=== PATIENT | female | born 1950 | race Caucasian/White ===

== ENCOUNTER 2020-07-18 16:44 | Outpatient (REF) | payer MEDICARE, MEDICAID, SELFPAY | END 2020-07-18 16:45 | disposition home or self-care (01) | LOC: HO.LNP 16:44 | PROVIDERS: Visit Provider Nurse Practitioner Family | DX: Z20.828 Contact with and (suspected) exposure to other viral communicable diseases (principal); R05 Cough | CPT/HCPCS: U0003 ==

== ENCOUNTER 2020-08-29 12:49 | Outpatient (REF) | payer MEDICARE, MEDICAID, SELFPAY ==
--- NOTE | 2020-08-29 12:53 | US_ITS ---
EXAMINATION: US VENOUS ULTRASOUND WITH DOPPLER LOWER EXTREMITY, RIGHT CLINICAL INFORMATION: Right lower extremity pain and swelling. Assess for DVT. COMPARISON: Bilateral leg venous ultrasound, reflux exam 12/07/2017 TECHNIQUE: Ultrasound of the deep veins is performed from the hip to the calf with compression sonography and color and pulse Doppler assessment. Spectral analysis with color-flow imaging is performed. FINDINGS: There is normal venous compression and respiratory variation and augmented flow. The visualized common femoral vein, superficial femoral vein, profunda femoral vein, popliteal vein, and the trifurcation region shows no evidence of deep venous thrombosis. No popliteal fossa cyst. US/US venous duplex LE RT IMPRESSION: No DVT demonstrated in the right lower extremity.
== END 2020-08-29 12:50 | disposition home or self-care (01) ==
LOC: HO.HMGCX 12:49
PROVIDERS: PCP Internal Medicine; Visit Provider Internal Medicine
DX: M79.89 Other specified soft tissue disorders (principal); M79.661 Pain in right lower leg
CPT/HCPCS: 93971

== ENCOUNTER → 2020-11-01 14:01 | Outpatient (BNVA) | payer MEDICARE, MEDICAID, SELFPAY | PROVIDERS: PCP Internal Medicine; Visit Provider Nurse Practitioner | DX: Z13.89 Encounter for screening for other disorder (principal) | CPT/HCPCS: Q3014 ==

== ENCOUNTER → 2021-01-24 13:46 | Outpatient (BNVA) | payer MEDICARE, MEDICAID, SELFPAY | PROVIDERS: PCP Internal Medicine; Visit Provider Nurse Practitioner | DX: K86.89 Other specified diseases of pancreas (principal); N81.6 Rectocele | CPT/HCPCS: Q3014 ==

== ENCOUNTER 2021-03-24 10:18 | Outpatient (REF) | payer MEDICARE, MEDICAID, SELFPAY ==
--- NOTE | ~2021-03-24 | XR_ITS ---
EXAMINATION: KNEE X-RAY CLINICAL INFORMATION: Pain COMPARISON: Previous x-ray December 2016 TECHNIQUE: Standing AP view of both knees and lateral and sunrise view of right knee FINDINGS: Right knee: There is a 3 component knee replacement in satisfactory position. No fracture, dislocation or x-ray evidence of loosening is seen. Soft tissues are unremarkable. There is no joint effusion. Standing AP view of the left knee is unremarkable. XR/XR knee RT 2V IMPRESSION: Satisfactory appearance of right knee replacement.
--- NOTE | ~2021-03-24 | XR_ITS ---
EXAMINATION: KNEE X-RAY CLINICAL INFORMATION: Pain COMPARISON: Previous x-ray December 2016 TECHNIQUE: Standing AP view of both knees and lateral and sunrise view of right knee FINDINGS: Right knee: There is a 3 component knee replacement in satisfactory position. No fracture, dislocation or x-ray evidence of loosening is seen. Soft tissues are unremarkable. There is no joint effusion. Standing AP view of the left knee is unremarkable. XR/XR knee standing BI IMPRESSION: Satisfactory appearance of right knee replacement.
== END 2021-03-24 10:19 | disposition home or self-care (01) ==
LOC: HO.HOSX 10:18
PROVIDERS: Visit Provider Physician Assistant
DX: M25.561 Pain in right knee (principal); Z96.651 Presence of right artificial knee joint
CPT/HCPCS: 73560; 73565; 99212

== ENCOUNTER 2021-03-26 12:30 | Outpatient (REF) | payer MEDICARE, MEDICAID, SELFPAY ==
--- NOTE | ~2021-03-26 | MM_ITS ---
EXAMINATION: MM SCREENING DIGITAL BREAST TOMOSYNTHESIS, BILATERAL CLINICAL INFORMATION: Screening. Asymptomatic. The lifetime risk of breast cancer based on the Tyrer-Cuzick Model is 5%. COMPARISON: Mammography: 04/28/2019, 04/15/2018, 04/13/2017 TECHNIQUE: Digital breast tomosynthesis is performed in both the craniocaudal and mediolateral oblique views along with computer-aided detection (CAD). Synthesized 2D images are generated from the tomosynthesis. FINDINGS: There are scattered areas of fibroglandular density (ACR BI-RADS breast composition Category b). There are no significant masses, abnormal calcifications, or other abnormalities. Parenchymal pattern is similar to prior exams. No significant changes. MM/MM tomosynthesis screening BI IMPRESSION: No mammographic evidence of malignancy. ASSESSMENT: BI-RADS 1: Negative RECOMMENDATION: Routine annual mammography screening. This patient's information was entered into a reminder system with a target due date for their next mammogram.
== END 2021-03-26 12:31 | disposition home or self-care (01) ==
LOC: HO.MAMMO 12:30
PROVIDERS: Visit Provider Internal Medicine
DX: Z12.31 Encounter for screening mammogram for malignant neoplasm of breast (principal)
CPT/HCPCS: 77063; 77067

== ENCOUNTER → 2021-04-28 11:33 | Outpatient (BNVA) | payer MEDICARE, MEDICAID, SELFPAY | PROVIDERS: Referring Provider Internal Medicine; Visit Provider Nurse Practitioner | DX: K59.04 Chronic idiopathic constipation (principal); K21.9 Gastro-esophageal reflux disease without esophagitis; K86.89 Other specified diseases of pancreas; N81.6 Rectocele | CPT/HCPCS: 99212 ==

== ENCOUNTER 2021-08-04 16:51 | Outpatient (REF) | payer MEDICARE, MEDICAID, SELFPAY | END 2021-08-04 16:52 | disposition home or self-care (01) | LOC: HO.LNP 16:51 | PROVIDERS: Visit Provider Physician Assistant Medical | DX: N39.0 Urinary tract infection, site not specified (principal) | CPT/HCPCS: 87086; 87088; 87186 ==

== ENCOUNTER → 2022-01-13 10:50 | Outpatient (BNVA) | payer MEDICARE, MEDICAID, SELFPAY | PROVIDERS: PCP Internal Medicine; Referring Provider Internal Medicine; Visit Provider Nurse Practitioner | DX: K59.04 Chronic idiopathic constipation (principal); R14.0 Abdominal distension (gaseous) | CPT/HCPCS: 99212 ==

== ENCOUNTER 2022-04-15 09:45 | Outpatient (REF) | payer MEDICARE, MEDICAID, SELFPAY ==
--- NOTE | ~2022-04-15 | MM_ITS ---
EXAMINATION: BONE DENSITOMETRY CLINICAL INDICATION: Asymptomatic menopausal state. COMPARISON: Previous BD dated 04/15/2018 and baseline BD dated 10/23/2014. TECHNIQUE: Using a [employer] DXA System (software version: 13.1) manufactured by [employer], dual-energy x-ray absorptiometry was performed of the lumbar spine and left hip. The images are of good technical quality. Summary results are attached. FINDINGS: AP SPINE L1-L4: Current: BMD 1.029 g/cm2, Z-score -0.4, T-score -1.3, osteopenia, 2.1% decrease from previous, 1.6% decrease from baseline (<5% change is not significant). Prior: BMD 1.051 g/cm2. Baseline: BMD 1.046 g/cm2. LEFT FEMUR, NECK: Current: BMD 0.820 g/cm2, Z-score -0.4, T-score -1.6, osteopenia. Prior: BMD 0.912 g/cm2. Baseline: BMD 0.819 g/cm2. LEFT FEMUR, TOTAL: Current: BMD 0.843 g/cm2, Z-score -0.5, T-score -1.3, osteopenia, 3.7% decrease from previous, 3.9% decrease from baseline (<5% change is not significant). Prior: BMD 0.875 g/cm2. Baseline: BMD 0.877 g/cm2. IDENTIFIED RISK FACTORS: Menopause, hysterectomy, bilateral oophorectomy, low calcium intake. HISTORY OF FRACTURE: None listed. MEDICATIONS: Calcium. MM/XR DEXA axial skeleton IMPRESSION: 1. DIAGNOSIS: Osteopenia based on the lowest T-score value of -1.6 in the femoral neck applying World Health Organization criteria. 2. 10-YEAR FRACTURE RISK PREDICTION, FRAX: Major osteoporotic fracture (clinical spine, forearm, hip or shoulder) 9.2%. Hip fracture 1.3%. 3. Treatment Recommendations: NOF guidelines recommend consideration for treatment in postmenopausal women and men age 50 and older presenting with the following: -A hip or vertebral (clinical or morphometric) fracture. -T-score less than or equal to -2.5 at the femoral neck or spine after appropriate evaluation to exclude secondary causes. -Low bone mass at the hip or spine and a 10-year fracture probability by FRAX of greater than or equal to 3% for hip fracture or greater than or equal to 20% for major osteoporotic fracture based on the [place] adapted WHO algorithm. 4. Other Recommendations: All treatment decisions require clinical judgment and consideration of individual patient factors, including patient preferences, comorbidities, previous drug use, risk factors not captured in the FRAX model (e.g. frailty, falls, vitamin D deficiency, increased bone turnover, interval significant decline in bone density) and possible under or overestimation of fracture risk by FRAX. Additional medical evaluation for secondary cause of low bone mineral density may be appropriate. FUTURE SCAN RECOMMENDATION: People with diagnosed cases of osteoporosis or at high risk for fracture should have regular bone mineral density tests. For patients eligible for Medicare, routine testing is allowed once every 2 years. The testing frequency can be increased to one year for patients who have rapidly progressing disease, those who are receiving or discontinuing medical therapy to restore bone mass, or have additional risk factors.
--- NOTE | ~2022-04-15 | MM_ITS ---
EXAMINATION: MM SCREENING DIGITAL BREAST TOMOSYNTHESIS, BILATERAL CLINICAL INFORMATION: Screening. Asymptomatic. History remote surgical excision benign right fibroadenoma, 2008 The lifetime risk of breast cancer based on the Tyrer-Cuzick Model is 5%. COMPARISON: Mammography: 03/26/2021, 04/28/2019, 04/15/2018. TECHNIQUE: Digital breast tomosynthesis is performed in both the craniocaudal and mediolateral oblique views along with computer-aided detection (CAD). Synthesized 2D images are generated from the tomosynthesis. FINDINGS: There are scattered areas of fibroglandular density (ACR BI-RADS breast composition Category b). Parenchymal pattern is similar to prior studies. There is no developing density or interval mass or architectural abnormality. Asymmetry anterior outer right breast is similar to prior exams. There are no abnormal calcifications. The axilla and skin contours are unremarkable. MM/MM tomosynthesis screening BI IMPRESSION: No mammographic evidence of malignancy. ASSESSMENT: BI-RADS 2: Benign RECOMMENDATION: Routine annual mammography screening. This patient's information was entered into a reminder system with a target due date for their next mammogram.
== END 2022-04-15 09:46 | disposition home or self-care (01) ==
LOC: HO.MAMMO 09:45
PROVIDERS: PCP Internal Medicine; Visit Provider Internal Medicine
DX: Z12.31 Encounter for screening mammogram for malignant neoplasm of breast (principal); Z13.820 Encounter for screening for osteoporosis; Z78.0 Asymptomatic menopausal state
CPT/HCPCS: 77063; 77067; 77080

== ENCOUNTER → 2022-05-19 10:29 | Outpatient (BNVA) | payer MEDICARE, MEDICAID, SELFPAY | PROVIDERS: PCP Internal Medicine; Referring Provider Internal Medicine; Visit Provider Nurse Practitioner | DX: K59.04 Chronic idiopathic constipation (principal); K86.89 Other specified diseases of pancreas; K21.9 Gastro-esophageal reflux disease without esophagitis | CPT/HCPCS: 99212 ==

== ENCOUNTER → 2022-09-15 10:19 | Outpatient (BNVA) | payer MEDICARE, MEDICAID, SELFPAY | PROVIDERS: PCP Internal Medicine; Visit Provider Nurse Practitioner | DX: K59.04 Chronic idiopathic constipation (principal); K86.89 Other specified diseases of pancreas; K21.9 Gastro-esophageal reflux disease without esophagitis; N81.6 Rectocele | CPT/HCPCS: 99212 ==

== ENCOUNTER 2022-10-06 14:25 | Outpatient (REF) | payer MEDICARE, MEDICAID, SELFPAY ==
--- NOTE | ~2022-10-06 | XR_ITS ---
EXAMINATION: XR CERVICAL SPINE CLINICAL INFORMATION: Neck pain. COMPARISON: None. TECHNIQUE: 5 views of the cervical spine were obtained. FINDINGS: There is normal cervical lordosis. The vertebral heights, vertebral alignment and disc heights are normal. There is no visible acute fracture, dislocation or subluxation. There is bilateral C3-C4 and C4-C5 mild facet joint hypertrophy. The neural foramina are patent bilaterally on oblique views. The soft tissues are normal. XR/XR cervical spine 4V IMPRESSION: Unremarkable cervical spine exam. Mild facet joint hypertrophy C3-C4 and C4-C5 disc levels.
== END 2022-10-06 14:26 | disposition home or self-care (01) ==
LOC: HO.HMGCX 14:25
PROVIDERS: PCP Internal Medicine; Visit Provider Internal Medicine
DX: M54.2 Cervicalgia (principal)
CPT/HCPCS: 72050

== ENCOUNTER 2022-11-13 10:00 | Outpatient (RCR) | payer MEDICARE, MEDICAID, SELFPAY ==
--- NOTE | 2022-10-29 13:51 | MHC.PT.EP ---
[facility] [place] Office [place] Office [place] Office [address] [phone] F: [phone] F: [phone] F: [phone] F: [phone] Physical Therapy Plan of Care Date of Evaluation: Date of Surgery: Diagnosis: cervicalgia Assessment: Pt is a 72 y/o female referred to PT for eval and treat of cervicalgia resulting in decreased tolerance for lifting objects of weight, turning her head to the L > R, reading, tolerating static postures, reaching into low cupboards, as well as disturbed sleep secondary to decreased cervical ROM and strength, decreased posture and dowager's deformity, sedentary lifestyle, TTP of L accessory tissue, increased L > R cervical accessory tissue tension. Pt is deemed an appropriate candidate to receive skilled PT services to address their physical impairments in order to improve their functional ability. Frequency and Duration: The patient will be seen 2 x/ wk x 4 wks. Short Term Goals: Initiate HEP. Improve baseline pain from 5 to < 3/10. School Occupational Therapist Goals: I with Home Program. symmetrical cervical rotation achieved. NDI improved by at least 9 points in order to demonstrate improved function. Pt will report No longer disturbed of sleep d/t cervical pain. Treatment Plan: Modalities to reduce pain, spasms and effusion. Manual therapy to restore motion and function. Therapeutic exercise to improve strength and flexibility. Neuromuscular re-education for posture and balance. Therapeutic activities to return to functional activities of daily living. Electronically signed by: Jorje Benitez PT. Please sign and return to therapist. Thank you for your referral.
--- NOTE | 2022-11-27 13:44 | MHC.PT.DC ---
[facility] [place] Office [place] Office [place] Office [address]azmine [address] [phone] F: [phone] F: [phone] F: [phone] F: [phone] Physical Therapy Discharge Report Diagnosis: cervicalgia Date of Surgery: Date of Evaluation: 10/29/22 Date of Discharge: 11/27/22 Treatments to Date: 5 Cancellations to Date: No Shows to Date: Discharge Status: Improved Function Independent with HEP Patient Elected to Stop Discharge Summary: Electronically signed by: Jorje Benitez PT. Please sign and return to therapist. Thank you for your referral.
== END 2022-11-27 13:43 | disposition home or self-care (01) ==
LOC: HO.PTCHIC 10:00
PROVIDERS: PCP Internal Medicine; Visit Provider Internal Medicine
DX: M54.2 Cervicalgia (principal)
CPT/HCPCS: 97110; 97140; 97161

== ENCOUNTER 2022-11-23 14:08 | Outpatient (REF) | payer MEDICARE, MEDICAID, SELFPAY ==
--- NOTE | ~2022-11-23 | XR_ITS ---
EXAMINATION: XR CHEST CLINICAL INFORMATION: R05.9 - Cough, unspecified COMPARISON: Chest radiographs 07/10/2015, 06/03/2015 TECHNIQUE: 2 views of the chest were obtained. FINDINGS: There is an irregular nodular density right perihilar region superior to the minor fissure measuring approximately 1.5 cm. Finding is not clearly visualized on lateral view. The remainder of the lungs are clear. There is no effusion. The costophrenic sulci are clear. The heart is normal in size. The hilar and mediastinal contours are unremarkable. There are multilevel degenerative changes thoracic spine. XR/XR chest 2V IMPRESSION: -Irregular nodular density right perihilar region superior to minor fissure measuring approximately 1.[address] chest with contrast for further evaluation. -Lungs otherwise clear. No effusion.
== END 2022-11-23 14:09 | disposition home or self-care (01) ==
LOC: HO.HMGCX 14:08
PROVIDERS: PCP Internal Medicine; Visit Provider Physician Assistant
DX: Z20.822 Contact with and (suspected) exposure to COVID-19 (principal); R05.9 Cough, unspecified
CPT/HCPCS: 0241U; 71046

== ENCOUNTER 2022-11-23 14:45 | Outpatient (REF) | payer MEDICARE, MEDICAID, SELFPAY ==
[2022-11-23 17:21] LABS: Influenza A PCR NEGATIVE (Negative); Influenza B PCR NEGATIVE (Negative); Resp Syncy Virus RNA Qual PCR NEGATIVE (Negative); SARS COV2 PCR INHOUSE NEGATIVE (Negative)
== END 2022-11-23 14:46 | disposition home or self-care (01) ==
LOC: HO.LAB 14:45
PROVIDERS: Visit Provider Physician Assistant
DX: Z13.89 Encounter for screening for other disorder (principal)
CPT/HCPCS: 0241U

== ENCOUNTER 2023-02-01 10:20 | Outpatient (REF) | payer MEDICARE, MEDICAID, SELFPAY ==
--- NOTE | ~2023-02-01 | MR_ITS ---
EXAMINATION: MR BRAIN WITHOUT CONTRAST CLINICAL INFORMATION: Right sided ocular pain. COMPARISON: None available. TECHNIQUE: MRI of the brain was obtained using routine sequences without contrast. FINDINGS: No focal restricted diffusion is demonstrated to suggest acute or subacute cerebral ischemia. No evidence of acute or chronic hemorrhagic products on heme-sensitive imaging. Scattered periventricular and deep white matter T2 FLAIR hyperintensities consistent with mild underlying microangiopathy. Proportional prominence of the ventricles and sulcal spaces without evidence of obstructive hydrocephalus. No abnormal mass effect. No midline shift. Normal appearance of the pituitary gland. The suprasellar cistern remains widely patent. Normal positioning of the cerebellar tonsils. Normal arterial and venous vascular flow voids are present. Normal, homogeneous marrow signal. There is a 1.3 cm ovoid structure without restricted diffusion within the nasopharynx suggestive of a retention cyst of the left-sided fossa of Rosenmuller. Mild mucosal thickening of the paranasal sinuses. Moderate left-sided mastoid effusion. No signal abnormalities within the right-sided mastoid. No demonstrated abnormalities of the orbits on limited evaluation. MR/MR head/brain wo con IMPRESSION: 1. No acute intracranial abnormalities. 2. Mild underlying microangiopathy and generalized cerebral volume loss. 3. Moderate left-sided mastoid effusion. Apparent 1.3 cm retention cyst of the left-sided fossa of Rosenmuller.
== END 2023-02-01 10:21 | disposition home or self-care (01) ==
LOC: HO.MRI 10:20
PROVIDERS: PCP Internal Medicine; Visit Provider Nurse Practitioner Family
DX: H57.11 Ocular pain, right eye (principal)
CPT/HCPCS: 70551

== ENCOUNTER 2023-03-16 10:46 | Outpatient (AMB) | payer MEDICARE, MEDICAID, SELFPAY ==
--- NOTE | 2023-03-16 10:52 | A.OFFVIS_ITS ---
Intake Vital Signs 03/16/23 10:53 Height 5 ft 2 in Weight 199 lb 11.821 oz BMI 36.5 BP 128/87 Blood Pressure Location Lt brachial Position Sitting Pulse 63 Intake Visit Reasons: 6 month f/u Intake Note: Veronica presents in office as a est.patient for a 6 month f/u PT CC: pt reports having no concerns pt denies any other GI Issues Director Of Coding Required: No Accompanied by: Self / Same As Patient Allergies aged foods Allergy (Unknown, Verified 03/16/23 10:55) rash bee pollen [Bee Stings] Allergy (Unknown, Verified 03/16/23 10:55) SWELLING bees Allergy (Unknown, Verified 03/16/23 10:55) anaphylaxis gabapentin [Neurontin] Allergy (Unknown, Verified 03/16/23 10:55) hematurea latex [LATEX] Allergy (Unknown, Verified 03/16/23 10:55) RASH risperidone [From Risperdal] Allergy (Unknown, Verified 03/16/23 10:55) LUMPS ON ABDOMEN- SUPERFICIAL PHLEBITIS, painful lumps of abdomen white composit dental filling Allergy (Unknown, Verified 03/16/23 10:55) hives lactose Adverse Reaction (Mild, Verified 03/16/23 10:55) Unknown tramadol [TRAMADOL] Adverse Reaction (Mild, Verified 03/16/23 10:55) nausea/vomiting divalproex sodium [From Depakote] Adverse Reaction (Unknown, Verified 03/16/23 10:55) LOW DOSE AND SLOW RELEASE CAUSES STELLA Iodinated Contrast Media [IV Dye, Iodine Containing] Adverse Reaction (Unknown, Verified 03/16/23 10:55) DEHYDRATED, TWITCHING niacin [Niacin] Adverse Reaction (Unknown, Verified 03/16/23 10:55) TURNS RED olanzapine [From Zyprexa] Adverse Reaction (Unknown, Verified 03/16/23 10:55) BLOOD IN URINE yeast, dried [yeast] Adverse Reaction (Unknown, Verified 03/16/23 10:55) WHITE COATING ON TONGUE WHITE BREAD Allergy (Mild, Uncoded 03/16/23 10:55) DIFF SWALLOWING wheath Adverse Reaction (Mild, Uncoded 03/16/23 10:55) Unknown HPI 6 month f/u HPI Details Assessment & Plan (1) Chronic idiopathic constipation: ?Code(s): K59.04 - Chronic idiopathic constipation ?Plan: She is doing well with her GI regimen, if she eats grains or dairy she has to take 2 creon and this works well. She continues on the LIzess with good CIC control. She has not had her wisdom teeth removed - her right is impacted in her cheekbone (upper) and this complicates the surgery and possibly could damage the cheekbone - she may need to see a specialist. She needs refills on all. ROV 6 mos. (2) Rectocele: ?Code(s): N81.6 - Rectocele (3) Pancreatic insufficiency: ?Code(s): K86.89 - Other specified diseases of pancreas (4) GERD (gastroesophageal reflux disease): ?Code(s): K21.9 - Gastro-esophageal reflux disease without esophagitis ? ? ? Medications: Refilled linaclotide (Linze ss) 145 mcg? PO DAILY 30 caps 7RF K59.04 - Chronic i diopathic constipa tion ? qcxzgj-fcvspisy-an ylase 24,000-76,00 0 -120,000 unit (C reon) ?? administe r with meals and/o r snacks 1 cap? PO TID 90 c aps 3RF K58.9 - Irritable bowel syndrome wit hout diarrhea, K86 .89 - Other specif ied diseases of pa ncreas ? TODAY'S VISIT She tripped over her shopping cart in November and fell forward and broke her nose and had a hematoma over her right eye that is still painful. She also has neck pain, and just had PT for this. She had her oral surgery and they has to cut through her cheek and she still has some trouble smiling. She is stable on her GI medicine. She continues on her Linzess and her creon with good control of her bowels. ROV 6 mos. COUNT INCLUDES THE [facility] Medical History Acquired hammer toe of left foot Bipolar disorder Bunion of great toe of left foot Cellulitis of toe of right foot Hiatal hernia with GERD Mastoiditis Neck pain on left side Osteopenia of multiple sites Pain around toenail, left foot Retention cyst of nasal sinus Surgical History Fibroadenoma of right breast H/O colonoscopy History of appendectomy History of bladder surgery History of esophagogastroduodenoscopy (EGD) History of knee replacement procedure of right knee History of tonsillectomy History of total abdominal hysterectomy and bilateral salpingo-oophorectomy History of total knee arthroplasty Family History Father Emphysema, unspecified CVD (cardiovascular disease) Mother CVD (cardiovascular disease) Brother Lung cancer Bone cancer Brother Cancer of prostate Daughter No problems noted. Brother No problems noted. Brother No problems noted. Brother No problems noted. Social History Household Members: None Housing: Apartment Alcohol intake: current Alcohol intake frequency: does not drink Patient Tobacco Use Status: Never used Tobacco e-Cigarette/Vaping Use: Never Used service: No Current occupational status: retired Cognitive needs: No Hearing needs: No Vision needs: No Review of Systems Const Denies fatigue, Denies fever(s), Denies night sweats, Denies poor appetite and Denies weight loss ENT Reports Normal hearing present, Denies dysphagia, Denies odynophagia, Denies throat swelling and Denies tongue swelling Card Reports no additional complaints Resp Reports no additional complaints GI Denies abdominal pain, Denies melena, Reports bloating, Denies hematochezia, Reports constipation, Denies GI cramping, Denies dysphagia, Denies excessive flatus, Denies early satiety, Denies heartburn, Denies diarrhea, Denies nausea, Denies odynophagia, Denies vomiting and Denies hematemesis Skin/Breast Denies pruritus, Denies lesions, Denies rash and Denies jaundice Neuro Reports Normal hearing present and Denies Abnormal speech present Endo Denies fatigue Aller/Immun Denies throat swelling and Denies tongue swelling Physical Exam Vital Signs: Last Vital Signs Pulse 63 03/16/23 10:53 BP 128/87 03/16/23 10:53 BMI result Body Mass Index 36.5 Const General: cooperative, no acute distress, well developed and well groomed Nutritional Appearance: well nourished and obese Orientation/consciousness: oriented to person, oriented to place and oriented to time Limitations: No language barrier and ambulation with cane HEENT Head: Yes normocephalic and Yes atraumatic Eyes General: appearance normal, both eyes and all related structures Pupils: Equal, round and reactive pupils present Neck Neck: Yes normal visual inspection and Yes no lymphadenopathy Thyroid: Thyroid normal Resp Effort & Inspection: normal respiratory effort and able to speak in complete sentences Auscultation: clear to auscultation bilaterally Cardio Rate: regular rate Rhythm: regular rhythm Heart sounds: Normal, physiologic split S2 sound present Peripheral pulses: radial pulses present and posterior tibial pulses present GI Inspection: No distended, No Abdominal panniculus present and Yes obesity Palpation (GI): Soft to palpation, nontender, no guarding, not rigid and No hepa tosplenomegaly present Percussion: Yes normal to percussion Auscultation: normal bowel sounds Rectal Exam - Female: deferred Skin General skin exam: no rashes or lesions noted, turgor normal, skin not dry, no jaundice, No spider nevi and no striae Rashes: no rashes Nails: normal Neuro General: oriented to person, oriented to place and oriented to time Cranial nerves: Yes Equal, round and reactive pupils present and Yes Normal hearing present Speech: No Abnormal speech present Extrem General: Yes normal to inspection, No clubbing, No cyanosis and No edema Psych Appearance: grossly normal and well kempt Mental Status: mental status grossly normal Speech and movement: Normal speech and movement present Affect: normal affect Attitude: cooperative Thought process: Normal thought process present and not confabulating Thought content: Normal thought content present Insight: Fair insight present (Psych) Judgement: Fair judgement present (Psych) Assessment & Plan Assessment & Plan (1) Chronic idiopathic constipation: Code(s): K59.04 - Chronic idiopathic constipation Plan: She tripped over her shopping cart in November and fell forward and broke her nose and had a hematoma over her right eye that is still painful. She also has neck pain, and just had PT for this. She had her oral surgery and they has to cut through her cheek and she still has some trouble smiling. She is stable on her GI medicine. She continues on her [employer]ex[employer] Therapeutic[employer] and her creon with good control of her bowels. ROV 6 mos. (2) Pancreatic insufficiency: Code(s): K86.89 - Other specified diseases of pancreas (3) GERD (gastroesophageal reflux disease): Code(s): K21.9 - Gastro-esophageal reflux disease without esophagitis (4) Rectocele: Code(s): N81.6 - Rectocele Medications: Refilled linaclotide (Linzess) 145 mcg PO DAILY 30 caps 7RF K59.04 - Chronic idiopathic constipation [id number]-gmuzghc 24,000-76,000 -120,000 unit (Creon) 1 cap PO TID 90 caps 6RF K58.9 - Irritable bowel syndrome without diarrhea, K86.89 - Other specified diseases of pancreas Coding Level of Care Code Est Pt Level 3 (53722) Diagnoses Chronic idiopathic constipation K59.04 Pancreatic insufficiency K86.89 GERD (gastroesophageal reflux disease) K21.9 Rectocele N81.6
[2023-03-16 10:53] VITALS: BP 128/87; PULSE 63; BMI 36.5
== END 2023-03-16 11:28 | disposition home or self-care (01) ==
PROVIDERS: PCP Internal Medicine; Visit Provider Nurse Practitioner
DX: K59.04 Chronic idiopathic constipation (principal); K86.89 Other specified diseases of pancreas; K21.9 Gastro-esophageal reflux disease without esophagitis; N81.6 Rectocele
CPT/HCPCS: 99213

== ENCOUNTER → 2023-03-16 10:46 | Outpatient (BNVA) | payer MEDICARE, MEDICAID, SELFPAY | PROVIDERS: PCP Internal Medicine; Visit Provider Nurse Practitioner | DX: K59.04 Chronic idiopathic constipation (principal); K86.89 Other specified diseases of pancreas; K21.9 Gastro-esophageal reflux disease without esophagitis; N81.6 Rectocele | CPT/HCPCS: 99212 ==

== ENCOUNTER 2023-04-26 11:45 | Outpatient (REF) | payer MEDICARE, MEDICAID, SELFPAY ==
--- NOTE | ~2023-04-26 | MM_ITS ---
EXAMINATION: MM SCREENING DIGITAL BREAST TOMOSYNTHESIS, BILATERAL CLINICAL INFORMATION: Screening. Asymptomatic. COMPARISON: Mammography: This study is compared with prior exams dating back to 2016. TECHNIQUE: Digital breast tomosynthesis is performed in both the craniocaudal and mediolateral oblique views along with computer-aided detection (CAD). Synthesized 2D images are generated from the tomosynthesis. FINDINGS: There are scattered areas of fibroglandular density (ACR BI-RADS breast composition Category b). There are no significant masses, abnormal calcifications, or other abnormalities. MM/MM tomosynthesis screening BI IMPRESSION: No mammographic evidence of malignancy. ASSESSMENT: BI-RADS BI-RADS 1 - Negative RECOMMENDATION: Routine annual mammography screening. 1 year F/U This examination should not preclude the clinical evaluation of a suspicious palpable abnormality. This patient's information was entered into a reminder system with a target due date for their next mammogram.
== END 2023-04-26 11:46 | disposition home or self-care (01) ==
LOC: HO.MAMMO 11:45
PROVIDERS: PCP Internal Medicine; Visit Provider Internal Medicine
DX: Z12.31 Encounter for screening mammogram for malignant neoplasm of breast (principal)
CPT/HCPCS: 77063; 77067

== ENCOUNTER → 2023-04-26 12:00 | Outpatient (BNV) | payer MEDICARE, MEDICAID, SELFPAY | PROVIDERS: PCP Internal Medicine; Visit Provider Radiology Diagnostic Radiology | DX: Z12.31 Encounter for screening mammogram for malignant neoplasm of breast (principal) | CPT/HCPCS: 77063; 77067 ==

== ENCOUNTER 2023-05-04 10:44 | Outpatient (AMB) | payer MEDICARE, MEDICAID, SELFPAY ==
--- NOTE | 2023-05-04 11:26 | A.OFFVIS_ITS ---
Intake Vital Signs 05/04/23 11:39 Height 5 ft 2 in Weight 204 lb BMI 37.3 BP 110/64 Blood Pressure Location Lt brachial Position Sitting Pulse 62 Pulse Source Pulse Oximeter Pulse Oximetry (%) 98 Oxygen Delivery Method Room Air Intake Visit Reasons: CHRISTIAN [id number] Intake Note: Pt is here today for her SWV Allergies aged foods Allergy (Unknown, Verified 05/04/23 11:56) rash bee pollen [Bee Stings] Allergy (Unknown, Verified 05/04/23 11:56) SWELLING bees Allergy (Unknown, Verified 05/04/23 11:56) anaphylaxis gabapentin [Neurontin] Allergy (Unknown, Verified 05/04/23 11:56) hematurea latex [LATEX] Allergy (Unknown, Verified 05/04/23 11:56) RASH risperidone [From Risperdal] Allergy (Unknown, Verified 05/04/23 11:56) LUMPS ON ABDOMEN- SUPERFICIAL PHLEBITIS, painful lumps of abdomen white composit dental filling Allergy (Unknown, Verified 05/04/23 11:56) hives lactose Adverse Reaction (Mild, Verified 05/04/23 11:56) Unknown tramadol [TRAMADOL] Adverse Reaction (Mild, Verified 05/04/23 11:56) nausea/vomiting divalproex sodium [From Depakote] Adverse Reaction (Unknown, Verified 05/04/23 11:56) LOW DOSE AND SLOW RELEASE CAUSES STELLA Iodinated Contrast Media [IV Dye, Iodine Containing] Adverse Reaction (Unknown, Verified 05/04/23 11:56) DEHYDRATED, TWITCHING niacin [Niacin] Adverse Reaction (Unknown, Verified 05/04/23 11:56) TURNS RED olanzapine [From Zyprexa] Adverse Reaction (Unknown, Verified 05/04/23 11:56) BLOOD IN URINE yeast, dried [yeast] Adverse Reaction (Unknown, Verified 05/04/23 11:56) WHITE COATING ON TONGUE WHITE BREAD Allergy (Mild, Uncoded 05/04/23 11:56) DIFF SWALLOWING wheath Adverse Reaction (Mild, Uncoded 05/04/23 11:56) Unknown Medication List - Last Reconciled 05/04/23 by Belen Simons MD divalproex ER 500 mg PO DAILY 30 days linaclotide (Linzess) 145 mcg PO DAILY btcwri-bcdiyiaz-izgryig 24,000-76,000 -120,000 unit (Creon) 1 cap PO TID HPI SWV G0439 HPI Details SWV ?72 year old lady with osteopenia and multiple sites, history of basal cell cancer in phase, has chronic GERD, and pancreatic insufficiency, has rectocele, with chronic idiopathic constipation and bipolar disorder currently followed by psychiatry, presents for her subsequent? Annual Wellness Visit. She is up-to-date with her screening mammogram done 04/26/2023 with normal findings, no longer gets Pap smears had a hysterectomy in the past. She had a bone density scan done 04/15/2022 which showed osteopenia in lumbar spine, left femoral neck and left femur. She is due for colon cancer screening, Cologuard ordered.? She had a normal fasting lipid panel and fasting glucose done 11/03/2019 . She is up-to-date with her COVID vaccine, recommended to get the booster, up-to-date with yearly flu shots and Tdap, has had her pneumococcal vaccination, reminded to get her Shingrix vaccine. ? Medical / Social History Reviewed? Past Medical History ?Yes . ? [place] of Care / Care Team list updated ?Yes . ? Surgical/Hospitalization History ?Yes . ? Current Medications (including OTC and supplements) ?Yes . ? Family History ?Yes . ? Tobacco Control form ?Yes . ? AUDIT-C (Alcohol use) form ?Yes . ? Illicit drug use in Social History ?Yes . ? Current diagnosis of depression? ?No ? Appropriate PHQ2/PHQ9 completed ?Yes . ? Data entered by ?Business Systems Administrator and reviewed by provider ? Fall Risk ? Fall History? Have you had any falls with injury in the past year? ?No . ? Have you had two or more falls in the past year? ?No . ? Fall Risk Assessment: ?No falls in the past year . ? HRA filled out by the patient, reviewed by Provider and scanned. ? SWV ? Balance? Romberg ?Yes . ? Tandem walk ?unable due to stiff knee status post right TKR . ? Walk and Turn ?Yes . ? Rise from sit to stand ?Yes . ?Vision? Corrective lens ?Yes ? Vision screen ? Up-to-date, goes to [facility], last seen 03/30/2023 ?Hearing? Whisper test ?pass but wears a hearing aid. ?Written Plan?Completed. See Patient Documents.? HPI Comments History of Present Illness Details ? [facility] Medical History (Updated 05/04/23 @ 12:17 by Belen Simons MD) Basal cell carcinoma of face Mastoiditis Retention cyst of nasal sinus Acquired hammer toe of left foot Neck pain on left side Osteopenia of multiple sites Hiatal hernia with GERD Bipolar disorder Bunion of great toe of left foot Pain around toenail, left foot Cellulitis of toe of right foot Surgical History History of total knee arthroplasty History of esophagogastroduodenoscopy (EGD) H/O colonoscopy History of bladder surgery Fibroadenoma of right breast History of knee replacement procedure of right knee History of total abdominal hysterectomy and bilateral salpingo-oophorectomy History of appendectomy History of tonsillectomy Family History Father Emphysema, unspecified CVD (cardiovascular disease) Mother CVD (cardiovascular disease) Brother Lung cancer Bone cancer Brother Cancer of prostate Daughter No problems noted. Brother No problems noted. Brother No problems noted. Brother No problems noted. Social History Household Members: None Housing: Apartment Alcohol intake: current Alcohol intake frequency: does not drink Patient Tobacco Use Status: Never used Tobacco e-Cigarette/Vaping Use: Never Used service: No Current occupational status: retired Cognitive needs: No Hearing needs: No Vision needs: No Questionnaire Medicare Wellness Checkup [age] What gender do you identify with?: female During the past 4 weeks, how much have you been bothered by emotional problems such as feeling anxious, depressed, irritable, sad or downhearted, and blue?: not at all During the past 4 weeks, has your physical & emotional health limited your social activities with family, friends, neighbors, or groups?: not at all During the past 4 weeks, how much bodily pain have you generally had?: very mild pain During the past 4 weeks, was someone available to help you if you needed & wanted help?: no, not at all During the past 4 weeks, what was the hardest physical activity you could do for at least 2 minutes?: moderate Can you get to places out of walking distance without help? (For eg., can you travel alone on buses, taxis or drive your car?): Yes Can you go shopping for groceries or clothes without someone's help?: Yes Can you prepare your own meals?: Yes Can you do your housework without help?: Yes Because of any health problems, do you need the help of another person with your personal care needs such as eating, bathing, dressing or getting around the house?: No Can you handle your own money without help?: Yes During the past 4 weeks, how would you rate your health in general?: very good During the past 4 weeks how have things been going for you?: pretty well Are you having difficulties driving your car?: not applicable, I don't use a car Do you always fasten your seat belt when you are in a car?: yes, usually During past 4 weeks, have you been bothered by the following: never: Sexual problems?, Trouble eating well?, Teeth or denture problems? and Problems using the telephone?, seldom: Falling or dizzy when standing up and sometimes: Tiredness or fatigue? Have you fallen 2 or more times in the past year?: Yes Are you afraid of falling?: Yes Are you a smoker?: no During the past 4 weeks, how many drinks of wine, beer, or other alcoholic beverages did you have?: no alcohol at all Do you exercise for about 20 minutes 3 or more times a week?: yes, some of the time Have you been given information to help with the following?: yes: Hazards in your house that might hurt you? and no: Keeping track of your medications? How often do you have trouble taking medicines the way you have been told to take them?: I always take medicine as prescribed How confident are you that you can control & manage most of your health problems?: very confident What is your race?: White Mini Mental State Exam (MMSE) Orientation What is the (year) (season) (date) (day) (month)?: year (2022), season (summer), date (05/04/23), day (Wednesday) and month (April) Where are we (state) (county) (town or city) (hospital) (floor)?: state ([place]), formerly [facility], [facility] ([place]), town or city ([place]) and hospital/clinic ([facility]) Score Score: 9 Activity of Daily Living Bathing - sponge bath, tub bath or shower: receives no assistance (gets in/out by self, if usual bathing means Dressing - getting clothes from closets & drawers, including inner/outer garments & fasteners.: gets clothes & gets completely dressed without help Toileting - going to the 'toilet room' for urine/bowel elimination & cleaning self/arranging clothes: goes to toilet room, cleans self, arranges clothes without help Transfer: moves in & out of bed and chair without help (may use support object) Continence: has occasional 'accidents' Feeding: feeds self without help Total Score: 0 Information obtained from: patient Using telephone: independent Traveling: needs assistance Shopping: independent Preparing meals: independent Housework: independent Taking medicine: independent Managing money: independent PHQ-9 Over the last 2 weeks, how often have you been bothered by any of the following problems? 1. Little interest or pleasure in doing things: not at all 2. Feeling down, depressed, or hopeless: not at all 3. Trouble falling or staying asleep, or sleeping too much: more than half the days 4. Feeling tired or having little energy: more than half the days 5. Poor appetite or overeating: not at all 6. Feeling bad about yourself - or that you are a failure or have let yourself or your family down: not at all 7. Trouble concentrating on things, such as reading the newspaper or watching television: not at all 8. Moving or speaking so slowly that other people could have noticed. Or the opposite - being so fidgety or restless that you have been moving around a lot more than usual: not at all 9. Thoughts that you would be better off or of hurting yourself in some way: not at all Total score: 4 Depression Screening Interpretation: Positive (goes to [facility], [place] is the med prescriber) Depression Screening Follow-up: Existing condition and In treatment 95175 - PHQ-9 Billing: Yes Source: Developed by Drs. Kevin Villarreal, Mery Barnett, Sheng Kulkarni and colleagues, with an educational altagracia from [employer]. Physical Exam Vital Signs: Last Vital Signs Pulse 62 05/04/23 11:39 BP 110/64 05/04/23 11:39 Pulse Ox 98 05/04/23 11:39 Oxygen Delivery Method Room Air 05/04/23 11:39 BMI result Body Mass Index 37.3 Assessment & Plan Assessment & Plan (1) Encounter for subsequent annual wellness visit (AWV) in Medicare patient: Code(s): Z00.00 - Encounter for general adult medical examination without abnormal findings Plan: Medical wellness checklist reviewed, discussed with patient and updated. Reminded to get her COVID booster and shingles vaccine as well as yearly flu shot. Cologuard test ordered today for colon cancer screening (2) Basal cell carcinoma of face: Comment: Has appointment with [facility], Code(s): C44.310 - Basal cell carcinoma of skin of unspecified parts of face (3) Osteopenia of multiple sites: Code(s): M85.89 - Other specified disorders of bone density and structure, multiple sites Plan: Up-to-date with her bone density scan, encouraged to do regular exercise, stay active, take ozch-elk-ynaicna vitamin-D 3 supplements 2000 units daily and take adequate calcium from dietary sources (4) GERD (gastroesophageal reflux disease): Code(s): K21.9 - Gastro-esophageal reflux disease without esophagitis Plan: Avoidance of food triggers (5) Bipolar disorder: Code(s): F31.9 - Bipolar disorder, unspecified Plan: Followed by psychiatry (6) Pancreatic insufficiency: Code(s): K86.89 - Other specified diseases of pancreas Plan: Currently on Creon (7) Chronic idiopathic constipation: Code(s): K59.04 - Chronic idiopathic constipation Plan: Currently on Linzess (8) Advanced directives, counseling/discussion: Code(s): Z71.89 - Other specified counseling Plan: Initiated the conversation about Advanced Directives. Advanced Directives help patients prepare for current and future decisions about their medical treatment and place of care. Discussed with patient that it is a process where a patients current condition and prognosis are reviewed, their wishes for information regarding their illness are elicited, and likely medical dilemmas are presented and options discussed. Healthcare proxy form completed today. The form can be amended as needed, reviewed yearly and make changes as needed Orders: Referrals Cologuard Test Z12.11 - Encounter for screening for malignant neoplasm of colon, Z12.12 - Encounter for screening for malignant neoplasm of rectum Quality Reporting (2019) Depression/Bipolar (159/160/161/177) PHQ-9: Total score: 4 Coding Level of Care Code Medicare Subsequent (G0439) Diagnoses Encounter for subsequent annual wellness visit (AWV) in Medicare patient Z00.00 Basal cell carcinoma of face C44.310 Osteopenia of multiple sites M85.89 GERD (gastroesophageal reflux disease) K21.9 Bipolar disorder F31.9 Pancreatic insufficiency K86.89 Chronic idiopathic constipation K59.04 Advanced directives, counseling/discussion Z71.89 CPT Codes Advance Care Planning - Advance Care Planning discussion: On file, no changes ([id number]) Advance Care Planning - Time spent: 1-15 minutes, on File ([id number]) Advance Care Planning Advance Care Planning discussion: On file, no changes Date of discussion: 05/04/23 Who was present: Patient Forms completed: Health Care Proxy Time spent: 1-15 minutes, on File Actual minutes spent: 15
[2023-05-04 11:39] VITALS: BP 110/64; PULSE 62; O2SAT 98; BMI 37.3
== END 2023-05-04 14:35 | disposition home or self-care (01) ==
PROVIDERS: PCP Internal Medicine; Visit Provider Internal Medicine
DX: Z00.00 Encounter for general adult medical examination without abnormal findings (principal); K21.9 Gastro-esophageal reflux disease without esophagitis; F31.9 Bipolar disorder, unspecified; C44.310 Basal cell carcinoma of skin of unspecified parts of face; M85.89 Other specified disorders of bone density and structure, multiple sites; K86.89 Other specified diseases of pancreas; K59.04 Chronic idiopathic constipation; Z71.89 Other specified counseling
CPT/HCPCS: 1123F; G0439

== ENCOUNTER 2023-07-14 12:10 | Outpatient (AMB) | payer MEDICARE, MEDICAID, SELFPAY ==
[2023-07-14 13:24] VITALS: BP 112/66; PULSE 65; TEMP 36.6; O2SAT 97; BMI 37.7
--- NOTE | 2023-07-14 13:24 | AM.OFFWIN_ITS ---
Intake Vital Signs 07/14/23 13:24 Height 5 ft 2 in Weight 206 lb BMI 37.7 BP 112/66 Blood Pressure Location Lt brachial Position Sitting Pulse 65 Pulse Source Pulse Oximeter Temp 97.8 F Temp Source Temporal Artery Scan Pulse Oximetry (%) 97 Oxygen Delivery Method Room Air Intake Visit Reasons: EP, Right lower leg redness, itchiness Intake Note: pt is here for c/o right lower leg redness with itchiness Patient Tobacco Use Status: Never used Tobacco Allergies aged foods Allergy (Unknown, Verified 07/14/23 13:55) rash bee pollen [Bee Stings] Allergy (Unknown, Verified 07/14/23 13:55) SWELLING bees Allergy (Unknown, Verified 07/14/23 13:55) anaphylaxis gabapentin [Neurontin] Allergy (Unknown, Verified 07/14/23 13:55) hematurea latex [LATEX] Allergy (Unknown, Verified 07/14/23 13:55) RASH risperidone [From Risperdal] Allergy (Unknown, Verified 07/14/23 13:55) LUMPS ON ABDOMEN- SUPERFICIAL PHLEBITIS, painful lumps of abdomen white composit dental filling Allergy (Unknown, Verified 07/14/23 13:55) hives lactose Adverse Reaction (Mild, Verified 07/14/23 13:55) Unknown tramadol [TRAMADOL] Adverse Reaction (Mild, Verified 07/14/23 13:55) nausea/vomiting divalproex sodium [From Depakote] Adverse Reaction (Unknown, Verified 07/14/23 13:55) LOW DOSE AND SLOW RELEASE CAUSES STELLA Iodinated Contrast Media [IV Dye, Iodine Containing] Adverse Reaction (Unknown, Verified 07/14/23 13:55) DEHYDRATED, TWITCHING niacin [Niacin] Adverse Reaction (Unknown, Verified 07/14/23 13:55) TURNS RED olanzapine [From Zyprexa] Adverse Reaction (Unknown, Verified 07/14/23 13:55) BLOOD IN URINE yeast, dried [yeast] Adverse Reaction (Unknown, Verified 07/14/23 13:55) WHITE COATING ON TONGUE WHITE BREAD Allergy (Mild, Uncoded 07/14/23 13:55) DIFF SWALLOWING wheath Adverse Reaction (Mild, Uncoded 07/14/23 13:55) Unknown Medication List - Last Reconciled 07/14/23 by Jared Betancur MD divalproex ER 500 mg PO DAILY 30 days linaclotide (Linzess) 145 mcg PO DAILY uhkubk-naiynsdf-deswydf 24,000-76,000 -120,000 unit (Creon) 1 cap PO TID Do you need a note to return to daycare/school/sports/work: Yes HPI EP, Right lower leg redness, itchiness HPI Details 73-year-old female presents to the [facility] for a sick visit. Patient is complaining of redness in the lower part of her right leg. Since her right knee replacement she does get these symptoms off in. There is discomfort around the redness and swelling at times. Has been using a cane to ambulate in the past few days. ON LICENSE OF [facility] Medical History (Updated 05/04/23 @ 12:17 by Belen Simons MD) Basal cell carcinoma of face Mastoiditis Retention cyst of nasal sinus Acquired hammer toe of left foot Neck pain on left side Osteopenia of multiple sites Hiatal hernia with GERD Bipolar disorder Bunion of great toe of left foot Pain around toenail, left foot Cellulitis of toe of right foot Surgical History History of total knee arthroplasty History of esophagogastroduodenoscopy (EGD) H/O colonoscopy History of bladder surgery Fibroadenoma of right breast History of knee replacement procedure of right knee History of total abdominal hysterectomy and bilateral salpingo-oophorectomy History of appendectomy History of tonsillectomy Family History Father Emphysema, unspecified CVD (cardiovascular disease) Mother CVD (cardiovascular disease) Brother Lung cancer Bone cancer Brother Cancer of prostate Daughter No problems noted. Brother No problems noted. Brother No problems noted. Brother No problems noted. Social History Household Members: None Housing: Apartment Alcohol intake: current Alcohol intake frequency: does not drink Patient Tobacco Use Status: Never used Tobacco e-Cigarette/Vaping Use: Never Used service: No Current occupational status: retired Cognitive needs: No Hearing needs: No Vision needs: No Physical Exam Vital Signs: Last Vital Signs Temp 97.8 F 07/14/23 13:24 Pulse 65 07/14/23 13:24 BP 112/66 07/14/23 13:24 Pulse Ox 97 07/14/23 13:24 Oxygen Delivery Method Room Air 07/14/23 13:24 BMI result Body Mass Index 37.7 Skin Other: Right leg: Erythema over the manriquez with 1+ edema. Tender to touch. Assessment & Plan Assessment & Plan (1) Cellulitis of right leg: Code(s): L03.115 - Cellulitis of right lower limb Plan: Bactrim for 7 days. Keep the leg elevated. If symptoms do not get better to follow-up here. Coding Level of Care Code Est Pt Level 3 (32305) Diagnoses Cellulitis of right leg L03.115
== END 2023-07-14 14:56 | disposition home or self-care (01) ==
PROVIDERS: PCP Internal Medicine; Visit Provider Internal Medicine
DX: L03.115 Cellulitis of right lower limb (principal)
CPT/HCPCS: 99213

== ENCOUNTER 2023-09-16 11:16 | Outpatient (AMB) | payer MEDICARE, MEDICAID, SELFPAY ==
--- NOTE | 2023-09-16 11:19 | MHC.OFFVIS ---
Intake Vital Signs 09/16/23 11:21 Height 5 ft 2 in Weight 202 lb 13.204 oz BMI 37.1 BP 163/84 H Blood Pressure Location Lt radial Position Sitting Pulse 70 Intake Visit Reasons: 6 mnth follow up Intake Note: Veronica presents in 6 month follow up of constipation. CC: Per patient the Linzess stopped working around August after taking Bactrim for cellulitis on her leg. 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 She also had actinic keratosis removed from her face. She also c/o left sided abdominal pain. She reports the pain sometimes moves around her lower abdomen and right side. Centrifugal Separator Required: No Accompanied by: Self / Same As Patient Allergies aged foods Allergy (Unknown, Verified 09/16/23 11:38) rash bee pollen [Bee Stings] Allergy (Unknown, Verified 09/16/23 11:38) SWELLING bees Allergy (Unknown, Verified 09/16/23 11:38) anaphylaxis gabapentin [Neurontin] Allergy (Unknown, Verified 09/16/23 11:38) hematurea latex [LATEX] Allergy (Unknown, Verified 09/16/23 11:38) RASH risperidone [From Risperdal] Allergy (Unknown, Verified 09/16/23 11:38) LUMPS ON ABDOMEN- SUPERFICIAL PHLEBITIS, painful lumps of abdomen white composit dental filling Allergy (Unknown, Verified 09/16/23 11:38) hives lactose Adverse Reaction (Mild, Verified 09/16/23 11:38) Unknown tramadol [TRAMADOL] Adverse Reaction (Mild, Verified 09/16/23 11:38) nausea/vomiting divalproex sodium [From Depakote] Adverse Reaction (Unknown, Verified 09/16/23 11:38) LOW DOSE AND SLOW RELEASE CAUSES STELLA Iodinated Contrast Media [IV Dye, Iodine Containing] Adverse Reaction (Unknown, Verified 09/16/23 11:38) DEHYDRATED, TWITCHING niacin [Niacin] Adverse Reaction (Unknown, Verified 09/16/23 11:38) TURNS RED olanzapine [From Zyprexa] Adverse Reaction (Unknown, Verified 09/16/23 11:38) BLOOD IN URINE yeast, dried [yeast] Adverse Reaction (Unknown, Verified 09/16/23 11:38) WHITE COATING ON TONGUE WHITE BREAD Allergy (Mild, Uncoded 07/14/23 13:55) DIFF SWALLOWING wheath Adverse Reaction (Mild, Uncoded 07/14/23 13:55) Unknown HPI 6 mnth follow up HPI Details Assessment & Plan (1) Chronic idiopathic constipation: Code(s): K59.04 - Chronic idiopathic constipation Plan: She tripped over her shopping cart in November and fell forward and broke her nose and had a hematoma over her right eye that is still painful. She also has neck pain, and just had PT for this. She had her oral surgery and they has to cut through her cheek and she still has some trouble smiling. She is stable on her GI medicine. She continues on her Linzess and her creon with good control of her bowels. ROV 6 mos. (2) Pancreatic insufficiency: Code(s): K86.89 - Other specified diseases of pancreas (3) GERD (gastroesophageal reflux disease): Code(s): K21.9 - Gastro-esophageal reflux disease without esophagitis (4) Rectocele: Code(s): N81.6 - Rectocele Medications: Refilled linaclotide (Linze ss) 145 mcg PO DAILY 3 0 caps 7RF K59.04 - Chronic i diopathic constipa tion fhaxhu-awwyngwc-wx ylase 24,000-76,00 0 -120,000 unit (C reon) 1 cap PO TID 90 ca ps 6RF K58.9 - Irritable bowel syndrome wit hout diarrhea, K86 .89 - Other specif ied diseases of pa ncreas CORRESPONDENCE On 08/25/23 @ 16:43 Melia Lam Wrote To Ngoc Ibrahim Patient notified and she verbalized understanding. Patient states that she believes she has a yeast infection all over her body because she can tell when she has it. Patient also states my butt smells like cheddar cheese . I told her that I will let Ngoc Ibrahim know but she might one to reach out to her PCP as she will be out until 09/07. Patient states oh it's ok I just wanted to give her a heads up, I'll see her on the . On 08/25/23 @ 16:17 PatriceNgoc Wrote To Melia Lam PatriceNgoc removed from item. On 08/25/23 @ 16:16 Ngoc Ibrahim Wrote To PatriceNgoc (2) I will send an increased dose of 290 micro g Medication Orders linaclotide 290 mcg PO QAM 30 caps 3RF 30 days New On 08/25/23 @ 15:54 Melia Lam Wrote To PatriceNgoc Please see message below and advise. On 08/25/23 @ 15:46 Ivelisse Gama Wrote To PatriceNgoc (2) Patient LVM and states that Linzess if no longer working for her. TODAY'S VISIT She is still struggling at the LInzess 290mcg dose. She will take it at 8am and not move her bowels until 1:30am. She also has been having a dull pain in left upper quadrant that sometimes moves around the abdomen. She also tells me that in the past she was told that she has a large ?balloon? at the end of her colon which sounds to me like a rectocele or noni rectum that might be interfering with the stool as she has had trouble using enemas at times (the liquid will not stay in) because of fecal impaction in the rectal vault. We did discuss that surgery is the usual long-term cure for this but she is also noticed that things tend to move better when her stools are more liquid. If they are all solid it tends to coalesce in this area and cause her trouble. In the past she is used pgnl-lqx-cwwjuhg laxatives but they would work at 1st and then stopped working. They also seem to make her legs swell worse. At this point I think we will keep her on the 290 dose as I think her bowels are still under activated. We are going to try adding 1-2 bisacodyl tablets at bedtime and will see how she does with this. If it causes her any distress or leg swelling then will have to consider a different course. She also has been tracking everything she eats, drinks, and her bowel movements quite well. She is found that since her mouth is constantly moist from 1 of her medications she sometimes forgets to drink and has not been in taking enough water. She also does not eat much fiber because she likes meats and proteins. She also uses a PA protein supplement. She has found that fat balms with coconut oil help her move her bowels, which is to be expected as coconut oil is a known mild laxative. This is obviously a fine approach to continue. She feels that the creon is helpful as she may have an element of gas trapping. Her insurance says that he needs a PA. ROV 3 weeks. FOR[facility]LY [facility], [facility] Medical History Basal cell carcinoma of face Mastoiditis Retention cyst of nasal sinus Acquired hammer toe of left foot Neck pain on left side Osteopenia of multiple sites Hiatal hernia with GERD Bipolar disorder Bunion of great toe of left foot Pain around toenail, left foot Cellulitis of toe of right foot Surgical History History of total knee arthroplasty History of esophagogastroduodenoscopy (EGD) H/O colonoscopy History of bladder surgery Fibroadenoma of right breast History of knee replacement procedure of right knee History of total abdominal hysterectomy and bilateral salpingo-oophorectomy History of appendectomy History of tonsillectomy Family History Father Emphysema, unspecified CVD (cardiovascular disease) Mother CVD (cardiovascular disease) Brother Lung cancer Bone cancer Brother Cancer of prostate Daughter No problems noted. Brother No problems noted. Brother No problems noted. Brother No problems noted. Social History Household Members: None Housing: Apartment Alcohol intake: current Alcohol intake frequency: does not drink Patient Tobacco Use Status: Never used Tobacco e-Cigarette/Vaping Use: Never Used service: No Current occupational status: retired Cognitive needs: No Hearing needs: No Vision needs: No Review of Systems Const Denies fatigue, Denies fever(s), Denies night sweats, Denies poor appetite and Denies weight loss ENT Reports Normal hearing present, Denies dental pain, Denies dysphagia, Denies hearing loss, Denies mouth pain, Denies odynophagia, Denies throat swelling, Denies tongue swelling and Reports other (Dentition adequate) Card Reports no additional complaints Resp Reports no additional complaints GI Reports abdominal pain (Dull left upper quadrant), Denies melena, Reports bloating, Denies hematochezia, Reports constipation, Denies GI cramping, Denies dysphagia, Denies excessive flatus, Denies early satiety, Reports heartburn, Denies diarrhea, Denies nausea, Denies odynophagia, Denies vomiting and Denies hematemesis Skin/Breast Denies pruritus, Denies lesions, Denies rash and Denies jaundice Neuro Reports Normal hearing present and Denies Abnormal speech present Endo Denies fatigue Aller/Immun Denies throat swelling and Denies tongue swelling Physical Exam Vital Signs: Last Vital Signs Pulse 70 09/16/23 11:21 BP 163/84 H 09/16/23 11:21 BMI result Body Mass Index 37.1 Const General: cooperative, no acute distress, well developed and well groomed Nutritional Appearance: well nourished and obese morbidly obese Orientation/consciousness: oriented to person, oriented to place and oriented to time Limitations: No language barrier HEENT Head: Yes normocephalic and Yes atraumatic Eyes General: appearance normal, both eyes and all related structures Pupils: Equal, round and reactive pupils present Neck Neck: Yes normal visual inspection and Yes no lymphadenopathy Thyroid: Thyroid normal Resp Effort & Inspection: normal respiratory effort and able to speak in complete sentences Auscultation: clear to auscultation bilaterally Cardio Rate: regular rate Rhythm: regular rhythm Heart sounds: Normal, physiologic split S2 sound present Peripheral pulses: radial pulses present and posterior tibial pulses present GI Inspection: No distended, Yes Abdominal panniculus present and Yes obesity Palpation (GI): Soft to palpation, nontender, no guarding, not rigid and No hepatosplenomegaly present Percussion: Yes normal to percussion Auscultation: normal bowel sounds Rectal Exam - Female: deferred Skin General skin exam: no rashes or lesions noted, turgor normal, skin not dry, no jaundice, No spider nevi and no striae Rashes: no rashes Nails: normal Neuro General: oriented to person, oriented to place and oriented to time Cranial nerves: Yes Equal, round and reactive pupils present and Yes Normal hearing present Speech: No Abnormal speech present Extrem General: Yes normal to inspection, No clubbing, No cyanosis and No edema Psych Appearance: grossly normal and well kempt Mental Status: mental status grossly normal Speech and movement: Normal speech and movement present Affect: normal affect Attitude: cooperative Thought process: Normal thought process present and not confabulating Thought content: Normal thought content present Insight: Fair insight present (Psych) Judgement: Fair judgement present (Psych) Assessment & Plan Assessment & Plan (1) GERD (gastroesophageal reflux disease): Code(s): K21.9 - Gastro-esophageal reflux disease without esophagitis (2) Chronic idiopathic constipation: Code(s): K59.04 - Chronic idiopathic constipation (3) Pancreatic insufficiency: Code(s): K86.89 - Other specified diseases of pancreas Plan She is still struggling at the LInzess 290mcg dose. She will take it at 8am and not move her bowels until 1:30am. She also has been having a dull pain in left upper quadrant that sometimes moves around the abdomen. She also tells me that in the past she was told that she has a large ?balloon? at the end of her colon which sounds to me like a rectocele or noni rectum that might be interfering with the stool as she has had trouble using enemas at times (the liquid will not stay in) because of fecal impaction in the rectal vault. We did discuss that surgery is the usual long-term cure for this but she is also noticed that things tend to move better when her stools are more liquid. If they are all solid it tends to coalesce in this area and cause her trouble. In the past she is used xzqs-lsc-kpkalcr laxatives but they would work at 1st and then stopped working. They also seem to make her legs swell worse. At this point I think we will keep her on the 290 dose as I think her bowels are still under activated. We are going to try adding 1-2 bisacodyl tablets at bedtime and will see how she does with this. If it causes her any distress or leg swelling then will have to consider a different course. She also has been tracking everything she eats, drinks, and her bowel movements quite well. She is found that since her mouth is constantly moist from 1 of her medications she sometimes forgets to drink and has not been in taking enough water. She also does not eat much fiber because she likes meats and proteins. She also uses a PA protein supplement. She has found that fat balms with coconut oil help her move her bowels, which is to be expected as coconut oil is a known mild laxative. This is obviously a fine approach to continue. Despite the fact that we have not had full resolution she thanks me for what I have done to help her since she has had improvement over the days when she says she is to strain and strain and sit for many hours on the toilet. She feels that the creon is helpful as she may have an element of gas trapping. Her insurance says that he needs a PA. ROV 3 weeks. Medications: New bisacodyl (Dulcolax (bisacodyl)) 1-2 tablets at bedtime orally bedtime; 30 days 60 tabs 6RF K59.04 - Chronic idiopathic constipation Refilled linaclotide (Linzess) 290 mcg PO QAM 30 days 30 caps 6RF Discontinued linaclotide (Linzess) Discontinued Reason: Doctor's Order 145 mcg PO DAILY 30 caps 7RF K59.04 - Chronic idiopathic constipation Coding Level of Care Code Est Pt Level 3 (96164) Diagnoses GERD (gastroesophageal reflux disease) K21.9 Chronic idiopathic constipation K59.04 Pancreatic insufficiency K86.89
[2023-09-16 11:21] VITALS: BP 163/84; PULSE 70; BMI 37.1
== END 2023-09-16 12:43 | disposition home or self-care (01) ==
PROVIDERS: PCP Internal Medicine; Visit Provider Nurse Practitioner
DX: K21.9 Gastro-esophageal reflux disease without esophagitis (principal); K59.04 Chronic idiopathic constipation; K86.89 Other specified diseases of pancreas
CPT/HCPCS: 99213

== ENCOUNTER → 2023-09-16 11:16 | Outpatient (BNVA) | payer MEDICARE, MEDICAID, SELFPAY | PROVIDERS: PCP Internal Medicine; Visit Provider Nurse Practitioner | DX: K21.9 Gastro-esophageal reflux disease without esophagitis (principal); K59.04 Chronic idiopathic constipation; K86.89 Other specified diseases of pancreas | CPT/HCPCS: 99212 ==

== ENCOUNTER 2023-10-11 08:51 | Outpatient (AMB) | payer MEDICARE, MEDICAID, SELFPAY ==
--- NOTE | 2023-10-11 09:41 | MHC.OFFWIV ---
Intake Vital Signs 10/11/23 09:42 Height 5 ft 2 in BP 140/82 H Blood Pressure Location Lt brachial Position Sitting Pulse 82 Pulse Source Pulse Oximeter Temp 98.0 F Temp Source Oral Pulse Oximetry (%) 96 Intake Visit Reasons: EP Lft leg pain Intake Note: pt is here for co left leg pain, denies fall, states she stepped up on the bus step 2 weeks ago ang shes been having pain raditate aroudn her knee Patient Tobacco Use Status: Never used Tobacco Allergies aged foods Allergy (Unknown, Verified 10/11/23 10:02) rash bee pollen [Bee Stings] Allergy (Unknown, Verified 10/11/23 10:02) SWELLING bees Allergy (Unknown, Verified 10/11/23 10:02) anaphylaxis gabapentin [Neurontin] Allergy (Unknown, Verified 10/11/23 10:02) hematurea latex [LATEX] Allergy (Unknown, Verified 10/11/23 10:02) RASH risperidone [From Risperdal] Allergy (Unknown, Verified 10/11/23 10:02) LUMPS ON ABDOMEN- SUPERFICIAL PHLEBITIS, painful lumps of abdomen white composit dental filling Allergy (Unknown, Verified 10/11/23 10:02) hives lactose Adverse Reaction (Mild, Verified 10/11/23 10:02) Unknown tramadol [TRAMADOL] Adverse Reaction (Mild, Verified 10/11/23 10:02) nausea/vomiting divalproex sodium [From Depakote] Adverse Reaction (Unknown, Verified 10/11/23 10:02) LOW DOSE AND SLOW RELEASE CAUSES STELLA Iodinated Contrast Media [IV Dye, Iodine Containing] Adverse Reaction (Unknown, Verified 10/11/23 10:02) DEHYDRATED, TWITCHING niacin [Niacin] Adverse Reaction (Unknown, Verified 10/11/23 10:02) TURNS RED olanzapine [From Zyprexa] Adverse Reaction (Unknown, Verified 10/11/23 10:02) BLOOD IN URINE yeast, dried [yeast] Adverse Reaction (Unknown, Verified 10/11/23 10:02) WHITE COATING ON TONGUE WHITE BREAD Allergy (Mild, Uncoded 07/14/23 13:55) DIFF SWALLOWING wheath Adverse Reaction (Mild, Uncoded 07/14/23 13:55) Unknown Do you need a note to return to daycare/school/sports/work: Yes HPI HPI Comments History of Present Illness Details 1223 73 yo f Presents w/ LLE pain x few days worsening. She thinks it may have started after trying to step on the bus a few days ago since then has been having pain, swelling particularly below L knee and wrapping behind. Denies blunt trauma to area. Not on thinners. Denies chest pain, shortness of breath, numbness, tingling, discoloration, inability to feel temperature. Physical exam significant for + 1+ non pitting edema to LLE no edema to RLE edema from knee down to foot. 2+ DP,AT,PT, popliteal pulses equal and b/l. + TTP to inferior aspect of L knee. 5/5 strength to bilateral upper and lower extremities positive Homans on the left. Concerns for possible inflammatory arthritis of left knee versus osteoarthritis versus DVT. Unlikely arterial occlusion, acute threat to Flores, neurovascular compromise. Plan DVT steady. Patient requesting PT will speak to patient's primary care provider's medical educator to see if this can be set up. Educated patient on diagnosis and treatment plan, answered all question, patient verbalizes understanding. At this time patient will be discharged home, advised to return with new or worsening symptoms. Educated on worrisome signs and symptoms and when to return. At this time I feel comfortable discharge home. FORMERLY [facility] Medical History Basal cell carcinoma of face Mastoiditis Retention cyst of nasal sinus Acquired hammer toe of left foot Neck pain on left side Osteopenia of multiple sites Hiatal hernia with GERD Bipolar disorder Bunion of great toe of left foot Pain around toenail, left foot Cellulitis of toe of right foot Surgical History History of total knee arthroplasty History of esophagogastroduodenoscopy (EGD) H/O colonoscopy History of bladder surgery Fibroadenoma of right breast History of knee replacement procedure of right knee History of total abdominal hysterectomy and bilateral salpingo-oophorectomy History of appendectomy History of tonsillectomy Family History Father Emphysema, unspecified CVD (cardiovascular disease) Mother CVD (cardiovascular disease) Brother Lung cancer Bone cancer Brother Cancer of prostate Daughter No problems noted. Brother No problems noted. Brother No problems noted. Brother No problems noted. Social History Household Members: None Housing: Apartment Alcohol intake: current Alcohol intake frequency: does not drink Patient Tobacco Use Status: Never used Tobacco e-Cigarette/Vaping Use: Never Used service: No Current occupational status: retired Cognitive needs: No Hearing needs: No Vision needs: No Physical Exam Vital Signs: Last Vital Signs Temp 98.0 F 10/11/23 09:42 Pulse 82 10/11/23 09:42 BP 140/82 H 10/11/23 09:42 Pulse Ox 96 10/11/23 09:42 vss Appearance: Alert.? Oriented X3.? No acute distress.? Head: Normocephalic, atraumatic, no step-offs or deformities Eyes: Pupils equal, round and reactive to light.? ENT: Pharynx normal.? Neck: Normal inspection.? Neck supple.? CVS: Normal heart rate and rhythm.? Pulses normal.? Respiratory: No respiratory distress.? Breath sounds normal.? Abdomen: Soft and nontender.? Skin: Skin warm and dry.? Normal skin color.? Normal skin turgor.? Extremities: + 1+ non pitting edema to LLE no edema to RLE edema from knee down to foot. 2+ DP,AT,PT, popliteal pulses equal and b/l. + TTP to inferior aspect of L knee. 5/5 strength to bilateral upper and lower extremities. Positive Homans sign on the left lower extremity. Negative on the right. Neuro: Oriented X 3.? No motor deficit.? No sensory deficit. CN 2-12 intact Assessment & Plan Assessment & Plan (1) Left leg swelling: Code(s): M79.89 - Other specified soft tissue disorders Plan Take your medications as prescribed. If you were prescribed antibiotics today, it is important that you take your medication to their entirety, do not skip any doses, do not finish them early. Follow-up with your primary care provider this week. Return to the emergency department with new or worsening symptoms. Such as fevers, chills, chest pain, shortness of breath, nausea, vomiting, dizziness, headache, vision changes, lethargy In case of emergency call 911 Orders: Orders US venous duplex LE LT Today M79.89 - Other specified soft tissue disorders Coding Level of Care Code Est Pt Level 3 (02077) Diagnoses Left leg swelling M79.89
[2023-10-11 09:42] VITALS: BP 140/82; PULSE 82; TEMP 36.7; O2SAT 96
== END 2023-10-11 10:41 | disposition home or self-care (01) ==
PROVIDERS: PCP Internal Medicine; Visit Provider Physician Assistant
DX: M79.89 Other specified soft tissue disorders (principal)
CPT/HCPCS: 99213

== ENCOUNTER 2023-10-11 10:33 | Outpatient (REF) | payer MEDICARE, MEDICAID, SELFPAY ==
--- NOTE | ~2023-10-11 | US_ITS ---
EXAMINATION: US VENOUS ULTRASOUND WITH DOPPLER LOWER EXTREMITY, LEFT CLINICAL INFORMATION: Other specified soft tissue disorders Left leg pain and swelling COMPARISON: Venous ultrasound right lower extremity 08/29/2020 TECHNIQUE: Ultrasound of the deep veins is performed from the hip to the calf with compression sonography and color and pulse Doppler assessment. Spectral analysis with color-flow imaging is performed. FINDINGS: There is normal venous compression and respiratory variation. The visualized common femoral vein, superficial femoral vein, profunda femoral vein, popliteal vein, and the posterior tibial and peroneal veins show no evidence of deep venous thrombosis. The contralateral common femoral vein demonstrates normal respiratory variation. US/US venous duplex LE LT IMPRESSION: No DVT demonstrated in the left lower extremity.
== END 2023-10-11 10:34 | disposition home or self-care (01) ==
LOC: HO.HMGCX 10:33
PROVIDERS: PCP Internal Medicine; Visit Provider Physician Assistant
DX: M79.605 Pain in left leg (principal); R60.0 Localized edema
CPT/HCPCS: 93971

== ENCOUNTER 2023-10-13 08:00 | Emergency (ER) | payer MEDICARE, MEDICAID, SELFPAY ==
--- NOTE | ~2023-10-13 | CT_ITS ---
EXAMINATION: CT KNEE WITHOUT CONTRAST, LEFT CLINICAL INFORMATION: Left knee pain and swelling. COMPARISON: Left knee radiographs dated 03/24/2021. TECHNIQUE: Contiguous axial CT images of the left knee were obtained without contrast. Sagittal and coronal reformats were provided and reviewed. This CT examination was performed using dose optimization techniques as appropriate, variously including the following: *Automated exposure control *Adjustment of mA and/or kV according to patient size (this includes techniques or standardized protocols for targeted exams where dose is matched to indication/reason for exam; i.e. extremities or head) *Use of iterative reconstruction technique DLP: 199 mGy-cm FINDINGS: No acute fracture or dislocation. Normal patellofemoral alignment. No significant joint space narrowing or marginal osteophytes. Patellar median ridge and lateral patellar facet subchondral cystic change and surface irregularity, consistent with focal arthrosis. This measures up to 1.4 x 1.0 cm (ML by CC). No displaced or unstable osteochondral fragment. Owrvd-rt-kzpgojhw joint effusion. No soft tissue mass or organized fluid collection. Mild anterior and lateral subcutaneous edema. The visualized muscles and tendons are intact; however, evaluation is limited on CT examination. CT/CT knee LT wo IV con IMPRESSION: 1. No acute fracture or dislocation. 2. Yhkyq-je-azaryfsy joint effusion. Mild anterior and lateral subcutaneous edema. 3. Patellar median ridge and lateral patellar facet focal arthrosis measuring up to 1.4 cm. No displaced or unstable osteochondral fragment.
[2023-10-13 08:14] VITALS: BP 143/63; PULSE 65; RESP 14; TEMP 36.6; O2SAT 100
[2023-10-13 08:19] VITALS: BP 142/90; BP 143/63; PULSE 65; PULSE 93; RESP 14; TEMP 36.6; O2SAT 100; O2SAT 95; BMI 37.5
--- NOTE | 2023-10-13 08:38 | ED_ITS ---
HPI - Extremity Injury (Lower) General Chief Complaint: Extremity Injury, Lower Stated Complaint: LLE PAIN X2 WEEKS,FELT IT TORE,NO FALL PER EMS Time Seen by Provider: 10/13/23 08:06 Source: patient Mode of arrival: EMS Limitations: no limitations History of Present Illness HPI Narrative: 73 yo female with PMH of IBS, GERD, bipolar, not on thinners injured L knee getting onto bus where she felt it flexed and twisted she notes it has been painful and swollen under the knee. No prior injury to the knee. She did see her PCP negative DVT study. She notes she is barely getting around at this time point even with home walker and its been 2 weeks complaint: knee injury Onset (ago): week(s) (2) Injury: Left: knee Type of Injury: hyperflexion and other (twist) Place: other (bus) Severity: moderate Relieving factors: rest Exacerbating factors: weight bearing, movement and palpation Context: other (twist) Associated symptoms: snap/pop sensation and swelling Other symptoms: none Treatments prior to arrival: cold therapy, bandage and splint Related Data Home Medications Medication Instructions Recorded Confirmed niacinamide 250 250 mg PO DAILY 09/16/23 zinc copper PO DAILY 09/16/23 Previous Rx's Medication Instructions Recorded divalproex 500 mg tablet,extended 500 mg PO DAILY 30 days #30 tabs 05/27/22 release 24 hr bisacodyl 5 mg tablet,delayed See Rx Instructions PO BEDTIME 30 09/16/23 release (Dulcolax (bisacodyl)) days #60 tabs linaclotide 290 mcg capsule 290 mcg PO QAM 30 days #30 caps 09/16/23 (Linzess) [id number]-[id number] 2 cap PO BID #120 caps 09/22/23 25,000-79,000-105,000 unit capsule,delayed rel (Zenpep) Allergies Allergy/AdvReac Type Severity Reaction Status Date / Time aged foods Allergy Unknown rash Verified 10/11/23 10:02 bee pollen [Bee Stings] Allergy Unknown SWELLING Verified 10/11/23 10:02 bees Allergy Unknown anaphylaxis Verified 10/11/23 10:02 gabapentin [Neurontin] Allergy Unknown hematurea Verified 10/11/23 10:02 latex [LATEX] Allergy Unknown RASH Verified 10/11/23 10:02 risperidone [From Risperdal] Allergy Unknown LUMPS ON Verified 10/11/23 10:02 ABDOMEN- SUPERFICIAL PHLEBITIS, painful lumps of abdomen white composit dental filling Allergy Unknown hives Verified 10/11/23 10:02 lactose AdvReac Mild Unknown Verified 10/11/23 10:02 tramadol [TRAMADOL] AdvReac Mild nausea/vomi Verified 10/11/23 10:02 ting divalproex sodium AdvReac Unknown LOW DOSE Verified 10/11/23 10:02 [From Depakote] AND SLOW RELEASE CAUSES STELLA Iodinated Contrast Media AdvReac Unknown DEHYDRATED, Verified 10/11/23 10:02 [IV Dye, Iodine Containing] TWITCHING niacin [Niacin] AdvReac Unknown TURNS RED Verified 10/11/23 10:02 olanzapine [From Zyprexa] AdvReac Unknown BLOOD IN Verified 10/11/23 10:02 URINE yeast, dried [yeast] AdvReac Unknown WHITE Verified 10/11/23 10:02 COATING ON TONGUE WHITE BREAD Allergy Mild DIFF Uncoded 07/14/23 13:55 SWALLOWING wheath AdvReac Mild Unknown Uncoded 07/14/23 13:55 Review of Systems Review of Systems: Constitutional : No Fever, No Chills ENT/Mouth : No Ear Pain, No Hoarseness, No sore throat Eyes: No Eye Pain, No Swelling, No Redness, No Foreign Body Cardiovascular : No Chest Pain, No SOB Respiratory : No Cough, No Dyspnea Gastrointestinal : No Nausea, No Vomiting, No Diarrhea, No abdominal Pain Genitourinary : No Dysuria, No Hematuria Musculoskeletal : positive joint pain, No Myalgias, pos Joint Swelling Skin : No Skin lacerations, No rash Neuro : No Weakness, No Numbness, No Loss of Consciousness, No Dizziness, No Headache Psych : No Anxiety/Panic, No Depression All other systems reviewed and are negative PMFSH Past Medical History Attestation statement: The following information was validated with the patient. Source: old records reviewed Medical History Basal cell carcinoma of face Mastoiditis Retention cyst of nasal sinus Acquired hammer toe of left foot Neck pain on left side Osteopenia of multiple sites Hiatal hernia with GERD Bipolar disorder Bunion of great toe of left foot Pain around toenail, left foot Cellulitis of toe of right foot Surgical History History of total knee arthroplasty History of esophagogastroduodenoscopy (EGD) H/O colonoscopy History of bladder surgery Fibroadenoma of right breast History of knee replacement procedure of right knee History of total abdominal hysterectomy and bilateral salpingo-oophorectomy History of appendectomy History of tonsillectomy Family History Family History Father Emphysema, unspecified CVD (cardiovascular disease) Mother CVD (cardiovascular disease) Brother Lung cancer Bone cancer Brother Cancer of prostate Daughter No problems noted. Brother No problems noted. Brother No problems noted. Brother No problems noted. Social History Social History Household Members: None Housing: Apartment Alcohol intake: current Alcohol intake frequency: does not drink Patient Tobacco Use Status: Never used Tobacco e-Cigarette/Vaping Use: Never Used Advance Directives Date on File: 11/14/22 service: No Current occupational status: retired Cognitive needs: No Hearing needs: No Vision needs: No Physical Exam Vital Signs: Vital Signs: Last Vital Signs Temp 97.8 F 10/13/23 08:19 Pulse 65 10/13/23 08:19 Resp 14 10/13/23 08:19 BP 143/63 H 10/13/23 08:19 Pulse Ox 100 10/13/23 08:19 O2 Del Method Room Air 10/13/23 08:19 BMI result Body Mass Index 37.5 Appearance: Alert. Oriented X3. No acute distress. Eyes: Pupils equal, round and reactive to light. ENT: Pharynx normal. Neck: Normal inspection. Neck supple. CVS: Normal heart rate and rhythm. Pulses normal. Respiratory: No respiratory distress. Breath sounds normal. Abdomen: Soft and nontender. Skin: Skin warm and dry. Normal skin color. Normal skin turgor. Extremities: No lower extremity edema. L knee swelling in infrapatellar area with small joint effusion distal NV intact, pain to palpation no erythema or warmth Neuro: Oriented X 3. No motor deficit. No sensory deficit. Medical Decision Making Medical Decision Making MDM Narrative: 73 yo female with PMH of IBS, GERD, bipolar, not on thinners injured L knee here with traumatic L knee pain - distal NV intact already had DVT study at this time will obtain CT scan could be occult tib plat fracture vs patella injury she will need MRI likely with PCP - she is denying need for pain medications. Immobilizer and ambulation test vs rehab Differential Diagnosis Differential Diagnoses: The differential diagnosis associated with the presentation includes fracture, internal derangment, tendon injury Admission/Observation Consideration of admission/observation: Escalation of care including admission/observation considered does not want rehab wants to go home to her cat Independent Interpretation I performed an independent interpretation of an: CT Scan (no fracture) Radiology Impression Discussion of test interpretation with radiology: I have reviewed the radiologist's reading. External Record Review External record reviewed: Inpatient record Prescription Management I considered prescription management with: Pain Medication Procedures Orthopedic Splinting/Casting Injury #1: Side: left Lower Extremity Injury Location: knee Lower Extremity Immobilizer: knee immobilizer Discharge Plan Discharge Clinical Impression: Effusion of left knee Injury of knee, left Qualifiers: Encounter type: initial encounter Qualified Code(s): S89.92XA - Unspecified injury of left lower leg, initial encounter Patient Disposition: Home, Self-Care Instructions: Swollen Knee Joint (ED) Additional Instructions: you need to get an outpatient MRI and also follow up with orthopedics. suspect internal injury to cartilage or ligament. currently no fracture seen on CT scan 1. No acute fracture or dislocation. 2. Fgabj-vj-sdroczxt joint effusion. Mild anterior and lateral subcutaneous edema. 3. Patellar median ridge and lateral patellar facet focal arthrosis measuring up to 1.4 cm. No displaced or unstable osteochondral fragment. Prescriptions: No Action divalproex 500 mg tablet extended release 24 hr 500 mg PO DAILY 30 Days Qty: 30 0RF Zenpep 25,000-79,000- 105,000 unit capsule,delayed release(DR/EC) 2 cap PO BID Qty: 120 6RF Rx Instructions: administer with meals and/or snacks niacinamide 250 250 mg PO DAILY zinc copper PO DAILY bisacodyl [Dulcolax (bisacodyl)] 5 mg tablet,delayed release (DR/EC) See Rx Instructions PO BEDTIME 30 Days Qty: 60 6RF Rx Instructions: 1-2 tablets at bedtime orally bedtime; Linzess 290 mcg capsule 290 mcg PO QAM 30 Days Qty: 30 6RF Referrals: Comfort Joshi PA-C [Physician Retail Sales Consultant] - (call to schedule appointment can see any provider in the group) Interventions: ED Discharge Assessment Last Done: 10/13/23 10:45 Discharge Date/Time: 10/13/23 11:06
--- NOTE | 2023-10-13 10:42 | PC.NURSE ---
KNEE IMMOBILIZER APPLIED TO L KNEE/LEG BY DARRIAN (PCT). PT GUERA WELL.
== END 2023-10-13 11:06 | disposition home or self-care (01) ==
PROVIDERS: Emergency Provider Emergency Medicine; PCP Internal Medicine
DX: S89.92XA Unspecified injury of left lower leg, initial encounter (principal); X50.1XXA Overexertion from prolonged static or awkward postures, initial encounter; M25.462 Effusion, left knee; Y93.89 Activity, other specified; Y92.811 Bus as the place of occurrence of the external cause; Y99.9 Unspecified external cause status
CPT/HCPCS: 73700; 99284

== ENCOUNTER 2023-10-26 09:13 | Outpatient (REF) | payer MEDICARE, MEDICAID, SELFPAY ==
--- NOTE | ~2023-10-26 | XR_ITS ---
EXAMINATION: XR AP STANDING KNEE, BILATERAL XR KNEE, LEFT CLINICAL INFORMATION: Pain in unspecified knee. COMPARISON: CT left knee 10/13/2023, radiographs bilateral knees 03/24/2021. TECHNIQUE: AP standing view of bilateral knees. [place] and lateral views of the left knee. FINDINGS: RIGHT KNEE: Redemonstration of right total knee prosthesis. LEFT KNEE: Moderate left joint effusion. Mild lateral joint space narrowing with tiny lateral marginal and posterior patellar osteophytes in the left knee. XR/XR knee LT 2V IMPRESSION: Moderate left joint effusion. Mild degenerative changes left knee.
--- NOTE | ~2023-10-26 | XR_ITS ---
EXAMINATION: XR AP STANDING KNEE, BILATERAL XR KNEE, LEFT CLINICAL INFORMATION: Pain in unspecified knee. COMPARISON: CT left knee 10/13/2023, radiographs bilateral knees 03/24/2021. TECHNIQUE: AP standing view of bilateral knees. [place] and lateral views of the left knee. FINDINGS: RIGHT KNEE: Redemonstration of right total knee prosthesis. LEFT KNEE: Moderate left joint effusion. Mild lateral joint space narrowing with tiny lateral marginal and posterior patellar osteophytes in the left knee. XR/XR knee standing BI IMPRESSION: Moderate left joint effusion. Mild degenerative changes left knee.
== END 2023-10-26 09:14 | disposition home or self-care (01) ==
LOC: HO.HOSX 09:13
PROVIDERS: Visit Provider Physician Assistant
DX: M25.562 Pain in left knee (principal); Z96.651 Presence of right artificial knee joint
CPT/HCPCS: 73560; 73565; 99212

== ENCOUNTER 2023-10-26 09:56 | Outpatient (AMB) | payer MEDICARE, MEDICAID, SELFPAY ==
--- NOTE | 2023-10-26 10:10 | MHC.OFFVIS ---
Intake Vital Signs 10/26/23 10:15 Height 5 ft 2 in Weight 205 lb BMI 37.5 Intake Visit Reasons: New Pt - Left Knee Injury Intake Note: Veronica is a 73 year old female who presents today as a new patient for a evaluation of her left knee pain. Patient states that she was getting onto the bus where she felt a flexed and twisting sensation in her left knee. Pain is near the manriquez area and she feels like it is getting a bit better, how ever her pain is worse at night. Allergies aged foods Allergy (Unknown, Verified 10/26/23 10:14) rash bee pollen [Bee Stings] Allergy (Unknown, Verified 10/26/23 10:14) SWELLING bees Allergy (Unknown, Verified 10/26/23 10:14) anaphylaxis gabapentin [Neurontin] Allergy (Unknown, Verified 10/26/23 10:14) hematurea latex [LATEX] Allergy (Unknown, Verified 10/26/23 10:14) RASH risperidone [From Risperdal] Allergy (Unknown, Verified 10/26/23 10:14) LUMPS ON ABDOMEN- SUPERFICIAL PHLEBITIS, painful lumps of abdomen white composit dental filling Allergy (Unknown, Verified 10/26/23 10:14) hives lactose Adverse Reaction (Mild, Verified 10/26/23 10:14) Unknown tramadol [TRAMADOL] Adverse Reaction (Mild, Verified 10/26/23 10:14) nausea/vomiting divalproex sodium [From Depakote] Adverse Reaction (Unknown, Verified 10/26/23 10:14) LOW DOSE AND SLOW RELEASE CAUSES STELLA Iodinated Contrast Media [IV Dye, Iodine Containing] Adverse Reaction (Unknown, Verified 10/26/23 10:14) DEHYDRATED, TWITCHING niacin [Niacin] Adverse Reaction (Unknown, Verified 10/26/23 10:14) TURNS RED olanzapine [From Zyprexa] Adverse Reaction (Unknown, Verified 10/26/23 10:14) BLOOD IN URINE yeast, dried [yeast] Adverse Reaction (Unknown, Verified 10/26/23 10:14) WHITE COATING ON TONGUE WHITE BREAD Allergy (Mild, Uncoded 07/14/23 13:55) DIFF SWALLOWING wheath Adverse Reaction (Mild, Uncoded 07/14/23 13:55) Unknown HPI New Pt - Left Knee Injury HPI Details 73-year-old female who presents in the office today, as a new patient, for an evaluation of left knee pain. The [facility]23 status post stepping up on 2 bus steps 2 weeks prior, in 09/2023, which caused pain to radiate around her left knee. She was evaluated for DVTs, which was negative. The patient presented the ED on 10/13/2023 with a complaint of left knee pain after she felt is flex and twist when getting on the bus. She states she was having issues getting around with her home walker. CT of the left knee was obtained. She was placed in a knee immobilizer and referred to orthopedics. While in the office today the patient reports she was going to get on the bus when she felt her knee flex and twist. She reports her pain is near her manriquez, but feels it has slightly improved. She does states she has an increase in pain at night. [facility] Medical History (Updated 10/26/23 @ 12:03 by Doris Escobar) Basal cell carcinoma of face Mastoiditis Retention cyst of nasal sinus Acquired hammer toe of left foot Neck pain on left side Osteopenia of multiple sites Hiatal hernia with GERD Bipolar disorder Bunion of great toe of left foot Pain around toenail, left foot Cellulitis of toe of right foot Surgical History (Updated 10/26/23 @ 10:17 by Carmen Colbert) History of total knee arthroplasty History of esophagogastroduodenoscopy (EGD) H/O colonoscopy History of bladder surgery Fibroadenoma of right breast History of knee replacement procedure of right knee History of total abdominal hysterectomy and bilateral salpingo-oophorectomy History of appendectomy History of tonsillectomy Family History Father Emphysema, unspecified CVD (cardiovascular disease) Mother CVD (cardiovascular disease) Brother Lung cancer Bone cancer Brother Cancer of prostate Daughter No problems noted. Brother No problems noted. Brother No problems noted. Brother No problems noted. Social History Household Members: None Housing: Apartment Alcohol intake: current Alcohol intake frequency: does not drink Patient Tobacco Use Status: Never used Tobacco e-Cigarette/Vaping Use: Never Used Advance Directives Date on File: 11/14/22 service: No Current occupational status: retired Cognitive needs: No Hearing needs: No Vision needs: No Review of Systems Const All systems reviewed & are unremarkable except as noted in HPI and below Physical Exam Vital Signs: BMI result Body Mass Index 37.5 Const General: cooperative and no acute distress Orientation/consciousness: patient oriented x3 Resp Effort & Inspection: normal respiratory effort and able to speak in complete sentences Cardio Peripheral pulses: Peripheral pulses 2+ throughout Skin General skin exam: no rashes or lesions noted Neuro General: patient oriented x3 Extrem Other: Left knee: Normal to inspection. No ecchymosis, erythema, or joint effusion. No tenderness to palpation to the medial or lateral joint lines. Full knee extension and flexion. Negative Dariela's. Negative anterior drawer. Reports numbness and tingling along the lateral aspect of the proximal lower extremity that goes from the knee to about a quarter of the way down, but does not extend to the toes. Assessment & Plan Assessment & Plan (1) Osteoarthritis of left knee: Code(s): M17.12 - Unilateral primary osteoarthritis, left knee Plan Ms. Hebert is a 73-year-old female who presents in the office today, as a new patient, for an evaluation of left knee pain. The patient [facility]2023 status post stepping up on 2 bus steps 2 weeks prior, in 09/2023, which caused pain to radiate around her left knee. She was evaluated for DVTs, which was negative. The patient presented the ED on 10/13/2023 with a complaint of left knee pain after she felt is flex and twist when getting on the bus. She states she was having issues getting around with her home walker. CT of the left knee was obtained. She was placed in a knee immobilizer and referred to orthopedics. While in the office today the patient reports she was going to get on the bus when she felt her knee flex and twist. She reports her pain is near her manriquez, but feels it has slightly improved. She does states she has an increase in pain at night. A referral has been placed for the patient to be further evaluated by Physiatry for left lower extremity pain. Follow up will be PRN, or sooner if needed. X-rays of the left knee which were obtained while in the office today and were reviewed by me, Comfort Joshi PA-C, revealed osteoarthritis. CT of the left knee, obtained on 10/13/2023, revealed: No acute fracture or dislocation. Normal patellofemoral alignment. No significant joint space narrowing or marginal osteophytes. Patellar median ridge and lateral patellar facet subchondral cystic change and surface irregularity, consistent with focal arthrosis. This measures up to 1.4 x 1.0 cm (ML by CC). No displaced or unstable osteochondral fragment. Rlugg-hd-dntgrbhb joint effusion. No soft tissue mass or organized fluid collection. Mild anterior and lateral subcutaneous edema. The visualized muscles and tendons are intact; however, evaluation is limited on CT examination. Orders: Orders XR knee LT 2V Today M25.569 - Pain in unspecified knee XR knee standing BI Today M25.569 - Pain in unspecified knee Patient Instructions: Scribed by Doris Escobar biomedical engineering supervisor, for Comfort Joshi PA-C on 10/26/2023 at 11:15 am, EST. Coding Level of Care Code Est Pt Level 4 (62416) Diagnoses Osteoarthritis of left knee M17.12
[2023-10-26 10:15] VITALS: BMI 37.5
== END 2023-10-26 10:42 | disposition home or self-care (01) ==
PROVIDERS: PCP Internal Medicine; Visit Provider Physician Assistant
DX: M17.12 Unilateral primary osteoarthritis, left knee (principal)
CPT/HCPCS: 99213

== ENCOUNTER 2023-11-24 12:12 | Outpatient (AMB) | payer MEDICARE, MEDICAID, SELFPAY ==
[2023-11-24 12:15] VITALS: BP 149/70; PULSE 69; BMI 38.1
--- NOTE | 2023-11-24 12:15 | MHC.OFFVIS ---
Intake Vital Signs 11/24/23 12:15 Height 5 ft 2 in Weight 208 lb 8.917 oz BMI 38.1 BP 149/70 H Blood Pressure Location Lt brachial Position Sitting Pulse 69 Intake Visit Reasons: follow up Gerd Intake Note: Patient presents to in office visit today in follow up of abdominal pain. CC: She states that the Linzess 290 mcg was too strong. She went back to the Linzess 145 mcg and it has being helping her have BMs.. She reports that she found out what things she needs to avoid in order to avoid constipation. General Assistant Required: No Accompanied by: Self / Same As Patient Allergies aged foods Allergy (Unknown, Verified 10/26/23 10:14) rash bee pollen [Bee Stings] Allergy (Unknown, Verified 10/26/23 10:14) SWELLING bees Allergy (Unknown, Verified 10/26/23 10:14) anaphylaxis gabapentin [Neurontin] Allergy (Unknown, Verified 10/26/23 10:14) hematurea latex [LATEX] Allergy (Unknown, Verified 10/26/23 10:14) RASH risperidone [From Risperdal] Allergy (Unknown, Verified 10/26/23 10:14) LUMPS ON ABDOMEN- SUPERFICIAL PHLEBITIS, painful lumps of abdomen white composit dental filling Allergy (Unknown, Verified 10/26/23 10:14) hives lactose Adverse Reaction (Mild, Verified 10/26/23 10:14) Unknown tramadol [TRAMADOL] Adverse Reaction (Mild, Verified 10/26/23 10:14) nausea/vomiting divalproex sodium [From Depakote] Adverse Reaction (Unknown, Verified 10/26/23 10:14) LOW DOSE AND SLOW RELEASE CAUSES STELLA Iodinated Contrast Media [IV Dye, Iodine Containing] Adverse Reaction (Unknown, Verified 10/26/23 10:14) DEHYDRATED, TWITCHING niacin [Niacin] Adverse Reaction (Unknown, Verified 10/26/23 10:14) TURNS RED olanzapine [From Zyprexa] Adverse Reaction (Unknown, Verified 10/26/23 10:14) BLOOD IN URINE yeast, dried [yeast] Adverse Reaction (Unknown, Verified 10/26/23 10:14) WHITE COATING ON TONGUE WHITE BREAD Allergy (Mild, Uncoded 07/14/23 13:55) DIFF SWALLOWING wheath Adverse Reaction (Mild, Uncoded 07/14/23 13:55) Unknown HPI follow up Gerd HPI Details Assessment & Plan (1) GERD (gastroesophageal reflux disease): Code(s): K21.9 - Gastro-esophageal reflux disease without esophagitis (2) Chronic idiopathic constipation: Code(s): K59.04 - Chronic idiopathic constipation (3) Pancreatic insufficiency: Code(s): K86.89 - Other specified diseases of pancreas Plan She is still struggling at the LInzess 290mcg dose. She will take it at 8am and not move her bowels until 1:30am. She also has been having a dull pain in left upper quadrant that sometimes moves around the abdomen. She also tells me that in the past she was told that she has a large ?balloon? at the end of her colon which sounds to me like a rectocele or noni rectum that might be interfering with the stool as she has had trouble using enemas at times (the liquid will not stay in) because of fecal impaction in the rectal vault. We did discuss that surgery is the usual long-term cure for this but she is also noticed that things tend to move better when her stools are more liquid. If they are all solid it tends to coalesce in this area and cause her trouble. In the past she is used [id number] laxatives but they would work at 1st and then stopped working. They also seem to make her legs swell worse. At this point I think we will keep her on the 290 dose as I think her bowels are still under activated. We are going to try adding 1-2 bisacodyl tablets at bedtime and will see how she does with this. If it causes her any distress or leg swelling then will have to consider a different course. She also has been tracking everything she eats, drinks, and her bowel movements quite well. She is found that since her mouth is constantly moist from 1 of her medications she sometimes forgets to drink and has not been in taking enough water. She also does not eat much fiber because she likes meats and proteins. She also uses a PA protein supplement. She has found that fat balms with coconut oil help her move her bowels, which is to be expected as coconut oil is a known mild laxative. This is obviously a fine approach to continue. Despite the fact that we have not had full resolution she thanks me for what I have done to help her since she has had improvement over the days when she says she is to strain and strain and sit for many hours on the toilet. She feels that the creon is helpful as she may have an element of gas trapping. Her insurance says that he needs a PA. ROV 3 weeks. Medications: New bisacodyl (Dulcola x (bisacodyl)) 1-2 tablets at be dtime orally bedti me; 30 days 60 ta bs 6RF K59.04 - Chronic i diopathic constipa tion Refilled linaclotide (Linze ss) 290 mcg PO QAM 30 days 30 caps 6RF Discontinued linaclotide (Linze ss) Discontinue d Reason: Doctor' s Order 145 mcg PO DAILY 30 caps 7RF K59.04 - Chronic i diopathic constipa tion TODAY'S VISIT She says she found that the Linzess at 290mcg was too strong, she is back to the 145mcg dose and she is using the bisacodyl when the LInzess 145mcg is not working well. She also is avoiding pbutter and almond butter and succatash as these constipate her. This will also happen with almond flour and her face gets puffy when she drinks almond milk. She also says 'I've got to lose weight, apparently she got on a bus and she tore muscles in her legs. She also felt more hungry with the stronger dose Linzess and full stomach emptying. She continues on the zenpep now as her insurance does not cover creon now. Return office visit in 6 months REPLACED BY [facility] Medical History (Updated 10/26/23 @ 12:03 by Doris Escobar) Basal cell carcinoma of face Mastoiditis Retention cyst of nasal sinus Acquired hammer toe of left foot Neck pain on left side Osteopenia of multiple sites Hiatal hernia with GERD Bipolar disorder Bunion of great toe of left foot Pain around toenail, left foot Cellulitis of toe of right foot Surgical History (Updated 10/26/23 @ 10:17 by aCrmen Colbert) History of total knee arthroplasty History of esophagogastroduodenoscopy (EGD) H/O colonoscopy History of bladder surgery Fibroadenoma of right breast History of knee replacement procedure of right knee History of total abdominal hysterectomy and bilateral salpingo-oophorectomy History of appendectomy History of tonsillectomy Family History Father Emphysema, unspecified CVD (cardiovascular disease) Mother CVD (cardiovascular disease) Brother Lung cancer Bone cancer Brother Cancer of prostate Daughter No problems noted. Brother No problems noted. Brother No problems noted. Brother No problems noted. Social History Household Members: None Housing: Apartment Alcohol intake: current Alcohol intake frequency: does not drink Patient Tobacco Use Status: Never used Tobacco e-Cigarette/Vaping Use: Never Used Advance Directives Date on File: 11/14/22 service: No Current occupational status: retired Cognitive needs: No Hearing needs: No Vision needs: No Review of Systems Const Denies fatigue, Denies fever(s), Denies night sweats, Denies poor appetite and Denies weight loss ENT Reports Normal hearing present, Denies dental pain, Denies dysphagia, Denies hearing loss, Denies mouth pain, Denies odynophagia, Denies throat swelling, Denies tongue swelling and Reports other (Dentition adequate) Card Reports no additional complaints Resp Reports no additional complaints GI Details: Denies abdominal pain, Denies melena, Reports bloating, Denies hematochezia, Reports constipation, Denies GI cramping, Denies dysphagia, Denies excessive flatus, Denies early satiety, Denies heartburn, Denies diarrhea, Denies nausea, Denies odynophagia, Denies vomiting and Denies hematemesis Musc Reports back pain, Reports arthralgias and Reports muscle weakness Skin/Breast Denies pruritus, Denies lesions, Denies rash and Denies jaundice Neuro Reports Normal hearing present and Denies Abnormal speech present Endo Denies fatigue Aller/Immun Denies throat swelling and Denies tongue swelling Physical Exam Vital Signs: Last Vital Signs Pulse 69 11/24/23 12:15 BP 149/70 H 11/24/23 12:15 BMI result Body Mass Index 38.1 Const General: cooperative, no acute distress, well developed and well groomed Nutritional Appearance: well nourished and obese morbidly obese Orientation/consciousness: oriented to person, oriented to place and oriented to time Limitations: No language barrier and ambulation with cane HEENT Head: Yes normocephalic and Yes atraumatic Eyes General: appearance normal, both eyes and all related structures Pupils: Equal, round and reactive pupils present Neck Neck: Yes normal visual inspection and Yes no lymphadenopathy Thyroid: Thyroid normal Resp Effort & Inspection: normal respiratory effort and able to speak in complete sentences Auscultation: clear to auscultation bilaterally Cardio Rate: regular rate Rhythm: regular rhythm Heart sounds: Normal, physiologic split S2 sound present Peripheral pulses: radial pulses present and posterior tibial pulses present GI Inspection: No distended, Yes Abdominal panniculus present and Yes obesity Palpation (GI): Soft to palpation, nontender, no guarding, not rigid and No hepatosplenomegaly present Percussion: Yes normal to percussion Auscultation: normal bowel sounds Rectal Exam - Female: deferred Skin General skin exam: no rashes or lesions noted, turgor normal, skin not dry, no jaundice, No spider nevi and no striae Rashes: no rashes Nails: normal Neuro General: oriented to person, oriented to place and oriented to time Cranial nerves: Yes Equal, round and reactive pupils present and Yes Normal hearing present Speech: No Abnormal speech present Extrem General: Yes normal to inspection, No clubbing, No cyanosis and No edema Psych Appearance: grossly normal and well kempt Mental Status: mental status grossly normal Speech and movement: Normal speech and movement present Affect: normal affect Attitude: cooperative Thought process: Normal thought process present and not confabulating Thought content: Normal thought content present Insight: Fair insight present (Psych) Judgement: Fair judgement present (Psych) Assessment & Plan Assessment & Plan (1) GERD (gastroesophageal reflux disease): Code(s): K21.9 - Gastro-esophageal reflux disease without esophagitis (2) Chronic idiopathic constipation: Code(s): K59.04 - Chronic idiopathic constipation (3) Pancreatic insufficiency: Code(s): K86.89 - Other specified diseases of pancreas Plan She says she found that the Linzess at 290mcg was too strong, she is back to the 145mcg dose and she is using the bisacodyl when the LInzess 145mcg is not working well. She also is avoiding pbutter and almond butter and succatash as these constipate her. This will also happen with almond flour and her face gets puffy when she drinks almond milk. She also says 'I've got to lose weight, apparently she got on a bus and she tore muscles in her legs. She also felt more hungry with the stronger dose Linzess and full stomach emptying. She continues on the zenpep now as her insurance does not cover creon now. Return office visit in 6 months Medications: New linaclotide (Linzess) 145 mcg PO DAILY 30 caps 6RF K59.04 - Chronic idiopathic constipation Refilled bisacodyl (Dulcolax (bisacodyl)) 1-2 tablets at bedtime orally bedtime; 30 days 60 tabs 6RF K59.04 - Chronic idiopathic constipation mvoihu-[id number]-dgawkyy 25,000-79,000- 105,000 unit (Zenpep) administer with meals and/or snacks 2 caps PO BID 120 caps 6RF K86.89 - Other specified diseases of pancreas Discontinued linaclotide (Linzess) Discontinued Reason: Doctor's Order 290 mcg PO QAM 30 days 30 caps 6RF Coding Level of Care Code Est Pt Level 3 (17289) Diagnoses GERD (gastroesophageal reflux disease) K21.9 Chronic idiopathic constipation K59.04 Pancreatic insufficiency K86.89
== END 2023-11-24 13:04 | disposition home or self-care (01) ==
PROVIDERS: PCP Internal Medicine; Visit Provider Nurse Practitioner
DX: K21.9 Gastro-esophageal reflux disease without esophagitis (principal); K59.04 Chronic idiopathic constipation; K86.89 Other specified diseases of pancreas
CPT/HCPCS: 99213

== ENCOUNTER → 2023-11-24 12:12 | Outpatient (BNVA) | payer MEDICARE, MEDICAID, SELFPAY | PROVIDERS: PCP Internal Medicine; Visit Provider Nurse Practitioner | DX: K21.9 Gastro-esophageal reflux disease without esophagitis (principal); K59.04 Chronic idiopathic constipation; K86.89 Other specified diseases of pancreas | CPT/HCPCS: 99212 ==

== ENCOUNTER 2023-12-01 10:32 | Outpatient (AMB) | payer MEDICARE, MEDICAID, SELFPAY ==
--- NOTE | 2023-12-01 10:44 | A.OFFVIS_ITS ---
Intake Intake Visit Reasons: LLE N+T Pain Intake Note: Veronica is a 73 year old female who presents today for a follow up of her left leg pain, she was last seen with Comfort who referred patient for further evaluation with Navigation Officer. Patient states that she was getting onto the bus where she felt a flexed and twisting sensation in her left knee. Pain is felt at the top of the knee now rather than the manriquez. She also complains of getting a leg on multiple occasions. Allergies aged foods Allergy (Unknown, Verified 10/26/23 10:14) rash bee pollen [Bee Stings] Allergy (Unknown, Verified 10/26/23 10:14) SWELLING bees Allergy (Unknown, Verified 10/26/23 10:14) anaphylaxis gabapentin [Neurontin] Allergy (Unknown, Verified 10/26/23 10:14) hematurea latex [LATEX] Allergy (Unknown, Verified 10/26/23 10:14) RASH risperidone [From Risperdal] Allergy (Unknown, Verified 10/26/23 10:14) LUMPS ON ABDOMEN- SUPERFICIAL PHLEBITIS, painful lumps of abdomen white composit dental filling Allergy (Unknown, Verified 10/26/23 10:14) hives lactose Adverse Reaction (Mild, Verified 10/26/23 10:14) Unknown tramadol [TRAMADOL] Adverse Reaction (Mild, Verified 10/26/23 10:14) nausea/vomiting divalproex sodium [From Depakote] Adverse Reaction (Unknown, Verified 10/26/23 10:14) LOW DOSE AND SLOW RELEASE CAUSES STELLA Iodinated Contrast Media [IV Dye, Iodine Containing] Adverse Reaction (Unknown, Verified 10/26/23 10:14) DEHYDRATED, TWITCHING niacin [Niacin] Adverse Reaction (Unknown, Verified 10/26/23 10:14) TURNS RED olanzapine [From Zyprexa] Adverse Reaction (Unknown, Verified 10/26/23 10:14) BLOOD IN URINE yeast, dried [yeast] Adverse Reaction (Unknown, Verified 10/26/23 10:14) WHITE COATING ON TONGUE WHITE BREAD Allergy (Mild, Uncoded 07/14/23 13:55) DIFF SWALLOWING wheath Adverse Reaction (Mild, Uncoded 07/14/23 13:55) Unknown HPI HPI Comments History of Present Illness Details Saw ortho for left knee pain which is nearly gone now, occurs only when trying to lift up leg onto a step. For years, been having issues of legs being completely , left leg would swing over left leg over to right . Comes and goes. Last episode few months ago, felt like left leg wasn't even there but she says no when I ask about numbness. She describes it as no sensation of touching the ground . Uses a cane. Rides [employer] van. Lives alone, independent per patient. [facility] Medical History (Updated 12/01/23 @ 11:06 by Trinh Kirk MD) Basal cell carcinoma of face Mastoiditis Retention cyst of nasal sinus Acquired hammer toe of left foot Neck pain on left side Osteopenia of multiple sites Hiatal hernia with GERD Bipolar disorder Bunion of great toe of left foot Pain around toenail, left foot Cellulitis of toe of right foot Surgical History (Updated 10/26/23 @ 10:17 by Carmen Colbert) History of total knee arthroplasty History of esophagogastroduodenoscopy (EGD) H/O colonoscopy History of bladder surgery Fibroadenoma of right breast History of knee replacement procedure of right knee History of total abdominal hysterectomy and bilateral salpingo-oophorectomy History of appendectomy History of tonsillectomy Family History Father Emphysema, unspecified CVD (cardiovascular disease) Mother CVD (cardiovascular disease) Brother Lung cancer Bone cancer Brother Cancer of prostate Daughter No problems noted. Brother No problems noted. Brother No problems noted. Brother No problems noted. Social History Household Members: None Housing: Apartment Alcohol intake: current Alcohol intake frequency: does not drink Patient Tobacco Use Status: Never used Tobacco e-Cigarette/Vaping Use: Never Used Advance Directives Date on File: 11/14/22 service: No Current occupational status: retired Cognitive needs: No Hearing needs: No Vision needs: No Review of Systems Const All systems reviewed & are unremarkable except as noted in HPI and below Physical Exam Constitutional: Patient appears to be in no acute distress, well nourished and well developed. MSK: No specific abnormalities found on inspection of the spine and all extremities. Bilateral hip weakness noted, 4/5, difficulty getting up from seated position. No ligamentous laxity or crepitant. Positive left knee increased effusion. Positive left knee medial joint line tenderness. No tenderness over patella. Patellar grind test is negative. Anterior drawer test is negative. Colby test is negative. Posterior drawer test is negative. Valgus and varus stress tests are negative. Neurological: Simms?s negative bilaterally. Babinski was down going bilaterally. Clonus was negative. Results Reviewed Results Reviewed: Ordering Physician: Gisell Griffin DO Date of Service: 10/13/23 Procedure(s): CT knee LT wo IV con Accession Number(s): [id number] cc: Gisell Griffin DO; Belen Simons MD~ EXAMINATION: CT KNEE WITHOUT CONTRAST, LEFT CLINICAL INFORMATION: Left knee pain and swelling. COMPARISON: Left knee radiographs dated 03/24/2021. TECHNIQUE: Contiguous axial CT images of the left knee were obtained without contrast. Sagittal and coronal reformats were provided and reviewed. This CT examination was performed using dose optimization techniques as appropriate, variously including the following: *Automated exposure control *Adjustment of mA and/or kV according to patient size (this includes techniques or standardized protocols for targeted exams where dose is matched to indication/reason for exam; i.e. extremities or head) *Use of iterative reconstruction technique DLP: 199 mGy-cm FINDINGS: No acute fracture or dislocation. Normal patellofemoral alignment. No significant joint space narrowing or marginal osteophytes. Patellar median ridge and lateral patellar facet subchondral cystic change and surface irregularity, consistent with focal arthrosis. This measures up to 1.4 x 1.0 cm (ML by CC). No displaced or unstable osteochondral fragment. Zadvm-ug-juitoopy joint effusion. No soft tissue mass or organized fluid collection. Mild anterior and lateral subcutaneous edema. The visualized muscles and tendons are intact; however, evaluation is limited on CT examination. CT/CT knee LT wo IV con IMPRESSION: 1. No acute fracture or dislocation. 2. Acrbp-vw-kwxinkmk joint effusion. Mild anterior and lateral subcutaneous edema. 3. Patellar median ridge and lateral patellar facet focal arthrosis measuring up to 1.4 cm. No displaced or unstable osteochondral fragment. Ordering Physician: Comfort Joshi PA-C Date of Service: 10/26/23 Procedure(s): XR knee standing BI Accession Number(s): [id number] cc: Comfort Joshi PA-C~ EXAMINATION: XR AP STANDING KNEE, BILATERAL XR KNEE, LEFT CLINICAL INFORMATION: Pain in unspecified knee. COMPARISON: CT left knee 10/13/2023, radiographs bilateral knees 03/24/2021. TECHNIQUE: AP standing view of bilateral knees. [place] and lateral views of the left knee. FINDINGS: RIGHT KNEE: Redemonstration of right total knee prosthesis. LEFT KNEE: Moderate left joint effusion. Mild lateral joint space narrowing with tiny lateral marginal and posterior patellar osteophytes in the left knee. XR/XR knee standing BI IMPRESSION: Moderate left joint effusion. Mild degenerative changes left knee. US no DVT LLE I reviewed records from the following: Ortho Walk-in clinic ER Assessment & Plan Assessment & Plan (1) Effusion of left knee: Code(s): M25.462 - Effusion, left knee (2) Gait disorder: Code(s): R26.9 - Unspecified abnormalities of gait and mobility Plan Continues to have left knee effusion, possibly from osteoarthritis, which is contributing to poor gait mechanics. Offered to do knee aspiration today, removing the fluid may relieve her pain and improve gait. She defers because she does not like injections or needles. Not sure etiology of leg that she is describing. Do not see signs of peroneal neuropathy or footdrop. We agreed on trying physical therapy for the following: to work on gait and hip flexion weakness; left knee effusion, DJD Assessment and plan discussed with patient, and patient was agreeable. All questions were answered thoroughly. Follow-up in 3 months. Trinh Kirk MD, MARGIE Board Certified, [place] [employer] and Rehabilitation (ABPMR) Board Certified, [place] [employer] Electro[employer] (ABEM) Orders: Orders PT Evaluation and Treatment Today M25.462 - Effusion, left knee, R26.9 - Unspecified abnormalities of gait and mobility Coding Level of Care Code New Pt Level 4 (29304) Diagnoses Effusion of left knee M25.462 Gait disorder R26.9
== END 2023-12-01 11:50 | disposition home or self-care (01) ==
PROVIDERS: PCP Internal Medicine; Visit Provider Physical Medicine & Rehabilitation
DX: M25.462 Effusion, left knee (principal); R26.9 Unspecified abnormalities of gait and mobility
CPT/HCPCS: 99204

== ENCOUNTER → 2023-12-01 10:32 | Outpatient (BNVA) | payer MEDICARE, MEDICAID, SELFPAY | PROVIDERS: PCP Internal Medicine; Visit Provider Physical Medicine & Rehabilitation | DX: M25.562 Pain in left knee (principal); M25.462 Effusion, left knee; R26.9 Unspecified abnormalities of gait and mobility | CPT/HCPCS: 99202 ==

== ENCOUNTER 2023-12-07 08:51 | Outpatient (AMB) | payer MEDICARE, MEDICAID, SELFPAY ==
[2023-12-07 09:25] VITALS: BP 122/76; PULSE 76; O2SAT 98; BMI 38.0
--- NOTE | 2023-12-07 09:25 | MHC.OFFWIV ---
Intake Vital Signs 12/07/23 09:25 Height 5 ft 2 in Weight 208 lb BMI 38.0 BP 122/76 Blood Pressure Location Lt brachial Position Sitting Pulse 76 Pulse Source Pulse Oximeter Pulse Oximetry (%) 98 Oxygen Delivery Method Room Air Intake Visit Reasons: EP ?Hemorrhoid infection Intake Note: pt is here for hemorroid concerns Patient Tobacco Use Status: Never used Tobacco Allergies aged foods Allergy (Unknown, Verified 12/07/23:) rash bee pollen [Bee Stings] Allergy (Unknown, Verified 12/07/23) SWELLING bees Allergy (Unknown, Verified 12/07/23) anaphylaxis gabapentin [Neurontin] Allergy (Unknown, Verified 12/07/23) hematurea latex [LATEX] Allergy (Unknown, Verified 12/07/23) RASH risperidone [From Risperdal] Allergy (Unknown, Verified 12/07/23) LUMPS ON ABDOMEN- SUPERFICIAL PHLEBITIS, painful lumps of abdomen white composit dental filling Allergy (Unknown, Verified 12/07/23) hives lactose Adverse Reaction (Mild, Verified 12/07/23) Unknown tramadol [TRAMADOL] Adverse Reaction (Mild, Verified 12/07/23:) nausea/vomiting divalproex sodium [From Depakote] Adverse Reaction (Unknown, Verified 12/07/23) LOW DOSE AND SLOW RELEASE CAUSES STELLA Iodinated Contrast Media [IV Dye, Iodine Containing] Adverse Reaction (Unknown, Verified 12/07/23:) DEHYDRATED, TWITCHING niacin [Niacin] Adverse Reaction (Unknown, Verified 12/07/23:) TURNS RED olanzapine [From Zyprexa] Adverse Reaction (Unknown, Verified 12/07/23:) BLOOD IN URINE yeast, dried [yeast] Adverse Reaction (Unknown, Verified 12/07/23:) WHITE COATING ON TONGUE WHITE BREAD Allergy (Mild, Uncoded 07/14/23 13:55) DIFF SWALLOWING wheath Adverse Reaction (Mild, Uncoded 07/14/23 13:55) Unknown Do you need a note to return to daycare/school/sports/work: No HPI HPI Comments History of Present Illness Details 73-year-old female presents today in acute distress over an external hemorrhoid. She states she has tried stool softeners topical hydrocortisone and is in distress over the amount of pain in the last couple of days [facility] Medical History (Updated 12/07/23 @ 10:14 by DESMOND Jeong) Basal cell carcinoma of face Mastoiditis Retention cyst of nasal sinus Acquired hammer toe of left foot Neck pain on left side Osteopenia of multiple sites Hiatal hernia with GERD Bipolar disorder Bunion of great toe of left foot Pain around toenail, left foot Cellulitis of toe of right foot Surgical History (Updated 10/26/23 @ 10:17 by Carmen Colbert) History of total knee arthroplasty History of esophagogastroduodenoscopy (EGD) H/O colonoscopy History of bladder surgery Fibroadenoma of right breast History of knee replacement procedure of right knee History of total abdominal hysterectomy and bilateral salpingo-oophorectomy History of appendectomy History of tonsillectomy Family History Father Emphysema, unspecified CVD (cardiovascular disease) Mother CVD (cardiovascular disease) Brother Lung cancer Bone cancer Brother Cancer of prostate Daughter No problems noted. Brother No problems noted. Brother No problems noted. Brother No problems noted. Social History Household Members: None Housing: Apartment Alcohol intake: current Alcohol intake frequency: does not drink Patient Tobacco Use Status: Never used Tobacco e-Cigarette/Vaping Use: Never Used Advance Directives Date on File: 11/14/22 service: No Current occupational status: retired Cognitive needs: No Hearing needs: No Vision needs: No Review of Systems Const All systems reviewed & are unremarkable except as noted in HPI and below Eyes Reports no additional complaints ENT Reports no additional complaints Card Reports no additional complaints Resp Reports no additional complaints GI Reports change in bowel habits (Some constipation) Physical Exam Vital Signs: Last Vital Signs Pulse 76 12/07/23 09:25 BP 122/76 12/07/23 09:25 Pulse Ox 98 12/07/23 09:25 Oxygen Delivery Method Room Air 12/07/23 09:25 BMI result Body Mass Index 38.0 GI Rectal Exam - Female: External hemorrhoid(s) present (Painful to palpation) Assessment & Plan Assessment & Plan (1) Thrombosed hemorrhoids: Code(s): K64.5 - Perianal venous thrombosis Plan: The department of surgery was contacted and will see the patient today. The patient understands and will go over to the general surgery office. Plan See plan Coding Level of Care Code Est Pt Level 3 (62242) Diagnoses Thrombosed hemorrhoids K64.5
== END 2023-12-07 10:54 | disposition home or self-care (01) ==
PROVIDERS: PCP Internal Medicine; Visit Provider Physician Assistant Medical
DX: K64.5 Perianal venous thrombosis (principal)
CPT/HCPCS: 99213

== ENCOUNTER 2023-12-07 14:17 | Outpatient (REF) | payer MEDICARE, MEDICAID, SELFPAY | END 2023-12-07 14:18 | disposition home or self-care (01) | LOC: HO.LNP 14:17 | PROVIDERS: PCP Internal Medicine; Visit Provider Surgery | DX: K64.5 Perianal venous thrombosis (principal) | CPT/HCPCS: 46320; 88304; 99202 ==

== ENCOUNTER 2023-12-07 14:17 | Outpatient (AMB) | payer MEDICARE, MEDICAID, SELFPAY ==
--- NOTE | 2023-12-07 14:24 | A.OFFVIS_ITS ---
Intake Vital Signs 12/07/23 14:30 Height 5 ft 2 in Weight 207 lb BMI 37.9 BP 149/67 H Blood Pressure Location Lt brachial Position Standing Pulse 70 Intake Visit Reasons: thrombosed hemorrhoid Intake Note: Patient referred by walk in clinic for thrombosed hemorrhoid. Patient c/o bleeding.Reports tried sitz baths, hemorrhoid cr, but no relief. Roll Panner Required: No Accompanied by: Self / Same As Patient Allergies aged foods Allergy (Unknown, Verified 12/07/23 14:25) rash bee pollen [Bee Stings] Allergy (Unknown, Verified 12/07/23 14:25) SWELLING bees Allergy (Unknown, Verified 12/07/23 14:25) anaphylaxis gabapentin [Neurontin] Allergy (Unknown, Verified 12/07/23 14:25) hematurea latex [LATEX] Allergy (Unknown, Verified 12/07/23 14:25) RASH risperidone [From Risperdal] Allergy (Unknown, Verified 12/07/23 14:) LUMPS ON ABDOMEN- SUPERFICIAL PHLEBITIS, painful lumps of abdomen white composit dental filling Allergy (Unknown, Verified 12/07/23 14:25) hives lactose Adverse Reaction (Mild, Verified 12/07/23 14:25) Unknown tramadol [TRAMADOL] Adverse Reaction (Mild, Verified 12/07/23 14:25) nausea/vomiting divalproex sodium [From Depakote] Adverse Reaction (Unknown, Verified 12/07/23 14:25) LOW DOSE AND SLOW RELEASE CAUSES STELLA Iodinated Contrast Media [IV Dye, Iodine Containing] Adverse Reaction (Unknown, Verified 12/07/23 14:25) DEHYDRATED, TWITCHING niacin [Niacin] Adverse Reaction (Unknown, Verified 12/07/23 14:25) TURNS RED olanzapine [From Zyprexa] Adverse Reaction (Unknown, Verified 12/07/23 14:25) BLOOD IN URINE yeast, dried [yeast] Adverse Reaction (Unknown, Verified 12/07/23 14:25) WHITE COATING ON TONGUE WHITE BREAD Allergy (Mild, Uncoded 12/07/23 14:25) DIFF SWALLOWING wheath Adverse Reaction (Mild, Uncoded 12/07/23 14:25) Unknown Medication List - Last Reconciled 12/07/23 by Erlin Deshpande MD bisacodyl (Dulcolax (bisacodyl)) 1-2 tablets at bedtime orally bedtime; 30 days divalproex ER 500 mg PO DAILY 30 days linaclotide (Linzess) 145 mcg PO DAILY [id number] 25,000-79,000- 105,000 unit (Zenpep) 2 caps PO BID [niacinamide 250 250 mg PO DAILY] [zinc copper PO DAILY] HPI HPI Comments History of Present Illness Details Patient presents with a thrombosed external hemorrhoid. She has had these in the past. They spontaneously drained. This 1 is increasing in size and become more painful and patient presents here for further intervention. Patient has not had a colonoscopy for many years time. She has done Cologuard the in the recent past which was within normal limits. She does mentioned that her stool caliber has somewhat narrowed. This will be addressed after the hemorrhoid issue but she will strongly encouraged to get a colonoscopy. Chart was reviewed and patient evaluated [facility]PLACED BY [facility] Medical History Basal cell carcinoma of face Mastoiditis Retention cyst of nasal sinus Acquired hammer toe of left foot Neck pain on left side Osteopenia of multiple sites Hiatal hernia with GERD Bipolar disorder Bunion of great toe of left foot Pain around toenail, left foot Cellulitis of toe of right foot Surgical History History of total knee arthroplasty History of esophagogastroduodenoscopy (EGD) H/O colonoscopy History of bladder surgery Fibroadenoma of right breast History of knee replacement procedure of right knee History of total abdominal hysterectomy and bilateral salpingo-oophorectomy History of appendectomy History of tonsillectomy Family History Father Emphysema, unspecified CVD (cardiovascular disease) Mother CVD (cardiovascular disease) Brother Lung cancer Bone cancer Brother Cancer of prostate Daughter No problems noted. Brother No problems noted. Brother No problems noted. Brother No problems noted. Social History Household Members: None Housing: Apartment Alcohol intake: current Alcohol intake frequency: does not drink Patient Tobacco Use Status: Never used Tobacco e-Cigarette/Vaping Use: Never Used Advance Directives Date on File: 11/14/22 service: No Current occupational status: retired Cognitive needs: No Hearing needs: No Vision needs: No Physical Exam Vital Signs: Last Vital Signs Pulse 70 12/07/23 14:30 BP 149/67 H 12/07/23 14:30 BMI result Body Mass Index 37.9 GI Other: Patient has a large left lateral prone position thrombosed external hemorrhoid. Office Procedures Excision Details: Risks, benefits, alternatives of excision of thrombosed external hemorrhoid reviewed the patient included but not limited to bleeding, infection, recurrence, numbness, pain, scarring the patient was to proceed. All questions answered. After appropriate positioning, patient underwent 1% lidocaine Betadine prep uneventful excision of thrombosed external hemorrhoid of left lateral position. Specimen sent to pathology. Wound base cauterized with silver nitrate followed by dressing. Well tolerated. [id number] face/ear/eyelid/nose/lip/mucous membrane 1.1cm-2cm Procedure code (CPT) selection complete Office Meds lidocaine 1 %-epinephrine 1:100,000 injection solution Performing Provider: Erlin Deshpande MD Performing Location: [facility] [place] [facility] Surgeons Administered by: Erlin Deshpande MD on 12/07/23 14:49 Dose Route Admin Location Dispensed Lot Number Expiration Date [facility] Manager Clinical Informatics 10 mL Infiltration 10 mL Assessment & Plan Assessment & Plan (1) Thrombosed hemorrhoids: Code(s): K64.5 - Perianal venous thrombosis Plan Patient has been given local instructions including Sitz baths, analgesics, stool softeners, and will see me as directed or p.r.n.. All questions answered. Orders: Orders AMB Excision Today K64.5 - Perianal venous thrombosis Coding Level of Care Code New Pt Level 5 (21553) Diagnoses Thrombosed hemorrhoids K64.5 CPT Codes Face/Ear/Eyelid/Nose/Lip/Mucous Membrane - CPT: 21528-[id number] face/ear/eyelid/nose/lip/mucous membrane 1.1cm-2cm ([id number])
--- NOTE | 2023-12-07 14:24 | A.OFFVIS_ITS ---
Intake Vital Signs 12/07/23 14:30 Height 5 ft 2 in Weight 93.894 kg BMI 37.9 BP 149/67 H Blood Pressure Location Lt brachial Position Standing Pulse 70 Intake Visit Reasons: thrombosed hemorrhoid Allergies aged foods Allergy (Unknown, Verified 12/07/23 14:25) rash bee pollen [Bee Stings] Allergy (Unknown, Verified 12/07/23 14:25) SWELLING bees Allergy (Unknown, Verified 12/07/23 14:25) anaphylaxis gabapentin [Neurontin] Allergy (Unknown, Verified 12/07/23 14:25) hematurea latex [LATEX] Allergy (Unknown, Verified 12/07/23 14:25) RASH risperidone [From Risperdal] Allergy (Unknown, Verified 12/07/23 14:25) LUMPS ON ABDOMEN- SUPERFICIAL PHLEBITIS, painful lumps of abdomen white composit dental filling Allergy (Unknown, Verified 12/07/23 14:25) hives lactose Adverse Reaction (Mild, Verified 12/07/23 14:25) Unknown tramadol [TRAMADOL] Adverse Reaction (Mild, Verified 12/07/23 14:25) nausea/vomiting divalproex sodium [From Depakote] Adverse Reaction (Unknown, Verified 12/07/23 14:25) LOW DOSE AND SLOW RELEASE CAUSES STELLA Iodinated Contrast Media [IV Dye, Iodine Containing] Adverse Reaction (Unknown, Verified 12/07/23 14:25) DEHYDRATED, TWITCHING niacin [Niacin] Adverse Reaction (Unknown, Verified 12/07/23 14:25) TURNS RED olanzapine [From Zyprexa] Adverse Reaction (Unknown, Verified 12/07/23 14:25) BLOOD IN URINE yeast, dried [yeast] Adverse Reaction (Unknown, Verified 12/07/23 14:25) WHITE COATING ON TONGUE WHITE BREAD Allergy (Mild, Uncoded 12/07/23 14:25) DIFF SWALLOWING wheath Adverse Reaction (Mild, Uncoded 12/07/23 14:25) Unknown Medication List - Last Reconciled 12/07/23 by Erlin Deshpande MD bisacodyl (Dulcolax (bisacodyl)) 1-2 tablets at bedtime orally bedtime; 30 days divalproex ER 500 mg PO DAILY 30 days linaclotide (Linzess) 145 mcg PO DAILY [id number]-plondyek-wrbyhzr 25,000-79,000- 105,000 unit (Zenpep) 2 caps PO BID [niacinamide 250 250 mg PO DAILY] [zinc copper PO DAILY] [facility] Medical History Basal cell carcinoma of face Mastoiditis Retention cyst of nasal sinus Acquired hammer toe of left foot Neck pain on left side Osteopenia of multiple sites Hiatal hernia with GERD Bipolar disorder Bunion of great toe of left foot Pain around toenail, left foot Cellulitis of toe of right foot Surgical History History of total knee arthroplasty History of esophagogastroduodenoscopy (EGD) H/O colonoscopy History of bladder surgery Fibroadenoma of right breast History of knee replacement procedure of right knee History of total abdominal hysterectomy and bilateral salpingo-oophorectomy History of appendectomy History of tonsillectomy Family History Father Emphysema, unspecified CVD (cardiovascular disease) Mother CVD (cardiovascular disease) Brother Lung cancer Bone cancer Brother Cancer of prostate Daughter No problems noted. Brother No problems noted. Brother No problems noted. Brother No problems noted. Social History Household Members: None Housing: Apartment Alcohol intake: current Alcohol intake frequency: does not drink Patient Tobacco Use Status: Never used Tobacco e-Cigarette/Vaping Use: Never Used Advance Directives Date on File: 11/14/22 service: No Current occupational status: retired Cognitive needs: No Hearing needs: No Vision needs: No Physical Exam Vital Signs: Last Vital Signs Pulse 70 12/07/23 14:30 BP 149/67 H 12/07/23 14:30 BMI result Body Mass Index 37.9 Office Procedures Excision Details: Risks, benefits, alternatives of excision of thrombosed external hemorrhoid reviewed the patient included but not limited to bleeding, infection, re currence, numbness, pain, scarring the patient was to proceed. All questions answered. After appropriate positioning, patient underwent 1% lidocaine Betadine prep uneventful excision of thrombosed external hemorrhoid of left lateral position. Specimen sent to pathology. Wound base cauterized with silver nitrate followed by dressing. Well tolerated. [id number] face/ear/eyelid/nose/lip/mucous membrane 1.1cm-2cm Procedure code (CPT) selection complete Office Meds lidocaine 1 %-epinephrine 1:100,000 injection solution Performing Provider: Erlin Deshpande MD Performing Location: [facility] [place] General Surgeons Administered by: Erlin Deshpande MD on 12/07/23 14:49 Dose Route Admin Location Dispensed Lot Number Expiration Date [facility] Ear Nose Throat Surgeon 10 mL Infiltration 10 mL Assessment & Plan Assessment & Plan (1) Thrombosed hemorrhoids: Code(s): K64.5 - Perianal venous thrombosis Orders: Orders AMB Excision Today K64.5 - Perianal venous thrombosis Surgical Today K64.5 - Perianal venous thrombosis Medications: New hydrocodone-acetaminophen 5-325 mg Partial Fill upon patient request. 1 tab PO Q4-6H PRN 30 tabs 0RF pain Coding Diagnoses Thrombosed hemorrhoids K64.5 CPT Codes Face/Ear/Eyelid/Nose/Lip/Mucous Membrane - CPT: 39441-[id number] face/ear/eyelid/nose/lip/mucous membrane 1.1cm-2cm ([id number])
[2023-12-07 14:30] VITALS: BP 149/67; PULSE 70; BMI 37.9
== END 2023-12-07 15:32 | disposition home or self-care (01) ==
PROVIDERS: PCP Internal Medicine; Visit Provider Surgery
DX: K64.5 Perianal venous thrombosis (principal)
CPT/HCPCS: 46320; 99204

== ENCOUNTER 2023-12-15 13:36 | Outpatient (AMB) | payer MEDICARE, MEDICAID, SELFPAY ==
--- NOTE | 2023-12-15 14:00 | A.OFFVIS_ITS ---
Intake Intake Visit Reasons: s/p excision of thrombosed external hemorrhoid Intake Note: Patient here s/p exc of external thrombosed hemorrhoid. Reports slow healing. Patient c/o: pain with BM. worried about sepsis. EXC: 12-07-23. Health Information Clerk Required: No Accompanied by: Self / Same As Patient Allergies aged foods Allergy (Unknown, Verified 12/15/23 14:04) rash bee pollen [Bee Stings] Allergy (Unknown, Verified 12/15/23 14:04) SWELLING bees Allergy (Unknown, Verified 12/15/23 14:04) anaphylaxis gabapentin [Neurontin] Allergy (Unknown, Verified 12/15/23 14:04) hematurea latex [LATEX] Allergy (Unknown, Verified 12/15/23 14:04) RASH risperidone [From Risperdal] Allergy (Unknown, Verified 12/15/23 14:04) LUMPS ON ABDOMEN- SUPERFICIAL PHLEBITIS, painful lumps of abdomen white composit dental filling Allergy (Unknown, Verified 12/15/23 14:04) hives lactose Adverse Reaction (Mild, Verified 12/15/23 14:04) Unknown tramadol [TRAMADOL] Adverse Reaction (Mild, Verified 12/15/23 14:04) nausea/vomiting divalproex sodium [From Depakote] Adverse Reaction (Unknown, Verified 12/15/23 14:04) LOW DOSE AND SLOW RELEASE CAUSES STELLA Iodinated Contrast Media [IV Dye, Iodine Containing] Adverse Reaction (Unknown, Verified 12/15/23 14:04) DEHYDRATED, TWITCHING niacin [Niacin] Adverse Reaction (Unknown, Verified 12/15/23 14:04) TURNS RED olanzapine [From Zyprexa] Adverse Reaction (Unknown, Verified 12/15/23 14:04) BLOOD IN URINE yeast, dried [yeast] Adverse Reaction (Unknown, Verified 12/15/23 14:04) WHITE COATING ON TONGUE WHITE BREAD Allergy (Mild, Uncoded 12/15/23 14:04) DIFF SWALLOWING wheath Adverse Reaction (Mild, Uncoded 12/15/23 14:04) Unknown HPI HPI Comments History of Present Illness Details Patient presents status post hemorrhoidectomy. Aside from incisional discomfort which is improving she is doing well. Starting a diet. Having regular bowel habits. She is undergoing dressing changes with minimal discharge/drainage. [facility] Medical History Basal cell carcinoma of face Mastoiditis Retention cyst of nasal sinus Acquired hammer toe of left foot Neck pain on left side Osteopenia of multiple sites Hiatal hernia with GERD Bipolar disorder Bunion of great toe of left foot Pain around toenail, left foot Cellulitis of toe of right foot Surgical History History of total knee arthroplasty History of esophagogastroduodenoscopy (EGD) H/O colonoscopy History of bladder surgery Fibroadenoma of right breast History of knee replacement procedure of right knee History of total abdominal hysterectomy and bilateral salpingo-oophorectomy History of appendectomy History of tonsillectomy Family History Father Emphysema, unspecified CVD (cardiovascular disease) Mother CVD (cardiovascular disease) Brother Lung cancer Bone cancer Brother Cancer of prostate Daughter No problems noted. Brother No problems noted. Brother No problems noted. Brother No problems noted. Social History Household Members: None Housing: Apartment Alcohol intake: current Alcohol intake frequency: does not drink Patient Tobacco Use Status: Never used Tobacco e-Cigarette/Vaping Use: Never Used Advance Directives Date on File: 11/14/22 service: No Current occupational status: retired Cognitive needs: No Hearing needs: No Vision needs: No Physical Exam GI Other: Hemorrhoidectomy wound site clean dry and intact granulating well healing uneventfully. Assessment & Plan Assessment & Plan (1) Status post hemorrhoidectomy: Code(s): Z98.890 - Other specified postprocedural states; Z87.19 - Personal history of other diseases of the digestive system Plan Patient is continue local care and has been given local instructions, and otherwise follow-up p.r.n.. Which she was told that it will be another 2-3 weeks before the hemorrhoidal basis completely healed. All questions answered. Coding Level of Care Code Global (39435) Diagnoses Status post hemorrhoidectomy Z98.890; Z87.19
== END 2023-12-15 14:17 | disposition home or self-care (01) ==
PROVIDERS: PCP Internal Medicine; Visit Provider Surgery
DX: Z98.890 Other specified postprocedural states (principal); Z87.19 Personal history of other diseases of the digestive system
CPT/HCPCS: 99024

== ENCOUNTER → 2023-12-15 13:36 | Outpatient (BNVA) | payer MEDICARE, MEDICAID, SELFPAY | PROVIDERS: PCP Internal Medicine; Visit Provider Surgery | DX: K64.5 Perianal venous thrombosis (principal); Z98.890 Other specified postprocedural states | CPT/HCPCS: 99212 ==

== ENCOUNTER 2024-01-13 10:00 | Outpatient (RCR) | payer MEDICARE, MEDICAID, SELFPAY ==
--- NOTE | 2023-12-21 10:48 | MHC.PT.EP ---
[facility] [place] Office [place] Office [place] Office [address] Jazmine Drummond [address] [phone] F: [phone] F: [phone] F: [phone] F: [phone] Physical Therapy Plan of Care Date of Evaluation: 12/21/23 Date of Surgery: Diagnosis: gait instability Assessment: Patient is a 73 year old R handed female who presents with s/s consistent with gait instability. She does not work and is fairly sedentary but wants to be able to be more active. Patient past medical history includes bipolar disorder, R TKA, cellulitis, and multiple location pain. Current impairments include pain, balance, ROM, strength, activity tolerance and functional mobility. Functional limitations include decreased ability to transfer, stand, walk, negotiate stairs and perform standing activities. Patient is motivated with good rehab potential. Skilled PT will address impairments and functional limitations in order to achieve goals. Frequency and Duration: The patient will be seen 2x/week for 5 weeks Short Term Goals: I with HEP -2 weeks Stepper 8 mins without rest - 3 weeks Able to walk 20 minutes without increased pain or rest - 3 weeks Correction Goals: Able to walk 30 minutes without increased pain or rest - 5 weeks LEFS 48/80 - 5 weeks LE strength 4/5 grossly except abd 4-/5 - 5 weeks SLB > 5 seconds b/l - 5 weeks Treatment Plan: Modalities to reduce pain, spasms and effusion. Manual therapy to restore motion and function. Therapeutic exercise to improve strength and flexibility. Neuromuscular re-education for posture and balance. Therapeutic activities to return to functional activities of daily living. Electronically signed by: Maximilian Arias, PT Please sign and return to therapist. Thank you for your referral.
--- NOTE | 2024-10-04 10:22 | MHC.PT.DC ---
[facility] [place] [facility] [place] [facility] [place] [facility] [address] Jazmine Drummond [address] [phone] F: [phone] F: [phone] F: [phone] F: [phone] Physical Therapy Discharge Report Diagnosis: gait instability Date of Surgery: Date of Evaluation: 12/21/23 Date of Discharge: 02/17/24 Treatments to Date: 7 Cancellations to Date: No Shows to Date: Discharge Status: Improved Function Independent with HEP Discharge Summary: 01/13/24: pt experienced modest progress over the course of PT but does seem to have fewer episodes of instability in gait pattern. she will continue with HEP And be d/c from PT at this time. 01/10/24: we were able to resume activity level today without adverse reactions. continue to progress as tolerated. 01/07/24: pt with increased soreness since last visit. we did discuss possible causes including recent med changes. required encouraged for some exercises and we held progression today. 01/04; Discussed imporatance of performing exs at home. Pt c/o L HS soreness with knee flexion from aaaaaan injury in Oct. Pt fatigued after exs and stepper. 12/30/23: pt progressing well with skilled PT. no adverse reactions. continue to progress balance and strength as tolerated. 12/27/23: pt progressing well so far. limited by fatigue and hip pain at times. we will progress as tolerated. Patient is a 73 year old R handed female who presents with s/s consistent with gait instability. She does not work and is fairly sedentary but wants to be able to be more active. Patient past medical history includes bipolar disorder, R TKA, cellulitis, and multiple location pain. Current impairments include pain, balance, ROM, strength, activity tolerance and functional mobility. Functional limitations include decreased ability to transfer, stand, walk, negotiate stairs and perform standing activities. Patient is motivated with good rehab potential. Skilled PT will address impairments and functional limitations in order to achieve goals. Electronically signed by: Maximilian Arias, PT Please sign and return to therapist. Thank you for your referral.
== END 2024-10-04 10:22 | disposition home or self-care (01) ==
LOC: HO.PTCHIC 10:00
PROVIDERS: PCP Internal Medicine; Visit Provider Physical Medicine & Rehabilitation
DX: M25.462 Effusion, left knee (principal); R26.9 Unspecified abnormalities of gait and mobility
CPT/HCPCS: 97110; 97112; 97163

== ENCOUNTER 2024-05-01 11:19 | Outpatient (REF) | payer MEDICARE, MEDICAID, SELFPAY ==
--- NOTE | ~2024-05-01 | MM_ITS ---
EXAMINATION: MM SCREENING DIGITAL BREAST TOMOSYNTHESIS, BILATERAL CLINICAL INFORMATION: Screening. Asymptomatic. COMPARISON: Mammography: This study is compared with prior exams dating back to 2019. TECHNIQUE: Digital breast tomosynthesis is performed in both the craniocaudal and mediolateral oblique views along with computer-aided detection (CAD). Synthesized 2D images are generated from the tomosynthesis. FINDINGS: There are scattered areas of fibroglandular density (ACR BI-RADS breast composition Category b). There are no significant masses, abnormal calcifications, or other abnormalities. There are post surgical changes in the right breast from prior, remote excision for benign disease. MM/MM tomosynthesis screening BI IMPRESSION: No mammographic evidence of malignancy. ASSESSMENT: BI-RADS BI-RADS 2 - Benign Findings RECOMMENDATION: Routine annual mammography screening. 1 year F/U This examination should not preclude the clinical evaluation of a suspicious palpable abnormality. This patient's information was entered into a reminder system with a target due date for their next mammogram. Electronically signed by: Clara Jacobson MD 05/23/2024 12:53 PM EDT
== END 2024-05-01 11:20 | disposition home or self-care (01) ==
LOC: HO.MAMMO 11:19
PROVIDERS: PCP Internal Medicine; Visit Provider Internal Medicine
DX: Z12.31 Encounter for screening mammogram for malignant neoplasm of breast (principal)
CPT/HCPCS: 77063; 77067

== ENCOUNTER → 2024-05-01 12:00 | Outpatient (BNV) | payer MEDICARE, MEDICAID, SELFPAY | PROVIDERS: PCP Internal Medicine; Visit Provider Radiology Diagnostic Radiology | DX: Z12.31 Encounter for screening mammogram for malignant neoplasm of breast (principal) | CPT/HCPCS: 77063; 77067 ==

== ENCOUNTER 2024-05-25 12:52 | Outpatient (AMB) | payer MEDICARE, MEDICAID, SELFPAY ==
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
[2024-05-25 13:05] VITALS: BP 111/98; PULSE 60; BMI 37.7
== END 2024-05-25 13:39 | disposition home or self-care (01) ==
LOC: HO.HGI 12:52
PROVIDERS: PCP Internal Medicine; Visit Provider Nurse Practitioner
DX: K21.9 Gastro-esophageal reflux disease without esophagitis (principal); K59.04 Chronic idiopathic constipation
CPT/HCPCS: 99213

== ENCOUNTER → 2024-05-25 12:52 | Outpatient (BNVA) | payer MEDICARE, MEDICAID, SELFPAY | PROVIDERS: PCP Internal Medicine; Visit Provider Nurse Practitioner | DX: K59.04 Chronic idiopathic constipation (principal); K21.9 Gastro-esophageal reflux disease without esophagitis; K86.89 Other specified diseases of pancreas; K64.9 Unspecified hemorrhoids | CPT/HCPCS: 99212 ==

== ENCOUNTER 2024-07-13 03:09 | Emergency (ER) | payer MEDICARE, MEDICAID, SELFPAY ==
--- NOTE | ~2024-07-13 | CT_ITS ---
EXAMINATION: CT HEAD WITHOUT CONTRAST CLINICAL INFORMATION: acute headache COMPARISON: None available. Correlated to MRI dated February 01, 2023 TECHNIQUE: Contiguous axial imaging was performed from the skull base to vertex without intravenous administration of contrast. This CT examination was performed using dose optimization techniques as appropriate, variously including the following: *Automated exposure control *Adjustment of mA and/or kV according to patient size (this includes techniques or standardized protocols for targeted exams where dose is matched to indication/reason for exam; i.e. extremities or head) *Use of iterative reconstruction technique DLP: 658 mGy-cm FINDINGS: No acute intracranial hemorrhage, mass effect, midline shift, hydrocephalus or herniation. Mera-white matter differentiation is normal. Bilateral multifocal patchy deep periventricular white matter hypodensities, supratentorial. Posterior cranial fossa contents demonstrated no acute intracranial hemorrhage or mass effect. Calcified plaques in the cavernous supraclinoid segments both ICAs. Prominence of the extra-axial CSF spaces, cerebral sulci and ventricles. Bony calvarium is intact. Skull base is intact. Tympanic cavities and right mastoid air cells are aerated. Air-fluid levels in the left mastoid air cell tip. No air-fluid levels in the included paranasal sinuses. Poor pneumatization right frontal sinus. CT/CT head/brain wo IV con IMPRESSION: No acute intracranial hemorrhage. Consider small vessel occlusive disease in the correct clinical settings. Effusion, left mastoid tip. Electronically signed by: Eleno Zuñiga MD 07/13/2024 09:55 AM [facility]
--- NOTE | ~2024-07-13 | US_ITS ---
EXAMINATION: US TRIPLEX LOWER EXTREMITY, BILATERAL CLINICAL INFORMATION: Lower extremity pain and swelling. COMPARISON: 10/11/2023. 08/29/2020. TECHNIQUE: Color-flow triplex imaging with spectral analysis and compression Doppler were performed on the bilateral lower extremities. FINDINGS: Respiratory variation, normal compression and augmented flow are noted throughout the bilateral lower extremities. The visualized common femoral vein, superficial femoral vein, profunda femoral vein, popliteal vein and midcalf peroneal and posterior tibial venous segments show no evidence of deep venous thrombosis bilaterally. There is no Josue's cyst. US/US venous duplex LE BI IMPRESSION: No evidence of deep venous thrombosis involving the bilateral lower extremities. Electronically signed by: Joseph Parish MD 07/13/2024 10:43 AM [facility]
[2024-07-13 03:11] VITALS: BP 180/100; PULSE 77; O2SAT 99
[2024-07-13 03:16] VITALS: BP 169/89; PULSE 72; RESP 16; TEMP 36.6; O2SAT 100; BMI 36.9
[2024-07-13 03:57] LABS: Basophils Absolute Auto 0.1 X10*3/uL (0.0-0.2); Basophils Percent Auto 0.8 % (0-2); Eosinophils Absolute Auto 0.1 X10*3/uL (0.0-0.4); Eosinophils Percent Auto 0.8 % (0-4); Hematocrit 42.1 % (37.0-47.0); Hemoglobin 14.7 g/dl (12.0-16.0); Imm Gran Abs Auto 0.04 X10*3/uL (0.00-0.03); Imm Gran Pct Auto 0.5 % (0.0-0.4); Lymphocytes Absolute Auto 2.4 X10*3/uL (1.2-4.9); Lymphocytes Percent Auto 30.3 % (20-40); MANUAL DIFF FLAG NO; Mean Corpuscular HGB Conc 34.9 g/dl (31.0-35.0); Mean Corpuscular Hemoglobin 28.5 pg (27.0-33.0); Mean Corpuscular Volume 81.6 fL (80.0-98.0); Mean Platelet Volume 9.5 fL (9.4-12.3); Monocytes Absolute Auto 0.6 X10*3/uL (0.1-1.2); Monocytes Percent Auto 7.7 % (2-11); Neutrophils Absolute Auto 4.7 x10*3/uL (2.0-8.3); Neutrophils Percent Auto 59.9 % (45-73); Platelet Count 196 X10*3/uL (160-400); Red Blood Count 5.16 X10*6/uL (4.20-5.50); Red Cell Distribution Width 13.2 % (11.0-16.0); White Blood Count 7.8 X10*3/uL (4.8-10.8)
[2024-07-13 04:11] LABS: Anion Gap 18 (12-20); Blood Urea Nitrogen 16 mg/dL (9-16); Carbon Dioxide 20 mmol/L (22-29); Chloride 106 mmol/L (96-108); Creatinine Clr Calc Pharmacy 93.9; Estimated Glomerular Filt Rate > 60; Glucose Random 99 mg/dL (60-115); Potassium 3.8 mmol/L (3.3-5.1); Sodium 140 mmol/L (135-145)
[2024-07-13 08:21] VITALS: BP 143/66; PULSE 68; RESP 14; O2SAT 94
[2024-07-13 08:29] LABS: Appearance Urine Clear; Color Urine Yellow; Glucose Urine UA Negative (Negative); Leukocyte Esterase Urine Trace (Negative); Nitrite Urine Negative (Negative); Specific Gravity - Urine <= 1.005 (1.005-1.025); UMIC TRIGGER UACC YES; Urine Blood Trace (Negative); Urine Ketones Negative (Negative); Urine Protein Negative (Neg-Trace)
[2024-07-13 08:40] LABS: Bacteria Urine None Seen (None Seen); Hyaline Casts Urine 0-2 /LPF (0-2); RBC Urine 0-2 /HPF (0-2); Squamous Epithelial Cell Urine 0-2 /HPF (0-2); WBC Urine 0-5 /HPF (0-5)
--- NOTE | 2024-07-13 09:06 | ED_ITS ---
HPI - General Adult General Chief complaint: General Medical Stated complaint: CANELA x9hrs,high anxiety, due bilat back pain [id number] Time Seen by Provider: 07/13/24 08:42 Source: patient and old records reviewed Mode of arrival: ambulatory Limitations: no limitations History of Present Illness ED Provider: BONNIE HPI narrative: 74 yo female with PMH of GERD, gait disorder, bipolar disorder, pancreatic insufficiency here with c/o HTN at home for 2 weeks on and off with headache and ringing in the ear - BP will be 180s/100s. No hx of HTN or OTC medications. She also notes 2 weeks of leg swelling but takes no diuretic no CP/SOB and can lay flat. She denies hx of this in past - no recent travel. She reports living on the 5th floor and a basement book sewer line has been an issue from what she reports. She notes her symptoms are always at night when she is shut into her apartment. She also has had some loose stools but no n/v fevers and no recent abx use. MD complaint: headaches, leg swelling Onset (ago): week(s) (2) Location: head, left, right and lower extremity Radiation: non-radiation Severity: moderate Quality: aching Pain Consistency: constant Relieving factors: none Exacerbating factors: movement and other (laying down at night) Associated symptoms: headaches Treatments prior to arrival: none Related Data Home Medications ?Medication ?Instructions ?Recorded ?Confirmed niacinamide 250 250 mg PO DAILY 09/16/23 zinc copper PO DAILY 09/16/23 Previous Rx's ?Medication ?Instructions ?Recorded divalproex 500 mg tablet,extended 500 mg PO DAILY 30 days #30 tabs 05/27/22 release 24 hr bisacodyl 5 mg tablet,delayed See Rx Instructions PO BEDTIME 30 05/25/24 release (Dulcolax (bisacodyl)) days #60 tabs hydrocortisone 2.5 % topical cream 1 appl DC BID hemorrhoids #30 grams 05/25/24 with perineal applicator (Proctosol HC) linaclotide 145 mcg capsule 145 mcg PO DAILY #30 caps 05/25/24 (Linzess) sycmvo-cdltyycm-bzhuzog 2 cap PO BID #120 caps 05/25/24 25,000-79,000-105,000 unit capsule,delayed rel (Zenpep) cefuroxime axetil 500 mg tablet 500 mg PO BID 7 days #14 tabs 07/13/24 Allergies Allergy/AdvReac Type Severity Reaction Status Date / Time aged foods Allergy Unknown rash Verified 07/13/24 03:24 bee pollen [Bee Stings] Allergy Unknown SWELLING Verified 07/13/24 03:24 bees Allergy Unknown anaphylaxis Verified 07/13/24 03:24 gabapentin [Neurontin] Allergy Unknown hematurea Verified 07/13/24 03:24 latex [LATEX] Allergy Unknown RASH Verified 07/13/24 03:24 risperidone [From Risperdal] Allergy Unknown LUMPS ON Verified 07/13/24 03:24 ABDOMEN- SUPERFICIAL PHLEBITIS, painful lumps of abdomen white composit dental filling Allergy Unknown hives Verified 07/13/24 03:24 lactose AdvReac Mild Unknown Verified 07/13/24 03:24 tramadol [TRAMADOL] AdvReac Mild nausea/vomi Verified 07/13/24 03:24 ting divalproex sodium AdvReac Unknown LOW DOSE Verified 07/13/24 03:24 [From Depakote] AND SLOW RELEASE CAUSES STELLA Iodinated Contrast Media AdvReac Unknown DEHYDRATED, Verified 05/25/24 13:15 [IV Dye, Iodine Containing] TWITCHING niacin [Niacin] AdvReac Unknown TURNS RED Verified 05/25/24 13:15 olanzapine [From Zyprexa] AdvReac Unknown BLOOD IN Verified 05/25/24 13:15 URINE yeast, dried [yeast] AdvReac Unknown WHITE Verified 05/25/24 13:15 COATING ON TONGUE WHITE BREAD Allergy Mild DIFF Uncoded 12/15/23 14:04 SWALLOWING wheath AdvReac Mild Unknown Uncoded 12/15/23 14:04 Review of Systems 2 Review of Systems: Constitutional : No Fever, No Chills, No Fatigue ENT/Mouth : No sore throat, No Rhinorrhea Eyes: No Eye Pain, No Swelling, No Redness Cardiovascular : No Chest Pain, No SOB, No Dyspnea on Exertion, pos leg swelling Respiratory : No Cough, No Sputum Gastrointestinal : No Nausea, No Vomiting, pos Diarrhea, No abdominal Pain Genitourinary : No Dysuria, No Urinary Frequency, No Hematuria, Musculoskeletal : No joint pain, No Myalgias, No Joint Swelling Skin : No Skin Lesions, No rash Neuro : No Weakness, No Numbness, No Dizziness, positive Headache Psych : No Anxiety/Panic, No Depression All other systems reviewed and are negative [facility] Past Medical History Attestation statement: The following information was validated with the patient. Source: old records reviewed Medical History Hearing impairment Basal cell carcinoma of face Mastoiditis Retention cyst of nasal sinus Acquired hammer toe of left foot Neck pain on left side Osteopenia of multiple sites Hiatal hernia with GERD Bipolar disorder Bunion of great toe of left foot Pain around toenail, left foot Cellulitis of toe of right foot Surgical History History of total knee arthroplasty History of esophagogastroduodenoscopy (EGD) H/O colonoscopy History of bladder surgery Fibroadenoma of right breast History of knee replacement procedure of right knee History of total abdominal hysterectomy and bilateral salpingo-oophorectomy History of appendectomy History of tonsillectomy Family History Family History (Reviewed 05/25/24 @ 13:20 by Melia Chavez [facility]) Father Emphysema, unspecified CVD (cardiovascular disease) Mother CVD (cardiovascular disease) Brother Lung cancer Bone cancer Brother Cancer of prostate Daughter No problems noted. Brother No problems noted. Brother No problems noted. Brother No problems noted. Social History Social History Household Members: None Housing: Apartment Alcohol intake: current Alcohol intake frequency: does not drink Patient Tobacco Use Status: Never used Tobacco Smoked in Last 30 Days: No e-Cigarette/Vaping Use: Never Used Use of substances other than those prescribed or required for medical reasons: No Advance Directives: Yes Advance Directives on File: Yes Advance Directives Date on File: 11/14/22 Do you have a plan to hurt others: No Plan service: No Current occupational status: retired Cognitive needs: No Hearing needs: No Vision needs: No Physical Exam ED Vital Signs: Vital Signs - 24 hr 07/13/24 03:16 07/13/24 08:21 07/13/24 11:28 Temperature 97.8 F Pulse Rate 72 68 64 Respiratory Rate 16 14 19 Blood Pressure 169/89 H 143/66 H 147/77 H Pulse Oximetry 100 94 99 Oxygen Delivery Method Room Air Room Air Room Air BMI result Body Mass Index 36.9 Appearance: Alert. Oriented X3. No acute distress. Eyes: Pupils equal, round and reactive to light. ENT: Pharynx normal. Normal TMs bilaterally Neck: Normal inspection. Neck supple. CVS: Normal heart rate and rhythm. Pulses normal. Respiratory: No respiratory distress. Breath sounds normal. Abdomen: Soft and nontender. Skin: Skin warm and dry. Normal skin color. Normal skin turgor. Extremities: Non pitting bilateral lower extremity edema. No calf ttp Neuro: Oriented X 3. No motor deficit. No sensory deficit. Medical Decision Making Medical Decision Making [facility] Narrative: 74 yo female with PMH of GERD, gait disorder, bipolar disorder, pancreatic insufficiency here with c/o headaches in setting of elevated BP though today improved in ED and symptoms gone. She has no neuro symptoms on exam. She also c/o leg swelling but denies risk factors for VTE - DVT study ordered, EKG, BNP, LFTs, TSH. She has no active signs of infection and notes all of her symptoms x 2 weeks. If negative work up in the ED will refer to PCP for follow up HTN Differential Diagnosis Differential Diagnoses: The differential diagnosis associated with the presentation includes HTN, lyte abnormality, DVT headache anxiety Admission/Observation Consideration of admission/observation: Escalation of care including admission/observation considered BP stable here no symptoms up and walking can be DC home outpatient MRI and carotid studies start on oral abx given her mastoid effusion Lab Data [facility] Lab Attestation statement: I reviewed the patient's lab results. 07/13/24 03:53 07/13/24 03:53 Labs: Lab Results 07/13/24 07/13/24 07/13/24 Range/Units 03:53 08:17 11:38 WBC 7.8 (4.8-10.8) X10*3/uL RBC 5.16 (4.20-5.50) X10*6/uL Hgb 14.7 (12.0-16.0) g/dl Hct 42.1 (37.0-47.0) % MCV 81.6 (80.0-98.0) fL MCH 28.5 (27.0-33.0) pg MCHC 34.9 (31.0-35.0) g/dl RDW 13.2 (11.0-16.0) % Plt Count 196 (160-400) X10*3/uL MPV 9.5 (9.4-12.3) fL Immature Gran % (Auto) 0.5 H (0.0-0.4) % Neut % (Auto) 59.9 (45-73) % Lymph % (Auto) 30.3 (20-40) % Patrick % (Auto) 7.7 (2-11) % Eos % (Auto) 0.8 (0-4) % Baso % (Auto) 0.8 (0-2) % Lymph # (Auto) 2.4 (1.2-4.9) X10*3/uL Patrick # (Auto) 0.6 (0.1-1.2) X10*3/uL Eos # (Auto) 0.1 (0.0-0.4) X10*3/uL Baso # (Auto) 0.1 (0.0-0.2) X10*3/uL Abs Immat Gran (auto) 0.04 H (0.00-0.03) X10*3/uL Absolute Neuts (auto) 4.7 (2.0-8.3) x10*3/uL Absolute Nucleated RBC 0.000 (0.0-0.012) X10*3/uL Nucleated RBC % (auto) 0.0 (0.0-0.2) /100WBC Sodium 140 (135-145) mmol/L Potassium 3.8 (3.3-5.1) mmol/L Chloride 106 (96-108) mmol/L Carbon Dioxide 20 L (22-29) mmol/L Anion Gap 18 (12-20) BUN 16 (9-16) mg/dL Creatinine 0.57 (0.5-1.4) mg/dL Estim Creat Clear Calc 93.9 Estimated GFR > 60 Random Glucose 99 (60-115) mg/dL Calcium 10.0 (8.4-10.2) mg/dL Total Bilirubin 0.7 (0.0-1.0) mg/dL Direct Bilirubin 0.2 (0.0-0.5) mg/dL AST 22 (5-31) U/L ALT 14 (0-31) U/L Alkaline Phosphatase 55 (39-117) U/L B-Natriuretic Peptide 59 (<100) pg/mL Total Protein 7.0 (6.5-8.0) g/dL Albumin 4.3 (3.5-5.0) g/dL TSH 1.70 (0.32-4.0) uIU/mL Urine Color Yellow Urine Appearance Clear Urine pH 7.0 (5.0-9.0) Ur Specific [place] <= 1.005 (1.005-1.025) Urine Protein Negative (Neg-Trace) mg/dL Urine Glucose (UA) Negative (Negative) mg/dL Urine Ketones Negative (Negative) mg/dL Urine Blood Trace H (Negative) Urine Nitrite Negative (Negative) Ur Leukocyte Esterase Trace H (Negative) Urine RBC 0-2 (0-2) /HPF Urine WBC 0-5 (0-5) /HPF Ur Squamous Epith Cells 0-2 (0-2) /HPF Urine Bacteria None Seen (None Seen) Hyaline Casts 0-2 (0-2) /LPF Independent Interpretation I performed an independent interpretation of an: EKG, Ultrasound and CT Scan Interpretation: Rate: 61 Rhythm: NSR Hagaman: normal Normal P waves. Normal JYOTSNA. Normal QRS complex. ST T wave : inverted t waves III, v1, no MANUEL qTC: 442 prior studies: no sig change from 2018 The study has been interpreted contemporaneously by me. . Radiology Impression Discussion of test interpretation with radiology: I have reviewed the radiologist's reading. External Record Review External record reviewed: Office record Discharge Plan Discharge Clinical Impression: HTN (hypertension), Sinusitis Patient Disposition: Home, Self-Care Instructions: Sinusitis (ED), DASH Eating Plan (ED), Hypertension (ED) Additional Instructions: no blood clot in legs basic labs normal, thyroid normal, EKG reassuring continue to monitor and follow up with your doctor given the 2 weeks of symptoms at this time I would recommend MRI of brain as outpatient, carotid studies please talk to your doctor about this consider baby aspirin 81mg until you see your doctor CHF test in blood normal there is some sinus disease and fluid in R mastoid cells - would do short course of oral antibiotics as this could be sinusitis related return for any worsening symptoms or concerns. On a cephalosporin?antibiotic, softer bowel movements are to be expected. Call your provider if you move your bowels more than 4 times a day, your bowel movements are almost all liquid, or you get a rash.?? Prescriptions: New cefuroxime axetil 500 mg tablet 500 mg PO BID 7 Days Qty: 14 0RF No Action divalproex 500 mg tablet extended release 24 hr 500 mg PO DAILY 30 Days Qty: 30 0RF niacinamide 250 250 mg PO DAILY zinc copper PO DAILY Linzess 145 mcg capsule 145 mcg PO DAILY Qty: 30 6RF Zenpep 25,000-79,000- 105,000 unit capsule,delayed release(DR/EC) 2 cap PO BID Qty: 120 6RF Rx Instructions: administer with meals and/or snacks bisacodyl [Dulcolax (bisacodyl)] 5 mg tablet,delayed release (DR/EC) See Rx Instructions PO BEDTIME 30 Days Qty: 60 6RF Rx Instructions: 1-2 tablets at bedtime orally bedtime; hydrocortisone [Proctosol HC] 2.5 % cream with perineal applicator 1 appl DC BID Qty: 30 6RF Rx Instructions: BE SURE TO INCLUDE RECTAL APPICATOR!! Print Language: Russian
--- NOTE | 2024-07-13 09:29 | ECG_ITS ---
Test Reason : htn Blood Pressure : / mmHG Vent. Rate : 061 BPM Atrial Rate : 061 BPM P-R Int : 152 ms QRS Dur : 084 ms QT Int : 440 ms P-R-T Axes : 035 007 021 degrees QTc Int : 442 ms Poor data quality, interpretation may be adversely affected Normal sinus rhythm Normal ECG When compared with ECG of 12-NOV-2017 13:43, Vent. rate has decreased BY 31 BPM Criteria for Inferior infarct are no longer Present T wave inversion less evident in Inferior leads Referred By: Gisell Griffin Electronically Signed By:HERLINDA TURNER MD
[2024-07-13 10:05] LABS: Alanine Aminotransferase 14 U/L (0-31); Albumin Level 4.3 g/dL (3.5-5.0); Alkaline Phosphatase 55 U/L (39-117); Aspartate Amino Transferase 22 U/L (5-31); Bilirubin Direct 0.2 mg/dL (0.0-0.5); Bilirubin Total 0.7 mg/dL (0.0-1.0)
[2024-07-13 11:28] VITALS: BP 147/77; PULSE 64; RESP 19; O2SAT 99
--- NOTE | 2024-07-13 11:45 | PC.NURSE ---
Assumed care of this patient att 1100, patient's BNP to be drawn, difficult stick. Lab obtained by this RN. Patient walking independently to BR w/ cane, denies pain, denies SOB.
--- NOTE | 2024-07-13 12:43 | PC.NURSE ---
Patient's lab has not resulted for >1 hr., spoke to Kiley at the lab, should be resulted in 20 minutes.
[2024-07-13 13:10] LABS: B Type Natriuretic Peptide 59 pg/mL (<100)
[2024-07-13 13:31] VITALS: BP 167/95; PULSE 69; RESP 19; TEMP 36.7; O2SAT 100
== END 2024-07-13 13:32 | disposition home or self-care (01) ==
PROVIDERS: Emergency Provider Emergency Medicine; PCP Internal Medicine
DX: J32.9 Chronic sinusitis, unspecified (principal); R51.9 Headache, unspecified; F41.9 Anxiety disorder, unspecified; R60.0 Localized edema; R06.02 Shortness of breath; R94.31 Abnormal electrocardiogram [ECG] [EKG]; M54.50 Low back pain, unspecified; I10 Essential (primary) hypertension; Z79.899 Other long term (current) drug therapy
CPT/HCPCS: 36415; 70450; 80048; 80076; 81001; 83880; 84443; 85025; 93005; 93970; 99284

== ENCOUNTER → 2024-07-13 09:26 | Outpatient (BNV) | payer MEDICARE, MEDICAID, SELFPAY | PROVIDERS: Emergency Provider Emergency Medicine; PCP Internal Medicine; Visit Provider Radiology Diagnostic Radiology | DX: R51.9 Headache, unspecified (principal); M79.604 Pain in right leg; M79.605 Pain in left leg | CPT/HCPCS: 70450; 93970 ==

== ENCOUNTER → 2024-07-13 09:29 | Outpatient (BNV) | payer MEDICARE, MEDICAID, SELFPAY | PROVIDERS: Emergency Provider Emergency Medicine; PCP Internal Medicine; Visit Provider Internal Medicine Cardiovascular Disease | DX: I10 Essential (primary) hypertension (principal) | CPT/HCPCS: 93010 ==

== ENCOUNTER 2024-12-29 11:39 | Outpatient (AMB) | payer MEDICARE, MEDICAID, SELFPAY ==
--- NOTE | 2024-12-29 12:03 | A.OFFVIS_ITS ---
Vital Signs 12/29/24 12:07 Height 5 ft 2 in Weight 203 lb 4.259 oz BMI 37.2 BP 141/70 H Blood Pressure Location Rt radial Position Sitting Pulse 71 Intake Visit Reasons: 7 months follow up Intake Note: Veronica returns to in office follow up CIC. CC: Patient reports doing well and denies having any new GI concerns today. 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 Accompanied by: Self / Same As Patient Allergies aged foods Allergy (Unknown, Verified 12/29/24 12:12) rash bee pollen [Bee Stings] Allergy (Unknown, Verified 12/29/24 12:12) SWELLING bees Allergy (Unknown, Verified 12/29/24 12:12) anaphylaxis gabapentin [Neurontin] Allergy (Unknown, Verified 12/29/24 12:12) hematurea latex [LATEX] Allergy (Unknown, Verified 12/29/24 12:12) RASH risperidone [From Risperdal] Allergy (Unknown, Verified 12/29/24 12:12) LUMPS ON ABDOMEN- SUPERFICIAL PHLEBITIS, painful lumps of abdomen white composit dental filling Allergy (Unknown, Verified 12/29/24 12:12) hives lactose Adverse Reaction (Mild, Verified 12/29/24 12:12) Unknown tramadol [TRAMADOL] Adverse Reaction (Mild, Verified 12/29/24 12:12) nausea/vomiting divalproex sodium [From Depakote] Adverse Reaction (Unknown, Verified 12/29/24 12:12) LOW DOSE AND SLOW RELEASE CAUSES STELLA Iodinated Contrast Media [IV Dye, Iodine Containing] Adverse Reaction (Unknown, Verified 12/29/24 12:12) DEHYDRATED, TWITCHING niacin [Niacin] Adverse Reaction (Unknown, Verified 12/29/24 12:12) TURNS RED olanzapine [From Zyprexa] Adverse Reaction (Unknown, Verified 12/29/24 12:12) BLOOD IN URINE yeast, dried [yeast] Adverse Reaction (Unknown, Verified 12/29/24 12:12) WHITE COATING ON TONGUE WHITE BREAD Allergy (Mild, Uncoded 12/15/23 14:04) DIFF SWALLOWING wheath Adverse Reaction (Mild, Uncoded 12/15/23 14:04) Unknown HPI HPI 7 months follow up: Details: Assessment & Plan (1) GERD (gastroesophageal reflux disease): Code(s): K21.9 - Gastro-esophageal reflux disease without esophagitis Category: Medical (2) Chronic idiopathic constipation: Code(s): K59.04 - Chronic idiopathic constipation Category: Medical Plan She has been sol getting ready for winter. She is doing well with her current GI regimen. She continues on her Linzess, bisacodyl, and Creon. Medication she has not needed anything for GERD or heartburn. The only problem is with rectal pain and she says I have a hemorrhoid. I will send proctosol for this. ROV 6 mos. Medications: New hydrocortisone 2.5% (Proctosol HC) BE SURE TO INCLUDE RECTAL APPICATOR!! 1 appl NM BID 30 grams 6RF hemorrhoids K64.9 - Unspecified hemorrhoids Changed From bisacodyl 1-2 tablets at bedtime orally bedtime; 30 days 60 tabs 6RF K59.04 - Chronic idiopathic constipation To bisacodyl (Dulcolax (bisacodyl)) 1-2 tablets at bedtime orally bedtime; 60 tabs 6RF 30 days K59.04 - Chronic idiopathic constipation From sjfkhc-ljwjdgvw-iqolixd 25,000-79,000- 105,000 unit administer with meals and/or snacks 2 caps PO BID 120 caps 6RF K86.89 - Other specified diseases of pancreas To egifck-fqcvyies-itjkayw 25,000-79,000- 105,000 unit (Zenpep) administer with meals and/or snacks 2 caps PO BID 120 caps 6RF K86.89 - Other specified diseases of pancreas Refilled linaclotide (Linzess) 145 mcg PO DAILY 30 caps 6RF K59.04 - Chronic idiopathic constipation TODAYS VISIT She stopped the Juan pep and her drops of rectal blood stopped. However, she has to stick to a carnivore diet or she will have severe CIC - esteban peanut butter, veggies, or breads. She will have cramping. But she is acceptable to this. She continues on her LInzess and bisacodyl. ROV 6 mos. [facility] Medical History Hearing impairment Basal cell carcinoma of face Mastoiditis Retention cyst of nasal sinus Acquired hammer toe of left foot Neck pain on left side Osteopenia of multiple sites Hiatal hernia with GERD Bipolar disorder Bunion of great toe of left foot Pain around toenail, left foot Cellulitis of toe of right foot Surgical History History of total knee arthroplasty History of esophagogastroduodenoscopy (EGD) H/O colonoscopy History of bladder surgery Fibroadenoma of right breast History of knee replacement procedure of right knee History of total abdominal hysterectomy and bilateral salpingo-oophorectomy History of appendectomy History of tonsillectomy Family History Father Emphysema, unspecified CVD (cardiovascular disease) Mother CVD (cardiovascular disease) Brother Lung cancer Bone cancer Brother Cancer of prostate Daughter No problems noted. Brother No problems noted. Brother No problems noted. Brother No problems noted. Social History Household Members: None Housing: Apartment Alcohol intake: current Alcohol intake frequency: does not drink Patient Tobacco Use Status: Never used Tobacco e-Cigarette/Vaping Use: Never Used Advance Directives Date on File: 11/14/22 service: No Current occupational status: retired Cognitive needs: No Hearing needs: No Vision needs: No Review of Systems Const Denies fatigue, Denies fever(s), Denies night sweats, Denies poor appetite and Denies weight loss ENT Reports Normal hearing present, Denies dental pain, Denies dysphagia, Denies hearing loss, Denies mouth pain, Denies odynophagia, Denies throat swelling, Denies tongue swelling and Reports other (Dentition adequate) Card Reports no additional complaints Resp Reports no additional complaints GI Details: Denies abdominal pain, Denies melena, Reports bloating, Denies hematochezia, Reports constipation, Denies GI cramping, Denies dysphagia, Denies excessive flatus, Denies early satiety, Denies heartburn, Denies diarrhea, Denies nausea, Denies odynophagia, Denies vomiting and Denies hematemesis Skin/Breast Denies pruritus, Denies lesions, Denies rash and Denies jaundice Neuro Reports Normal hearing present and Denies Abnormal speech present Endo Denies fatigue Aller/Immun Denies throat swelling and Denies tongue swelling Physical Exam Vital Signs: Last Vital Signs Pulse 71 12/29/24 12:07 BP 141/70 H 12/29/24 12:07 BMI result Body Mass Index 37.2 Const General: cooperative, no acute distress, well developed and well groomed Nutritional Appearance: well nourished and obese Orientation/consciousness: oriented to person, oriented to place and oriented to time Limitations: No language barrier and ambulation with walker HEENT Head: Yes normocephalic and Yes atraumatic Eyes General: appearance normal, both eyes and all related structures Pupils: Equal, round and reactive pupils present Neck Neck: Yes normal visual inspection and Yes no lymphadenopathy Thyroid: Thyroid normal Resp Effort & Inspection: normal respiratory effort and able to speak in complete sentences Auscultation: clear to auscultation bilaterally Cardio Rate: regular rate Rhythm: regular rhythm Heart sounds: Normal, physiologic split S2 sound present Peripheral pulses: radial pulses present and posterior tibial pulses present GI Inspection: No distended, Yes Abdominal panniculus present and Yes obesity Palpation (GI): Soft to palpation, nontender, no guarding, not rigid and No hepatosplenomegaly present Percussion: Yes normal to percussion Auscultation: normal bowel sounds Rectal Exam - Female: deferred Skin General skin exam: no rashes or lesions noted, turgor normal, skin not dry, no jaundice, No spider nevi and no striae Rashes: no rashes Nails: normal Neuro General: oriented to person, oriented to place and oriented to time Cranial nerves: Yes Equal, round and reactive pupils present and Yes Normal hearing present Speech: No Abnormal speech present Extrem General: Yes normal to inspection, No clubbing, No cyanosis and No edema Psych Appearance: grossly normal and well kempt Mental Status: mental status grossly normal Speech and movement: Normal speech and movement present Affect: normal affect Attitude: cooperative Thought process: Normal thought process present and not confabulating Thought content: Normal thought content present Insight: Good insight present (Psych) Judgement: Good judgement present (Psych) Assessment & Plan Assessment & Plan (1) GERD (gastroesophageal reflux disease): Code(s): K21.9 - Gastro-esophageal reflux disease without esophagitis Category: Medical (2) Chronic idiopathic constipation: Code(s): K59.04 - Chronic idiopathic constipation Category: Medical (3) Pancreatic insufficiency: Code(s): K86.89 - Other specified diseases of pancreas Category: Medical Plan She stopped the Juan pep and her drops of rectal blood stopped. However, she has to stick to a carnivore diet or she will have severe CIC - esteban peanut butter, veggies, or breads. She will have cramping. But she is acceptable to this. She continues on her LInzess and bisacodyl. ROV 6 mos. Medications: Refilled linaclotide (Linzess) 145 mcg PO DAILY 30 caps 6RF K59.04 - Chronic idiopathic constipation bisacodyl (Dulcolax (bisacodyl)) 1-2 tablets at bedtime orally bedtime; 60 tabs 6RF 30 days K59.04 - Chronic idiopathic constipation Discontinued uheyev-edrrptqd-osqrqqa 25,000-79,000- 105,000 unit (Zenpep) administer with meals and/or snacks Discontinued Reason: Doctor's Order 2 caps PO BID 120 caps 6RF K86.89 - Other specified diseases of pancreas Coding Level of Care Code Est Pt Level 3 (32776) Diagnoses GERD (gastroesophageal reflux disease) K21.9 Chronic idiopathic constipation K59.04 Pancreatic insufficiency K86.89
[2024-12-29 12:07] VITALS: BP 141/70; PULSE 71; BMI 37.2
== END 2024-12-29 12:56 | disposition home or self-care (01) ==
LOC: HO.HGI 11:39
PROVIDERS: PCP Internal Medicine; Visit Provider Nurse Practitioner
DX: K21.9 Gastro-esophageal reflux disease without esophagitis (principal); K59.04 Chronic idiopathic constipation; K86.89 Other specified diseases of pancreas
CPT/HCPCS: 99213

== ENCOUNTER → 2024-12-29 11:39 | Outpatient (BNVA) | payer MEDICARE, MEDICAID, SELFPAY | PROVIDERS: PCP Internal Medicine; Visit Provider Nurse Practitioner | DX: K21.9 Gastro-esophageal reflux disease without esophagitis (principal); K59.04 Chronic idiopathic constipation; K86.89 Other specified diseases of pancreas | CPT/HCPCS: 99212 ==

== ENCOUNTER 2025-01-23 10:45 | Outpatient (REF) | payer MEDICARE, MEDICAID, SELFPAY ==
--- NOTE | 2025-01-24 13:53 | MHC.AU.HA1 ---
Hearing Aid Evaluation Date of Visit: 01/23/25 Historical Information: Description of Hearing: Borderline normal sloping to moderate sensorineural hearing loss bilateral. Current personal amplification information, if applicable: Has a pair of Rhonda 2 pro RITES she got at [address] [place] [address] [employer]. Summary: Reports dissatisfaction with hearing aids that she got several years ago at [facility]. Reports constantly wearing large sunglasses due to sun sensitivity and the hearing aids never fitting well with the sunglasses, wires uncomfortable, batteries troublesome. Reports she wore them for a couple months before giving up entirely. Amplification is recommended due to degree of hearing loss. Discussed benefits and limitations, style options. Veronica is willing to try again and is interested in rechargeable ITEs. Impressions taken without incidence Au. Hearing Aid Prescription: Based on the individual?s shared listening needs, communication environments, dexterity, desire for connectivity, and personal preferences, the following prescription for amplification has been made: Right ear: Make, Model, Color: INFIMET AI 1600 ITC R Battery Size: Rechargeable Left ear: Make, Model, Color: INFIMET AI 1600 ITC R Battery Size: Rechargeable Plan of Care: Patient wishes to purchase hearing aids as prescribed Action Taken/Action Needed: [place] Impressions Taken Medical Clearance to be requested from PCP/ENT Hearing Instrument Fitting to be scheduled when materials arrive Comments: Impressions stored in hold drawer, waiting on signed medical clearance form. Primary Diagnosis: H90.3 Bilateral Sensorineural Hearing Loss Signature: Provider: Audi Galicia, CCC-A
== END 2025-01-23 10:46 | disposition home or self-care (01) ==
LOC: HO.SH 10:45
PROVIDERS: Visit Provider Internal Medicine
DX: Z01.118 Encounter for examination of ears and hearing with other abnormal findings (principal); Z46.1 Encounter for fitting and adjustment of hearing aid; H90.3 Sensorineural hearing loss, bilateral
CPT/HCPCS: 92557; 92567; 92591; V5275

== ENCOUNTER 2025-02-14 08:45 | Outpatient (AMB) | payer MEDICARE, MEDICAID, SELFPAY ==
--- NOTE | 2025-02-14 08:49 | AM.OFFWIN_ITS ---
Intake Vital Signs 02/14/25 08:50 Height 5 ft 2 in Weight 195 lb BMI 35.7 BP 132/74 Blood Pressure Location Rt brachial Position Sitting Pulse 78 Pulse Source Pulse Oximeter Temp 97.9 F Temp Source Oral Pulse Oximetry (%) 99 Oxygen Delivery Method Room Air Intake Visit Reasons: EP ? tick bite in December ? symptoms Intake Note: Pt presents to the office today for c/o a possible tick bite in december. Pt states she has many different symptoms. Patient Tobacco Use Status: Never used Tobacco Allergies aged foods Allergy (Unknown, Verified 02/14/25 08:50) rash bee pollen [Bee Stings] Allergy (Unknown, Verified 02/14/25 08:50) SWELLING bees Allergy (Unknown, Verified 02/14/25 08:50) anaphylaxis gabapentin [Neurontin] Allergy (Unknown, Verified 02/14/25 08:50) hematurea latex [LATEX] Allergy (Unknown, Verified 02/14/25 08:50) RASH risperidone [From Risperdal] Allergy (Unknown, Verified 02/14/25 08:50) LUMPS ON ABDOMEN- SUPERFICIAL PHLEBITIS, painful lumps of abdomen white composit dental filling Allergy (Unknown, Verified 02/14/25 08:50) hives lactose Adverse Reaction (Mild, Verified 02/14/25 08:50) Unknown tramadol [TRAMADOL] Adverse Reaction (Mild, Verified 02/14/25 08:50) nausea/vomiting divalproex sodium [From Depakote] Adverse Reaction (Unknown, Verified 02/14/25 08:50) LOW DOSE AND SLOW RELEASE CAUSES STELLA Iodinated Contrast Media [IV Dye, Iodine Containing] Adverse Reaction (Unknown, Verified 02/14/25 08:50) DEHYDRATED, TWITCHING niacin [Niacin] Adverse Reaction (Unknown, Verified 02/14/25 08:50) TURNS RED olanzapine [From Zyprexa] Adverse Reaction (Unknown, Verified 02/14/25 08:50) BLOOD IN URINE yeast, dried [yeast] Adverse Reaction (Unknown, Verified 02/14/25 08:50) WHITE COATING ON TONGUE WHITE BREAD Allergy (Mild, Uncoded 02/14/25 08:50) DIFF SWALLOWING wheath Adverse Reaction (Mild, Uncoded 02/14/25 08:50) Unknown HPI HPI Comments History of Present Illness Details march 07 1pm History of Present Illness- - The patient is a 74-year-old female wi th a past med hx of bipolar, IBS with constipation, gait disorder, osteoarthritis of left knee, GERD, osteopenia, pancreatic insufficiency, thrombosed hemmhoroids and a rectocele presenting with a sensation of burning and rawness under the skin thoughout her body . - Reports exposure to ticks in December wit hout confirmed bites or engorgement, and no bullseye rash observed. She says they crawled on her while she was on a bus. - Also complaining of chronic swelling a nd erythema in both legs since December, with peeling skin on the right leg. Has never had an echo or similar leg swelling. Denies shortness of breath. - Also complaining of IBS, managed with Linzess, affected by other medications such as Benadryl. Is upset because it seems to be taking longer to work when she takes Benadryl or any other antihistamine. - Reports a history of pancreatic insuff iciency, previously managed with enzymes, discontinued due to rectal bleeding. States her GI doctor knows this and is fine with it. - Also complaining of unexplained weight loss of six pounds over the past 3 days, despite normal eating and drinking habits. - Describes a sensation of burning and rawness under the skin states it is like sandpaper , with no visible rash or fever or joint pain. - History of transient neurological symp toms, including difficulty with speech and limb weakness, following an inconclusive EKG at the [facility] which she was very upset about. - States she can no longer say the word cheeseburger , however she can say cheese and burger . - Is visibly upset and becoming more ups et throughout the HPI, she is asking for blood work to figure out why she feels like sandpaper is under her skin, and why she has head burning , leg swelling and weight loss. Physical Exam General: became more uncooperative during exam, healthy appearing, comfortable, in mild acute distress and well developed Orientation: Patient oriented x3 Limitations: uses a walker Head: Normal to inspection Ears: Hearing grossly normal bilaterally Nose: Normal External nose present Face and sinus: Normal facial exam Eyes: Appearance normal, both eyes and all related structures Neck: Normal visual inspection and Yes full ROM Respiratory: Normal respiratory effort and able to speak in complete sentences. Skin: slight erythema with dry skin on RLE Neuro: Patient oriented x3 Extremities: trace bilateral LE edema psych: labile affect, flight of ideas, not good insight [facility] Medical History Hearing impairment Basal cell carcinoma of face Mastoiditis Retention cyst of nasal sinus Acquired hammer toe of left foot Neck pain on left side Osteopenia of multiple sites Hiatal hernia with GERD Bipolar disorder Bunion of great toe of left foot Pain around toenail, left foot Cellulitis of toe of right foot Surgical History History of total knee arthroplasty History of esophagogastroduodenoscopy (EGD) H/O colonoscopy History of bladder surgery Fibroadenoma of right breast History of knee replacement procedure of right knee History of total abdominal hysterectomy and bilateral salpingo-oophorectomy History of appendectomy History of tonsillectomy Family History Father Emphysema, unspecified CVD (cardiovascular disease) Mother CVD (cardiovascular disease) Brother Lung cancer Bone cancer Brother Cancer of prostate Daughter No problems noted. Brother No problems noted. Brother No problems noted. Brother No problems noted. Social History Household Members: None Housing: Apartment Alcohol intake: current Alcohol intake frequency: does not drink Patient Tobacco Use Status: Never used Tobacco e-Cigarette/Vaping Use: Never Used Advance Directives Date on File: 11/14/22 service: No Current occupational status: retired Cognitive needs: No Hearing needs: No Vision needs: No Review of Systems Const All systems reviewed & are unremarkable except as noted in HPI and below Physical Exam Vital Signs: Last Vital Signs Temp 97.9 F 02/14/25 08:50 Pulse 78 02/14/25 08:50 BP 132/74 02/14/25 08:50 Pulse Ox 99 02/14/25 08:50 Oxygen Delivery Method Room Air 02/14/25 08:50 BMI result Body Mass Index 35.7 Assessment & Plan Assessment & Plan (1) Itching: Code(s): L29.9 - Pruritus, unspecified Plan: Plan - Consider stronger antihistamines for the sensation of burning and rawness in the skin and body but patient does not want to take. - Explained we cannot do blood cultures at the Walk In and based on her multiple complaints some of which are difficult to interpret, it is difficult to narrow down what her acute issue is today. Her VSS, she is well appearing and able to yell, speak, and walk with her walker. A&O x3. Recommended if she has any acute issues, she go to the ED. - Made a follow-up with Dr. Simons when she returns from vacation on 03/07 1pm for further evaluation and management of symptoms. Patient was informed and verbally consented to the use of an ambient scribe for clinic note documentation during this visit. Coding Level of Care Code Est Pt Level 4 (26723) Diagnoses Itching L29.9
[2025-02-14 08:50] VITALS: BP 132/74; PULSE 78; TEMP 36.6; O2SAT 99; BMI 35.7
--- OUTSIDE RECORDS SUMMARY | 2025-02-14 09:03 | XMS_ITS | Patient Health Record ---
Author Organization [facility] Address [address] [address] Care Team Providers Care [employer] Insurance Appraiser Name Role Phone Gladys RAMIREZ, Kassandra Primary Care Provider Spenecr Dodson Unavailable [phone] Allergies Allergen (clinical drug ingredient) Drug/Non Drug Allergy documented on EMR Reaction Allergy Type Onset Date Status Sudafed racing heart Drug Allergy Acti ve olanzapine Zyprexa racing heart Drug Allergy Act johnny injectable steriods cant breath Drug Allergy Active Latex anaphylaxis Drug Allergy Activ e Reason For Referral No Information Medications Medication SIG (Take, Route, Frequency, Duration) Notes Start Date End Date Status Extra-Depth Diabetic Shoes with 3 Pair Custom heat-molded multi-density innersoles . for 1 year . Dx:arthritis and functional limb length discrepancy with need for custom orthoses to control pronation and LLD adjustment for . 07/05/2014 Active Depakote Active Ativan Active Problems Problem Type SNOMED Code ICD Code Onset Dates Problem Status W/U Status Risk Notes Problem Onychomycosis (804726573) Onychomycosis (110.1) Active confirmed Problem Disorder of joint of ankle and/or foot (582255614) Arthritis - Degenerative (719.97) Active confirmed Problem Hallux valgus (619402679) Hallux Valgus (735.0) Active confirmed Problem Hammer toe (087305915) Hammer toe (735.4) Active confirmed Problem Congenital pes planus (23701472) Flat Foot, Congenital (754.61) Active confirmed Problem Pain in limb (94837872) Pain in Limb (729.5) Active confirmed Plan Of Treatment No Information Insurance Providers Payer Name Payer Address Payer Phone Subscriber Number Group Number Insured Name Patient Relationship to Insured Coverage Start Date Coverage End Date [employer] [address] [place] [address] [id number] Veronica Hebert Self - patient is the insured Medical (General) History Medical History History ICD Code Anxiety Arthritis Broken bones Psychiatric disorder Measles Joint implants/screws Surgical History Surgery Date(Month/Year) knee surgery
== END 2025-02-14 09:35 | disposition home or self-care (01) ==
PROVIDERS: PCP Internal Medicine; Visit Provider Physician Assistant
DX: L29.9 Pruritus, unspecified (principal)

== ENCOUNTER → 2025-02-14 08:45 | Outpatient (BNVA) | payer MEDICARE, MEDICAID, SELFPAY | PROVIDERS: PCP Internal Medicine; Visit Provider Physician Assistant | DX: L29.9 Pruritus, unspecified (principal) | CPT/HCPCS: 99212 ==

== ENCOUNTER 2025-04-13 10:20 | Outpatient (AMB) | payer MEDICARE, MEDICAID, SELFPAY ==
--- OUTSIDE RECORDS SUMMARY | 2025-04-13 10:24 | XMS_ITS | Clinical Summary ---
Author Organization [facility] Address [address] [place] [address] Phone Care Team Providers Care [employer]ke [employer]airer Name Role Phone Belne Simons MD Primary Care Provider [phone] Allergies Active Allergy Reactions Criticality Noted Date Comments Cephalexin Hives 03/29/2025 Medications acetaminophen (TYLENOL) 500 mg tablet Take 1 tablet (500 mg total) by mouth every 6 (six) hours if needed for mild pain for up to 12 doses. 12 tablet 5 Active Additional Information Patient not taking.Reported on 04/11/2025 naproxen (NAPROSYN) 500 mg tablet Take 1 tablet (500 mg total) by mouth 2 (two) times a day if needed for mild pain for up to 12 doses. 12 tablet 5 Active Additional Information Patient not taking.Reported on 04/11/2025 phenazopyridine (PYRIDIUM) 200 mg tablet Take 1 tablet (200 mg total) by mouth 3 (three) times a day if needed for bladder spasms for up to 24 doses. 24 tablet 5 Active Additional Information Patient not taking.Reported on 04/11/2025 linaCLOtide (Linzess) 145 mcg capsule Take 1 capsule (145 mcg total) by mouth 1 (one) time each day before breakfast. Active divalproex (DEPAKOTE ER) 500 mg 24 hr tablet Take 1 tablet (500 mg total) by mouth 1 (one) time each day. Do not crush, chew, or split. Active ciprofloxacin (CIPRO) 500 mg tablet Take 1 tablet (500 mg total) by mouth 2 (two) times a day for 5 days. 10 each 04/03/20 25 Encounters Date Type Department Care Team Description 04/11/2025 10:15 AM EDT Consult General Surgery - [facility] [address] [place] [address] Dru Childress DO Left lower quadrant abdominal pain (Primary Dx) 03/29/2025 11:31 AM EDT - 03/29/2025 6:[address] [facility] [address] [place] [address] Romeo Kline MD Acute abdominal pain (Primary Dx); Urinary tract infection in female Discharge Disposition: Home or Self Care from Last 3 Months Surgical History Surgery Date Site/Laterality Comments BREAST LUMPECTOMY PROCEDURE: HISTORICAL BREAST LUMPECTOMY; COMMENT: benign OTHER SURGICAL HISTORY 06/13 PROCEDURE: MAMMOGRAM TONSILLECTOMY PROCEDURE: HISTORICAL TONSILLECTOMY APPENDECTOMY PROCEDURE: CO APPENDECTOMY HYSTERECTOMY PROCEDURE: HISTORICAL HYSTERECTOMY; COMMENT: fibroids COLONOSCOPY 08/20/2008 PROCEDURE: CO COLONOSCOPY FLX DX W/COLLJ SPEC WHEN PFRMD; COMMENT: Normal Medical History Medical History Date Comments Insomnia, unspecified 05/05/2006 DX:Insomni a, unspecified Migraine without aura, witho ut mention of intractable migraine without mention of status migrainosus 05/05/2006 DX:Migraine with out aura, without mention of intractable migraine without mention of status migrainosus Lumbosacral spondylosis with out myelopathy 05/05/2006 DX:Lumbosacral spondylosis w ithout myelopathy Cervical spondylosis without myelopathy 05/05/2006 DX:Cervical spondylosis with out myelopathy Derangement of lateral menis cus, unspecified 06/20/2007 DX:Derangement of lateral me niscus, unspecified; COMMENT: right Morbid obesity (CMS/HCC V24, CMS/HCC V28) 06/20/2007 DX:Morbid obesity (HCC) Anxiety state, unspecified 05/05/2006 DX:An xiety state, unspecified Special screening for malign ant neoplasms, colon 08/20/2008 DX:Special screening for mal ignant neoplasms, colon; COMMENT: Negative colonoscopy 08/20/2008, no colon cancer screening needed for 10 years. Family History Medical History Relation Name Comments Coronary artery disease Brother Heart failure Father 76 Heart failure Mother 84, strok e, gangrene, CAD Relation Name Status Comments Brother Father Mother Social History Tobacco Use Types Packs/Day Years Used Date Smoking Tobacco: Never Alcohol Use Standard Drinks/Week Comments No 0 (1 standard drink = 0.6 oz pur e alcohol) Comments Unknown Sex and Gender Information Value Date Recorded Sex Assigned at Not on file Legal Sex Female 9:50 AM EST Gender Identity Not on file Sexual Orientation Not on file Obstetrics History Last Filed Vital Signs Vital Sign Reading Time Taken Comments Blood Pressure 130/85 04/11/2025 10:09 AM EDT Pulse 71 04/11/2025 10:09 AM EDT Temperature 36.5 C (97.7 F) 04/11/2025 10:09 AM EDT Respiratory Rate 18 03/29/2025 5:53 PM EDT Oxygen Saturation 100% 03/29/2025 5:53 PM EDT Inhaled Oxygen Concentration - - Weight 87.1 kg (192 lb) 04/11/2025 10:09 AM EDT Height - - Body Mass Index - - Plan of Treatment Health Maintenance Due Date Last Done Comments Breast Cancer Screening 1950 Zoster Vaccines (1 of 2) 2002 Depression Screening 09/06/2024 COVID-19 Vaccine ( season) 2024 06/03/2024, 06/08/2023, 07/01/2022, Additional history exists Cholesterol Screening (Lipid Panel) 03/30/2025 Colorectal Cancer Screening: Colonoscopy 03/30/2025 Falls Risk Assessment 03/30/2025 Hepatitis C Screening 03/30/2025 Medicare Annual Wellness Visit 03/30/2025 Osteoporosis Screening (Bone Density Screening) 03/30/2025 Social Influencers of Health Screening 03/30/2025 Influenza Vaccine (#1) 2025 , 06/08/2023, 06/17/2022, Additional history exists Hypertension/CHF/CAD Annual BMP Blood Test 03/29/2026 03/29/2025 RSV Immunization Adult Patients (1 - 1-dose 75+ series) 2027 DTaP,Tdap,and Td Vaccines (4 - Td or Tdap) 04/25/2030 04/25/2020, 04/25/2020, 06/20/2008 Pneumococcal Vaccine: 50+ Years Completed 10/25/2018, 10/27/2017, 09/15/2012 HIB Vaccines Aged Out No longer eligi ble based on patient's age to complete this topic HPV Vaccines Aged Out No longer eligi ble based on patient's age to complete this topic Hepatitis A Vaccines Aged Out No long er eligible based on patient's age to complete this topic Hepatitis B Vaccines Aged Out No long er eligible based on patient's age to complete this topic IPV Vaccines Aged Out No longer eligi ble based on patient's age to complete this topic MMR Vaccines Aged Out No longer eligi ble based on patient's age to complete this topic Meningococcal ACWY Vaccine Aged Out N o longer eligible based on patient's age to complete this topic Meningococcal B Vaccine Aged Out No l onger eligible based on patient's age to complete this topic RSV Immunization Patients Under 20 months Aged Out No longer eligible based on patient's age to complete this topic Varicella Vaccines Aged Out No longer eligible based on patient's age to complete this topic Procedures Procedure Name Priority Date/Time Associated Diagnosis Comments ECG ANNOTATED 04/02/2025 CT ABDOMEN PELVIS W CONTRAST STAT 03/29/2025 4:44 PM EDT XR CHEST 1 VIEW STAT 03/29/2025 1:36 PM EDT ECG 12-LEAD STAT 03/29/2025 1:34 PM EDT MERA URINE CULTURE TUBE STAT 03/29/20 1:25 PM EDT URINALYSIS WITH REFLEX MICROSCOPIC AND CULTURE STAT 03/29/2025 1:25 PM EDT URINALYSIS WITH REFLEX MICROSCOPIC AND CULTURE STAT 03/29/2025 1:25 PM EDT CULTURE URINE STAT 03/29/2025 1:25 PM EDT CBC WITH AUTO DIFFERENTIAL STAT 03/29/2025 1:24 PM EDT ACTIVATED PARTIAL THROMBOPLASTIN TIME STAT 03/29/2025 1:24 PM EDT PROTHROMBIN TIME WITH INR STAT 03/29/2025 1:24 PM EDT TYPE AND SCREEN STAT 03/29/2025 1:24 PM EDT TROPONIN I HIGH SENSITIVITY STAT 03/29/2025 1:24 PM EDT MAGNESIUM STAT 03/29/2025 1:24 PM EDT LIPASE STAT 03/29/2025 1:24 PM EDT LACTATE STAT 03/29/2025 1:24 PM EDT COMPREHENSIVE METABOLIC PANEL STAT 03/29/2025 1:24 PM EDT CBC AND DIFFERENTIAL STAT 03/29/2025 1:24 PM EDT from Last 3 Months Results * ECG-Annotated (04/02/2025) us Provider Onbase MD ECG ORDERABLES Final Result * CT Abdomen Pelvis w Contrast (03/29/2025 4:44 PM EDT) Anatomical Region Laterality Modality Body Computed Tomogra phy 03/29/2025 4:55 PM EDT Impressions 03/29/2025 4:58 PM EDT Fluid throughout the colon, correlate with direct illness. Otherwise, no acute infectious or inflammatory process in the abdomen or pelvis. Tiny hypodensities in the spleen are nonspecific. Cholelithiasis without CT evidence for acute cholecystitis. -------- FINAL REPORT -------- Dictated By: Juvencio Frey Dictated Date: 03/29/2025 16:55 ET Assigned Physician: Juvencio Frey Reviewed and Electronically Signed By: Juvencio Frey Signed Date: 03/29/2025 16:58 ET Workstation ID: [id number] Transcribed By: Self Edit Transcribed Date: 03/29/2025 16:55 ET Narrative 03/29/2025 4:58 PM EDT PROCEDURE: CT ABDOMEN/PELVIS WITH CONTRAST INDICATION: Abdominal pain, acute, nonlocalized TECHNIQUE: CT of the abdomen and pelvis following the intravenous administration of 90cc Isovue 370. Multiplanar reformats. The examination was performed utilizing dose reduction techniques. Total DLP 1627 COMPARISON: No priors available. FINDINGS: LOWER THORAX: Lung bases are clear. HEPATOBILIARY: No focal liver lesions. Cholelithiasis. SPLEEN: Few tiny hypodense lesion within spleen are nonspecific. These could be infectious or inflammatory. PANCREAS: No focal mass or ductal dilatation. ADRENALS: No nodules. KIDNEYS/URETERS: Few tiny hypodensities in both kidneys are too small to characterize there is also a prominent right renal cyst. There is no nephroureteral calculus evident. No hydronephrosis. PELVIC ORGANS/BLADDER: Status post hysterectomy. No suspicious pelvic mass. PERITONEUM / RETROPERITONEUM: No ascites or free air. No retroperitoneal lymphadenopathy. VESSELS: Scattered atherosclerotic calcifications throughout the aorta and its major branches. No aneurysm. GI TRACT: Thickening of the stomach presumably related to underdistention. There is fluid throughout the colon, correlate with diarrhea illness. BONES AND SOFT TISSUES: Scattered degenerative changes seen throughout the bones. Small fat-containing umbilical hernia. Procedure Note Juvencio Frey MD - 03/29/2025 PROCEDURE: CT ABDOMEN/PELVIS WITH CONTRAST INDICATION: Abdominal pain, acute, nonlocalized TECHNIQUE: CT of the abdomen and pelvis following the intravenousadministration of 90cc Isovue 370. Multiplanar reformats. The examinationwas performed utilizing dose reduction techniques. Total DLP 1627 COMPARISON: No priors available. FINDINGS: LOWER THORAX: Lung bases are clear. HEPATOBILIARY: No focal liver lesions. Cholelithiasis. SPLEEN: Few tiny hypodense lesion within spleen are nonspecific. Thesecould be infectious or inflammatory. PANCREAS: No focal mass or ductal dilatation. ADRENALS: No nodules. KIDNEYS/URETERS: Few tiny hypodensities in both kidneys are too small tocharacterize there is also a prominent right renal cyst. There is nonephroureteral calculus evident. No hydronephrosis. PELVIC ORGANS/BLADDER: Status post hysterectomy. No suspicious pelvicmass. PERITONEUM / RETROPERITONEUM: No ascites or free air. No retroperitoneallymphadenopathy. VESSELS: Scattered atherosclerotic calcifications throughout the aorta andits major branches. No aneurysm. GI TRACT: Thickening of the stomach presumably related to underdistention.There is fluid throughout the colon, correlate with diarrhea illness. BONES AND SOFT TISSUES: Scattered degenerative changes seen throughout thebones. Small fat-containing umbilical hernia. IMPRESSION: Fluid throughout the colon, correlate with direct illness. Otherwise, noacute infectious or inflammatory process in the abdomen or pelvis. Tiny hypodensities in the spleen are nonspecific. Cholelithiasis without CT evidence for acute cholecystitis. -------- FINAL REPORT -------- Dictated By: Juvencio Frey Dictated Date: 03/29/2025 16:55 ET Assigned Physician: Juvencio Frey Reviewed and Electronically Signed By: Juvencio Frey Signed Date: 03/29/2025 16:58 ET Workstation ID: [id number] Transcribed By: Self Edit Transcribed Date: 03/29/2025 16:55 ET Romeo Kline MD IMG CT PROCEDURES Final Res ult * XR Chest 1 View (03/29/2025 1:36 PM EDT) Anatomical Region Laterality Modality Body Radiographic Noemy ging 03/29/2025 2:07 PM EDT Impressions 03/29/2025 2:07 PM EDT FINDINGS/IMPRESSION: No consolidation or effusion. Tortuous aorta. No congestive heart failure. No displaced fractures visible. -------- FINAL REPORT -------- Dictated By: Juvencio Frey Dictated Date: 03/29/2025 14:07 ET Assigned Physician: Juvencio Frey Reviewed and Electronically Signed By: Juvencio Frey Signed Date: 03/29/2025 14:07 ET Workstation ID: [id number] Transcribed By: Self Edit Transcribed Date: 03/29/2025 14:07 ET Narrative 03/29/2025 2:07 PM EDT XR CHEST 1 VIEW INDICATION: ok TECHNIQUE: XR CHEST 1 VIEW COMPARISON: No priors available. Procedure Note Juvencio Frey MD - 03/29/2025 XR CHEST 1 VIEW INDICATION: ok TECHNIQUE: XR CHEST 1 VIEW COMPARISON: No priors available. IMPRESSION: FINDINGS/IMPRESSION: No consolidation or effusion. Tortuous aorta. Nocongestive heart failure. No displaced fractures visible. -------- FINAL REPORT -------- Dictated By: Juvencio Frey Dictated Date: 03/29/2025 14:07 ET Assigned Physician: Juvencio Frey Reviewed and Electronically Signed By: Juvencio Frey Signed Date: 03/29/2025 14:07 ET Workstation ID: [id number] Transcribed By: Self Edit Transcribed Date: 03/29/2025 14:07 ET Romeo Kline MD IMG XR PROCEDURES Final Res ult * 12-Lead ECG (03/29/2025 1:34 PM EDT) [facility] Ventricular Rate ECG 63 BPM GEMUSE Atrial Rate 63 BPM GEMUSE P-R Interval 150 ms GEMUSE QRS Duration 84 ms GEMUSE Q-T Interval 430 ms GEMUSE QTc 440 ms GEMUSE P Wave [place] 51 degrees GEMUSE R [place] 15 degrees GEMUSE T [place] 25 degrees GEMUSE ECG Interpretation Normal sinus rhythm with sinus arrhythmia No previous ECGs available Confirmed by MELISSA VALDERRAMA ([id number]) on 03/30/2025 7:23:11 AM GEMUSE 03/29/2025 1:34 PM EDT 03/30/2025 7:23 AM EDT Romeo Kline MD ECG ORDERABLES Final Resul t GEMUSE * (ABNORMAL) Urinalysis with reflex microscopic and culture (03/29/2025 1:25 PM EDT) [facility] Specific [place] Urine 1.006 1.003 - 1.030 LAB URINALYSIS - AUTOMATED METHOD 03/29/2025 1:58 PM EDT [facility] pH, Urine 6.5 5.0 - 8.0 pH LAB URINALYSIS - AUTOMATED METHOD 03/29/2025 1:58 PM EDT [facility] Leukocytes, Urine Large(A) Negative LAB URINALYSIS - AUTOMATED METHOD 03/29/2025 1:58 PM [facility] Nitrite, Urine Negative Negative LAB URINALYSIS - AUTOMATED METHOD 03/29/2025 1:58 PM [facility] Protein, Urine Negative <=Trace mg/dL LAB URINALYSIS - AUTOMATED METHOD 03/29/2025 1:58 PM [facility] Glucose, Urine Negative Negative mg/dL LAB URINALYSIS - AUTOMATED METHOD 03/29/2025 1:58 PM [facility] Ketones, Urine Negative Negative mg/dL LAB URINALYSIS - AUTOMATED METHOD 03/29/2025 1:58 PM [facility] Urobilinogen, Urine 0.2 0.2 - 1.0 mg/dL LAB URINALYSIS - AUTOMATED METHOD 03/29/2025 1:58 PM [facility] Bilirubin, Urine Negative Negative LAB URINALYSIS - AUTOMATED METHOD 03/29/2025 1:58 PM [facility] Blood, Urine Trace(A) Negative LAB URINALYSIS - AUTOMATED METHOD 03/29/2025 1:58 PM [facility] RBC, Urine 3.6 0 - 4 /HPF LAB URINALYSIS - AUTOMATED METHOD 03/29/2025 1:58 PM [facility] WBC, Urine 23.1(H) 0 - 4 /HPF LAB URINALYSIS - AUTOMATED METHOD 03/29/2025 1:58 PM [facility] Squamous Epithelial, Urine 61(H) 0 - 60 /LPF LAB URINALYSIS - AUTOMATED METHOD 03/29/2025 1:58 PM [facility] Bacteria, Urine Negative Negative /HPF LAB URINALYSIS - AUTOMATED METHOD 03/29/2025 1:58 PM [facility] Hyaline Casts, Urine 0.8 0 - 3 /LPF LAB URINALYSIS - AUTOMATED METHOD 03/29/2025 1:58 PM EDT [facility] Urine Urine specimen obtained by clean catch procedure / Unknown Non-blood Collection / Unknown 03/29/2025 1:25 PM EDT 03/29/2025 1:50 PM EDT us Romeo Kline MD LAB URINE ORDERABLES Final Result Performing Organization Address [facility]/ZIP Co de Phone Number [facility] [address] [place] [address], [place] [phone] * Mera urine culture tube (03/29/2025 1:25 PM EDT) Extra Tube Hold for add-ons. 03/29/2025 3:02 PM EDT [facility] Comment:Auto resulted. Urine Urine specimen obtained by clean catch procedure / Unknown Non-blood Collection / Unknown 03/29/2025 1:25 PM EDT 03/29/2025 1:51 PM EDT us Romeo Kline MD LAB URINE ORDERABLES Final Result Performing Organization Address [facility] de Phone Number [facility] [address] [place] [address], [place] [phone] * Culture urine (03/29/2025 1:25 PM EDT) Culture, Urine No growth 03/30/2025 7:35 AM EDT [facility] Urine Urine specimen obtained by clean catch procedure / Unknown Non-blood Collection / Unknown 03/29/2025 1:25 PM EDT 03/29/2025 1:58 PM EDT us Romeo Kline MD LAB MICROBIOLOGY - GENERAL ORDERABLES Final Result Performing Organization Address [facility]/ZIP Co de Phone Number [facility] [address] [place] [address], [place] [phone] * Troponin I High Sensitivity (03/29/2025 1:24 PM EDT) [facility] High Sensitivity Troponin I 4 <=54 ng/L LAB CHEMISTRY METHOD 03/29/2025 2:11 PM EDT [facility] Blood Venous blood specimen / Unknown Venipuncture / Unknown 03/29/2025 1:24 PM EDT 03/29/2025 1:33 PM EDT Narrative [facility] - 03/29/2025 2:11 PM EDT High levels of biotin in samples may falsely decrease hsTroponin values. Use caution when interpreting hsTroponin results in patients taking biotin who exhibit renal impairment (eGFR <60) or in patients taking more than 20 mg/day of biotin. Romeo Kline MD LAB BLOOD ORDERABLES Final Result [facility] [address] [place] [address], * (ABNORMAL) CBC auto differential (03/29/2025 1:24 PM EDT) [facility] WBC 6.4 4.8 - 10.8 K/mcL LAB HEMETOLOGY METHOD 03/29/2025 1:45 PM EDT [facility] RBC 5.10(H) 3.80 - 4.80 M/mcL LAB HEMETOLOGY METHOD 03/29/2025 1:45 PM EDT [facility] Hemoglobin 14.0 11.5 - 16.0 g/dL LAB HEMETOLOGY METHOD 03/29/2025 1:45 PM EDT [facility] Hematocrit 42.5 35.0 - 47.0 % LAB HEMETOLOGY METHOD 03/29/2025 1:45 PM EDT [facility] MCV 82.7 79.0 - 98.0 FL LAB HEMETOLOGY METHOD 03/29/2025 1:45 PM EDT [facility] MCH 27.2 27.0 - 32.0 pcg LAB HEMETOLOGY METHOD 03/29/2025 1:45 PM EDT [facility] MCHC 32.9 32.0 - 37.0 g/dL LAB HEMETOLOGY METHOD 03/29/2025 1:45 PM [facility] RDW 13.7 11.0 - 15.0 % LAB HEMETOLOGY METHOD 03/29/2025 1:45 PM EDT [facility] Platelets 196 130 - 400 K/mcL LAB HEMETOLOGY METHOD 03/29/2025 1:45 PM [facility] MPV 10.2 7.0 - 11.0 FL LAB HEMETOLOGY METHOD 03/29/2025 1:45 PM [facility] NRBC 0.0 <1.0 % LAB HEMETOLOGY METHOD 03/29/2025 1:45 PM [facility] NRBC Absolute 0.00 <0.10 K/mcL LAB HEMETOLOGY METHOD 03/29/2025 1:45 PM [facility] Neutrophils Relative 62.4 % LAB HEMETOLOGY METHOD 03/29/2025 1:45 PM [facility] Lymphocytes Relative 26.6 % LAB HEMETOLOGY METHOD 03/29/2025 1:45 PM [facility] Monocytes Relative 7.9 % LAB HEMETOLOGY METHOD 03/29/2025 1:45 PM [facility] Eosinophils Relative 1.7 % LAB [facility]EMETOLOGY [facility]25 [facility] Basophils Relative 0.9 % LAB HEMETOLOGY METHOD 03/29/2025 1:45 PM [facility] Immature Granulocytes Relative 0.5 % LAB HEMETOLOGY METHOD 03/29/2025 1:45 PM EDT [facility] Neutrophils Absolute 4.02 1.50 - 7.00 K/mcL LAB HEMETOLOGY METHOD 03/29/2025 1:45 PM EDT [facility] Lymphocytes Absolute 1.71 1.00 - 5.00 K/mcL LAB HEMETOLOGY METHOD 03/29/2025 1:45 PM EDT [facility] Monocytes Absolute 0.51 0.20 - 1.00 K/mcL LAB HEMETOLOGY METHOD 03/29/2025 1:45 PM EDT [facility] Eosinophils Absolute 0.11 0.00 - 0.50 K/mcL LAB HEMETOLOGY METHOD 03/29/2025 1:45 PM EDT [facility] Basophils Absolute 0.06 0.00 - 0.20 K/mcL LAB HEMETOLOGY METHOD 03/29/2025 1:45 PM EDT [facility] Immature Granulocytes Absolute 0.03 0.00 - 0.03 K/mcL LAB HEMETOLOGY METHOD 03/29/2025 1:45 PM EDT [facility] Blood Venous blood specimen / Unknown Venipuncture / Unknown 03/29/2025 1:24 PM EDT 03/29/2025 1:33 PM EDT Romeo Kline MD LAB BLOOD ORDERABLES Final Result [facility] [address] [place] [address], * APTT (03/29/2025 1:24 PM EDT) aPTT 29.7 24.1 - 39.3 sec LAB COAGULATION METHOD 03/29/2025 1:47 PM EDT [facility] Blood Venous blood specimen / Unknown Venipuncture / Unknown 03/29/2025 1:24 PM EDT 03/29/2025 1:33 PM EDT us Romeo Kline MD LAB BLOOD ORDERABLES Final Result Performing Organization Address [facility]/ZIP Co de Phone Number [facility] [address] [place] [address], [place] [phone] * Protime-INR (03/29/2025 1:24 PM EDT) Pathologist [facility] [place] Protime 11.5 10.6 - 13.9 sec LAB COAGULATION METHOD 03/29/2025 1:47 PM EDT [facility] INR 0.9 LAB COAGULATION METHOD 03/29/2025 1:47 PM EDT [facility] Blood Venous blood specimen / Unknown Venipuncture / Unknown 03/29/2025 1:24 PM EDT 03/29/2025 1:33 PM EDT us Romeo Kline MD LAB BLOOD ORDERABLES Final Result Performing Organization Address [facility] Co de Phone Number [facility] [address] [place] [address], [place] [phone] * Type and Screen (03/29/2025 1:24 PM EDT) Pathologist [facility] [place] ABO Group A 03/29/2025 4:11 PM EDT [facility] Rh Type Positive 03/29/2025 4:11 PM EDT [facility] Antibody Screen Negative 03/29/2025 4:11 PM EDT [facility] Blood Venous blood specimen / Unknown Venipuncture / Unknown 03/29/2025 1:24 PM EDT 03/29/2025 1:33 PM EDT us Romeo Kline MD LAB BLOOD BANK TEST ORDERAB LES Final Result Performing Organization Address City/[facility]/ZIP Co de Phone Number [facility] [address] [place] [address], * Magnesium (03/29/2025 1:24 PM EDT) Magnesium 2.0 1.9 - 2.6 mg/dL LAB CHEMISTRY METHOD 03/29/2025 2:06 PM EDT [facility] Blood Venous blood specimen / Unknown Venipuncture / Unknown 03/29/2025 1:24 PM EDT 03/29/2025 1:33 PM EDT us Romeo Kline MD LAB BLOOD ORDERABLES Final Result [facility] [address] [place] [address], * Lipase (03/29/2025 1:24 PM EDT) Pathologist [facility] [place] Lipase 20 13 - 75 unit/L LAB CHEMISTRY METHOD 03/29/2025 2:06 PM EDT [facility] Blood Venous blood specimen / Unknown Venipuncture / Unknown 03/29/2025 1:24 PM EDT 03/29/2025 1:33 PM EDT us Romeo Kline MD LAB BLOOD ORDERABLES Final Result [facility] [address] [place] [address], [place] [phone] * Lactate (03/29/2025 1:24 PM EDT) Lactate 0.9 0.4 - 2.0 mmol/L LAB CHEMISTRY METHOD 03/29/2025 2:03 PM EDT [facility] Blood Venous blood specimen / Unknown Venipuncture / Unknown 03/29/2025 1:24 PM EDT 03/29/2025 1:33 PM EDT Romeo Kline MD LAB BLOOD ORDERABLES Final Result [facility] [address] [place] [address], * (ABNORMAL) Comprehensive Metabolic Panel (CMP) (03/29/2025 1:24 PM EDT) Sodium 138 133 - 145 mmol/L LAB CHEMISTRY METHOD 03/29/2025 2:06 PM [facility] Potassium 3.7 3.5 - 5.5 mmol/L LAB CHEMISTRY METHOD 03/29/2025 2:06 PM [facility] Chloride 108 96 - 110 mmol/L LAB CHEMISTRY METHOD 03/29/2025 2:06 PM [facility] CO2 23 21 - 32 mmol/L LAB CHEMISTRY METHOD 03/29/2025 2:06 PM [facility] Anion Gap 7 3 - 11 LAB CHEMISTRY METHOD 03/29/2025 2:06 PM [facility] Glucose 85 70 - 100 mg/dL LAB CHEMISTRY METHOD 03/29/2025 2:06 PM [facility] BUN 10 5 - 25 mg/dL LAB CHEMISTRY METHOD 03/29/2025 2:06 PM [facility] Creatinine 0.47(L) 0.50 - 1.10 mg/dL LAB CHEMISTRY METHOD 03/29/2025 2:06 PM [facility] eGFR 101 >=60 mL/min/1. 73m2 LAB CHEMISTRY METHOD 03/29/2025 2:06 PM [facility] Comment:Calculation based on the Chronic Kidney Disease Epidemiology Collaboration (CKD-EPI) equation refit without adjustment for race. BUN/Creatinine Ratio 21.3 LAB CHEMISTRY METHOD 03/29/2025 2:06 PM [facility] Calcium 8.9 8.5 - 10.5 mg/dL LAB CHEMISTRY METHOD 03/29/2025 2:06 PM EDT [facility] AST (SGOT) 21 10 - 42 unit/L LAB CHEMISTRY METHOD 03/29/2025 2:06 PM EDT [facility] ALT (SGPT) 24 10 - 60 unit/L LAB CHEMISTRY METHOD 03/29/2025 2:06 PM EDT [facility] Alkaline Phosphatase 65 42 - 121 unit/L LAB CHEMISTRY METHOD 03/29/2025 2:06 PM EDT [facility] Total Protein 6.3 6.0 - 8.0 g/dL LAB CHEMISTRY METHOD 03/29/2025 2:06 PM EDT [facility] Albumin 3.7 3.2 - 5.0 g/dL LAB CHEMISTRY METHOD 03/29/2025 2:06 PM EDT [facility] Total Bilirubin 0.7 0.0 - 1.4 mg/dL LAB CHEMISTRY METHOD 03/29/2025 2:06 PM EDT [facility] Blood Venous blood specimen / Unknown Venipuncture / Unknown 03/29/2025 1:24 PM EDT 03/29/2025 1:33 PM EDT Romeo Kline MD LAB BLOOD ORDERABLES Final Result [facility] [address] [place] [address], from Last 3 Months Insurance MEDICAID - [place] MEDICARE 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
--- OUTSIDE RECORDS SUMMARY | 2025-04-13 10:24 | XMS_ITS | Patient Health Record ---
Author Organization [facility] Address [address] [place] [address] Care Team Providers Care Well Drill Operator Cable Tool Name Role Phone Gladys RAMIREZ, Kassandra Primary Care Provider Spencer Dodson Unavailable [phone] Allergies Allergen (clinical drug ingredient) Drug/Non Drug [...] custom orthoses to control pronation and LLD adjustment; Duration: . 07/05/2014 Active Depakote Active Ativan Active Problems Problem Type SNOMED Code ICD Code Onset Dates Problem Status W/U Status Risk Notes Problem Onychomycosis (062406599) Onychomycosis (110.1) Active confirmed Problem Disorder of joint of ankle and/or foot (914390941) Arthritis - Degenerative (719.97) Active confirmed Problem Hallux valgus (988686127) Hallux Valgus (735.0) Active confirmed Problem Hammer toe (199012136) Hammer toe (735.4) Active confirmed Problem Congenital pes planus (11290329) Flat Foot, Congenital (754.61) Active confirmed Problem Pain in limb (95138787) Pain in Limb (729.5) Active confirmed Plan Of Treatment No Information Insurance Providers Payer Name Payer Address Payer Phone Subscriber Number Group Number Insured Name Patient Relationship to Insured Coverage Start Date Coverage End Date Medicare National [employer] [address] [place] [address] [id number] Veronica Hebert Self - patient is the insured Medical (General) History Medical History History ICD Code Anxiety Arthritis Broken bones Psychiatric disorder Measles Joint implants/screws Surgical History Surgery Date(Month/Year) knee surgery
--- NOTE | 2025-04-13 10:29 | A.OFFVIS_ITS ---
Vital Signs 04/13/25 10:55 Height 5 ft 2 in Weight 191 lb BMI 34.9 BP 160/91 H Blood Pressure Location Lt femoral Position Sitting Pulse 62 Intake Visit Reasons: Hospital follow up ([facility]) Intake Note: Lynne presents in hospital follow up ([facility]). CC: Patient states that the Linzess is not working, c/o left sided abdominal cramps and having a lump from her left lower abdomen. She states that she has been doing sterilized water enemas and black stool comes out at the beginning and kendrick stool at the end. Per patient this relieves her abd pain. In February she went to [facility] and was tested for Lyme disease and placed on abx. PT had an allergic reaction to the abx. She went to the urgent care and was given more abx for UTI. She also went to [facility] ER and was referred to a surgeon for LLQ lump. The surgeon advised her that it was not hernia and advised her to have a colonoscopy. Per patient the surgeon told her that her abdominal wall is to thin and something is pressuring it from inside. Nursing Home Administrator Required: Yes Accompanied by: Self / Same As Patient Allergies aged foods Allergy (Unknown, Verified 04/13/25 11:08) rash bee pollen (Bee Stings) Allergy (Unknown, Verified 04/13/25 11:08) SWELLING bees Allergy (Unknown, Verified 04/13/25 11:08) anaphylaxis cephalexin Allergy (Unknown, Verified 04/13/25 11:08) Hives gabapentin (Neurontin) Allergy (Unknown, Verified 04/13/25 11:08) hematurea latex (LATEX) Allergy (Unknown, Verified 04/13/25 11:08) RASH risperidone (From Risperdal) Allergy (Unknown, Verified 04/13/25 11:08) LUMPS ON ABDOMEN- SUPERFICIAL PHLEBITIS, painful lumps of abdomen white composit dental filling Allergy (Unknown, Verified 04/13/25 11:08) hives lactose Adverse Reaction (Mild, Verified 04/13/25 11:08) Unknown tramadol (TRAMADOL) Adverse Reaction (Mild, Verified 04/13/25 11:08) nausea/vomiting divalproex sodium (From Depakote) Adverse Reaction (Unknown, Verified 04/13/25 11:08) LOW DOSE AND SLOW RELEASE CAUSES STELLA Iodinated Contrast Media (IV Dye, Iodine Containing) Adverse Reaction (Unknown, Verified 04/13/25 11:08) DEHYDRATED, TWITCHING niacin (Niacin) Adverse Reaction (Unknown, Verified 04/13/25 11:08) TURNS RED olanzapine (From Zyprexa) Adverse Reaction (Unknown, Verified 04/13/25 11:08) BLOOD IN URINE yeast, dried (yeast) Adverse Reaction (Unknown, Verified 04/13/25 11:08) WHITE COATING ON TONGUE WHITE BREAD Allergy (Mild, Uncoded 02/14/25 08:50) DIFF SWALLOWING wheath Adverse Reaction (Mild, Uncoded 02/14/25 08:50) Unknown HPI HPI Hospital follow up ([facility]): Details: Assessment & Plan (1) GERD (gastroesophageal reflux disease): Code(s): K21.9 - Gastro-esophageal reflux disease without esophagitis Category: Medical (2) Chronic idiopathic constipation: Code(s): K59.04 - Chronic idiopathic constipation Category: Medical (3) Pancreatic insufficiency: Code(s): K86.89 - Other specified diseases of pancreas Category: Medical Plan She stopped the Juan pep and her drops of rectal blood stopped. However, she has to stick to a carnivore diet or she will have severe CIC - esteban peanut butter, veggies, or breads. She will have cramping. But she is acceptable to this. She continues on her LInzess and bisacodyl. ROV 6 mos. Medications: Refilled linaclotide (Linzess) 145 mcg PO DAILY 30 caps 6RF K59.04 - Chronic idiopathic constipation bisacodyl (Dulcolax (bisacodyl)) 1-2 tablets at bedtime orally bedtime; 60 tabs 6RF 30 days K59.04 - Chronic idiopathic constipation Discontinued bheeie-njxsosht-miuqpaj 25,000-79,000- 105,000 unit (Zenpep) administer with meals and/or snacks Discontinued Reason: Doctor's Order 2 caps PO BID 120 caps 6RF K86.89 - Other specified diseases of pancreas Review of notes from [facility] ER visit 03/29/2025 CT ABDOMEN AND PELVIS IMPRESSION Fluid throughout the colon, correlate with direct illness. Otherwise no acute or infectious inflammatory process in the abdomen or pelvis Tiny hypodensities in the spleen are nonspecific Cholelithiasis without CT evidence for acute cholecystitis. CORRESPONDENCE On 04/11/25 @ 14:36 Melia Lam Wrote To Patrice Patient added this Friday 04/13, she stated that she will confirm with her senior materials engineering technician if she has a ride and call back. On 04/11/25 @ 14:04 PatriceNgoc Wrote To Vivian Colbert (2) V please bring her into the office to see me. There is a lot going on here. There is nothing in the notes that seem to indicate that her rectum is swollen shut. This also nothing to indicate an aberrant pass of the colon on imaging. It is possible that she has something called a rectocele but I would have to explain this better in-person. This is something that has to be diagnose by an OBGYN not by a general surgeon if this is part of the problem. On 04/11/25 @ 12:36 Vivian Colbert Wrote To PatriceDecember (2) Juan has scanned notes in for your review On 04/11/25 @ 11:31 Vivian Colbert Wrote To PatriceDecember (2) patient called. patient recently seen at [facility]. patient has multiple complaints. however, for starters patient states she went to a General Surgeon and they informed her that her issue is not a hernia. patient reports that she was informed by Gen Surg that part of her intestine is dropping down into the open area where her uterus used to be. patient also states recent imaging shows that her colon is not emptying correctly and is full of liquid - patient states that her suggestion possibly may be decreasing the dose of the Linzess as her current one may be too high and she is experiencing frequent diarrhea causing it to irritate the area. patient also reports that she was informed by a provider than her rectum is swollen shut and she has to often strain or use enemas to get anything out of her. patient is scheduled for f/u in June but I think it would be best for her to come into the office sooner if able to discuss all these concerns with you. Juan is going to obtain the ED visit notes, labs and imaging for me when he returns from lunch. TODAY'S VISIT She noticed a lump that felt like it was filled with fluid in the LLQ. She pushed it back up and shortly after this she passed a very large rock like stool that caused a lot of rectal bleeding. She has pain if she goes over a bump, and she hears a fluid like sound in the area. She presented to the [facility] ER. She is also struggling with UTI's that they can't seem to clear up. She did a home enema and black foul smelling stuff that looks like grit came out of me. She has extensive cramping as well. Even with the Linzess which she says turns the stool into liquid, she has to strain to pass any stool. - using enemas as above. She now is open to having a colonoscopy to further explore this. I think that an US in the standing position to elicit possible hernia would be beneficial. She has been dealing with a LOT - had ticks and had Lyme testing that was negative. She is very emptional about her health in general - is seeing a counselor and has 'crisis #'s in my wallet. She denies any cardiac or respiratory problems. There are no prior problems with anesthesia or sedation NO ID problems NO known FHX crc or polyps. I will see her again after the ultrasound [facility] Medical History (Updated 04/13/25 @ 11:33 by ADINA Mendoza) Candidiasis of mouth and esophagus Hearing impairment Basal cell carcinoma of face Mastoiditis Retention cyst of nasal sinus Acquired hammer toe of left foot Neck pain on left side Osteopenia of multiple sites Hiatal hernia with GERD Bipolar disorder Bunion of great toe of left foot Pain around toenail, left foot Cellulitis of toe of right foot Surgical History History of total knee arthroplasty History of esophagogastroduodenoscopy (EGD) H/O colonoscopy History of bladder surgery Fibroadenoma of right breast History of knee replacement procedure of right knee History of total abdominal hysterectomy and bilateral salpingo-oophorectomy History of appendectomy History of tonsillectomy Family History Father Emphysema, unspecified CVD (cardiovascular disease) Mother CVD (cardiovascular disease) Brother Lung cancer Bone cancer Brother Cancer of prostate Daughter No problems noted. Brother No problems noted. Brother No problems noted. Brother No problems noted. Social History Household Members: None Housing: Apartment Alcohol intake: current Alcohol intake frequency: does not drink Patient Tobacco Use Status: Never used Tobacco e-Cigarette/Vaping Use: Never Used Advance Directives Date on File: 11/14/22 service: No Current occupational status: retired Cognitive needs: No Hearing needs: No Vision needs: No Review of Systems Const Denies fatigue, Denies fever(s), Denies night sweats, Denies poor appetite and Denies weight loss ENT Reports Normal hearing present, Denies dental pain, Denies dysphagia, Denies hearing loss, Denies mouth pain, Denies odynophagia, Denies throat swelling, Denies tongue swelling and Reports other (Dentition adequate) Card Reports no additional complaints Resp Reports no additional complaints GI Details: Reports abdominal pain, Reports melena, Denies bloating, Denies hematochezia, Reports change in stool character, Reports constipation, Reports GI cramping, Denies dysphagia, Denies excessive flatus, Denies early satiety, Denies heartburn, Denies diarrhea, Denies nausea, Denies odynophagia, Denies vomiting and Denies hematemesis Skin/Breast Denies pruritus, Denies lesions, Denies rash and Denies jaundice Neuro Reports Normal hearing present and Denies Abnormal speech present Endo Denies fatigue Aller/Immun Denies throat swelling and Denies tongue swelling Physical Exam Vital Signs: Last Vital Signs Pulse 62 04/13/25 10:55 BP 160/91 H 04/13/25 10:55 BMI result Body Mass Index 34.9 Const General: cooperative, no acute distress, well developed and well groomed Nutritional Appearance: well nourished and obese Orientation/consciousness: oriented to person, oriented to place and oriented to time Limitations: No language barrier and ambulation with walker HEENT Head: Yes normocephalic and Yes atraumatic Eyes General: appearance normal, both eyes and all related structures Pupils: Equal, round and reactive pupils present Neck Neck: Yes normal visual inspection and Yes no lymphadenopathy Thyroid: Thyroid normal Resp Effort & Inspection: normal respiratory effort and able to speak in complete sentences Auscultation: clear to auscultation bilaterally Cardio Rate: regular rate Rhythm: regular rhythm Heart sounds: Normal, physiologic split S2 sound present Peripheral pulses: radial pulses present and posterior tibial pulses present GI Other: Asymmetric lump around the left inguinal area Inspection: No distended and No Abdominal panniculus present Palpation (GI): Soft to palpation, nontender, no guarding, not rigid and No hepatosplenomegaly present Percussion: Yes normal to percussion Auscultation: normal bowel sounds Rectal Exam - Female: deferred Skin General skin exam: no rashes or lesions noted, turgor normal, skin not dry, no jaundice, No spider nevi and no striae Rashes: no rashes Nails: normal Neuro General: oriented to person, oriented to place and oriented to time Cranial nerves: Yes Equal, round and reactive pupils present and Yes Normal hearing present Speech: No Abnormal speech present Extrem General: Yes normal to inspection, No clubbing, No cyanosis and No edema Psych Appearance: grossly normal and well kempt Mental Status: mental status grossly normal Speech and movement: Pressured speech present Affect: Anxious affect present Attitude: cooperative Thought process: not confabulating and Perseverating thought process present Thought content: Normal thought content present Insight: Limited insight present (Psych) Judgement: Limited judgement present (Psych) Results Reviewed Results Reviewed: Review of notes from [facility] ER visit 03/29/2025 CT ABDOMEN AND PELVIS IMPRESSION Fluid throughout the colon, correlate with direct illness. Otherwise no acute or infectious inflammatory process in the abdomen or pelvis Tiny hypodensities in the spleen are nonspecific Cholelithiasis without CT evidence for acute cholecystitis. Assessment & Plan Assessment & Plan (1) Chronic idiopathic constipation: Code(s): K59.04 - Chronic idiopathic constipation Category: Medical (2) Pancreatic insufficiency: Code(s): K86.89 - Other specified diseases of pancreas Category: Medical (3) GERD (gastroesophageal reflux disease): Code(s): K21.9 - Gastro-esophageal reflux disease without esophagitis Category: Medical (4) Left lower quadrant abdominal swelling, mass and lump: Code(s): R19.04 - Left lower quadrant abdominal swelling, mass and lump Category: Medical (5) Pre-op examination: Code(s): Z01.818 - Encounter for other preprocedural examination Category: Medical (6) Rectocele: Comment: pt states this was discovererd at [facility] Code(s): N81.6 - Rectocele Category: Medical Plan She noticed a lump that felt like it was filled with fluid in the LLQ. She pushed it back up and shortly after this she passed a very large rock like stool that caused a lot of rectal bleeding. She has pain if she goes over a bump, and she hears a fluid like sound in the area. She presented to the [facility] ER. She is also struggling with UTI's that they can't seem to clear up. She did a home enema and black foul smelling stuff that looks like grit came out of me. She has extensive cramping as well. Even with the Linzess which she says turns the stool into liquid, she has to strain to pass any stool. - using enemas as above. She now is open to having a colonoscopy to further explore this. I think that an US in the standing position to elicit possible hernia would be beneficial. She has been dealing with a LOT - had ticks and had Lyme testing that was negative. She is very emptional about her health in general - is seeing a counselor and has 'crisis #'s in my wallet. She denies any cardiac or respiratory problems. There are no prior problems with anesthesia or sedation NO ID problems NO known FHX crc or polyps. I will see her again after the ultrasound Orders: Orders Colonoscopy - GI Use Only Today Z01.818 - Encounter for other preprocedural examination US abdomen limited Today R19.04 - Left lower quadrant abdominal swelling, mass and lump Medications: New sodium,potassium,mag sulfates 17.5-3.13-1.6 gram (Suprep Bowel Prep Kit) 480 mL orally; FOR COLONOSCOPY PREP 354 mL 0RF Coding Level of Care Code Est Pt Level 4 (69274) Diagnoses Chronic idiopathic constipation K59.04 Pancreatic insufficiency K86.89 GERD (gastroesophageal reflux disease) K21.9 Left lower quadrant abdominal swelling, mass and lump R19.04 Pre-op examination Z01.818 Rectocele N81.6 Time Spent (min) 36
[2025-04-13 10:55] VITALS: BP 160/91; PULSE 62; BMI 34.9
== END 2025-04-13 12:07 | disposition home or self-care (01) ==
PROVIDERS: PCP Internal Medicine; Visit Provider Nurse Practitioner
DX: K59.04 Chronic idiopathic constipation (principal); K86.89 Other specified diseases of pancreas; K21.9 Gastro-esophageal reflux disease without esophagitis; R19.04 Left lower quadrant abdominal swelling, mass and lump; N81.6 Rectocele
CPT/HCPCS: 99214

== ENCOUNTER → 2025-04-13 10:20 | Outpatient (BNVA) | payer MEDICARE, MEDICAID, SELFPAY | PROVIDERS: Visit Provider Nurse Practitioner | DX: Z01.818 Encounter for other preprocedural examination (principal); K59.04 Chronic idiopathic constipation; K86.89 Other specified diseases of pancreas; K21.9 Gastro-esophageal reflux disease without esophagitis; N81.6 Rectocele; R19.04 Left lower quadrant abdominal swelling, mass and lump | CPT/HCPCS: 99212 ==

== ENCOUNTER 2025-04-18 08:47 | Outpatient (REF) | payer MEDICARE, MEDICAID, SELFPAY ==
--- NOTE | ~2025-04-18 | US_ITS ---
CLINICAL HISTORY: R19.04 - Left lower quadrant abdominal swelling, mass and lump --- Additional Notes or Special Instructions: Please evaluate while standing to elicit possible hernia that Soft tissue ultrasound of the left lower quadrant abdominal wall Comparison: None FINDINGS: Images were obtained in the area of clinical concern. In this region, the soft tissue shows a hernia with the neck measuring 1.6 cm. No bowel loop is seen in the hernia. IMPRESSION: A ventral hernia is noted in the region of interest. This document has been electronically signed by: Marsha Sanchez MD on 04/18/2025 15:10:30
--- OUTSIDE RECORDS SUMMARY | 2025-04-18 09:03 | XMS_ITS | Clinical Summary ---
Author Organization [facility] Address [address] [place] [address] Phone Care Team Providers Care Ferryboat Operator Name Role Phone Belen Simons MD Primary Care Provider [phone] Allergies Active Allergy Reactions Criticality Noted Date [...] 10:15 AM EDT Consult General Surgery - [place] [address] [facility] [address] [place] [address] Dru Childress DO Left lower quadrant abdominal pain (Primary Dx) 03/29/2025 11:31 AM EDT - 03/29/2025 6:10 PM EDT Emergency [facility] Emergency [address] [place] [address] Romeo Kline MD Acute abdominal pain (Primary Dx); Urinary tract infection in female Discharge Disposition: Home or Self Care from Last 3 Months Surgical History Surgery Date Site/Laterality Comments BREAST LUMPECTOMY PROCEDURE: HISTORICAL BREAST LUMPECTOMY; COMMENT: benign OTHER SURGICAL HISTORY 06/13 PROCEDURE: MAMMOGRAM TONSILLECTOMY PROCEDURE: HISTORICAL TONSILLECTOMY APPENDECTOMY PROCEDURE: WI APPENDECTOMY HYSTERECTOMY PROCEDURE: HISTORICAL HYSTERECTOMY; COMMENT: fibroids COLONOSCOPY 08/20/2008 PROCEDURE: WI COLONOSCOPY FLX DX W/COLLJ SPEC WHEN PFRMD; [...] Signed Date: 03/29/2025 16:58 ET Workstation ID: [id number] Transcribed By: Self Edit Transcribed Date: 03/29/2025 [...] Signed Date: 03/29/2025 16:58 ET Workstation ID: [id number] Transcribed By: Self Edit Transcribed Date: 03/29/2025 [...] visible. -------- FINAL REPORT -------- Dictated By: Jvuencio Frey Dictated Date: 03/29/2025 14:07 ET Assigned Physician: Juvencio Frey Reviewed and Electronically Signed By: Juvencio Frey Signed Date: 03/29/2025 14:07 ET Workstation ID: [id number] Transcribed By: Self Edit Transcribed Date: 03/29/2025 [...] Signed Date: 03/29/2025 14:07 ET Workstation ID: [id number] Transcribed By: Self Edit Transcribed Date: 03/29/2025 14:07 ET Romeo Kline MD IMG XR PROCEDURES Final Res ult * 12-Lead ECG (03/29/2025 1:34 PM EDT) [facility] Ventricular Rate ECG 63 BPM GEMUSE Atrial Rate 63 BPM GEMUSE P-R Interval 150 ms GEMUSE QRS Duration 84 ms GEMUSE Q-T Interval 430 ms GEMUSE QTc 440 ms GEMUSE P Wave [place] 51 degrees GEMUSE R [place] 15 degrees GEMUSE T [place] 25 degrees GEMUSE ECG Interpretation Normal sinus rhythm with sinus arrhythmia No previous ECGs available Confirmed by MELISSA VALDERRAMA ([id number]) on 03/30/2025 7:23:11 AM GEMUSE 03/29/2025 1:34 PM EDT 03/30/2025 7:23 AM EDT Romeo Kline MD ECG ORDERABLES Final Resul t GEMUSE * (ABNORMAL) Urinalysis with reflex microscopic and culture (03/29/2025 1:25 PM EDT) [facility] Specific [place] Urine 1.006 1.003 - 1.030 LAB URINALYSIS - AUTOMATED METHOD 03/29/2025 1:58 PM EDT [facility] pH, Urine 6.5 5.0 - 8.0 pH LAB URINALYSIS - AUTOMATED METHOD 03/29/2025 1:58 PM EDT [facility] Leukocytes, Urine Large(A) Negative LAB URINALYSIS - AUTOMATED METHOD 03/29/2025 1:58 PM [facility] Nitrite, Urine Negative Negative LAB URINALYSIS - AUTOMATED METHOD 03/29/2025 1:58 PM [facility] Protein, Urine Negative <=Trace mg/dL LAB URINALYSIS - AUTOMATED METHOD 03/29/2025 1:58 PM [facility] Glucose, Urine Negative Negative mg/dL LAB URINALYSIS - AUTOMATED METHOD 03/29/2025 1:58 PM [facility] Ketones, Urine Negative Negative mg/dL LAB URINALYSIS - AUTOMATED METHOD 03/29/2025 1:58 PM [facility] Urobilinogen, Urine 0.2 0.2 - 1.0 mg/dL LAB URINALYSIS - AUTOMATED METHOD 03/29/2025 1:58 PM [facility] Bilirubin, Urine Negative Negative LAB URINALYSIS - AUTOMATED METHOD 03/29/2025 1:58 PM [facility] Blood, Urine Trace(A) Negative LAB URINALYSIS - AUTOMATED METHOD 03/29/2025 1:58 PM [facility] RBC, Urine 3.6 0 - 4 /HPF LAB URINALYSIS - AUTOMATED METHOD 03/29/2025 1:58 PM [facility] WBC, Urine 23.1(H) 0 - 4 /HPF LAB URINALYSIS - AUTOMATED METHOD 03/29/2025 1:58 PM [facility] Squamous Epithelial, Urine 61(H) 0 - 60 /LPF LAB URINALYSIS - AUTOMATED METHOD 03/29/2025 1:58 PM [facility] Bacteria, Urine Negative Negative /HPF LAB URINALYSIS - AUTOMATED METHOD 03/29/2025 1:58 PM [facility] Hyaline Casts, Urine 0.8 0 - 3 /LPF LAB URINALYSIS - AUTOMATED METHOD 03/29/2025 1:58 PM EDT [facility] Urine Urine specimen obtained by clean catch procedure / Unknown Non-blood Collection / Unknown 03/29/2025 1:25 PM EDT 03/29/2025 1:50 PM EDT us Romeo Kline MD LAB URINE ORDERABLES Final Result Performing Organization Address [facility]/ZIP Co de Phone Number [facility] [address] [place] [address], [place] [phone] * Mera urine culture tube (03/29/2025 1:25 PM EDT) Extra Tube Hold for add-ons. 03/29/2025 3:02 PM EDT [facility] Comment:Auto resulted. Urine Urine specimen obtained by clean catch procedure / Unknown Non-blood Collection / Unknown 03/29/2025 1:25 PM EDT 03/29/2025 1:51 PM EDT us Romeo Kline MD LAB URINE ORDERABLES Final Result Performing Organization Address [facility] de Phone Number [facility] [address] [place] [address], [place] [phone] * Culture urine (03/29/2025 1:25 PM EDT) Culture, Urine No growth 03/30/2025 7:35 AM EDT [facility] Urine Urine specimen obtained by clean catch procedure / Unknown Non-blood Collection / Unknown 03/29/2025 1:25 PM EDT 03/29/2025 1:58 PM EDT us Romeo Kline MD LAB MICROBIOLOGY - GENERAL ORDERABLES Final Result Performing Organization Address [facility]/ZIP Co de Phone Number [facility] [address] [place] [address], [place] [phone] * Troponin I High Sensitivity (03/29/2025 1:24 PM EDT) [facility] High Sensitivity Troponin I 4 <=54 ng/L LAB CHEMISTRY METHOD 03/29/2025 2:11 PM EDT [facility] Blood Venous blood specimen / Unknown Venipuncture / Unknown 03/29/2025 1:24 PM EDT 03/29/2025 1:33 PM EDT Narrative [facility] - 03/29/2025 2:11 PM EDT High levels of biotin in samples may falsely decrease hsTroponin values. Use caution when interpreting hsTroponin results in patients taking biotin who exhibit renal impairment (eGFR <60) or in patients taking more than 20 mg/day of biotin. Romeo Kline MD LAB BLOOD ORDERABLES Final Result [facility] [address] [place] [address], * (ABNORMAL) CBC auto differential (03/29/2025 1:24 PM EDT) [facility] WBC 6.4 4.8 - 10.8 K/mcL LAB HEMETOLOGY METHOD 03/29/2025 1:45 PM EDT [facility] RBC 5.10(H) 3.80 - 4.80 M/mcL LAB HEMETOLOGY METHOD 03/29/2025 1:45 PM EDT [facility] Hemoglobin 14.0 11.5 - 16.0 g/dL LAB HEMETOLOGY METHOD 03/29/2025 1:45 PM EDT [facility] Hematocrit 42.5 35.0 - 47.0 % LAB HEMETOLOGY METHOD 03/29/2025 1:45 PM EDT [facility] MCV 82.7 79.0 - 98.0 FL LAB HEMETOLOGY METHOD 03/29/2025 1:45 PM EDT [facility] MCH 27.2 27.0 - 32.0 pcg LAB HEMETOLOGY METHOD 03/29/2025 1:45 PM EDT [facility] MCHC 32.9 32.0 - 37.0 g/dL LAB HEMETOLOGY METHOD 03/29/2025 1:45 PM [facility] RDW 13.7 11.0 - 15.0 % LAB HEMETOLOGY METHOD 03/29/2025 1:45 PM EDT [facility] Platelets 196 130 - 400 K/mcL LAB HEMETOLOGY METHOD 03/29/2025 1:45 PM [facility] MPV 10.2 7.0 - 11.0 FL LAB HEMETOLOGY METHOD 03/29/2025 1:45 PM [facility] NRBC 0.0 <1.0 % LAB HEMETOLOGY METHOD 03/29/2025 1:45 PM [facility] NRBC Absolute 0.00 <0.10 K/mcL LAB HEMETOLOGY METHOD 03/29/2025 1:45 PM [facility] Neutrophils Relative 62.4 % LAB HEMETOLOGY METHOD 03/29/2025 1:45 PM [facility] Lymphocytes Relative 26.6 % LAB HEMETOLOGY METHOD 03/29/2025 1:45 PM [facility] Monocytes Relative 7.9 % LAB HEMETOLOGY METHOD 03/29/2025 1:45 PM [facility] Eosinophils Relative 1.7 % LAB HEMETOLOGY METHOD 03/29[facility]25 [facility] Basophils Relative 0.9 % LAB HEMETOLOGY METHOD 03/29/2025 1:45 PM [facility] Immature Granulocytes Relative 0.5 % LAB HEMETOLOGY METHOD 03/29/2025 1:45 PM EDT [facility] Neutrophils Absolute 4.02 1.50 - 7.00 K/mcL LAB HEMETOLOGY METHOD 03/29/2025 1:45 PM EDT [facility] Lymphocytes Absolute 1.71 1.00 - 5.00 K/mcL LAB HEMETOLOGY METHOD 03/29/2025 1:45 PM EDT [facility] Monocytes Absolute 0.51 0.20 - 1.00 K/mcL LAB HEMETOLOGY METHOD 03/29/2025 1:45 PM EDT [facility] Eosinophils Absolute 0.11 0.00 - 0.50 K/mcL LAB HEMETOLOGY METHOD 03/29/2025 1:45 PM EDT [facility] Basophils Absolute 0.06 0.00 - 0.20 K/mcL LAB HEMETOLOGY METHOD 03/29/2025 1:45 PM EDT [facility] Immature Granulocytes Absolute 0.03 0.00 - 0.03 K/mcL LAB HEMETOLOGY METHOD 03/29/2025 1:45 PM EDT [facility] Blood Venous blood specimen / Unknown Venipuncture / Unknown 03/29/2025 1:24 PM EDT 03/29/2025 1:33 PM EDT Romeo Kline MD LAB BLOOD ORDERABLES Final Result [facility] [address] [place] [address], * APTT (03/29/2025 1:24 PM EDT) aPTT 29.7 24.1 - 39.3 sec LAB COAGULATION METHOD 03/29/2025 1:47 PM EDT [facility] Blood Venous blood specimen / Unknown Venipuncture / Unknown 03/29/2025 1:24 PM EDT 03/29/2025 1:33 PM EDT us Romeo Kline MD LAB BLOOD ORDERABLES Final Result Performing Organization Address [facility]/ZIP Co de Phone Number [facility] [address] [place] [address], [place] [phone] * Protime-INR (03/29/2025 1:24 PM EDT) Pathologist [facility] Protime 11.5 10.6 - 13.9 sec LAB COAGULATION METHOD 03/29/2025 1:47 PM EDT [facility] INR 0.9 LAB COAGULATION METHOD 03/29/2025 1:47 PM EDT [facility] Blood Venous blood specimen / Unknown Venipuncture / Unknown 03/29/2025 1:24 PM EDT 03/29/2025 1:33 PM EDT us Romeo Kline MD LAB BLOOD ORDERABLES Final Result Performing Organization Address [facility] Co de Phone Number [facility] [address] [place] [address], [place] [phone] * Type and Screen (03/29/2025 1:24 PM EDT) Pathologist [facility] ABO Group A 03/29/2025 4:11 PM EDT [facility] Rh Type Positive 03/29/2025 4:11 PM EDT [facility] Antibody Screen Negative 03/29/2025 4:11 PM EDT [facility] Blood Venous blood specimen / Unknown Venipuncture / Unknown 03/29/2025 1:24 PM EDT 03/29/2025 1:33 PM EDT us Romeo Kline MD LAB BLOOD BANK TEST ORDERAB LES Final Result Performing Organization Address City/[facility]/ZIP Co de Phone Number [facility] [address] [place] [address], * Magnesium (03/29/2025 1:24 PM EDT) Magnesium 2.0 1.9 - 2.6 mg/dL LAB CHEMISTRY METHOD 03/29/2025 2:06 PM EDT [facility] Blood Venous blood specimen / Unknown Venipuncture / Unknown 03/29/2025 1:24 PM EDT 03/29/2025 1:33 PM EDT us Romeo Kline MD LAB BLOOD ORDERABLES Final Result [facility] [address] [place] [address], * Lipase (03/29/2025 1:24 PM EDT) Pathologist [facility] Lipase 20 13 - 75 unit/L LAB CHEMISTRY METHOD 03/29/2025 2:06 PM EDT [facility] Blood Venous blood specimen / Unknown Venipuncture / Unknown 03/29/2025 1:24 PM EDT 03/29/2025 1:33 PM EDT us Romeo Kline MD LAB BLOOD ORDERABLES Final Result [facility] [address] [place] [address], [place] [phone] * Lactate (03/29/2025 1:24 PM EDT) Lactate 0.9 0.4 - 2.0 mmol/L LAB CHEMISTRY METHOD 03/29/2025 2:03 PM EDT [facility] Blood Venous blood specimen / Unknown Venipuncture / Unknown 03/29/2025 1:24 PM EDT 03/29/2025 1:33 PM EDT Romeo Kline MD LAB BLOOD ORDERABLES Final Result [facility] [address] [place] [address], * (ABNORMAL) Comprehensive Metabolic Panel (CMP) (03/29/2025 1:24 PM EDT) Sodium 138 133 - 145 mmol/L LAB CHEMISTRY METHOD 03/29/2025 2:06 PM [facility] Potassium 3.7 3.5 - 5.5 mmol/L LAB CHEMISTRY METHOD 03/29/2025 2:06 PM [facility] Chloride 108 96 - 110 mmol/L LAB CHEMISTRY METHOD 03/29/2025 2:06 PM [facility] CO2 23 21 - 32 mmol/L LAB CHEMISTRY METHOD 03/29/2025 2:06 PM [facility] Anion Gap 7 3 - 11 LAB CHEMISTRY METHOD 03/29/2025 2:06 PM [facility] Glucose 85 70 - 100 mg/dL LAB CHEMISTRY METHOD 03/29/2025 2:06 PM [facility] BUN 10 5 - 25 mg/dL LAB CHEMISTRY METHOD 03/29/2025 2:06 PM [facility] Creatinine 0.47(L) 0.50 - 1.10 mg/dL LAB CHEMISTRY METHOD 03/29/2025 2:06 PM [facility] eGFR 101 >=60 mL/min/1. 73m2 LAB CHEMISTRY METHOD 03/29/2025 2:06 PM [facility] Comment:Calculation based on the Chronic Kidney Disease Epidemiology Collaboration (CKD-EPI) equation refit without adjustment for race. BUN/Creatinine Ratio 21.3 LAB CHEMISTRY METHOD 03/29/2025 2:06 PM [facility] Calcium 8.9 8.5 - 10.5 mg/dL LAB CHEMISTRY METHOD 03/29/2025 2:06 PM EDT [facility] AST (SGOT) 21 10 - 42 unit/L LAB CHEMISTRY METHOD 03/29/2025 2:06 PM EDT [facility] ALT (SGPT) 24 10 - 60 unit/L LAB CHEMISTRY METHOD 03/29/2025 2:06 PM EDT [facility] Alkaline Phosphatase 65 42 - 121 unit/L LAB CHEMISTRY METHOD 03/29/2025 2:06 PM EDT [facility] Total Protein 6.3 6.0 - 8.0 g/dL LAB CHEMISTRY METHOD 03/29/2025 2:06 PM EDT [facility] Albumin 3.7 3.2 - 5.0 g/dL LAB CHEMISTRY METHOD 03/29/2025 2:06 PM EDT [facility] Total Bilirubin 0.7 0.0 - 1.4 mg/dL LAB CHEMISTRY METHOD 03/29/2025 2:06 PM EDT [facility] Blood Venous blood specimen / Unknown Venipuncture / Unknown 03/29/2025 1:24 PM EDT 03/29/2025 1:33 PM EDT Romeo Kline MD LAB BLOOD ORDERABLES Final Result [facility] [address] [place] [address], from Last 3 Months Insurance MEDICAID - [place] MEDICARE Care Teams Ferryboat Operator Relationship Specialty Start Date End Date Belen Simons MD [address] [place] [address] PCP - General 10/31/09
--- OUTSIDE RECORDS SUMMARY | 2025-04-18 09:03 | XMS_ITS | Patient Health Record ---
Author Organization [facility] Address [address] [place] [address] Care Team Providers Care V Belt Builder Name Role Phone Gladys RAMIREZ, Kassandra Primary Care Provider Spencer Dodson Unavailable [phone] Allergies Allergen (clinical drug ingredient) Drug/Non Drug [...] Status W/U Status Risk Notes Problem Onychomycosis (600168674) Onychomycosis (110.1) Active confirmed Problem Disorder of joint of ankle and/or foot (661407534) Arthritis - Degenerative (719.97) Active confirmed Problem Hallux valgus (058883310) Hallux Valgus (735.0) Active confirmed Problem Hammer toe (708095698) Hammer toe (735.4) Active confirmed Problem Congenital pes planus (17349911) Flat Foot, Congenital (754.61) Active confirmed Problem Pain in limb (59424818) Pain in Limb (729.5) Active confirmed Plan Of Treatment No Information Insurance Providers Payer Name Payer Address Payer Phone Subscriber Number Group Number Insured Name Patient Relationship to Insured Coverage Start Date Coverage End Date Medicare National [employer]t [employer] [address] [place] [address] [id number] Veronica Hebert Self - patient is the insured Medical (General) History Medical History History ICD Code Anxiety Arthritis Broken bones Psychiatric disorder Measles Joint implants/screws Surgical History Surgery Date(Month/Year) knee surgery
--- OUTSIDE RECORDS SUMMARY | 2025-04-18 09:03 | XMS_ITS | Clinical Summary ---
Author Organization [facility] Address [address] [place] [address] Phone Care Team Providers Care Cleaner Carpet And Upholstery Name Role Phone Belen Simons MD Primary Care Provider Allergies Active Allergy Reactions Criticality Noted Date Comments Hymenoptera Allergenic Extract 04/15 Gadolinium-Containing Contrast Media 04/15/2023 Medications nystatin (NYSTOP) powder APPLY DIRECTED EVERY DAY Active divalproex (DEPAKOTE ER) 500 MG ER 24 hr tablet Take 1 tablet by mouth daily. 6 Active NYSTATIN TOP 1 application to affected area Externally as needed Active NYSTATIN ORAL 1 tab(s) p.o. TWO CAPSULES THREE TIMES A DAY Active LINZESS 145 mcg Cap 3 Active CREON 24,000-76,000 -120,000 unit CpDR 3 Active Active Problems Problem Noted Date Diagnosed Date Basal cell carcinoma (BCC) of left cheek Family History Medical History Relation Comments CV disease Father 2 CV disease Mother 2 Stroke Mother 2 Relation Status Comments Father 1 Father 2 Mother 1 Mother 2 Social History Tobacco Use Types Packs/Day Years Used Date Smoking Tobacco: Never Assessed Tobacco Cessation:Counseling Given: Not Answered Education Answer Date Recorded Are you interested in more education? Not on clementine e 04/06/2023 Are you concerned about learning? Not on file 04/06/2023 No 04/06/2023 No 04/06/2023 Digital Access Answer Date Recorded No 04/06/2023 No 04/06/2023 Reliable internet access at home? Not on file 04/06/2023 Device with a working camera? Not on file Comments Unknown Sex and Gender Information Value Date Recorded Sex Assigned at Not on file Legal Sex Female 9:59 PM EDT Gender Identity Not on file Sexual Orientation Not on file Last Filed Vital Signs Vital Sign Reading Time Taken Comments Blood Pressure 145/73 05/07/2023 10:41 AM EDT Pulse 55 05/07/2023 10:41 AM EDT Temperature 36.7 C (98 F) 10/22/2016 9:46 AM EST Respiratory Rate 18 05/07/2023 10:41 AM EDT Oxygen Saturation 98% 05/07/2023 10:41 AM EDT Inhaled Oxygen Concentration - - Weight 91.3 kg (201 lb 3.2 oz) 04/15/2023 3:09 P M EDT Height 154.9 cm (5' 1 ) 04/15/2023 3:09 PM EDT Body Mass Index 38.02 04/15/2023 3:09 PM EDT Plan of Treatment Health Maintenance Due Date Last Done Comments LIPID PANEL 1952 VALPROIC ACID (DEPAKENE) LEVEL 1952 DEPRESSION SCREENING 1964 SMOKING Hx and SMOKELESS TOBACCO SCREENING 1965 HEPATITIS C SCREENING 1970 MAMMOGRAM 1992 COLOGUARD 1997 COLONOSCOPY 1997 COLORECTAL CANCER SCREENING 1997 FIT TEST 1997 FOBT 1997 SIGMOIDOSCOPY 1997 VIRTUAL COLONOSCOPY 1997 ZOSTER VACCINES (1 of 2) 2002 OSTEOPOROSIS SCREENING INITIAL (ONE-TIME) 2017 COVID-19 VACCINE ( season) 2024 07/01/2022, 02/21/2022, 06/24/2021, Additional history exists RSV VACCINE (1 - 1-dose 75+ series) 2027 Adult Td,Tdap Booster 04/25/2030 04/25/2020 , 04/25/2020, 06/20/2008 PNEUMOCOCCAL VACCINES (50+ years) Completed 10/25/2018, 10/27/2017, 09/15/2012 HEPATITIS A VACCINES Aged Out No long er eligible based on patient's age to complete this topic HIB VACCINES Aged Out No longer eligi ble based on patient's age to complete this topic MENINGOCOCCAL VACCINES (ACWY) Aged Out No longer eligible based on patient's age to complete this topic MENINGOCOCCAL VACCINES (B) Aged Out N o longer eligible based on patient's age to complete this topic Medical Devices Not on file Insurance MEDICARE PART A & B MEDICARE PART A & B [facility] MEDICARE PART A & B MEDICARE PART A & B MEDICARE PART A & B MEDICARE PART A & B MEDICARE PART A & B [place] [facility] PART [place] & B [facility] MEDICARE PART A & B [facility] Care Teams Cleaner Carpet And Upholstery Relationship Specialty Start Date End Date Belen Simons MD [address] [place] [address] PCP - General Internal Medicine 04/06/23 Additional Source Comments The information contained in this document represents components of the legal health record. It is not the complete legal health record.[facility]
== END 2025-04-18 08:48 | disposition home or self-care (01) ==
LOC: HO.US 08:47
PROVIDERS: PCP Internal Medicine; Visit Provider Nurse Practitioner
DX: R19.04 Left lower quadrant abdominal swelling, mass and lump (principal)
CPT/HCPCS: 76857

== ENCOUNTER → 2025-04-18 08:48 | Outpatient (BNV) | payer MEDICARE, MEDICAID, SELFPAY | PROVIDERS: PCP Internal Medicine; Visit Provider Nuclear Medicine | DX: K43.9 Ventral hernia without obstruction or gangrene (principal) | CPT/HCPCS: 76857 ==

== ENCOUNTER 2025-04-26 09:47 | Outpatient (REF) | payer MEDICARE, MEDICAID, SELFPAY ==
--- OUTSIDE RECORDS SUMMARY | 2025-04-26 11:06 | XMS_ITS | Patient Health Record ---
Author Organization [facility] Address [address] [facility] [place] [address] Care Team Providers Care Senior Software Architect Name Role Phone Gladys RAMIREZ, Kassandra Primary Care Provider Spencer Dodson Unavailable [phone] Allergies Allergen (clinical drug ingredient) Drug/Non Drug [...] Status W/U Status Risk Notes Problem Onychomycosis (734044782) Onychomycosis (110.1) Active confirmed Problem Disorder of joint of ankle and/or foot (444222641) Arthritis - Degenerative (719.97) Active confirmed Problem Hallux valgus (256156638) Hallux Valgus (735.0) Active confirmed Problem Hammer toe (982290640) Hammer toe (735.4) Active confirmed Problem Congenital pes planus (63780129) Flat Foot, Congenital (754.61) Active confirmed Problem Pain in limb (97078218) Pain in Limb (729.5) Active confirmed Plan Of Treatment No Information Insurance Providers Payer Name Payer Address Payer Phone Subscriber Number Group Number Insured Name Patient Relationship to Insured Coverage Start Date Coverage End Date Medicare National Govt Sv[employer] [address] [place] [address] [id number] Veronica Hebert Self - patient is the insured Medical (General) History Medical History History ICD Code Anxiety Arthritis Broken bones Psychiatric disorder Measles Joint implants/screws Surgical History Surgery Date(Month/Year) knee surgery
--- OUTSIDE RECORDS SUMMARY | 2025-04-26 11:06 | XMS_ITS | Clinical Summary ---
Author Organization [facility] Address [address] [place] [address] Phone Care Team Providers Care Solution Design And Analysis Manager Name Role Phone Belen Simons MD Primary [...] & B MEDICARE PART A & [facility] MEDICARE PART A & B MEDICARE PART A & B MEDICARE PART A & B MEDICARE PART A & B [place] & [facility] & B [facility] Care Teams Solution Design And Analysis Manager Relationship Specialty Start Date End Date Belen Simons MD [address] [address] PCP - General Internal Medicine 04/06/23 Additional Source Comments The information contained in this document represents components of the legal health record. It is not the complete legal health record.[facility]
--- NOTE | 2025-04-26 15:15 | MHC.AU.HA2 ---
Hearing Instrument Fitting- Adult- Binaural Date of Visit: 04/26/25 Hearing Instruments Dispensed: Right Ear: Make, Model, Color, Serial Number: Pankaj ZIMMERMAN 1600 ITC R S#[id number] Associate Professor Of Biology Repair Warranty: 04/19/2028 Associate Professor Of Biology Loss and Damage Warranty: 04/19/2028 [facility] Service Plan: 04/26/2026 Battery Size: Rechargeable Type of Wax Guard: hear clear Left Ear: Make, Model, Color, Serial Number: Pankaj ZIMMERMAN 1600 ITC R S#[id number] Associate Professor Of Biology Repair Warranty: 04/19/2028 Associate Professor Of Biology Loss and Damage Warranty: 04/23/2028 [facility] Service Plan: 04/26/2026 Battery Size: Rechargeable Type of Wax Guard: hear clear Accessories/Assistive Technology: Pankaj Custom Pipe Blanks Cut Off Saw Operator S#[id number] Warranty 04/19/2028 Summary of Fitting: Fit with and oriented to binaural Pankaj ZIMMERMAN 1600 ITC R HAs. Aids appear to fit well and securely in ears. Programmed to DSL 5 adult targets. Could not complete real ear measures due to technical difficulty. Ran feedback manager speech. Veronica initially bothered by sound of her own voice. Counseled on adjustment to amplification. Demonstrated charging. Practiced insertion and removal. Reviewed maintenance and precautions. Recommendations: Recommendations: Hearing instrument care and maintenance were discussed and practiced. A hearing instrument follow-up was scheduled. Diagnosis Code(s): Primary Diagnosis: H90.3 Bilateral Sensorineural Hearing Loss Signature: Provider: Audi [place], [facility]
== END 2025-04-26 09:48 | disposition home or self-care (01) ==
LOC: HO.HAP 09:47
PROVIDERS: Visit Provider Internal Medicine
DX: Z46.1 Encounter for fitting and adjustment of hearing aid (principal); H90.3 Sensorineural hearing loss, bilateral
CPT/HCPCS: V5011; V5160; V5259

== ENCOUNTER → 2025-05-04 08:27 | Outpatient (AMB) | payer MEDICARE, MEDICAID, SELFPAY ==
--- OUTSIDE RECORDS SUMMARY | 2025-05-04 09:14 | XMS_ITS | Clinical Summary ---
Author Organization [facility] Address [address] [place] [address] Phone Care Team Providers Care Shake Maker Name Role Phone Belen Simons MD Primary [...] & B MEDICARE PART A & [facility] & B MEDICARE PART A & B MEDICARE PART A & B MEDICARE PART A & B MEDICARE PART A & B [place] [facility]ARE PART A & [facility] & B [facility] Care Teams Shake Maker Relationship Specialty Start Date End Date Belen Simons MD [address] [place] [address] PCP - General Internal Medicine 04/06/23 Additional Source Comments The information contained in this document represents components of the legal health record. It is not the complete legal health record.[facility]
--- OUTSIDE RECORDS SUMMARY | 2025-05-04 09:14 | XMS_ITS | Patient Health Record ---
Author Organization [facility] Address [address] [place] [address] Care Team Providers Care Cosmetology Educator Name Role Phone Gladys RAMIREZ, Kassandra Primary Care Provider Spencer Dodson Unavailable [phone] Allergies Allergen (clinical drug ingredient) Drug/Non Drug [...] Status W/U Status Risk Notes Problem Onychomycosis (630643325) Onychomycosis (110.1) Active confirmed Problem Disorder of joint of ankle and/or foot (995435706) Arthritis - Degenerative (719.97) Active confirmed Problem Hallux valgus (042714156) Hallux Valgus (735.0) Active confirmed Problem Hammer toe (674116229) Hammer toe (735.4) Active confirmed Problem Congenital pes planus (39092804) Flat Foot, Congenital (754.61) Active confirmed Problem Pain in limb (43248903) Pain in Limb (729.5) Active confirmed Plan Of Treatment No Information Insurance Providers Payer Name Payer Address Payer Phone Subscriber Number Group Number Insured Name Patient Relationship to Insured Coverage Start Date Coverage End Date Medicare National [employer]t [employer] [address] [place] [address] [id number] Veronica Hebert Self - patient is the insured Medical (General) History Medical History History ICD Code Anxiety Arthritis Broken bones Psychiatric disorder Measles Joint implants/screws Surgical History Surgery Date(Month/Year) knee surgery
--- OUTSIDE RECORDS SUMMARY | 2025-05-04 09:15 | XMS_ITS | Encounter Summary ---
Author Organization [facility] Address [address] [place] [address] Phone Care Team Providers Care Archivist Name Role Phone Belen Simons MD Primary Care Provider Encounter Details Date Type Department Care Team (Late st Contact Info) Description 05/07/2023 Procedure Pass OR Admitting Dept - Virtual Department [address] [place] [address] Social History Tobacco Use Types Packs/Day Years Used Date Smoking Tobacco: Never Assessed Education Answer Date Recorded Are you interested [...] on file Sexual Orientation Not on file documented as of this encounter Plan of Treatment Not on file documented as of this encounter Visit Diagnoses Not on filedocumented in this encounter Care Teams Archivist Relationship Specialty Start Date End Date Belen Simons MD [facility] [place] [address] PCP - General Internal Medicine 04/06/23 documented as of this encounter Additional Source Comments The information contained in this document represents components of the legal health record. It is not the complete legal health record.[facility]
--- OUTSIDE RECORDS SUMMARY | 2025-05-04 09:15 | XMS_ITS | Clinical Summary ---
Author Organization [facility] Address [address] [place] [address] Phone Care Team Providers Care County Surveyor Name Role Phone Belen Simons MD Primary Care Provider [phone] Allergies Active Allergy Reactions Criticality Noted Date [...] Do not crush, chew, or split. Active Encounters Date Type Department Care Team Description 05/03/2025 Telephone General Surgery [facility] [address] [place] [address] Dru Childress DO 04/11/2025 10:15 AM EDT Consult General Surgery - [place] [address] [place] [address] Dru Childress, Left lower quadrant abdominal pain (Primary Dx) 03/29/2025 11:31 AM EDT - 03/29/2025 6:10 PM EDT Emergency [facility] Emergency [address] [place] [address] Romeo Kline MD Acute abdominal pain (Primary Dx); Urinary tract infection in female Discharge Disposition: Home or Self Care from Last 3 Months Surgical History Surgery Date Site/Laterality Comments BREAST LUMPECTOMY PROCEDURE: HISTORICAL BREAST LUMPECTOMY; COMMENT: benign OTHER SURGICAL HISTORY 06/13 PROCEDURE: MAMMOGRAM TONSILLECTOMY PROCEDURE: HISTORICAL TONSILLECTOMY APPENDECTOMY PROCEDURE: CT APPENDECTOMY HYSTERECTOMY PROCEDURE: HISTORICAL HYSTERECTOMY; COMMENT: fibroids COLONOSCOPY 08/20/2008 PROCEDURE: CT COLONOSCOPY FLX DX W/COLLJ SPEC WHEN PFRMD; [...] Signed Date: 03/29/2025 16:58 ET Workstation ID: [id number] Transcribed By: Self Edit Transcribed Date: 03/29/2025 [...] Signed Date: 03/29/2025 16:58 ET Workstation ID: [id number] Transcribed By: Self Edit Transcribed Date: 03/29/2025 [...] Signed Date: 03/29/2025 14:07 ET Workstation ID: [id number] Transcribed By: Self Edit Transcribed Date: 03/29/2025 [...] Signed Date: 03/29/2025 14:07 ET Workstation ID: [id number] Transcribed By: Self Edit Transcribed Date: 03/29/2025 14:07 ET Romeo Kline MD IMG XR PROCEDURES Final Res ult * 12-Lead ECG (03/29/2025 1:34 PM EDT) Pathologist [facility] Ventricular Rate ECG 63 BPM GEMUSE Atrial Rate 63 BPM GEMUSE P-R Interval 150 ms GEMUSE QRS Duration 84 ms GEMUSE Q-T Interval 430 ms GEMUSE QTc 440 ms GEMUSE P Wave [place] 51 degrees GEMUSE R [place] 15 degrees GEMUSE T [place] 25 degrees GEMUSE ECG Interpretation Normal sinus rhythm with sinus arrhythmia No previous ECGs available Confirmed by MELISSA VALDERRAMA ([id number]) on 03/30/2025 7:23:11 AM GEMUSE 03/29/2025 1:34 PM EDT 03/30/2025 7:23 AM EDT Romeo Kline MD ECG ORDERABLES Final Resul t GEMUSE * (ABNORMAL) Urinalysis with reflex microscopic and culture (03/29/2025 1:25 PM EDT) Pathologist [facility] Specific [place] Urine 1.006 1.003 - 1.030 LAB URINALYSIS - AUTOMATED METHOD 03/29/2025 1:58 PM EDT [facility] pH, Urine 6.5 5.0 - 8.0 pH LAB URINALYSIS - AUTOMATED METHOD 03/29/2025 1:58 PM EDT [facility] Leukocytes, Urine Large(A) Negative LAB URINALYSIS - AUTOMATED METHOD 03/29/2025 1:58 PM [facility] Nitrite, Urine Negative Negative LAB URINALYSIS - AUTOMATED METHOD 03/29/2025 1:58 PM [facility] Protein, Urine Negative <=Trace mg/dL LAB URINALYSIS - AUTOMATED METHOD 03/29/2025 1:58 PM [facility] Glucose, Urine Negative Negative mg/dL LAB URINALYSIS - AUTOMATED METHOD 03/29/2025 1:58 PM [facility] Ketones, Urine Negative Negative mg/dL LAB URINALYSIS - AUTOMATED METHOD 03/29/2025 1:58 PM [facility] Urobilinogen, Urine 0.2 0.2 - 1.0 mg/dL LAB URINALYSIS - AUTOMATED METHOD 03/29/2025 1:58 PM [facility] Bilirubin, Urine Negative Negative LAB URINALYSIS - AUTOMATED METHOD 03/29/2025 1:58 PM [facility] Blood, Urine Trace(A) Negative LAB URINALYSIS - AUTOMATED METHOD 03/29/2025 1:58 PM [facility] RBC, Urine 3.6 0 - 4 /HPF LAB URINALYSIS - AUTOMATED METHOD 03/29/2025 1:58 PM [facility] WBC, Urine 23.1(H) 0 - 4 /HPF LAB URINALYSIS - AUTOMATED METHOD 03/29/2025 1:58 PM [facility] Squamous Epithelial, Urine 61(H) 0 - 60 /LPF LAB URINALYSIS - AUTOMATED METHOD 03/29/2025 1:58 PM [facility] Bacteria, Urine Negative Negative /HPF LAB URINALYSIS - AUTOMATED METHOD 03/29/2025 1:58 PM [facility] Hyaline Casts, Urine 0.8 0 - 3 /LPF LAB URINALYSIS - AUTOMATED METHOD 03/29/2025 1:58 PM EDT [facility] Urine Urine specimen obtained by clean catch procedure / Unknown Non-blood Collection / Unknown 03/29/2025 1:25 PM EDT 03/29/2025 1:50 PM EDT us Romeo Kline MD LAB URINE ORDERABLES Final Result Performing Organization Address [facility]/ZIP Co de Phone Number [facility] [address] [place] [address], [place] [phone] * Mera urine culture tube (03/29/2025 1:25 PM EDT) Extra Tube Hold for add-ons. 03/29/2025 3:02 PM EDT [facility] Comment:Auto resulted. Urine Urine specimen obtained by clean catch procedure / Unknown Non-blood Collection / Unknown 03/29/2025 1:25 PM EDT 03/29/2025 1:51 PM EDT us Romeo Kline MD LAB URINE ORDERABLES Final Result Performing Organization Address [facility] de Phone Number [facility] [address] [place] [address], [place] [phone] * Culture urine (03/29/2025 1:25 PM EDT) Culture, Urine No growth 03/30/2025 7:35 AM EDT [facility] Urine Urine specimen obtained by clean catch procedure / Unknown Non-blood Collection / Unknown 03/29/2025 1:25 PM EDT 03/29/2025 1:58 PM EDT us Romeo Kline MD LAB MICROBIOLOGY - GENERAL ORDERABLES Final Result Performing Organization Address [facility]/ZIP Co de Phone Number [facility] [address] [place] [address], [place] [phone] * Troponin I High Sensitivity (03/29/2025 1:24 PM EDT) [facility] High Sensitivity Troponin I 4 <=54 ng/L LAB CHEMISTRY METHOD 03/29/2025 2:11 PM EDT [facility] Blood Venous blood specimen / Unknown Venipuncture / Unknown 03/29/2025 1:24 PM EDT 03/29/2025 1:33 PM EDT Narrative [facility] - 03/29/2025 2:11 PM EDT High levels of biotin in samples may falsely decrease hsTroponin values. Use caution when interpreting hsTroponin results in patients taking biotin who exhibit renal impairment (eGFR <60) or in patients taking more than 20 mg/day of biotin. Romeo Kline MD LAB BLOOD ORDERABLES Final Result [facility] [address] [place] [address], * (ABNORMAL) CBC auto differential (03/29/2025 1:24 PM EDT) [facility] WBC 6.4 4.8 - 10.8 K/mcL LAB HEMETOLOGY METHOD 03/29/2025 1:45 PM EDT [facility] RBC 5.10(H) 3.80 - 4.80 M/mcL LAB HEMETOLOGY METHOD 03/29/2025 1:45 PM EDT [facility] Hemoglobin 14.0 11.5 - 16.0 g/dL LAB HEMETOLOGY METHOD 03/29/2025 1:45 PM EDT [facility] Hematocrit 42.5 35.0 - 47.0 % LAB HEMETOLOGY METHOD 03/29/2025 1:45 PM EDT [facility] MCV 82.7 79.0 - 98.0 FL LAB HEMETOLOGY METHOD 03/29/2025 1:45 PM EDT [facility] MCH 27.2 27.0 - 32.0 pcg LAB HEMETOLOGY METHOD 03/29/2025 1:45 PM EDT [facility] MCHC 32.9 32.0 - 37.0 g/dL LAB HEMETOLOGY METHOD 03/29/2025 1:45 PM EDT [facility] RDW 13.7 11.0 - 15.0 % LAB HEMETOLOGY METHOD 03/29/2025 1:45 PM EDT [facility] Platelets 196 130 - 400 K/mcL LAB HEMETOLOGY METHOD 03/29[facility]2025 1:[facility] MPV 10.2 7.0 - 11.0 FL LAB HEMETOLOGY METHOD 03/29/2025 1:45 [facility] NRBC 0.0 <1.0 % LAB HEMETOLOGY METHOD 03/29/2025 1:45 PM EDT [facility] NRBC Absolute 0.00 <0.10 K/mcL LAB HEMETOLOGY METHOD 03/29/2025 1:45 [facility] Neutrophils Relative 62.4 % LAB HEMETOLOGY METHOD 03/29/2025 1:45 PM [facility] Lymphocytes Relative 26.6 % LAB HEMETOLOGY METHOD 03/29/2025 1:45 [facility] Monocytes Relative 7.9 % LAB HEMETOLOGY METHOD 03/29/2025 1:45 PM [facility] Eosinophils Relative 1.7 % LAB HEMETOLOGY METHOD 03/29/2025 1:45 PM EDT [facility] Basophils Relative 0.9 % LAB HEMETOLOGY METHOD 03/29/2025 1:45 PM [facility] Immature Granulocytes Relative 0.5 % LAB HEMETOLOGY METHOD 03/29/2025 1:45 PM [facility] Neutrophils Absolute 4.02 1.50 - 7.00 K/mcL LAB HEMETOLOGY METHOD 03/29/2025 1:45 PM EDT [facility] Lymphocytes Absolute 1.71 1.00 - 5.00 K/mcL LAB HEMETOLOGY METHOD 03/29/2025 1:45 PM EDT [facility] Monocytes Absolute 0.51 0.20 - 1.00 K/[facility] LAB HEMETOLOGY METHOD 03/29/2025 1:45 PM EDT [facility] Eosinophils Absolute 0.11 0.00 - 0.50 K/[facility] LAB HEMETOLOGY METHOD 03/29/2025 1:45 PM EDT [facility] Basophils Absolute 0.06 0.00 - 0.20 K/mcL LAB HEMETOLOGY METHOD 03/29/2025 1:45 PM EDT [facility] Immature Granulocytes Absolute 0.03 0.00 - 0.03 K/[facility] LAB HEMETOLOGY METHOD 03/29/2025 1:45 PM EDT [facility] Blood Venous blood specimen / Unknown Venipuncture / Unknown 03/29/2025 1:24 PM EDT 03/29/2025 1:33 PM EDT Romeo Kline MD LAB BLOOD ORDERABLES Final Result [facility] [address] [place] [address], * APTT (03/29/2025 1:24 PM EDT) aPTT 29.7 24.1 - 39.3 sec LAB COAGULATION METHOD 03/29/2025 1:47 PM EDT [facility] Blood Venous blood specimen / Unknown Venipuncture / Unknown 03/29/2025 1:24 PM EDT 03/29/2025 1:33 PM EDT us Romeo Kline MD LAB BLOOD ORDERABLES Final Result [facility] [address] [place] [address], [place] [phone] * Protime-INR (03/29/2025 1:24 PM EDT) Pathologist [facility] Protime 11.5 10.6 - 13.9 sec LAB COAGULATION METHOD 03/29/2025 1:47 PM EDT [facility] INR 0.9 LAB COAGULATION METHOD 03/29/2025 1:47 PM EDT [facility] Blood Venous blood specimen / Unknown Venipuncture / Unknown 03/29/2025 1:24 PM EDT 03/29/2025 1:33 PM EDT us Romeo Kline MD LAB BLOOD ORDERABLES Final Result Performing Organization Address [facility]/ZIP Co de Phone Number [facility] [address] [place] [address], [place] [phone] * Type and Screen (03/29/2025 1:24 PM EDT) [facility] ABO Group A 03/29/2025 4:11 PM EDT [facility] Rh Type Positive 03/29/2025 4:11 PM EDT [facility] Antibody Screen Negative 03/29/2025 4:11 PM EDT [facility] Blood Venous blood specimen / Unknown Venipuncture / Unknown 03/29/2025 1:24 PM EDT 03/29/2025 1:33 PM EDT us Romeo Kline MD LAB BLOOD BANK TEST ORDERAB LES Final Result Performing Organization Address City/[facility]/ZIP Co de Phone Number [facility] [address] [place] [address], [place] [phone] * Magnesium (03/29/2025 1:24 PM EDT) Magnesium 2.0 1.9 - 2.6 mg/dL LAB CHEMISTRY METHOD 03/29/2025 2:06 PM EDT [facility] Blood Venous blood specimen / Unknown Venipuncture / Unknown 03/29/2025 1:24 PM EDT 03/29/2025 1:33 PM EDT us Romeo Kline MD LAB BLOOD ORDERABLES Final Result [facility] [address] [place] [address], [place] [phone] * Lipase (03/29/2025 1:24 PM EDT) Pathologist [facility] Lipase 20 13 - 75 unit/L LAB CHEMISTRY METHOD 03/29/2025 2:06 PM EDT [facility] Blood Venous blood specimen / Unknown Venipuncture / Unknown 03/29/2025 1:24 PM EDT 03/29/2025 1:33 PM EDT us Romeo Kline MD LAB BLOOD ORDERABLES Final Result [facility] [address] [place] [address], [place] [phone] * Lactate (03/29/2025 1:24 PM EDT) Lactate 0.9 0.4 - 2.0 mmol/L LAB CHEMISTRY METHOD 03/29/2025 2:03 PM EDT [facility] Blood Venous blood specimen / Unknown Venipuncture / Unknown 03/29/2025 1:24 PM EDT 03/29/2025 1:33 PM EDT us Romeo Kline MD LAB BLOOD ORDERABLES Final Result [facility] [address] [place] [address], * (ABNORMAL) Comprehensive Metabolic Panel (CMP) (03/29/2025 1:24 PM EDT) Sodium 138 133 - 145 mmol/L LAB CHEMISTRY METHOD 03/29/2025 2:06 PM [facility] Potassium 3.7 3.5 - 5.5 mmol/L LAB CHEMISTRY METHOD 03/29/2025 2:06 PM [facility] Chloride 108 96 - 110 mmol/L LAB CHEMISTRY METHOD 03/29/2025 2:06 PM [facility] CO2 23 21 - 32 mmol/L LAB CHEMISTRY METHOD 03/29/2025 2:06 PM [facility] Anion Gap 7 3 - 11 LAB CHEMISTRY METHOD 03/29/2025 2:06 PM [facility] Glucose 85 70 - 100 mg/dL LAB CHEMISTRY METHOD 03/29/2025 2:06 PM [facility] BUN 10 5 - 25 mg/dL LAB CHEMISTRY METHOD 03/29/2025 2:06 PM [facility] Creatinine 0.47(L) 0.50 - 1.10 mg/dL LAB CHEMISTRY METHOD 03/29/2025 2:06 PM [facility] eGFR 101 >=60 mL/min/1. 73m2 LAB CHEMISTRY METHOD 03/29/2025 2:06 PM [facility] Comment:Calculation based on the Chronic Kidney Disease Epidemiology Collaboration (CKD-EPI) equation refit without adjustment for race. BUN/Creatinine Ratio 21.3 LAB CHEMISTRY METHOD 03/29/2025 2:06 PM [facility] Calcium 8.9 8.5 - 10.5 mg/dL LAB CHEMISTRY METHOD 03/29/2025 2:06 PM EDT [facility] AST (SGOT) 21 10 - 42 unit/L LAB CHEMISTRY METHOD 03/29/2025 2:06 PM EDT [facility] ALT (SGPT) 24 10 - 60 unit/L LAB CHEMISTRY METHOD 03/29/2025 2:06 PM EDT [facility] Alkaline Phosphatase 65 42 - 121 unit/L LAB CHEMISTRY METHOD 03/29/2025 2:06 PM EDT [facility] Total Protein 6.3 6.0 - 8.0 g/dL LAB CHEMISTRY METHOD 03/29/2025 2:06 PM EDT [facility] Albumin 3.7 3.2 - 5.0 g/dL LAB CHEMISTRY METHOD 03/29/2025 2:06 PM EDT [facility] Total Bilirubin 0.7 0.0 - 1.4 mg/dL LAB CHEMISTRY METHOD 03/29/2025 2:06 PM EDT [facility] Blood Venous blood specimen / Unknown Venipuncture / Unknown 03/29/2025 1:24 PM EDT 03/29/2025 1:33 PM EDT Romeo Kline MD LAB BLOOD ORDERABLES Final Result [facility] [address] [place] [address], from Last 3 Months Insurance MEDICAID - [place] MEDICARE Care Teams County Surveyor Relationship Specialty Start Date End Date Belen Simons MD [address] [place] [address] PCP - General 10/31/09
--- OUTSIDE RECORDS SUMMARY | 2025-05-04 09:15 | XMS_ITS | Encounter Summary ---
Author Organization [facility] Address [address] [place] [address] Care Team Providers Care Process Chemist Name Role Phone Belen Simons MD Primary Care Provider [phone] Reason for Visit * Reason Onset Date Comments Forms/questionnaires 05/03/2025 Encounter Details Date Type Department Care Team ([facility] st Contact Info) Description 05/03/2025 Telephone General Surgery - [address] [place] [address] Dru Childress, DO [address] [place] [address] Social History Tobacco Use Types Packs/Day Years [...] on file documented as of this encounter Progress Notes * Jackelyn Escalante - 05/03/2025 9:37 AM EDT Patient called and said that she doesn't want to get another CT done because every time she lays down they don't find the hernia so she wants to know what else she can do because she says she can feel the hernia and wants to get surgery on it. documented in this encounter Plan of Treatment Not on file documented as of this encounter Visit Diagnoses Not on filedocumented in this encounter Care Teams Process Chemist Relationship Specialty Start Date End Date Belen Simons MD [address] [place] [address] PCP - General 10/31/09 documented as of this encounter
--- NOTE | 2025-05-04 09:24 | MHC.PC.OV ---
Intake Visit Reasons: re: referral surgeon hernia Andriod [phone] Allergies aged foods Allergy (Unknown, Verified 05/04/25 10:02) rash bee pollen (Bee Stings) Allergy (Unknown, Verified 05/04/25 10:02) SWELLING bees Allergy (Unknown, Verified 05/04/25 10:02) anaphylaxis cephalexin Allergy (Unknown, Verified 05/04/25 10:02) Hives gabapentin (Neurontin) Allergy (Unknown, Verified 05/04/25 10:02) hematurea latex (LATEX) Allergy (Unknown, Verified 05/04/25 10:02) RASH risperidone (From Risperdal) Allergy (Unknown, Verified 05/04/25 10:02) LUMPS ON ABDOMEN- SUPERFICIAL PHLEBITIS, painful lumps of abdomen white composit dental filling Allergy (Unknown, Verified 05/04/25 10:02) hives lactose Adverse Reaction (Mild, Verified 05/04/25 10:02) Unknown tramadol (TRAMADOL) Adverse Reaction (Mild, Verified 05/04/25 10:02) nausea/vomiting divalproex sodium (From Depakote) Adverse Reaction (Unknown, Verified 05/04/25 10:02) LOW DOSE AND SLOW RELEASE CAUSES STELLA Iodinated Contrast Media (IV Dye, Iodine Containing) Adverse Reaction (Unknown, Verified 05/04/25 10:02) DEHYDRATED, TWITCHING niacin (Niacin) Adverse Reaction (Unknown, Verified 05/04/25 10:02) TURNS RED olanzapine (From Zyprexa) Adverse Reaction (Unknown, Verified 05/04/25 10:02) BLOOD IN URINE yeast, dried (yeast) Adverse Reaction (Unknown, Verified 05/04/25 10:02) WHITE COATING ON TONGUE WHITE BREAD Allergy (Mild, Uncoded 05/04/25 10:02) DIFF SWALLOWING wheath Adverse Reaction (Mild, Uncoded 05/04/25 10:02) Unknown Medication List - Last Reconciled 05/04/25 by Belen Simons MD divalproex ER 500 mg PO DAILY 30 days linaclotide (Linzess) 145 mcg PO DAILY Tobacco use date assessed: 05/04/25 Fall risk assessment: No Falls in past year Last assessed Fall Risk: 05/04/25 Dental Screening Dental Screen Date: 05/04/25 Did you have a dental visit in the last 12 months?: Yes Did you have a dental problem in the last 6 months where you did not have access to dental care?: No Was dental information given to patient?: Patient has dentist HPI re: referral surgeon kya Burger [phone] HPI Details - The patient is a 74-year-old female here today via telehealth complaining of left lower abdominal pain, accompanied by nausea after eating, unable to tolerate eating solid foods, has been eating soup for the last several days. She was seen at [facility] and had a CT scan of the abdomen and pelvis , which showed presence of cholelithiasis without cholecystitis, and no hernia identified, fluid-filled colon noted. She was then seen recently at [facility] still complaining of same symptoms, but progressively getting worse. Pelvic ultrasound was done which showed a hernia with the neck measuring 1.6 cm. No bowel loop is seen in the hernia. She is also being seen at GI clinic treated for chronic idiopathic constipation with Linzess. [facility] Medical History (Updated 05/04/25 @ 10:21 by Belen Simons MD) Cholelithiasis Ventral hernia Candidiasis of mouth and esophagus Hearing impairment Basal cell carcinoma of face Mastoiditis Retention cyst of nasal sinus Acquired hammer toe of left foot Neck pain on left side Osteopenia of multiple sites Hiatal hernia with GERD Bipolar disorder Bunion of great toe of left foot Pain around toenail, left foot Cellulitis of toe of right foot Surgical History History of total knee arthroplasty History of esophagogastroduodenoscopy (EGD) H/O colonoscopy History of bladder surgery Fibroadenoma of right breast History of knee replacement procedure of right knee History of total abdominal hysterectomy and bilateral salpingo-oophorectomy History of appendectomy History of tonsillectomy Family History Father Emphysema, unspecified CVD (cardiovascular disease) Mother CVD (cardiovascular disease) Brother Lung cancer Bone cancer Brother Cancer of prostate Daughter No problems noted. Brother No problems noted. Brother No problems noted. Brother No problems noted. Social History Household Members: None Housing: Apartment Alcohol intake: current Alcohol intake frequency: does not drink Patient Tobacco Use Status: Never used Tobacco e-Cigarette/Vaping Use: Never Used Advance Directives Date on File: 11/14/22 service: No Current occupational status: retired Cognitive needs: No Hearing needs: No Vision needs: No Questionnaire PHQ-9 Over the last 2 weeks, how often have you been bothered by any of the following problems? 1. Little interest or pleasure in doing things: not at all 2. Feeling down, depressed, or hopeless: not at all 3. Trouble falling or staying asleep, or sleeping too much: not at all 4. Feeling tired or having little energy: not at all 5. Poor appetite or overeating: not at all 6. Feeling bad about yourself - or that you are a failure or have let yourself or your family down: not at all 7. Trouble concentrating on things, such as reading the newspaper or watching television: not at all 8. Moving or speaking so slowly that other people could have noticed. Or the opposite - being so fidgety or restless that you have been moving around a lot more than usual: not at all 9. Thoughts that you would be better off or of hurting yourself in some way: not at all Total score: 0 Depression Screening Interpretation: Negative Depression Screening Done: Yes 42025 - PHQ-9 Billing: Yes Source: Developed by Drs. Kevin Villarreal, Mery Barnett, Sheng Kulkarni and colleagues, with an educational altagracia from [employer]. Thrive Questionnaire Date Thrive assessed: 05/04/25 I am a: Patient What is your living situation today?: I have a steady place to live Within the past 12 months, did the food you bought not last and you didn't have the money to get more?: Never true Within the past 12 months, did you worry whether your food would run out before you got money to buy more?: Never true Do you have trouble paying for medicines?: No Do you have trouble getting transportation to medical appointments?: No Do you have trouble paying your heating and electricity bill?: No Do you have trouble taking care of your child, family member or friend?: No Do you have trouble with day-to-day activities such as bathing, preparing meals, shopping, managing finances, etc.?: No Are you currently unemployed and looking for a job?: No Are you interested in more education?: No Please select the resources that you would like help with: None Currently or been in a relationship where the following occur: No concerns reported THRIVE Score: 0 AUDIT C Alcohol Use Questionnaire (AUDIT-C) 1. How often do you have a drink containing alcohol?: Never 3. How often do you have six or more drinks on one occasion?: Never Total Score: 0 Score Reviewed/Action Taken: Yes QUIANA-7 AMB Questionnaire QUIANA-7 Date QUIANA - 7 assessed: 05/04/25 Feeling nervous, anxious, or on edge: 0 = Not at all Not being able to stop or control worryin = Not at all Worrying too much about different things: 0 = Not at all Trouble relaxin = Not at all Being so restless that it is hard to sit still: 0 = Not at all Becoming easily annoyed or irritable: 0 = Not at all Feeling afraid as if something awful might happen: 0 = Not at all Total QUIANA-7 score (0-4 normal; 5-9 mild; 10-14 moderate; 15-21 severe): 0 Source: Developed by Drs. Kevin Villarreal, Mery Barnett, Sheng Kulkarni and colleagues, with an educational altagracia from [employer]. QUIANA-7 Assessment Billing QUIANA-7 Assessment Tool: QUIANA-7 Assessment 34775 Review of Systems Const Reports body aches, Denies chills, Denies fever(s), Reports lethargy and Reports poor appetite ENT Reports no additional complaints Card Denies chest pain, Denies irregular heart rhythm, Denies lightheadedness, Denies radiating jaw, neck or arm pain and Denies dyspnea Resp Denies cough and Denies dyspnea GI Reports as per HPI Reports no additional complaints Neuro Reports no additional complaints and Reports as per HPI Charles/Lymph Reports no additional complaints Physical exam (Primary Care) Tobacco/Smoking Status: Tobacco use Status Tobacco use date assessed 05/04/25 05/04/25 09:27 Patient Tobacco Use Status Never used Tobacco 05/04/25 09:27 e-Cigarette/Vaping Use Never Used 05/04/25 09:27 PHQ-9: PHQ-9 Score PHQ-9: Total score 0 05/04/25 10:17 Depression Screening Interpretation: Negative Thrive Assessment: Date of Thrive Assessment Date Thrive assessed 05/04/25 05/04/25 09:27 Currently or been in a relationship where the following occur: No concerns reported Telehealth Telehealth Telehealth Platform: [email or web address] Location of provider rendering services: practice address Location of patient: address on file Patient Identification confirmed using: Name, : Yes Telehealth method: video Patient verbally consented to treatment: Yes Patient verbally consented to billing insurance company: Yes Patient informed of any privacy concerns related to visit: Yes Minutes spent on Phone/Video with Pt.: 20 Coding Level of Care Code Tele Est Pt Level 4 (87607) Diagnoses Ventral hernia without obstruction or gangrene K43.9 Obstruction and gangrene presence: without obstruction or gangrene Calculus of gallbladder without cholecystitis without obstruction K80.20 Biliary obstruction: without biliary obstruction Cholecystitis presence: without cholecystitis Cholelithiasis location: gallbladder Left lower quadrant abdominal pain R10.32 Additional Codes QUIANA-7 Assessment Billing - QUIANA-7 Assessment Tool: QUIANA-7 Assessment 08717 ([id number]) PHQ-9 - 98721 - PHQ-9 Billing: Yes ([id number]) Assessment & Plan Assessment & Plan (1) Ventral hernia: Code(s): K43.9 - Ventral hernia without obstruction or gangrene Category: Medical Qualifiers: Obstruction and gangrene presence: without obstruction or gangrene Qualified Code(s): K43.9 - Ventral hernia without obstruction or gangrene (2) Cholelithiasis: Code(s): K80.20 - Calculus of gallbladder without cholecystitis without obstruction Category: Medical Qualifiers: Biliary obstruction: without biliary obstruction Cholecystitis presence: without cholecystitis Cholelithiasis location: gallbladder Qualified Code(s): K80.20 - Calculus of gallbladder without cholecystitis without obstruction Plan: Noted on CT of abdomen and pelvis done at [place] earlier this month (3) Left lower quadrant abdominal pain: Code(s): R10.32 - Left lower quadrant pain Plan Patient was informed and verbally consented to the use of an ambient scribe for clinic note documentation during this visit. 1. Ventral hernia without obstruction or gangrene K43.9 Ordered general surgery consult for further evaluation and management . patient advised to avoid lifting and straining to prevent exacerbation of the hernia. 2. Nausea R11.0 The patient is advised to continue consuming broth and avoid solid foods that exacerbate nausea. 3. Cholelithiasis noted on recent CT abdomen and pelvis done at [place] earlier this month Orders: Referrals General Surgery Referral K43.9 - Ventral hernia without obstruction or gangrene
== END ==
LOC: HO.HMCC 08:27
PROVIDERS: PCP Internal Medicine; Visit Provider Internal Medicine
DX: K43.9 Ventral hernia without obstruction or gangrene (principal); K80.20 Calculus of gallbladder without cholecystitis without obstruction; R10.32 Left lower quadrant pain

== ENCOUNTER → 2025-05-04 08:27 | Outpatient (BNVA) | payer MEDICARE, MEDICAID, SELFPAY | PROVIDERS: PCP Internal Medicine; Visit Provider Internal Medicine | DX: K43.9 Ventral hernia without obstruction or gangrene (principal); K80.20 Calculus of gallbladder without cholecystitis without obstruction; R10.32 Left lower quadrant pain | CPT/HCPCS: 96127 ==

== ENCOUNTER 2025-05-10 08:55 | Outpatient (AMB) | payer MEDICARE, MEDICAID, SELFPAY ==
--- NOTE | 2025-05-10 09:02 | A.OFFVIS_ITS ---
Vital Signs 05/10/25 09:10 Height 5 ft 2 in Weight 195 lb BMI 35.7 BP 134/67 Blood Pressure Location Rt radial Position Sitting Pulse 62 Intake Visit Reasons: ventral hernia Intake Note: Patient referred by pcp Dr. Simons for assessment of ventral hernia. Patient c/o: painful, lump on abdomen, sitting for long periods of time is very painful. Has had four UTI's since January. Lower legs get swollen. Imaging: pelvis US ~04-18-2025 Lead Infrastructure Architect Required: No Accompanied by: Self / Same As Patient Allergies aged foods Allergy (Unknown, Verified 05/10/25 09:08) rash bee pollen (Bee Stings) Allergy (Unknown, Verified 05/10/25 09:08) SWELLING bees Allergy (Unknown, Verified 05/10/25 09:08) anaphylaxis cephalexin Allergy (Unknown, Verified 05/10/25 09:08) Hives gabapentin (Neurontin) Allergy (Unknown, Verified 05/10/25 09:08) hematurea latex (LATEX) Allergy (Unknown, Verified 05/10/25 09:08) RASH risperidone (From Risperdal) Allergy (Unknown, Verified 05/10/25 09:08) LUMPS ON ABDOMEN- SUPERFICIAL PHLEBITIS, painful lumps of abdomen white composit dental filling Allergy (Unknown, Verified 05/10/25 09:08) hives lactose Adverse Reaction (Mild, Verified 05/10/25 09:08) Unknown tramadol (TRAMADOL) Adverse Reaction (Mild, Verified 05/10/25 09:08) nausea/vomiting divalproex sodium (From Depakote) Adverse Reaction (Unknown, Verified 05/10/25 09:08) LOW DOSE AND SLOW RELEASE CAUSES STELLA Iodinated Contrast Media (IV Dye, Iodine Containing) Adverse Reaction (Unknown, Verified 05/10/25 09:08) DEHYDRATED, TWITCHING niacin (Niacin) Adverse Reaction (Unknown, Verified 05/10/25 09:08) TURNS RED olanzapine (From Zyprexa) Adverse Reaction (Unknown, Verified 05/10/25 09:08) BLOOD IN URINE yeast, dried (yeast) Adverse Reaction (Unknown, Verified 05/10/25 09:08) WHITE COATING ON TONGUE WHITE BREAD Allergy (Mild, Uncoded 05/10/25 09:08) DIFF SWALLOWING wheath Adverse Reaction (Mild, Uncoded 09/04/25 09:08) Unknown Medication List - Last Reconciled 05/10/25 by Lucio Montgomery MD divalproex ER 500 mg PO DAILY 30 days linaclotide (Linzess) 145 mcg PO DAILY HPI HPI ventral hernia: Details: [age] year old female referred for a ventral hernia. She says she went to [facility] a month ago because of pain on the left side of the abdomen. She says she felt a lump on the area. She says that she had been worked up in the ER and no hernia was found. She says she was told she had a UTI at that time. However, she says she is certain that she has a hernia. She says she feels the ?lump? she thinks that the hernia was not caught because she was laying down in CAT scan She did have an ultrasound that suggested that she does have a hernia. She says that in view of her pain from the hernia, she is concerned that her severe anxiety is exacerbated. She says that she has multiple psych issues and that she gets easily upset. She says she sees a counselor for this. She says that she has a history of chronic constipation and is being seen by the tobacco packer. She denies any nausea or vomiting. She is actually tolerating her diet well. [facility] Medical History Cholelithiasis Ventral hernia Candidiasis of mouth and esophagus Hearing impairment Basal cell carcinoma of face Mastoiditis Retention cyst of nasal sinus Acquired hammer toe of left foot Neck pain on left side Osteopenia of multiple sites Hiatal hernia with GERD Bipolar disorder Bunion of great toe of left foot Pain around toenail, left foot Cellulitis of toe of right foot Surgical History History of total knee arthroplasty History of esophagogastroduodenoscopy (EGD) H/O colonoscopy History of bladder surgery Fibroadenoma of right breast History of knee replacement procedure of right knee History of total abdominal hysterectomy and bilateral salpingo-oophorectomy History of appendectomy History of tonsillectomy Family History Father Emphysema, unspecified CVD (cardiovascular disease) Mother CVD (cardiovascular disease) Brother Lung cancer Bone cancer Brother Cancer of prostate Daughter No problems noted. Brother No problems noted. Brother No problems noted. Brother No problems noted. Social History Household Members: None Housing: Apartment Alcohol intake: current Alcohol intake frequency: does not drink Patient Tobacco Use Status: Never used Tobacco e-Cigarette/Vaping Use: Never Used Advance Directives Date on File: 11/14/22 service: No Current occupational status: retired Cognitive needs: No Hearing needs: No Vision needs: No Review of Systems Const Denies chills and Denies fever(s) Card Denies chest pain Resp Denies cough GI Reports abdominal pain, Denies diarrhea and Denies vomiting Details: Recurrent UTI Physical Exam Vital Signs: Last Vital Signs Pulse 62 05/10/25 09:10 BP 134/67 05/10/25 09:10 BMI result Body Mass Index 35.7 Const Other: Using a walker, obese General: comfortable and no acute distress Orientation/consciousness: patient oriented x3 Neck Neck: Yes no lymphadenopathy Resp Auscultation: clear to auscultation bilaterally Cardio Rhythm: regular rhythm GI Other: Has a large pannus, I am unable to palpate a hernia on the area that she points to on the left side even with Valsalva; there were no masses Palpation (GI): Soft to palpation, nontender and no guarding Neuro General: patient oriented x3 Assessment & Plan Assessment & Plan (1) Left lower quadrant abdominal swelling, mass and lump: Code(s): R19.04 - Left lower quadrant abdominal swelling, mass and lump Category: Medical Plan: I explained to her that I do not feel any obvious hernia currently. I told her that I am going to reorder another CAT scan to rule out a hernia and I am going to see her in the office to review the findings She was unhappy with the discussion above and insists that she knows that she definitely has a hernia. I will review her CAT scan and discuss the next plan of care with her. Orders: Orders CT abdomen pelvis wo IV con 05/11/25 R19.04 - Left lower quadrant abdominal swelling, mass and lump Coding Level of Care Code New Pt Level 3 (26081) Diagnoses Left lower quadrant abdominal swelling, mass and lump R19.04
[2025-05-10 09:10] VITALS: BP 134/67; PULSE 62; BMI 35.7
--- OUTSIDE RECORDS SUMMARY | 2025-05-10 09:25 | XMS_ITS | Patient Health Record ---
Author Organization [facility] Address [address] [place] [address] Care Team Providers Care Log Data Technician Name Role Phone Gladys RAMIREZ, Kassandra Primary Care Provider Spencer Dodson Unavailable [phone] Allergies Allergen (clinical drug ingredient) Drug/Non Drug [...] Status W/U Status Risk Notes Problem Onychomycosis (120657320) Onychomycosis (110.1) Active confirmed Problem Disorder of joint of ankle and/or foot (675568040) Arthritis - Degenerative (719.97) Active confirmed Problem Hallux valgus (136755393) Hallux Valgus (735.0) Active confirmed Problem Hammer toe (051189195) Hammer toe (735.4) Active confirmed Problem Congenital pes planus (34514044) Flat Foot, Congenital (754.61) Active confirmed Problem Pain in limb (78472043) Pain in Limb (729.5) Active confirmed Plan Of Treatment No Information Insurance Providers Payer Name Payer Address Payer Phone Subscriber Number Group Number Insured Name Patient Relationship to Insured Coverage Start Date Coverage End Date Medicare [employer] [address] [place] [address] [id number] Veronica Hebert Self - patient is the insured Medical (General) History Medical History History ICD Code Anxiety Arthritis Broken bones Psychiatric disorder Measles Joint implants/screws Surgical History Surgery Date(Month/Year) knee surgery
--- OUTSIDE RECORDS SUMMARY | 2025-05-10 09:26 | XMS_ITS | Clinical Summary ---
Author Organization [facility] Address [address] [place] [address] Phone Care Team Providers Care Crimper Assembler Name Role Phone Belen Simons MD Primary Care Provider [phone] Allergies Active Allergy Reactions Criticality Noted Date [...] Care Team Description 05/03/2025 Telephone General Surgery [facility] [address] [place] [address] Dru Childress DO 04/11/2025 10:15 AM EDT Consult General Surgery - [place] [address] [place] [address] Dru Childress, Left lower quadrant abdominal pain (Primary Dx) 03/29/2025 11:31 AM EDT - 03/29/2025 6:10 PM EDT Emergency [facility] Emergency [address] [place] [address] Romeo Kline MD Acute abdominal pain (Primary Dx); Urinary tract infection in female Discharge Disposition: Home or Self Care from Last 3 Months Surgical History Surgery Date Site/Laterality Comments BREAST LUMPECTOMY PROCEDURE: HISTORICAL BREAST LUMPECTOMY; COMMENT: benign OTHER SURGICAL HISTORY 06/13 PROCEDURE: MAMMOGRAM TONSILLECTOMY PROCEDURE: HISTORICAL TONSILLECTOMY APPENDECTOMY PROCEDURE: KS APPENDECTOMY HYSTERECTOMY PROCEDURE: HISTORICAL HYSTERECTOMY; COMMENT: fibroids COLONOSCOPY 08/20/2008 PROCEDURE: KS COLONOSCOPY FLX DX W/COLLJ SPEC WHEN PFRMD; [...] (1 of 2) 2002 Depression Screening 09/06/2024 Cholesterol Screening (Lipid Panel) 03/30/2025 Colorectal Cancer Screening: Colonoscopy 03/30/2025 Falls Risk Assessment 03/30/2025 Hepatitis C Screening 03/30/2025 Medicare Annual Wellness Visit 03/30/2025 Osteoporosis Screening (Bone Density Screening) 03/30/2025 Social Influencers of Health Screening 03/30/2025 COVID-19 Vaccine ( season) 2025 06/03/2024, 06/08/2023, 07/01/2022, Additional history exists Influenza Vaccine (#1) 2025 , 06/08/2023, 06/17/2022, [...] Signed Date: 03/29/2025 16:58 ET Workstation ID: [id number] Transcribed By: Self Edit Transcribed Date: 03/29/2025 [...] Signed Date: 03/29/2025 16:58 ET Workstation ID: [id number] Transcribed By: Self Edit Transcribed Date: 03/29/2025 [...] Signed Date: 03/29/2025 14:07 ET Workstation ID: [id number] Transcribed By: Self Edit Transcribed Date: 03/29/2025 [...] Signed Date: 03/29/2025 14:07 ET Workstation ID: [id number] Transcribed By: Self Edit Transcribed Date: 03/29/2025 14:07 ET Romeo Kline MD IMG XR PROCEDURES Final Res ult * 12-Lead ECG (03/29/2025 1:34 PM EDT) Pathologist [facility] Ventricular Rate ECG 63 BPM GEMUSE Atrial Rate 63 BPM GEMUSE P-R Interval 150 ms GEMUSE QRS Duration 84 ms GEMUSE Q-T Interval 430 ms GEMUSE QTc 440 ms GEMUSE P Wave Waldo 51 degrees GEMUSE R Waldo 15 degrees GEMUSE T Waldo 25 degrees GEMUSE ECG Interpretation Normal sinus rhythm with sinus arrhythmia No previous ECGs available Confirmed by MELISSA VALDERRAMA ([id number]) on 03/30/2025 7:23:11 AM GEMUSE 03/29/2025 1:34 PM EDT 03/30/2025 7:23 AM EDT Romeo Kline MD ECG ORDERABLES Final Resul t GEMUSE * (ABNORMAL) Urinalysis with reflex microscopic and culture (03/29/2025 1:25 PM EDT) Pathologist [facility] Specific Mission Urine 1.006 1.003 - 1.030 LAB URINALYSIS - AUTOMATED METHOD 03/29/2025 1:58 PM EDT [facility] pH, Urine 6.5 5.0 - 8.0 pH LAB URINALYSIS - AUTOMATED METHOD 03/29/2025 1:58 PM EDT [facility] Leukocytes, Urine Large(A) Negative [...] - AUTOMATED METHOD 03/29/2025 1:58 PM EDT [facility] Urine Urine specimen obtained by clean catch procedure / Unknown Non-blood Collection / Unknown 03/29/2025 1:25 PM EDT 03/29/2025 1:50 PM EDT us Romeo Kline MD LAB URINE ORDERABLES Final Result Performing Organization Address [facility]/ZIP Co de Phone Number [facility] [address] [place] [address], [place] [phone] * Mera urine culture tube (03/29/2025 1:25 PM EDT) Extra Tube Hold for add-ons. 03/29/2025 3:02 PM EDT [facility] Comment:Auto resulted. Urine Urine specimen obtained by clean catch procedure / Unknown Non-blood Collection / Unknown 03/29/2025 1:25 PM EDT 03/29/2025 1:51 PM EDT us Romeo Kline MD LAB URINE ORDERABLES Final Result Performing Organization Address [facility] de Phone Number [facility] [address] [place] [address], [place] [phone] * Culture urine (03/29/2025 1:25 PM EDT) Culture, Urine No growth 03/30/2025 7:35 AM EDT [facility] Urine Urine specimen obtained by clean catch procedure / Unknown Non-blood Collection / Unknown 03/29/2025 1:25 PM EDT 03/29/2025 1:58 PM EDT us Romeo Kline MD LAB MICROBIOLOGY - GENERAL ORDERABLES Final Result Performing Organization Address [facility]/ZIP Co de Phone Number [facility] [address] [place] [address], [place] [phone] * Troponin I High Sensitivity (03/29/2025 1:24 PM EDT) [facility] High Sensitivity Troponin I 4 <=54 ng/L LAB CHEMISTRY METHOD 03/29/2025 2:11 PM EDT [facility] Blood Venous blood specimen / Unknown Venipuncture / Unknown 03/29/2025 1:24 PM EDT 03/29/2025 1:33 PM EDT Narrative [facility] - 03/29/2025 2:11 PM EDT High levels of biotin in samples may falsely decrease hsTroponin values. Use caution when interpreting hsTroponin results in patients taking biotin who exhibit renal impairment (eGFR <60) or in patients taking more than 20 mg/day of biotin. Romeo Kline MD LAB BLOOD ORDERABLES Final Result [facility] [address] [place] [address], * (ABNORMAL) CBC auto differential (03/29/2025 1:24 PM EDT) [facility] WBC 6.4 4.8 - 10.8 K/mcL LAB HEMETOLOGY METHOD 03/29/2025 1:45 PM EDT [facility] RBC 5.10(H) 3.80 - 4.80 M/mcL LAB HEMETOLOGY METHOD 03/29/2025 1:45 PM EDT [facility] Hemoglobin 14.0 11.5 - 16.0 g/dL LAB HEMETOLOGY METHOD 03/29/2025 1:45 PM EDT [facility] Hematocrit 42.5 35.0 - 47.0 % LAB HEMETOLOGY METHOD 03/29/2025 1:45 PM EDT [facility] MCV 82.7 79.0 - 98.0 FL LAB HEMETOLOGY METHOD 03/29/2025 1:45 PM EDT [facility] MCH 27.2 27.0 - 32.0 pcg LAB HEMETOLOGY METHOD 03/29/2025 1:45 PM EDT [facility] MCHC 32.9 32.0 - 37.0 g/dL LAB HEMETOLOGY METHOD 03/29/2025 1:45 PM EDT [facility] RDW 13.7 11.0 - 15.0 % LAB HEMETOLOGY METHOD 03/29/2025 1:45 PM EDT [facility] Platelets 196 130 - 400 K/mcL LAB HEMETOLOGY [facility]/29[facility]25 [facility] MPV 10.2 7.0 - 11.0 FL LAB HEMETOLOGY METHOD 03/29/2025 1:[facility] NRBC 0.0 <1.0 % LAB HEMETOLOGY METHOD 03/29/2025 1:45 PM EDT [facility] NRBC Absolute 0.00 <0.10 [...] LAB HEMETOLOGY METHOD 03/29/2025 1:45 PM EDT [facility] Basophils Relative 0.9 % LAB HEMETOLOGY METHOD 03/29/2025 1:45 PM [facility] Immature Granulocytes Relative 0.5 % LAB HEMETOLOGY METHOD 03/29/2025 1:[facility] Neutrophils Absolute 4.02 1.50 - 7.00 K/mcL LAB HEMETOLOGY METHOD 03/29/2025 1:45 PM EDT [facility] Lymphocytes Absolute 1.71 1.00 - 5.00 K/mcL LAB HEMETOLOGY METHOD 03/29/2025 1:45 PM EDT [facility] Monocytes Absolute 0.51 0.20 - 1.00 K/[facility] LAB HEMETOLOGY METHOD 03/29/2025 1:45 PM EDT [facility] Eosinophils Absolute 0.11 0.00 - 0.50 K/[facility] LAB HEMETOLOGY METHOD 03/29/2025 1:45 PM EDT [facility] Basophils Absolute 0.06 0.00 - 0.20 K/mcL LAB HEMETOLOGY METHOD 03/29/2025 1:45 PM EDT [facility] Immature Granulocytes Absolute 0.03 0.00 - 0.03 K/[facility] LAB HEMETOLOGY METHOD 03/29/2025 1:45 PM EDT [facility] Blood Venous blood specimen / Unknown Venipuncture / Unknown 03/29/2025 1:24 PM EDT 03/29/2025 1:33 PM EDT Romeo Kline MD LAB BLOOD ORDERABLES Final Result [facility] [address] [place] [address], * APTT (03/29/2025 1:24 PM EDT) aPTT 29.7 24.1 - 39.3 sec LAB COAGULATION METHOD 03/29/2025 1:47 PM EDT [facility] Blood Venous blood specimen / Unknown Venipuncture / Unknown 03/29/2025 1:24 PM EDT 03/29/2025 1:33 PM EDT us Romeo Kline MD LAB BLOOD ORDERABLES Final Result [facility] [address] [place] [address], [place] [phone] * Protime-INR (03/29/2025 1:24 PM EDT) Pathologist [facility] Protime 11.5 10.6 - 13.9 sec LAB COAGULATION METHOD 03/29/2025 1:47 PM EDT [facility] INR 0.9 LAB COAGULATION METHOD 03/29/2025 1:47 PM EDT [facility] Blood Venous blood specimen / Unknown Venipuncture / Unknown 03/29/2025 1:24 PM EDT 03/29/2025 1:33 PM EDT us Romeo Kline MD LAB BLOOD ORDERABLES Final Result Performing Organization Address [facility]/ZIP Co de Phone Number [facility] [address] [place] [address], [place] [phone] * Type and Screen (03/29/2025 1:24 PM EDT) [facility] ABO Group A 03/29/2025 4:11 PM EDT [facility] Rh Type Positive 03/29/2025 4:11 PM EDT [facility] Antibody Screen Negative 03/29/2025 4:11 PM EDT [facility] Blood Venous blood specimen / Unknown Venipuncture / Unknown 03/29/2025 1:24 PM EDT 03/29/2025 1:33 PM EDT us Romeo Kline MD LAB BLOOD BANK TEST ORDERAB LES Final Result Performing Organization Address City/[facility]/ZIP Co de Phone Number [facility] [address] [place] [address], [place] [phone] * Magnesium (03/29/2025 1:24 PM EDT) Magnesium 2.0 1.9 - 2.6 mg/dL LAB CHEMISTRY METHOD 03/29/2025 2:06 PM EDT [facility] Blood Venous blood specimen / Unknown Venipuncture / Unknown 03/29/2025 1:24 PM EDT 03/29/2025 1:33 PM EDT us Romeo Kline MD LAB BLOOD ORDERABLES Final Result [facility] [address] [place] [address], [place] [phone] * Lipase (03/29/2025 1:24 PM EDT) Pathologist [facility] Lipase 20 13 - 75 unit/L LAB CHEMISTRY METHOD 03/29/2025 2:06 PM EDT [facility] Blood Venous blood specimen / Unknown Venipuncture / Unknown 03/29/2025 1:24 PM EDT 03/29/2025 1:33 PM EDT us Romeo Kline MD LAB BLOOD ORDERABLES Final Result [facility] [address] [place] [address], [place] [phone] * Lactate (03/29/2025 1:24 PM EDT) Lactate 0.9 0.4 - 2.0 mmol/L LAB CHEMISTRY METHOD 03/29/2025 2:03 PM EDT [facility] Blood Venous blood specimen / Unknown Venipuncture / Unknown 03/29/2025 1:24 PM EDT 03/29/2025 1:33 PM EDT us Romeo Kline MD LAB BLOOD ORDERABLES Final Result [facility] [address] [place] [address], * (ABNORMAL) Comprehensive Metabolic Panel (CMP) (03/29/2025 [...] LAB CHEMISTRY METHOD 03/29/2025 2:06 PM EDT [facility] AST (SGOT) 21 10 - 42 unit/L LAB CHEMISTRY METHOD 03/29/2025 2:06 PM EDT [facility] ALT (SGPT) 24 10 - 60 unit/L LAB CHEMISTRY METHOD 03/29/2025 2:06 PM EDT [facility] Alkaline Phosphatase 65 42 - 121 unit/L LAB CHEMISTRY METHOD 03/29/2025 2:06 PM EDT [facility] Total Protein 6.3 6.0 - 8.0 g/dL LAB CHEMISTRY METHOD 03/29/2025 2:06 PM EDT [facility] Albumin 3.7 3.2 - 5.0 g/dL LAB CHEMISTRY METHOD 03/29/2025 2:06 PM EDT [facility] Total Bilirubin 0.7 0.0 - 1.4 mg/dL LAB CHEMISTRY METHOD 03/29/2025 2:06 PM EDT [facility] Blood Venous blood specimen / Unknown Venipuncture / Unknown 03/29/2025 1:24 PM EDT 03/29/2025 1:33 PM EDT Romeo Kline MD LAB BLOOD ORDERABLES Final Result [facility] [address] [place] [address], from Last 3 Months Insurance MEDICAID - [place] MEDICARE Care Teams Crimper Assembler Relationship Specialty Start Date End Date Belen Simons MD [address] [place] [address] PCP - General 10/31/09
--- OUTSIDE RECORDS SUMMARY | 2025-05-10 09:26 | XMS_ITS | Encounter Summary ---
Author Organization [facility] Address [address] [facility] [address] [place] [address] Phone Care Team Providers Care Terry Cloth Cutter Hand Name Role Phone Belen Simons MD Primary Care Provider Encounter Details Date Type Department Care Team (Late st Contact Info) Description 05/07/2023 Procedure Pass OR Admitting Dept - Virtual Department [address] [place] [id number] Social History Tobacco Use Types Packs/Day Years [...] on filedocumented in this encounter Care Teams Terry Cloth Cutter Hand Relationship Specialty Start Date End Date Belen Simons MD [facility] [place] [address] PCP - General Internal Medicine 04/06/23 documented as of this encounter Additional Source Comments The information contained in this document represents components of the legal health record. It is not the complete legal health record.[facility]
--- OUTSIDE RECORDS SUMMARY | 2025-05-10 09:26 | XMS_ITS | Encounter Summary ---
Author Organization [facility] Address [address] [place] [address] Care Team Providers Care Roving Technician Name Role Phone Belen Simons MD Primary Care Provider [phone] Reason for Visit * Reason Onset Date Comments Forms/questionnaires 05/03/2025 Encounter Details Date Type Department Care Team ([facility] st Contact Info) Description 05/03/2025 Telephone General Surgery - [place] [address] [facility] [address] [place] [address] Dru Childress, DO [address] [facility] [address] [place] [address] Social History Tobacco Use Types Packs/Day Years [...] on filedocumented in this encounter Care Teams Roving Technician Relationship Specialty Start Date End Date Belen Simons MD [address] [place] [address] PCP - General 10/31/09 documented as of this encounter
== END 2025-05-10 09:27 | disposition home or self-care (01) ==
LOC: HO.HGS 08:55
PROVIDERS: PCP Internal Medicine; Visit Provider Surgery
DX: R19.04 Left lower quadrant abdominal swelling, mass and lump (principal)
CPT/HCPCS: 99203

== ENCOUNTER → 2025-05-10 08:55 | Outpatient (BNVA) | payer MEDICARE, MEDICAID, SELFPAY | PROVIDERS: PCP Internal Medicine; Visit Provider Surgery | DX: R19.04 Left lower quadrant abdominal swelling, mass and lump (principal) | CPT/HCPCS: 99202 ==

== ENCOUNTER 2025-05-11 15:20 | Outpatient (REF) | payer MEDICARE, MEDICAID, SELFPAY ==
--- NOTE | ~2025-05-11 | CT_ITS ---
EXAMINATION: CT ABDOMEN AND PELVIS WITHOUT CONTRAST CLINICAL INFORMATION: R19.04 - Left lower quadrant abdominal swelling, mass and lump COMPARISON: ultrasound May 07, 2017 TECHNIQUE: Multidetector volumetric imaging was performed from the superior aspect of the liver through the pubic symphysis. Sagittal and coronal reformatted images were obtained on the technologist's workstation. This CT examination was performed using dose optimization techniques as appropriate, variously including the following: *Automated exposure control *Adjustment of mA and/or kV according to patient size (this includes techniques or standardized protocols for targeted exams where dose is matched to indication/reason for exam; i.e. extremities or head) *Use of iterative reconstruction technique DLP: 753 mGY*cm FINDINGS: LUNG BASES: The visualized lung bases are unremarkable. LIVER, GALLBLADDER, AND BILIARY TREE: The liver is normal in size, shape, and attenuation. No focal hepatic lesion or biliary ductal dilatation is present. The gallbladder is filled with stones. There is no wall thickening or pericholecystic fluid. PANCREAS: Unremarkable. SPLEEN: Unremarkable. ADRENAL GLANDS: Unremarkable. KIDNEYS AND URETERS: Benign simple cyst in the right kidney is again noted. BLADDER: Unremarkable. GASTROINTESTINAL TRACT: The small and large bowel are unremarkable. The appendix is unremarkable. ABDOMINAL WALL: Periumbilical hernia contains adipose tissue. Hernia sac measures 2.9 cm superior-inferior and demonstrates no fat stranding. There is a short appendix which is unremarkable in its appearance otherwise. LYMPH NODES: Normal. VASCULAR: Multifocal vascular calcifications are present. PELVIC VISCERA: Uterus is not visualized likely related to hysterectomy. Possible bilateral oophorectomy. OSSEOUS STRUCTURES: T11 demonstrates a prominent Schmorl's node involving the superior endplate CT/CT abdomen pelvis wo IV con IMPRESSION: Cholelithiasis. Umbilical hernia contains normal density fat. Fleischner guidelines were followed. Electronically signed by: Leonel Levine MD 05/11/2025 04:57 PM EDT
--- OUTSIDE RECORDS SUMMARY | 2025-05-11 15:30 | XMS_ITS | Patient Health Record ---
Author Organization [facility] Address [address] [place] [address] Care Team Providers Care Chief Technical Officer Name Role Phone Gladys RAMIREZ, Kassandra Primary Care Provider Spencer Dodson Unavailable [phone] Allergies Allergen (clinical drug ingredient) Drug/Non Drug [...] Status W/U Status Risk Notes Problem Onychomycosis (308891641) Onychomycosis (110.1) Active confirmed Problem Disorder of joint of ankle and/or foot (046672586) Arthritis - Degenerative (719.97) Active confirmed Problem Hallux valgus (646510370) Hallux Valgus (735.0) Active confirmed Problem Hammer toe (152873946) Hammer toe (735.4) Active confirmed Problem Congenital pes planus (91986442) Flat Foot, Congenital (754.61) Active confirmed Problem Pain in limb (28343777) Pain in Limb (729.5) Active confirmed Plan Of Treatment No Information Insurance Providers Payer Name Payer Address Payer Phone Subscriber Number Group Number Insured Name Patient Relationship to Insured Coverage Start Date Coverage End Date Medicare [employer] [address] [place] [address] [id number] Veronica Hebert Self - patient is the insured Medical (General) History Medical History History ICD Code Anxiety Arthritis Broken bones Psychiatric disorder Measles Joint implants/screws Surgical History Surgery Date(Month/Year) knee surgery
--- OUTSIDE RECORDS SUMMARY | 2025-05-11 15:30 | XMS_ITS | Clinical Summary ---
Author Organization [facility] Address [address] [facility] [address] [place] [address] Phone Care Team Providers Care Boiler Setter Name Role Phone Belen Simons MD Primary [...] 2) 2002 OSTEOPOROSIS SCREENING INITIAL (ONE-TIME) 2017 INFLUENZA VACCINE (#1) 2025 2, 06/04/2020, 07/04/2019, Additional history exists COVID-19 VACCINE ( season) 2025 07/01/2022, 02/21/2022, 06/24/2021, Additional history exists RSV [...] file Insurance MEDICARE PART A & B [facility] MEDICARE PART A & B Member Subscriber Plan / Payer (Ef fective 2011-Present) Name:Veronica Hebert Member ID:[id number] Relation to Subscriber:Self Name:Veronica Hebert Subscriber ID:[id number] Payer ID:[id number] Group ID:Not on file Type:Medicare Address: [employer] [address] [place] [address] [place], [place] [address]HEALTH MEDICARE PART A & B MEDICARE PART A & B MEDICARE PART A & B MEDICARE PART A & B MEDICARE PART A & B [place] B [facility] Care Teams Boiler Setter Relationship Specialty Start Date End Date Belen Simons MD [facility] [place] [address] PCP - General Internal Medicine 04/06/23 Additional Source Comments The information contained in this document represents components of the legal health record. It is not the complete legal health record.[facility]
--- OUTSIDE RECORDS SUMMARY | 2025-05-11 15:30 | XMS_ITS | Clinical Summary ---
Author Organization [facility] Address [address] [place] [address] Phone Care Team Providers Care Senior Commissions Analyst Name Role Phone Belen Simons MD Primary Care Provider [phone] Allergies Active Allergy Reactions Criticality Noted Date [...] Care Team Description 05/03/2025 Telephone General Surgery [facility] [address] [place] [address] Dru Childress DO 04/11/2025 10:15 AM EDT Consult General Surgery - [place] [address] [place] [address] rDu Childress, Left lower quadrant abdominal pain (Primary Dx) 03/29/2025 11:31 AM EDT - 03/29/2025 6:[address] [facility] Emergency [address] [place] [address] Romeo Kline MD Acute abdominal pain (Primary Dx); Urinary tract infection in female Discharge Disposition: Home or Self Care from Last 3 Months Surgical History Surgery Date Site/Laterality Comments BREAST LUMPECTOMY PROCEDURE: HISTORICAL BREAST LUMPECTOMY; COMMENT: benign OTHER SURGICAL HISTORY 06/13 PROCEDURE: MAMMOGRAM TONSILLECTOMY PROCEDURE: HISTORICAL TONSILLECTOMY APPENDECTOMY PROCEDURE: ND APPENDECTOMY HYSTERECTOMY PROCEDURE: HISTORICAL HYSTERECTOMY; COMMENT: fibroids COLONOSCOPY 08/20/2008 PROCEDURE: ND COLONOSCOPY FLX DX W/COLLJ SPEC WHEN PFRMD; [...] Signed Date: 03/29/2025 16:58 ET Workstation ID: [id number] Transcribed By: Self Edit Transcribed Date: 03/29/2025 [...] Signed Date: 03/29/2025 16:58 ET Workstation ID: [id number] Transcribed By: Self Edit Transcribed Date: 03/29/2025 [...] Signed Date: 03/29/2025 14:07 ET Workstation ID: [id number] Transcribed By: Self Edit Transcribed Date: 03/29/2025 [...] Signed Date: 03/29/2025 14:07 ET Workstation ID: [id number] Transcribed By: Self Edit Transcribed Date: 03/29/2025 14:07 ET Romeo Kline MD IMG XR PROCEDURES Final Res ult * 12-Lead ECG (03/29/2025 1:34 PM EDT) Pathologist [facility] Ventricular Rate ECG 63 BPM GEMUSE Atrial Rate 63 BPM GEMUSE P-R Interval 150 ms GEMUSE QRS Duration 84 ms GEMUSE Q-T Interval 430 ms GEMUSE QTc 440 ms GEMUSE P Wave [place] 51 degrees GEMUSE R [place] 15 degrees GEMUSE T [place] 25 degrees GEMUSE ECG Interpretation Normal sinus rhythm with sinus arrhythmia No previous ECGs available Confirmed by MELISSA VALDERRAMA ([id number]) on 03/30/2025 7:23:11 AM GEMUSE 03/29/2025 1:34 PM EDT 03/30/2025 7:23 AM EDT Romeo Kline MD ECG ORDERABLES Final Resul t GEMUSE * (ABNORMAL) Urinalysis with reflex microscopic and culture (03/29/2025 1:25 PM EDT) Pathologist [facility] Specific [place] Urine 1.006 1.003 - 1.030 LAB URINALYSIS - AUTOMATED METHOD 03/29/2025 1:58 PM EDT [facility] pH, Urine 6.5 5.0 - 8.0 pH LAB URINALYSIS - AUTOMATED METHOD 03/29/2025 1:58 PM EDT [facility] Leukocytes, Urine Large(A) Negative LAB URINALYSIS - AUTOMATED METHOD 03/29/2025 1:58 PM [facility] Nitrite, Urine Negative Negative LAB URINALYSIS - AUTOMATED METHOD 03/29/2025 1:58 PM [facility] Protein, Urine Negative <=Trace mg/dL LAB URINALYSIS - AUTOMATED METHOD 03/29/2025 1:58 PM [facility] Glucose, Urine Negative Negative mg/dL LAB URINALYSIS - AUTOMATED METHOD 03/29/2025 1:58 PM [facility] Ketones, Urine Negative Negative mg/dL LAB URINALYSIS - AUTOMATED METHOD 03/29/2025 1:58 PM [facility] Urobilinogen, Urine 0.2 0.2 - 1.0 mg/dL LAB URINALYSIS - AUTOMATED METHOD 03/29/2025 1:58 PM [facility] Bilirubin, Urine Negative Negative LAB URINALYSIS - AUTOMATED METHOD 03/29/2025 1:58 PM [facility] Blood, Urine Trace(A) Negative LAB URINALYSIS - AUTOMATED METHOD 03/29/2025 1:58 PM [facility] RBC, Urine 3.6 0 - 4 /HPF LAB URINALYSIS - AUTOMATED METHOD 03/29/2025 1:58 PM [facility] WBC, Urine 23.1(H) 0 - 4 /HPF LAB URINALYSIS - AUTOMATED METHOD 03/29/2025 1:58 PM [facility] Squamous Epithelial, Urine 61(H) 0 - 60 /LPF LAB URINALYSIS - AUTOMATED METHOD 03/29/2025 1:58 PM [facility] Bacteria, Urine Negative Negative /HPF LAB URINALYSIS - AUTOMATED METHOD 03/29/2025 1:58 PM [facility] Hyaline Casts, Urine 0.8 0 - 3 /LPF LAB URINALYSIS - AUTOMATED METHOD 03/29/2025 1:58 PM EDT [facility] Urine Urine specimen obtained by clean catch procedure / Unknown Non-blood Collection / Unknown 03/29/2025 1:25 PM EDT 03/29/2025 1:50 PM EDT us Romeo Kline MD LAB URINE ORDERABLES Final Result Performing Organization Address [facility]/ZIP Co de Phone Number [facility] [address] [place] [address], [place] [phone] * Mera urine culture tube (03/29/2025 1:25 PM EDT) Extra Tube Hold for add-ons. 03/29/2025 3:02 PM EDT [facility] Comment:Auto resulted. Urine Urine specimen obtained by clean catch procedure / Unknown Non-blood Collection / Unknown 03/29/2025 1:25 PM EDT 03/29/2025 1:51 PM EDT us Romeo Kline MD LAB URINE ORDERABLES Final Result Performing Organization Address [facility] de Phone Number [facility] [address] [place] [address], [place] [phone] * Culture urine (03/29/2025 1:25 PM EDT) Culture, Urine No growth 03/30/2025 7:35 AM EDT [facility] Urine Urine specimen obtained by clean catch procedure / Unknown Non-blood Collection / Unknown 03/29/2025 1:25 PM EDT 03/29/2025 1:58 PM EDT us Romeo Kline MD LAB MICROBIOLOGY - GENERAL ORDERABLES Final Result Performing Organization Address [facility]/ZIP Co de Phone Number [facility] [address] [place] [address], [place] [phone] * Troponin I High Sensitivity (03/29/2025 1:24 PM EDT) [facility] High Sensitivity Troponin I 4 <=54 ng/L LAB CHEMISTRY METHOD 03/29/2025 2:11 PM EDT [facility] Blood Venous blood specimen / Unknown Venipuncture / Unknown 03/29/2025 1:24 PM EDT 03/29/2025 1:33 PM EDT Narrative [facility] - 03/29/2025 2:11 PM EDT High levels of biotin in samples may falsely decrease hsTroponin values. Use caution when interpreting hsTroponin results in patients taking biotin who exhibit renal impairment (eGFR <60) or in patients taking more than 20 mg/day of biotin. Romeo Klien MD LAB BLOOD ORDERABLES Final Result [facility] [address] [place] [address], * (ABNORMAL) CBC auto differential (03/29/2025 1:24 PM EDT) [facility] WBC 6.4 4.8 - 10.8 K/mcL LAB HEMETOLOGY METHOD 03/29/2025 1:45 PM EDT [facility] RBC 5.10(H) 3.80 - 4.80 M/mcL LAB HEMETOLOGY METHOD 03/29/2025 1:45 PM EDT [facility] Hemoglobin 14.0 11.5 - 16.0 g/dL LAB HEMETOLOGY METHOD 03/29/2025 1:45 PM EDT [facility] Hematocrit 42.5 35.0 - 47.0 % LAB HEMETOLOGY METHOD 03/29/2025 1:45 PM EDT [facility] MCV 82.7 79.0 - 98.0 FL LAB HEMETOLOGY METHOD 03/29/2025 1:45 PM EDT [facility] MCH 27.2 27.0 - 32.0 pcg LAB HEMETOLOGY METHOD 03/29/2025 1:45 PM EDT [facility] MCHC 32.9 32.0 - 37.0 g/dL LAB HEMETOLOGY METHOD 03/29/2025 1:45 PM EDT [facility] RDW 13.7 11.0 - 15.0 % LAB HEMETOLOGY METHOD 03/29/2025 1:45 PM EDT [facility] Platelets 196 130 - 400 K/mcL LAB [facility]OLOGY [facility]25 [facility] MPV 10.2 7.0 - 11.0 FL LAB HEMETOLOGY METHOD 03/29[facility]2025 [facility] NRBC 0.0 <1.0 % LAB HEMETOLOGY METHOD 03/29/2025 1:45 PM EDT [facility] NRBC Absolute 0.00 <0.10 K/mcL LAB HEMETOLOGY METHOD 03/29/2025 1:[facility] Neutrophils Relative 62.4 % LAB HEMETOLOGY METHOD 03/29/2025 1:45 PM [facility] Lymphocytes Relative 26.6 % LAB HEMETOLOGY METHOD 03/29/2025 1:[facility] Monocytes Relative 7.9 % LAB HEMETOLOGY METHOD 03/29/2025 1:45 PM [facility] Eosinophils Relative 1.7 % LAB HEMETOLOGY METHOD 03/29/2025 1:45 PM EDT [facility] Basophils Relative 0.9 % LAB HEMETOLOGY METHOD 03/29/2025 1:45 PM [facility] Immature Granulocytes Relative 0.5 % LAB HEMETOLOGY METHOD 03/29/2025 1:[facility] Neutrophils Absolute 4.02 1.50 - 7.00 K/mcL LAB HEMETOLOGY METHOD 03/29/2025 1:45 PM EDT [facility] Lymphocytes Absolute 1.71 1.00 - 5.00 K/mcL LAB HEMETOLOGY METHOD 03/29/2025 1:45 PM EDT [facility] Monocytes Absolute 0.51 0.20 - 1.00 K/[facility] LAB HEMETOLOGY METHOD 03/29/2025 1:45 PM EDT [facility] Eosinophils Absolute 0.11 0.00 - 0.50 K/[facility] LAB HEMETOLOGY METHOD 03/29/2025 1:45 PM EDT [facility] Basophils Absolute 0.06 0.00 - 0.20 K/mcL LAB HEMETOLOGY METHOD 03/29/2025 1:45 PM EDT [facility] Immature Granulocytes Absolute 0.03 0.00 - 0.03 K/[facility] LAB HEMETOLOGY METHOD 03/29/2025 1:45 PM EDT [facility] Blood Venous blood specimen / Unknown Venipuncture / Unknown 03/29/2025 1:24 PM EDT 03/29/2025 1:33 PM EDT Romeo Kline MD LAB BLOOD ORDERABLES Final Result [facility] [address] [place] [address], * APTT (03/29/2025 1:24 PM EDT) aPTT 29.7 24.1 - 39.3 sec LAB COAGULATION METHOD 03/29/2025 1:47 PM EDT [facility] Blood Venous blood specimen / Unknown Venipuncture / Unknown 03/29/2025 1:24 PM EDT 03/29/2025 1:33 PM EDT us Romeo Kline MD LAB BLOOD ORDERABLES Final Result [facility] [address] [place] [address], [place] [phone] * Protime-INR (03/29/2025 1:24 PM EDT) Pathologist [facility] Protime 11.5 10.6 - 13.9 sec LAB COAGULATION METHOD 03/29/2025 1:47 PM EDT [facility] INR 0.9 LAB COAGULATION METHOD 03/29/2025 1:47 PM EDT [facility] Blood Venous blood specimen / Unknown Venipuncture / Unknown 03/29/2025 1:24 PM EDT 03/29/2025 1:33 PM EDT us Romeo Kline MD LAB BLOOD ORDERABLES Final Result Performing Organization Address [facility]/ZIP Co de Phone Number [facility] [address] [place] [address], [place] [phone] * Type and Screen (03/29/2025 1:24 PM EDT) [facility] ABO Group A 03/29/2025 4:11 PM EDT [facility] Rh Type Positive 03/29/2025 4:11 PM EDT [facility] Antibody Screen Negative 03/29/2025 4:11 PM EDT [facility] Blood Venous blood specimen / Unknown Venipuncture / Unknown 03/29/2025 1:24 PM EDT 03/29/2025 1:33 PM EDT us Romeo Kline MD LAB BLOOD BANK TEST ORDERAB LES Final Result Performing Organization Address City/[facility]/ZIP Co de Phone Number [facility] [address] [place] [address], [place] [phone] * Magnesium (03/29/2025 1:24 PM EDT) Magnesium 2.0 1.9 - 2.6 mg/dL LAB CHEMISTRY METHOD 03/29/2025 2:06 PM EDT [facility] Blood Venous blood specimen / Unknown Venipuncture / Unknown 03/29/2025 1:24 PM EDT 03/29/2025 1:33 PM EDT us Romeo Kline MD LAB BLOOD ORDERABLES Final Result [facility] [address] [place] [address], [place] [phone] * Lipase (03/29/2025 1:24 PM EDT) Pathologist [facility] Lipase 20 13 - 75 unit/L LAB CHEMISTRY METHOD 03/29/2025 2:06 PM EDT [facility] Blood Venous blood specimen / Unknown Venipuncture / Unknown 03/29/2025 1:24 PM EDT 03/29/2025 1:33 PM EDT us Romeo Kline MD LAB BLOOD ORDERABLES Final Result [facility] [address] [place] [address], [place] [phone] * Lactate (03/29/2025 1:24 PM EDT) Lactate 0.9 0.4 - 2.0 mmol/L LAB CHEMISTRY METHOD 03/29/2025 2:03 PM EDT [facility] Blood Venous blood specimen / Unknown Venipuncture / Unknown 03/29/2025 1:24 PM EDT 03/29/2025 1:33 PM EDT us Romeo Kline MD LAB BLOOD ORDERABLES Final Result [facility] [address] [place] [address], * (ABNORMAL) Comprehensive Metabolic Panel (CMP) (03/29/2025 1:24 PM EDT) Sodium 138 133 - 145 mmol/L LAB CHEMISTRY METHOD 03/29/2025 2:06 PM [facility] Potassium 3.7 3.5 - 5.5 mmol/L LAB CHEMISTRY METHOD 03/29/2025 2:06 PM [facility] Chloride 108 96 - 110 mmol/L LAB CHEMISTRY METHOD 03/29/2025 2:06 PM [facility] CO2 23 21 - 32 mmol/L LAB CHEMISTRY METHOD 03/29/2025 2:06 PM [facility] Anion Gap 7 3 - 11 LAB CHEMISTRY METHOD 03/29/2025 2:06 PM [facility] Glucose 85 70 - 100 mg/dL LAB CHEMISTRY METHOD 03/29/2025 2:06 PM [facility] BUN 10 5 - 25 mg/dL LAB CHEMISTRY METHOD 03/29/2025 2:06 PM [facility] Creatinine 0.47(L) 0.50 - 1.10 mg/dL LAB CHEMISTRY METHOD 03/29/2025 2:06 PM [facility] eGFR 101 >=60 mL/min/1. 73m2 LAB CHEMISTRY METHOD 03/29/2025 2:06 PM [facility] Comment:Calculation based on the Chronic Kidney Disease Epidemiology Collaboration (CKD-EPI) equation refit without adjustment for race. BUN/Creatinine Ratio 21.3 LAB CHEMISTRY METHOD 03/29/2025 2:06 PM [facility] Calcium 8.9 8.5 - 10.5 mg/dL LAB CHEMISTRY METHOD 03/29/2025 2:06 PM EDT [facility] AST (SGOT) 21 10 - 42 unit/L LAB CHEMISTRY METHOD 03/29/2025 2:06 PM EDT [facility] ALT (SGPT) 24 10 - 60 unit/L LAB CHEMISTRY METHOD 03/29/2025 2:06 PM EDT [facility] Alkaline Phosphatase 65 42 - 121 unit/L LAB CHEMISTRY METHOD 03/29/2025 2:06 PM EDT [facility] Total Protein 6.3 6.0 - 8.0 g/dL LAB CHEMISTRY METHOD 03/29/2025 2:06 PM EDT [facility] Albumin 3.7 3.2 - 5.0 g/dL LAB CHEMISTRY METHOD 03/29/2025 2:06 PM EDT [facility] Total Bilirubin 0.7 0.0 - 1.4 mg/dL LAB CHEMISTRY METHOD 03/29/2025 2:06 PM EDT [facility] Blood Venous blood specimen / Unknown Venipuncture / Unknown 03/29/2025 1:24 PM EDT 03/29/2025 1:33 PM EDT Rmoeo Kline MD LAB BLOOD ORDERABLES Final Result [facility] [address] [place] [address], from Last 3 Months Insurance MEDICAID - [place] MEDICARE Care Teams Senior Commissions Analyst Relationship Specialty Start Date End Date Belen Simons MD [address] [place] [address] PCP - General 10/31/09
--- OUTSIDE RECORDS SUMMARY | 2025-05-11 15:30 | XMS_ITS | Encounter Summary ---
Author Organization [facility] Address [address] [place] [address] Phone Care Team Providers Care Tax Manager Name Role Phone Belen Simons MD Primary Care Provider Encounter Details Date Type Department Care Team (Late st Contact Info) Description 05/07/2023 Procedure Pass OR Admitting Dept - Virtual Department [address] [place] [id number] Social History Tobacco Use Types Packs/Day Years [...] on filedocumented in this encounter Care Teams Tax Manager Relationship Specialty Start Date End Date Belen Simons MD [facility] [place] [address] PCP - General Internal Medicine 04/06/23 documented as of this encounter Additional Source Comments The information contained in this document represents components of the legal health record. It is not the complete legal health record.[facility]
--- OUTSIDE RECORDS SUMMARY | 2025-05-11 15:30 | XMS_ITS | Encounter Summary ---
Author Organization [facility] Address [address] [place] [address] Care Team Providers Care Cylinder Die Machine Helper Name Role Phone Belen Simons MD Primary Care Provider [phone] Reason for Visit * Reason Onset Date Comments Forms/questionnaires 05/03/2025 Encounter Details Date Type Department Care Team ([facility] st Contact Info) Description 05/03/2025 Telephone General Surgery - [place] [address] [facility] [address] [place] [address] Dru Childress, DO [address] [facility] [address] [place] [address] Social History Tobacco Use Types Packs/Day Years [...] on filedocumented in this encounter Care Teams Cylinder Die Machine Helper Relationship Specialty Start Date End Date Belen Simons MD [address] [place] [address] PCP - General 10/31/09 documented as of this encounter
== END 2025-05-11 15:21 | disposition home or self-care (01) ==
LOC: HO.CT 15:20
PROVIDERS: PCP Internal Medicine; Visit Provider Surgery
DX: R19.04 Left lower quadrant abdominal swelling, mass and lump (principal)
CPT/HCPCS: 74176

== ENCOUNTER → 2025-05-11 15:23 | Outpatient (BNV) | payer MEDICARE, MEDICAID, SELFPAY | PROVIDERS: PCP Internal Medicine; Visit Provider Radiology Diagnostic Radiology | DX: K80.20 Calculus of gallbladder without cholecystitis without obstruction (principal); K42.9 Umbilical hernia without obstruction or gangrene | CPT/HCPCS: 74176 ==

== ENCOUNTER 2025-05-16 12:46 | Outpatient (REF) | payer MEDICARE, MEDICAID, SELFPAY ==
--- NOTE | 2025-05-16 14:35 | MHC.AU.HA3 ---
Hearing Instrument Follow-Up- Binaural Date of Visit: 05/16/25 Right Ear: Ash, Model, Color, Serial Number: Pankaj ZIMMERMAN 1600 ITC R S#[id number] Color Developer Repair Warranty: 04/19/2028 Color Developer Loss and Damage Warranty: 04/19/2028 [facility] Service Plan: 04/26/2026 Battery Size: Rechargeable Type of Wax Guard: hear clear Dispensed By: [facility] Date of Fittin04/26/25 Left Ear: Model Ash, Color, Serial Number: Pankaj ZIMMERMAN 1600 ITC R S#[id number] Color Developer Repair Warranty: 04/19/2028 Color Developer Loss and Damage Warranty: 04/23/2028 [facility] Service Plan: 04/26/2026 Battery Size: Rechargeable Type of Wax Guard: hear clear Dispensed By: [facility] Date of Fittin04/26/25 Follow-Up Summary: Seen for follow up. Reports she doesn't like how the hearing aids make sounds tinny, make voices have a nasal quality, reports her own voice sounds raspy with hearing aids in. 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 Reports the hearing aids have made her ears feel sore and wet. Counseled on her hearing loss and adjustment to amplification. Data logging shows less than one hour average use. Advised it can take some getting used to the feeling of wearing hearing aids and that ears may sweat more or wax may build up more with hearing aids in. Notes she has had issues with accidentally shutting the hearing aids off. Set aids to lowest adaptation level with slow gradual increase. Disabled hearing aid button. Discussed importance of consistent daily wear to get used to wearing hearing aids. Encouraged to commit to regular wear for at least a couple weeks and return in problems with sound quality and comfort persist. Recommendations: Recommendations: Hearing instrument follow-up or maintenance as needed. Patient will call if problems persist. Diagnosis Code(s): Primary Diagnosis: H90.3 Bilateral Sensorineural Hearing Loss Signature: Provider: Audi Gal[place], [facility]
--- OUTSIDE RECORDS SUMMARY | 2025-05-16 15:48 | XMS_ITS | Patient Health Record ---
Author Organization [facility] Address [address] [place] [address] Care Team Providers Care Cabinet Abrasive Sandblaster Name Role Phone Gladys RAMIREZ, Kassandra Primary Care Provider Spencer Dodson Unavailable [phone] Allergies Allergen (clinical drug ingredient) Drug/Non Drug [...] Status W/U Status Risk Notes Problem Onychomycosis (729952454) Onychomycosis (110.1) Active confirmed Problem Disorder of joint of ankle and/or foot (456604202) Arthritis - Degenerative (719.97) Active confirmed Problem Hallux valgus (438222259) Hallux Valgus (735.0) Active confirmed Problem Hammer toe (714481227) Hammer toe (735.4) Active confirmed Problem Congenital pes planus (89823596) Flat Foot, Congenital (754.61) Active confirmed Problem Pain in limb (42276639) Pain in Limb (729.5) Active confirmed Plan Of Treatment No Information Insurance Providers Payer Name Payer Address Payer Phone Subscriber Number Group Number Insured Name Patient Relationship to Insured Coverage Start Date Coverage End Date Medicare National [employer] [address] [place] [address] [id number] Veronica Hebert Self - patient is the insured Medical (General) History Medical History History ICD Code Anxiety Arthritis Broken bones Psychiatric disorder Measles Joint implants/screws Surgical History Surgery Date(Month/Year) knee surgery
--- OUTSIDE RECORDS SUMMARY | 2025-05-16 15:48 | XMS_ITS | Encounter Summary ---
Author Organization [facility] Address [address] [facility] [address] [place] [address] Phone Care Team Providers Care Casing Flusher Name Role Phone Belen Simons MD Primary Care Provider Encounter Details Date Type Department Care Team (Late st Contact Info) Description 05/07/2023 Procedure Pass OR Admitting Dept - Virtual Department [address] [place] [address] Social History Tobacco Use Types Packs/Day Years [...] on filedocumented in this encounter Care Teams Casing Flusher Relationship Specialty Start Date End Date Belen Simons MD [facility] [place] [address] PCP - General Internal Medicine 04/06/23 documented as of this encounter Additional Source Comments The information contained in this document represents components of the legal health record. It is not the complete legal health record.[facility]
--- OUTSIDE RECORDS SUMMARY | 2025-05-16 15:48 | XMS_ITS | Clinical Summary ---
Author Organization [facility] Address [address] [place] [address] Phone Care Team Providers Care Fabrication And Layout Craftsman Name Role Phone Belen Simons MD Primary Care Provider [phone]- [phone] Allergies Active Allergy Reactions Criticality Noted Date [...] Care Team Description 05/03/2025 Telephone General Surgery [facility] [address] [facility] [address] [place] [address] Dru Childress DO 04/11/2025 10:15 AM EDT Consult General Surgery - [place] [address] [facility] [address] [place] [address] Dru Childress, Left lower quadrant abdominal pain (Primary Dx) 03/29/2025 11:31 AM EDT - 03/29/2025 6:10 PM EDT [facility] [address] [place] [address] Romeo Kline MD Acute abdominal pain (Primary Dx); Urinary tract infection in female Discharge Disposition: Home or Self Care from Last 3 Months Surgical History Surgery Date Site/Laterality Comments BREAST LUMPECTOMY PROCEDURE: HISTORICAL BREAST LUMPECTOMY; COMMENT: benign OTHER SURGICAL HISTORY 06/13 PROCEDURE: MAMMOGRAM TONSILLECTOMY PROCEDURE: HISTORICAL TONSILLECTOMY APPENDECTOMY PROCEDURE: OK APPENDECTOMY HYSTERECTOMY PROCEDURE: HISTORICAL HYSTERECTOMY; COMMENT: fibroids COLONOSCOPY 08/20/2008 PROCEDURE: OK COLONOSCOPY FLX DX W/COLLJ SPEC WHEN PFRMD; [...] Signed Date: 03/29/2025 16:58 ET Workstation ID: [id number] Transcribed By: Self Edit Transcribed Date: 03/29/2025 [...] Signed Date: 03/29/2025 16:58 ET Workstation ID: [id number] Transcribed By: Self Edit Transcribed Date: 03/29/2025 [...] Signed Date: 03/29/2025 14:07 ET Workstation ID: [id number] Transcribed By: Self Edit Transcribed Date: 03/29/2025 [...] Signed Date: 03/29/2025 14:07 ET Workstation ID: [id number] Transcribed By: Self Edit Transcribed Date: 03/29/2025 14:07 ET Romeo Kline MD IMG XR PROCEDURES Final Res ult * 12-Lead ECG (03/29/2025 1:34 PM EDT) Pathologist [facility] Ventricular Rate ECG 63 BPM GEMUSE Atrial Rate 63 BPM GEMUSE P-R Interval 150 ms GEMUSE QRS Duration 84 ms GEMUSE Q-T Interval 430 ms GEMUSE QTc 440 ms GEMUSE P Wave Bailey 51 degrees GEMUSE R Bailey 15 degrees GEMUSE T Bailey 25 degrees GEMUSE ECG Interpretation Normal sinus rhythm with sinus arrhythmia No previous ECGs available Confirmed by MELISSA VALDERRAMA ([id number]) on 03/30/2025 7:23:11 AM GEMUSE 03/29/2025 1:34 PM EDT 03/30/2025 7:23 AM EDT Romeo Kline MD ECG ORDERABLES Final Resul t GEMUSE * (ABNORMAL) Urinalysis with reflex microscopic and culture (03/29/2025 1:25 PM EDT) Pathologist [facility] Specific [place] Urine 1.006 1.003 - 1.030 LAB URINALYSIS - AUTOMATED METHOD 03/29/2025 1:58 PM EDT [facility] pH, Urine 6.5 5.0 - 8.0 pH LAB URINALYSIS - AUTOMATED METHOD 03/29/2025 1:58 PM EDT [facility] Leukocytes, Urine Large(A) Negative LAB URINALYSIS - AUTOMATED METHOD 03/29/2025 1:58 PM [facility] Nitrite, Urine Negative Negative LAB URINALYSIS - AUTOMATED METHOD 03/29/2025 1:58 PM [facility] Protein, Urine Negative <=Trace mg/dL LAB URINALYSIS - AUTOMATED METHOD 03/29/2025 1:58 PM [facility] Glucose, Urine Negative Negative mg/dL LAB URINALYSIS - AUTOMATED METHOD 03/29/2025 1:58 PM [facility] Ketones, Urine Negative Negative mg/dL LAB URINALYSIS - AUTOMATED METHOD 03/29/2025 1:58 PM [facility] Urobilinogen, Urine 0.2 0.2 - 1.0 mg/dL LAB URINALYSIS - AUTOMATED METHOD 03/29/2025 1:58 PM [facility] Bilirubin, Urine Negative Negative LAB URINALYSIS - AUTOMATED METHOD 03/29/2025 1:58 PM [facility] Blood, Urine Trace(A) Negative LAB URINALYSIS - AUTOMATED METHOD 03/29/2025 1:58 PM [facility] RBC, Urine 3.6 0 - 4 /HPF LAB URINALYSIS - AUTOMATED METHOD 03/29/2025 1:58 PM [facility] WBC, Urine 23.1(H) 0 - 4 /HPF LAB URINALYSIS - AUTOMATED METHOD 03/29/2025 1:58 PM [facility] Squamous Epithelial, Urine 61(H) 0 - 60 /LPF LAB URINALYSIS - AUTOMATED METHOD 03/29/2025 1:58 PM [facility] Bacteria, Urine Negative Negative /HPF LAB URINALYSIS - AUTOMATED METHOD 03/29/2025 1:58 PM [facility] Hyaline Casts, Urine 0.8 0 - 3 /LPF LAB URINALYSIS - AUTOMATED METHOD 03/29/2025 1:58 PM EDT [facility] Urine Urine specimen obtained by clean catch procedure / Unknown Non-blood Collection / Unknown 03/29/2025 1:25 PM EDT 03/29/2025 1:50 PM EDT us Romeo Kline MD LAB URINE ORDERABLES Final Result Performing Organization Address [facility]/ZIP Co de Phone Number [facility] [address] [place] [address], [place] [phone] * Mera urine culture tube (03/29/2025 1:25 PM EDT) Extra Tube Hold for add-ons. 03/29/2025 3:02 PM EDT [facility] Comment:Auto resulted. Urine Urine specimen obtained by clean catch procedure / Unknown Non-blood Collection / Unknown 03/29/2025 1:25 PM EDT 03/29/2025 1:51 PM EDT us Romeo Kline MD LAB URINE ORDERABLES Final Result Performing Organization Address [facility] de Phone Number [facility] [address] [place] [address], [place] [phone] * Culture urine (03/29/2025 1:25 PM EDT) Culture, Urine No growth 03/30/2025 7:35 AM EDT [facility] Urine Urine specimen obtained by clean catch procedure / Unknown Non-blood Collection / Unknown 03/29/2025 1:25 PM EDT 03/29/2025 1:58 PM EDT us Romeo Kline MD LAB MICROBIOLOGY - GENERAL ORDERABLES Final Result Performing Organization Address [facility]/ZIP Co de Phone Number [facility] [address] [place] [address], [place] [phone] * Troponin I High Sensitivity (03/29/2025 1:24 PM EDT) [facility] High Sensitivity Troponin I 4 <=54 [...] ORDERABLES Final Result [facility] [address] [place] [address], * (ABNORMAL) CBC auto differential (03/29/2025 1:24 PM EDT) [facility] WBC 6.4 4.8 - 10.8 K/mcL [...] K/mcL LAB HEMETOLOGY [facility]25 [facility] MPV 10.2 7.0 - 11.0 FL LAB HEMETOLOGY METHOD 03/29/2025 1:45 [facility] NRBC 0.0 <1.0 % LAB HEMETOLOGY METHOD 03/29/2025 1:45 PM EDT [facility] NRBC Absolute 0.00 <0.10 K/mcL LAB HEMETOLOGY METHOD 03/29/2025 1:45 PM [facility] Neutrophils Relative 62.4 % LAB HEMETOLOGY METHOD 03/29/2025 1:45 PM [facility] Lymphocytes Relative 26.6 % LAB HEMETOLOGY METHOD 03/29/2025 1:45 PM [facility] Monocytes Relative 7.9 % LAB HEMETOLOGY METHOD 03/29/2025 1:45 PM [facility] Eosinophils Relative 1.7 % LAB HEMETOLOGY METHOD 03/29/2025 1:45 PM EDT [facility] Basophils Relative 0.9 % LAB HEMETOLOGY METHOD 03/29/2025 1:45 PM [facility] Immature Granulocytes Relative 0.5 % LAB HEMETOLOGY METHOD 03/29/2025 1:45 PM [facility] Neutrophils Absolute 4.02 1.50 - 7.00 K/mcL LAB HEMETOLOGY METHOD 03/29/2025 1:45 PM EDT [facility] Lymphocytes Absolute 1.71 1.00 - 5.00 K/mcL LAB HEMETOLOGY METHOD 03/29/2025 1:45 PM EDT [facility] Monocytes Absolute 0.51 0.20 - 1.00 K/[facility] LAB HEMETOLOGY METHOD 03/29/2025 1:45 PM EDT [facility] Eosinophils Absolute 0.11 0.00 - 0.50 K/[facility] LAB HEMETOLOGY METHOD 03/29/2025 1:45 PM EDT [facility] Basophils Absolute 0.06 0.00 - 0.20 K/mcL LAB HEMETOLOGY METHOD 03/29/2025 1:45 PM EDT [facility] Immature Granulocytes Absolute 0.03 0.00 - 0.03 K/[facility] LAB HEMETOLOGY METHOD 03/29/2025 1:45 PM EDT [facility] Blood Venous blood specimen / Unknown Venipuncture / Unknown 03/29/2025 1:24 PM EDT 03/29/2025 1:33 PM EDT Romeo Kline MD LAB BLOOD ORDERABLES Final Result [facility] [address] [place] [address], * APTT (03/29/2025 1:24 PM EDT) aPTT 29.7 24.1 - 39.3 sec LAB COAGULATION METHOD 03/29/2025 1:47 PM EDT [facility] Blood Venous blood specimen / Unknown Venipuncture / Unknown 03/29/2025 1:24 PM EDT 03/29/2025 1:33 PM EDT us Romeo Kline MD LAB BLOOD ORDERABLES Final Result [facility] [address] [place] [address], [place] [phone] * Protime-INR (03/29/2025 1:24 PM EDT) Pathologist [facility] Protime 11.5 10.6 - 13.9 sec LAB COAGULATION METHOD 03/29/2025 1:47 PM EDT [facility] INR 0.9 LAB COAGULATION METHOD 03/29/2025 1:47 PM EDT [facility] Blood Venous blood specimen / Unknown Venipuncture / Unknown 03/29/2025 1:24 PM EDT 03/29/2025 1:33 PM EDT us Romeo Kline MD LAB BLOOD ORDERABLES Final Result Performing Organization Address [facility]/ZIP Co de Phone Number [facility] [address] [place] [address], [place] [phone] * Type and Screen (03/29/2025 1:24 PM EDT) [facility] ABO Group A 03/29/2025 4:11 PM [...] Organization Address City/[facility]/ZIP Co de Phone Number [facility] [address] [place] [address], [place] [phone] * Magnesium (03/29/2025 1:24 PM EDT) Magnesium 2.0 1.9 - 2.6 mg/dL LAB CHEMISTRY METHOD 03/29/2025 2:06 PM EDT [facility] Blood Venous blood specimen / Unknown Venipuncture / Unknown 03/29/2025 1:24 PM EDT 03/29/2025 1:33 PM EDT us Romeo Kline MD LAB BLOOD ORDERABLES Final Result [facility] [address] [place] [address], [place] [phone] * Lipase (03/29/2025 1:24 PM EDT) Pathologist [facility] Lipase 20 13 - 75 unit/L LAB CHEMISTRY METHOD 03/29/2025 2:06 PM EDT [facility] Blood Venous blood specimen / Unknown Venipuncture / Unknown 03/29/2025 1:24 PM EDT 03/29/2025 1:33 PM EDT us Romeo Kline MD LAB BLOOD ORDERABLES Final Result [facility] [address] [place] [address], [place] [phone] * Lactate (03/29/2025 1:24 PM EDT) Lactate 0.9 0.4 - 2.0 mmol/L LAB CHEMISTRY METHOD 03/29/2025 2:03 PM EDT [facility] Blood Venous blood specimen / Unknown Venipuncture / Unknown 03/29/2025 1:24 PM EDT 03/29/2025 1:33 PM EDT us Romeo Kline MD LAB BLOOD ORDERABLES Final Result [facility] [address] [place] [address], * (ABNORMAL) Comprehensive Metabolic Panel (CMP) (03/29/2025 1:24 PM EDT) Sodium 138 133 - 145 mmol/L LAB CHEMISTRY METHOD 03/29/2025 2:06 PM [facility] Potassium 3.7 3.5 - 5.5 mmol/L LAB CHEMISTRY METHOD 03/29/2025 2:06 PM [facility] Chloride 108 96 - 110 mmol/L LAB CHEMISTRY METHOD 03/29/2025 2:06 PM [facility] CO2 23 21 - 32 mmol/L LAB CHEMISTRY METHOD 03/29/2025 2:06 PM [facility] Anion Gap 7 3 - 11 LAB CHEMISTRY METHOD 03/29/2025 2:06 PM [facility] Glucose 85 70 - 100 mg/dL LAB CHEMISTRY METHOD 03/29/2025 2:06 PM [facility] BUN 10 5 - 25 mg/dL LAB CHEMISTRY METHOD 03/29/2025 2:06 PM [facility] Creatinine 0.47(L) 0.50 - 1.10 mg/dL LAB CHEMISTRY METHOD 03/29/2025 2:06 PM [facility] eGFR 101 >=60 mL/min/1. 73m2 LAB CHEMISTRY METHOD 03/29/2025 2:06 PM [facility] Comment:Calculation based on the Chronic Kidney Disease Epidemiology Collaboration (CKD-EPI) equation refit without adjustment for race. BUN/Creatinine Ratio 21.3 LAB CHEMISTRY METHOD 03/29/2025 2:06 PM [facility] Calcium 8.9 8.5 - 10.5 [...] ORDERABLES Final Result [facility] [address] [place] [address], from Last 3 Months Insurance MEDICAID - [place] MEDICARE Care Teams Fabrication And Layout Craftsman Relationship Specialty Start Date End Date Belen Simons MD [address] [place] [address] PCP - General 10/31/09
--- OUTSIDE RECORDS SUMMARY | 2025-05-16 15:48 | XMS_ITS | Encounter Summary ---
Author Organization [facility] Address [address] [place] [address] Care Team Providers Care Site Project Manager Name Role Phone Belen Simons MD Primary Care Provider [phone] Reason for Visit * Reason Onset Date Comments Forms/questionnaires 05/03/2025 Encounter Details Date Type Department Care Team ([facility] st Contact Info) Description 05/03/2025 Telephone General Surgery - [place] [address] [facility] [address] [place] [address] Dru Childress, DO [address] [facility] [address] [place] [address] Social History Tobacco Use Types Packs/Day Years [...] on filedocumented in this encounter Care Teams Site Project Manager Relationship Specialty Start Date End Date Belen Simons MD [address] [place] [address] PCP - General 10/31/09 documented as of this encounter
--- OUTSIDE RECORDS SUMMARY | 2025-05-16 15:48 | XMS_ITS | Clinical Summary ---
Author Organization [facility] Address [address] [facility] [address] [place] [address] Phone Care Team Providers Care Geophysical Laboratory Supervisor Name Role Phone Belen Simons MD Primary [...] file Insurance MEDICARE PART A & B [facility] MEDICARE PART A & B Member Subscriber Plan / Payer (Ef fective 2011-Present) Name:Veronica Hebert Member ID:[id number] Relation to Subscriber:Self Name:Veronica Hebert Subscriber ID:[id number] Payer ID:[id number] Group ID:Not on file Type:Medicare Address: [employer] [address] [place] [address] [place], [place] [address]HEALTH MEDICARE PART A & B MEDICARE PART A & B MEDICARE PART A & B MEDICARE PART A & B MEDICARE PART A & B [place] B [facility] Care Teams Geophysical Laboratory Supervisor Relationship Specialty Start Date End Date Belen Simons MD [facility] [place] [address] PCP - General Internal Medicine 04/06/23 Additional Source Comments The information contained in this document represents components of the legal health record. It is not the complete legal health record.[facility]
== END 2025-05-16 12:47 | disposition home or self-care (01) ==
LOC: HO.HAP 12:46
PROVIDERS: Visit Provider Internal Medicine
DX: Z13.89 Encounter for screening for other disorder (principal)

== ENCOUNTER 2025-05-23 13:48 | Outpatient (AMB) | payer MEDICARE, MEDICAID, SELFPAY ==
--- NOTE | 2025-05-23 13:50 | A.OFFVIS_ITS ---
Vital Signs 05/23/25 13:55 Height 5 ft 2 in Weight 195 lb BMI 35.7 BP 132/72 Blood Pressure Location Rt brachial Position Sitting Pulse 72 Intake Visit Reasons: Follow up CT Results Intake Note: Patient here to discuss Abdomen pelvis CT on 05-11-2025 results. 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 Accompanied by: Self / Same As Patient Allergies aged foods Allergy (Unknown, Verified 05/23/25 13:55) rash bee pollen (Bee Stings) Allergy (Unknown, Verified 05/23/25 13:55) SWELLING bees Allergy (Unknown, Verified 05/23/25 13:55) anaphylaxis cephalexin Allergy (Unknown, Verified 05/23/25 13:55) Hives gabapentin (Neurontin) Allergy (Unknown, Verified 05/23/25 13:55) hematurea latex (LATEX) Allergy (Unknown, Verified 05/23/25 13:55) RASH risperidone (From Risperdal) Allergy (Unknown, Verified 05/23/25 13:55) LUMPS ON ABDOMEN- SUPERFICIAL PHLEBITIS, painful lumps of abdomen white composit dental filling Allergy (Unknown, Verified 05/23/25 13:55) hives lactose Adverse Reaction (Mild, Verified 05/23/25 13:55) Unknown tramadol (TRAMADOL) Adverse Reaction (Mild, Verified 05/23/25 13:55) nausea/vomiting divalproex sodium (From Depakote) Adverse Reaction (Unknown, Verified 05/23/25 13:55) LOW DOSE AND SLOW RELEASE CAUSES STELLA Iodinated Contrast Media (IV Dye, Iodine Containing) Adverse Reaction (Unknown, Verified 05/23/25 13:55) DEHYDRATED, TWITCHING niacin (Niacin) Adverse Reaction (Unknown, Verified 05/23/25 13:55) TURNS RED olanzapine (From Zyprexa) Adverse Reaction (Unknown, Verified 05/23/25 13:55) BLOOD IN URINE yeast, dried (yeast) Adverse Reaction (Unknown, Verified 05/23/25 13:55) WHITE COATING ON TONGUE WHITE BREAD Allergy (Mild, Uncoded 05/23/25 13:55) DIFF SWALLOWING wheath Adverse Reaction (Mild, Uncoded 05/23/25 13:55) Unknown Medication List - Last Reconciled 05/23/25 by Lucio Montgomery MD divalproex ER 500 mg PO DAILY 30 days linaclotide (Linzess) 145 mcg PO DAILY HPI HPI Follow up CT Results: Details: She is here to follow up for her CAT scan results. I had sent her for a CAT scan in view of what she described as a hernia on the left lower quadrant area with a mass She describes the same complains of feeling a mass on the left groin whenever she is standing up. She says that she feels something ?squishing? in the area. She also describes chronic constipation. She says she often feels gassy on the left side. She says she is carried to eat because of her complaints of pain. [facility] Medical History Cholelithiasis Ventral hernia Candidiasis of mouth and esophagus Hearing impairment Basal cell carcinoma of face Mastoiditis Retention cyst of nasal sinus Acquired hammer toe of left foot Neck pain on left side Osteopenia of multiple sites Hiatal hernia with GERD Bipolar disorder Bunion of great toe of left foot Pain around toenail, left foot Cellulitis of toe of right foot Surgical History History of total knee arthroplasty History of esophagogastroduodenoscopy (EGD) H/O colonoscopy History of bladder surgery Fibroadenoma of right breast History of knee replacement procedure of right knee History of total abdominal hysterectomy and bilateral salpingo-oophorectomy History of appendectomy History of tonsillectomy Family History Father Emphysema, unspecified CVD (cardiovascular disease) Mother CVD (cardiovascular disease) Brother Lung cancer Bone cancer Brother Cancer of prostate Daughter No problems noted. Brother No problems noted. Brother No problems noted. Brother No problems noted. Social History Household Members: None Housing: Apartment Alcohol intake: current Alcohol intake frequency: does not drink Patient Tobacco Use Status: Never used Tobacco e-Cigarette/Vaping Use: Never Used Advance Directives Date on File: 11/14/22 service: No Current occupational status: retired Cognitive needs: No Hearing needs: No Vision needs: No Review of Systems Const Denies chills and Denies fever(s) Card Denies chest pain GI Reports constipation and Denies diarrhea Denies difficulty voiding Physical Exam Vital Signs: Last Vital Signs Pulse 72 05/23/25 13:55 BP 132/72 05/23/25 13:55 BMI result Body Mass Index 35.7 Const Other: Using a walker, seems to walk with difficulty, morbidly obese Resp Effort & Inspection: normal respiratory effort Cardio Rate: regular rate GI Other: With a pannus I am unable to feel any mass or any hernia at all even with the her standing up and doing Valsalva Palpation (GI): Soft to palpation Assessment & Plan Assessment & Plan (1) Left lower quadrant abdominal swelling, mass and lump: Code(s): R19.04 - Left lower quadrant abdominal swelling, mass and lump Category: Medical Plan: I have reviewed her ultrasound as well as her CAT scan with the radiologist. I did not see any hernia on the left lower quadrant at all. There is no fascial defect. She does have a small umbilical hernia which was fat containing. She says she does not have any problems with this and does not want any surgery repair for this umbilical hernia She seems convinced that she does have a hernia in the left lower quadrant. I had a long discussion with her about the CAT scan findings as well as the ultras ound She says she is going to have a colonoscopy at some point with GI here so I told her that this may reveal an etiology. She can follow up with me on a p.r.n. basis. Coding Level of Care Code Est Pt Level 3 (30540) Diagnoses Left lower quadrant abdominal swelling, mass and lump R19.04
[2025-05-23 13:55] VITALS: BP 132/72; PULSE 72; BMI 35.7
--- OUTSIDE RECORDS SUMMARY | 2025-05-23 17:29 | XMS_ITS | Clinical Summary ---
Author Organization [facility] Address [address] [place] [address] Phone Care Team Providers Care Redevelopment Specialist Name Role Phone Belen Simons MD Primary [...] file Insurance MEDICARE PART A & B [facility] MEDICARE PART A & B Member Subscriber Plan / Payer (Ef fective 2011-Present) Name:Veronica Hebert Member ID:[id number] Relation to Subscriber:Self Name:Veronica Hebert Subscriber ID:[id number] Payer ID:[id number] Group ID:Not on file Type:Medicare Address: [employer] [address] [place] [address] [place], [place] [address]HEALTH MEDICARE PART A & B MEDICARE PART A & B MEDICARE PART A & B MEDICARE PART A & B MEDICARE PART A & B [place] A & B [facility] Care Teams Redevelopment Specialist Relationship Specialty Start Date End Date Belen Simons MD [facility] [place] [address] PCP - General Internal Medicine 04/06/23 Additional Source Comments The information contained in this document represents components of the legal health record. It is not the complete legal health record.[facility]
--- OUTSIDE RECORDS SUMMARY | 2025-05-23 17:29 | XMS_ITS | Patient Health Record ---
Author Organization [facility] Address [address] [facility] [place] [place] [address] Care Team Providers Care Tax Map Technician Name Role Phone Gladys RAMIREZ, Kassandra Primary Care Provider Spencer Dodson Unavailable [phone] Allergies Allergen (clinical drug ingredient) Drug/Non Drug [...] Status W/U Status Risk Notes Problem Onychomycosis (880692511) Onychomycosis (110.1) Active confirmed Problem Disorder of joint of ankle and/or foot (665147099) Arthritis - Degenerative (719.97) Active confirmed Problem Hallux valgus (826004034) Hallux Valgus (735.0) Active confirmed Problem Hammer toe (976464217) Hammer toe (735.4) Active confirmed Problem Congenital pes planus (47826299) Flat Foot, Congenital (754.61) Active confirmed Problem Pain in limb (37454384) Pain in Limb (729.5) Active confirmed Plan Of Treatment No Information Insurance Providers Payer Name Payer Address Payer Phone Subscriber Number Group Number Insured Name Patient Relationship to Insured Coverage Start Date Coverage End Date Medicare [employer] [address] [place] [address] [id number] Veronica Hebert Self - patient is the insured Medical (General) History Medical History History ICD Code Anxiety Arthritis Broken bones Psychiatric disorder Measles Joint implants/screws Surgical History Surgery Date(Month/Year) knee surgery
--- OUTSIDE RECORDS SUMMARY | 2025-05-23 17:30 | XMS_ITS | Clinical Summary ---
Author Organization [facility] Address [address] [place] [address] Phone Care Team Providers Care Senior Salesforce Developer Name Role Phone Belen Simons MD Primary Care Provider [phone] Allergies Active Allergy Reactions Criticality Noted Date [...] Care Team Description 05/03/2025 Telephone General Surgery [facility] [address] [place] [address] Dru Childress DO 04/11/2025 10:15 AM EDT Consult General Surgery - [employer] [address] [place] [address] Dru Childress, Left lower quadrant abdominal pain (Primary Dx) 03/29/2025 11:31 AM EDT - 03/29/2025 6:10 PM EDT [facility] Emergency [address] [place] [address] Romeo Kline MD Acute abdominal pain (Primary Dx); Urinary tract infection in female Discharge Disposition: Home or Self Care from Last 3 Months Surgical History Surgery Date Site/Laterality Comments BREAST LUMPECTOMY PROCEDURE: HISTORICAL BREAST LUMPECTOMY; COMMENT: benign OTHER SURGICAL HISTORY 06/13 PROCEDURE: MAMMOGRAM TONSILLECTOMY PROCEDURE: HISTORICAL TONSILLECTOMY APPENDECTOMY PROCEDURE: DE APPENDECTOMY HYSTERECTOMY PROCEDURE: HISTORICAL HYSTERECTOMY; COMMENT: fibroids COLONOSCOPY 08/20/2008 PROCEDURE: DE COLONOSCOPY FLX DX W/COLLJ SPEC WHEN PFRMD; [...] Signed Date: 03/29/2025 16:58 ET Workstation ID: [id number] Transcribed By: Self Edit Transcribed Date: 03/29/2025 [...] Signed Date: 03/29/2025 16:58 ET Workstation ID: [id number] Transcribed By: Self Edit Transcribed Date: 03/29/2025 [...] Signed Date: 03/29/2025 14:07 ET Workstation ID: [id number] Transcribed By: Self Edit Transcribed Date: 03/29/2025 [...] Signed Date: 03/29/2025 14:07 ET Workstation ID: [id number] Transcribed By: Self Edit Transcribed Date: 03/29/2025 14:07 ET Romeo Kline MD IMG XR PROCEDURES Final Res ult * 12-Lead ECG (03/29/2025 1:34 PM EDT) Pathologist [facility] Ventricular Rate ECG 63 BPM GEMUSE Atrial Rate 63 BPM GEMUSE P-R Interval 150 ms GEMUSE QRS Duration 84 ms GEMUSE Q-T Interval 430 ms GEMUSE QTc 440 ms GEMUSE P Wave Xenia 51 degrees GEMUSE R Xenia 15 degrees GEMUSE T Xenia 25 degrees GEMUSE ECG Interpretation Normal sinus rhythm with sinus arrhythmia No previous ECGs available Confirmed by MELISSA VALDERRAMA ([id number]) on 03/30/2025 7:23:11 AM GEMUSE 03/29/2025 1:34 PM EDT 03/30/2025 7:23 AM EDT Romeo Kline MD ECG ORDERABLES Final Resul t GEMUSE * (ABNORMAL) Urinalysis with reflex microscopic and culture (03/29/2025 1:25 PM EDT) Pathologist [facility] Emergency Department Specific [place] Urine 1.006 1.003 - 1.030 LAB URINALYSIS - AUTOMATED METHOD 03/29/2025 1:[address] [facility] pH, Urine 6.5 5.0 - 8.0 pH LAB URINALYSIS - AUTOMATED METHOD 03/29/2025 1:[address] [facility] Leukocytes, Urine Large(A) Negative LAB URINALYSIS - AUTOMATED METHOD 03/29/2025 1:58 PM [facility] Nitrite, Urine Negative Negative LAB URINALYSIS - AUTOMATED METHOD 03/29/2025 1:58 PM [facility] Protein, Urine Negative <=Trace mg/dL LAB URINALYSIS - AUTOMATED METHOD 03/29/2025 1:58 PM [facility] Glucose, Urine Negative Negative mg/dL LAB URINALYSIS - AUTOMATED METHOD 03/29/2025 1:58 PM [facility] Ketones, Urine Negative Negative mg/dL LAB URINALYSIS - AUTOMATED METHOD 03/29/2025 1:58 PM [facility] Urobilinogen, Urine 0.2 0.2 - 1.0 mg/dL LAB URINALYSIS - AUTOMATED METHOD 03/29/2025 1:58 PM [facility] Bilirubin, Urine Negative Negative LAB URINALYSIS - AUTOMATED METHOD 03/29/2025 1:58 PM [facility] Blood, Urine Trace(A) Negative LAB URINALYSIS - AUTOMATED METHOD 03/29/2025 1:58 PM [facility] RBC, Urine 3.6 0 - 4 /HPF LAB URINALYSIS - AUTOMATED METHOD 03/29/2025 1:58 PM [facility] WBC, Urine 23.1(H) 0 - 4 /HPF LAB URINALYSIS - AUTOMATED METHOD 03/29/2025 1:58 PM [facility] Squamous Epithelial, Urine 61(H) 0 - 60 /LPF LAB URINALYSIS - AUTOMATED METHOD 03/29/2025 1:58 PM [facility] Bacteria, Urine Negative Negative /HPF LAB URINALYSIS - AUTOMATED METHOD 03/29/2025 1:58 PM [facility] Hyaline Casts, Urine 0.8 0 - 3 /LPF LAB URINALYSIS - AUTOMATED METHOD 03/29/2025 1:[address] [facility] Urine Urine specimen obtained by clean catch procedure / Unknown Non-blood Collection / Unknown 03/29/2025 1:25 PM EDT 03/29/2025 1:50 PM EDT us Romeo Kline MD LAB URINE ORDERABLES Final Result Performing Organization Address [facility]/ZIP Co de Phone Number [facility] [address] [place] [address], [place] [phone] * Mera urine culture tube (03/29/2025 1:25 PM EDT) Extra Tube Hold for add-ons. 03/29/2025 3:[address] [facility] Comment:Auto resulted. Urine Urine specimen obtained by clean catch procedure / Unknown Non-blood Collection / Unknown 03/29/2025 1:25 PM EDT 03/29/2025 1:51 PM EDT us Romeo Kline MD LAB URINE ORDERABLES Final Result Performing Organization Address [facility] de Phone Number [facility] [address] [place] [address], [place] [phone] * Culture urine (03/29/2025 1:25 PM EDT) Culture, Urine No growth 03/30/2025 7:[address] [facility] Urine Urine specimen obtained by clean catch procedure / Unknown Non-blood Collection / Unknown 03/29/2025 1:25 PM EDT 03/29/2025 1:58 PM EDT us Romeo Kline MD LAB MICROBIOLOGY - GENERAL ORDERABLES Final Result Performing Organization Address [facility]/ZIP Co de Phone Number [facility] [address] [place] [address], [place] [phone] * Troponin I High Sensitivity (03/29/2025 1:24 PM EDT) [facility] High Sensitivity Troponin I 4 <=54 ng/L LAB CHEMISTRY METHOD 03/29/2025 2:[address] [facility] Blood Venous blood specimen / Unknown Venipuncture / Unknown 03/29/2025 1:24 PM EDT 03/29/2025 1:[address] [facility] - 03/29/2025 2:11 PM EDT High levels of biotin in samples may falsely decrease hsTroponin values. Use caution when interpreting hsTroponin results in patients taking biotin who exhibit renal impairment (eGFR <60) or in patients taking more than 20 mg/day of biotin. Romeo Kline MD LAB BLOOD ORDERABLES Final Result [facility] [address] [place] [address], * (ABNORMAL) CBC auto differential (03/29/2025 1:24 PM EDT) [facility] WBC 6.4 4.8 - 10.8 K/mcL LAB HEMETOLOGY METHOD 03/29/2025 1:[address] [facility] RBC 5.10(H) 3.80 - 4.80 M/mcL LAB HEMETOLOGY METHOD 03/29/2025 1:[address] [facility] Hemoglobin 14.0 11.5 - 16.0 g/dL LAB HEMETOLOGY METHOD 03/29/2025 1:[address] [facility] Hematocrit 42.5 35.0 - 47.0 % LAB HEMETOLOGY METHOD 03/29/2025 1:[address] [facility] MCV 82.7 79.0 - 98.0 FL LAB HEMETOLOGY METHOD 03/29/2025 1:[address] [facility] MCH 27.2 27.0 - 32.0 pcg LAB HEMETOLOGY METHOD 03/29/2025 1:[address] [facility] MCHC 32.9 32.0 - 37.0 g/dL LAB HEMETOLOGY METHOD 03/29/2025 1:[address] [facility] RDW 13.7 11.0 - 15.0 % LAB HEMETOLOGY METHOD 03/29/2025 1:[address] [facility] Platelets 196 130 - 400 K/mcL LAB [facility]ETOLOGY [facility] MPV 10.2 7.0 - 11.0 FL LAB HEMETOLOGY METHOD 03/[facility]25 [facility] NRBC 0.0 <1.0 % LAB HEMETOLOGY METHOD 03/29/2025 1:[address] [facility] NRBC Absolute 0.00 <0.10 K/mcL LAB HEMETOLOGY METHOD 03/29[facility]2025 [facility] Neutrophils Relative 62.4 % LAB HEMETOLOGY METHOD 03/29/2025 1:45 PM [facility] Lymphocytes Relative 26.6 % LAB HEMETOLOGY METHOD 03/29[facility]2025 1[facility] Monocytes Relative 7.9 % LAB HEMETOLOGY METHOD 03/29/2025 1:45 PM [facility] Eosinophils Relative 1.7 % LAB HEMETOLOGY METHOD 03/29/2025 1:[address] [facility] Basophils Relative 0.9 % LAB HEMETOLOGY METHOD 03/29/2025 1:45 PM [facility] Immature Granulocytes Relative 0.5 % LAB HEMETOLOGY METHOD 03/29[facility]2025 [facility] Neutrophils Absolute 4.02 1.50 - 7.00 K/mcL LAB HEMETOLOGY METHOD 03/29/2025 1:[address] [facility] Lymphocytes Absolute 1.71 1.00 - 5.00 K/mcL LAB HEMETOLOGY METHOD 03/29/2025 1:[address] [facility] Monocytes Absolute 0.51 0.20 - 1.00 K/[facility] LAB HEMETOLOGY METHOD 03/29/2025 1:[address] [facility] Eosinophils Absolute 0.11 0.00 - 0.50 K/[facility] LAB HEMETOLOGY METHOD 03/29/2025 1:[address] [facility] Basophils Absolute 0.06 0.00 - 0.20 K/mcL LAB HEMETOLOGY METHOD 03/29/2025 1:[address] [facility] Immature Granulocytes Absolute 0.03 0.00 - 0.03 K/[facility] LAB HEMETOLOGY METHOD 03/29/2025 1:[address] [facility] Blood Venous blood specimen / Unknown Venipuncture / Unknown 03/29/2025 1:24 PM EDT 03/29/2025 1:33 PM EDT Romeo Kline MD LAB BLOOD ORDERABLES Final Result [facility] [address] [place] [address], * APTT (03/29/2025 1:24 PM EDT) aPTT 29.7 24.1 - 39.3 sec LAB COAGULATION METHOD 03/29/2025 1:[address] [facility] Blood Venous blood specimen / Unknown Venipuncture / Unknown 03/29/2025 1:24 PM EDT 03/29/2025 1:33 PM EDT us Romeo Kline MD LAB BLOOD ORDERABLES Final Result [facility] [address] [place] [address], [place] [phone] * Protime-INR (03/29/2025 1:24 PM EDT) Pathologist [facility] Protime 11.5 10.6 - 13.9 sec LAB COAGULATION METHOD 03/29/2025 1:[address] [facility] INR 0.9 LAB COAGULATION METHOD 03/29/2025 1:[address] [facility] Blood Venous blood specimen / Unknown Venipuncture / Unknown 03/29/2025 1:24 PM EDT 03/29/2025 1:33 PM EDT us Romeo Kline MD LAB BLOOD ORDERABLES Final Result Performing Organization Address [facility]/ZIP Co de Phone Number [facility] [address] [place] [address], [place] [phone] * Type and Screen (03/29/2025 1:24 PM EDT) [facility] ABO Group A 03/29/2025 4:[address] [facility] Rh Type Positive 03/29/2025 4:[address] [facility] Antibody Screen Negative 03/29/2025 4:[address] [facility] Blood Venous blood specimen / Unknown Venipuncture / Unknown 03/29/2025 1:24 PM EDT 03/29/2025 1:33 PM EDT us Romeo Kline MD LAB BLOOD BANK TEST ORDERAB LES Final Result Performing Organization Address City/[facility]/ZIP Co de Phone Number [facility] [address] [place] [address], [place] [phone] * Magnesium (03/29/2025 1:24 PM EDT) Magnesium 2.0 1.9 - 2.6 mg/dL LAB CHEMISTRY METHOD 03/29/2025 2:[address] [facility] Blood Venous blood specimen / Unknown Venipuncture / Unknown 03/29/2025 1:24 PM EDT 03/29/2025 1:33 PM EDT us Romeo Kline MD LAB BLOOD ORDERABLES Final Result [facility] [address] [place] [address], [place] [phone] * Lipase (03/29/2025 1:24 PM EDT) Pathologist [facility] Lipase 20 13 - 75 unit/L LAB CHEMISTRY METHOD 03/29/2025 2:[address] [facility] Blood Venous blood specimen / Unknown Venipuncture / Unknown 03/29/2025 1:24 PM EDT 03/29/2025 1:33 PM EDT us Romeo Kline MD LAB BLOOD ORDERABLES Final Result [facility] [address] [place] [address], [place] [phone] * Lactate (03/29/2025 1:24 PM EDT) Lactate 0.9 0.4 - 2.0 mmol/L LAB CHEMISTRY METHOD 03/29/2025 2:[address] [facility] Blood Venous blood specimen / Unknown Venipuncture / Unknown 03/29/2025 1:24 PM EDT 03/29/2025 1:33 PM EDT us Romeo Kline MD LAB BLOOD ORDERABLES Final Result [facility] [address] [place] [address], * (ABNORMAL) Comprehensive Metabolic Panel (CMP) (03/29/2025 1:24 PM EDT) Sodium 138 133 - 145 mmol/L LAB CHEMISTRY METHOD 03/29/2025 2:06 PM [facility] Potassium 3.7 3.5 - 5.5 mmol/L LAB CHEMISTRY METHOD 03/29/2025 2:06 PM [facility] Chloride 108 96 - 110 mmol/L LAB CHEMISTRY METHOD 03/29/2025 2:06 PM [facility] CO2 23 21 - 32 mmol/L LAB CHEMISTRY METHOD 03/29/2025 2:06 PM [facility] Anion Gap 7 3 - 11 LAB CHEMISTRY METHOD 03/29/2025 2:06 PM [facility] Glucose 85 70 - 100 mg/dL LAB CHEMISTRY METHOD 03/29/2025 2:06 PM [facility] BUN 10 5 - 25 mg/dL LAB CHEMISTRY METHOD 03/29/2025 2:06 PM [facility] Creatinine 0.47(L) 0.50 - 1.10 mg/dL LAB CHEMISTRY METHOD 03/29/2025 2:06 PM [facility] eGFR 101 >=60 mL/min/1. 73m2 LAB CHEMISTRY METHOD 03/29/2025 2:06 PM [facility] Comment:Calculation based on the Chronic Kidney Disease Epidemiology Collaboration (CKD-EPI) equation refit without adjustment for race. BUN/Creatinine Ratio 21.3 LAB CHEMISTRY METHOD 03/29/2025 2:06 PM [facility] Calcium 8.9 8.5 - 10.5 mg/dL LAB CHEMISTRY METHOD 03/29/2025 2:[address] [facility] AST (SGOT) 21 10 - 42 unit/L LAB CHEMISTRY METHOD 03/29/2025 2:[address] [facility] ALT (SGPT) 24 10 - 60 unit/L LAB CHEMISTRY METHOD 03/29/2025 2:[address] [facility] Alkaline Phosphatase 65 42 - 121 unit/L LAB CHEMISTRY METHOD 03/29/2025 2:[address] [facility] Total Protein 6.3 6.0 - 8.0 g/dL LAB CHEMISTRY METHOD 03/29/2025 2:[address] [facility] Albumin 3.7 3.2 - 5.0 g/dL LAB CHEMISTRY METHOD 03/29/2025 2:[address] [facility] Total Bilirubin 0.7 0.0 - 1.4 mg/dL LAB CHEMISTRY METHOD 03/29/2025 2:[address] [facility] Blood Venous blood specimen / Unknown Venipuncture / Unknown 03/29/2025 1:24 PM EDT 03/29/2025 1:33 PM EDT Romeo Kline MD LAB BLOOD ORDERABLES Final Result [facility] [address] [place] [address], from Last 3 Months Insurance MEDICAID - [place] MEDICARE Care Teams Senior Salesforce Developer Relationship Specialty Start Date End Date Belen Simons MD [address] [place] [address] PCP - General 10/31/09
--- OUTSIDE RECORDS SUMMARY | 2025-05-23 17:30 | XMS_ITS | Encounter Summary ---
Author Organization [facility] Address [address] [place] [address] Phone Care Team Providers Care Concrete Pipe Plant Supervisor Name Role Phone Belen Simons MD Primary Care Provider Encounter Details Date Type Department Care Team (Late st Contact Info) Description 05/07/2023 Procedure Pass OR Admitting Dept - Virtual Department [address] [place] [phone] Social History Tobacco Use Types Packs/Day Years [...] on filedocumented in this encounter Care Teams Concrete Pipe Plant Supervisor Relationship Specialty Start Date End Date Belen Simons MD [facility] [place] [address] PCP - General Internal Medicine 04/06/23 documented as of this encounter Additional Source Comments The information contained in this document represents components of the legal health record. It is not the complete legal health record.[facility]
--- OUTSIDE RECORDS SUMMARY | 2025-05-23 17:30 | XMS_ITS | Encounter Summary ---
Author Organization [facility] Address [address] [place] [address] Care Team Providers Care Financial Assistance Advisor Name Role Phone Belen Simons MD Primary Care Provider [phone] Reason for Visit * Reason Onset Date Comments Forms/questionnaires 05/03/2025 Encounter Details Date Type Department Care Team ([facility] st Contact Info) Description 05/03/2025 Telephone General Surgery - [place] [address] [facility] [address] [place] [address] Dru Childress, DO [address] [facility] [address] [place] [address] Social History Tobacco Use Types Packs/Day Years [...] on filedocumented in this encounter Care Teams Financial Assistance Advisor Relationship Specialty Start Date End Date Belen Simons MD [address] [place] [address] PCP - General 10/31/09 documented as of this encounter
== END 2025-05-23 14:10 | disposition home or self-care (01) ==
LOC: HO.HGS 13:48
PROVIDERS: PCP Internal Medicine; Visit Provider Surgery
DX: R19.04 Left lower quadrant abdominal swelling, mass and lump (principal)
CPT/HCPCS: 99213

== ENCOUNTER → 2025-05-23 13:48 | Outpatient (BNVA) | payer MEDICARE, MEDICAID, SELFPAY | PROVIDERS: PCP Internal Medicine; Visit Provider Surgery | DX: R19.04 Left lower quadrant abdominal swelling, mass and lump (principal) | CPT/HCPCS: 99212 ==

== ENCOUNTER 2025-06-01 09:41 | Day surgery (SDC) | payer MEDICARE, MEDICAID, SELFPAY ==
--- OUTSIDE RECORDS SUMMARY | 2025-05-21 20:55 | XMS_ITS | Clinical Summary ---
Author Organization [facility] Address [address] [facility] [address] [place] [address] Phone Care Team Providers Care Internal Wholesaler Name Role Phone Belen Simons MD Primary [...] file Insurance MEDICARE PART A & B [facility] MEDICARE PART A & B Member Subscriber Plan / Payer (Ef fective 2011-Present) Name:Veronica Hebert Member ID:[id number] Relation to Subscriber:Self Name:Veronica Hebert Subscriber ID:[id number] Payer ID:[id number] Group ID:Not on file Type:Medicare Address: [employer] [address] [place] [address] [place], [place] [address]HEALTH MEDICARE PART A & B MEDICARE PART A & B MEDICARE PART A & B MEDICARE PART A & B MEDICARE PART A & [place] & B [facility] Care Teams Internal Wholesaler Relationship Specialty Start Date End Date Belen Simons MD [facility] [place] [address] PCP - General Internal Medicine 04/06/23 Additional Source Comments The information contained in this document represents components of the legal health record. It is not the complete legal health record.[facility]
--- OUTSIDE RECORDS SUMMARY | 2025-05-21 20:55 | XMS_ITS | Patient Health Record ---
Author Organization [facility] Address [address] [facility] [place] [address] Care Team Providers Care Barrel Inspector Tight Name Role Phone Gladys RAMIREZ, Kassandra Primary Care Provider Spencer Dodson Unavailable [phone] Allergies Allergen (clinical drug ingredient) Drug/Non Drug [...] Status W/U Status Risk Notes Problem Onychomycosis (062394972) Onychomycosis (110.1) Active confirmed Problem Disorder of joint of ankle and/or foot (689270443) Arthritis - Degenerative (719.97) Active confirmed Problem Hallux valgus (455010551) Hallux Valgus (735.0) Active confirmed Problem Hammer toe (611186421) Hammer toe (735.4) Active confirmed Problem Congenital pes planus (86532070) Flat Foot, Congenital (754.61) Active confirmed Problem Pain in limb (94954283) Pain in Limb (729.5) Active confirmed Plan Of Treatment No Information Insurance Providers Payer Name Payer Address Payer Phone Subscriber Number Group Number Insured Name Patient Relationship to Insured Coverage Start Date Coverage End Date Medicare [employer] [address] [place] [address] [id number] Veronica Hebert Self - patient is the insured Medical (General) History Medical History History ICD Code Anxiety Arthritis Broken bones Psychiatric disorder Measles Joint implants/screws Surgical History Surgery Date(Month/Year) knee surgery
--- OUTSIDE RECORDS SUMMARY | 2025-05-21 20:55 | XMS_ITS | Encounter Summary ---
Author Organization [facility] Address [address] [place] [address] Care Team Providers Care Oil Well Services Dispatcher Name Role Phone Belen Simons MD Primary Care Provider +1 [phone] Reason for Visit * Reason Onset Date Comments Forms/questionnaires 05/03/2025 Encounter Details Date Type Department Care Team ([facility] st Contact Info) Description 05/03/2025 Telephone General Surgery - [place] 175 [facility] [address] [place] [address] Dru Childress, DO 175 [facility] [address] [place] [address] Social History Tobacco Use Types Packs/Day Years [...] on filedocumented in this encounter Care Teams Oil Well Services Dispatcher Relationship Specialty Start Date End Date Belen Simons MD [address] [place] [address] PCP - General 10/31/09 documented as of this encounter
--- OUTSIDE RECORDS SUMMARY | 2025-05-21 20:55 | XMS_ITS | Encounter Summary ---
Author Organization [facility] Address [address] [facility] [address] [place] [address] Phone Care Team Providers Care Replanting Machine Crew Name Role Phone Belen Simosn MD Primary Care Provider Encounter Details Date Type Department Care Team (Late st Contact Info) Description 05/07/2023 Procedure [place] Admitting Dept - Virtual Department [address] [place] [address] Social History Tobacco Use Types Packs/Day Years [...] on filedocumented in this encounter Care Teams Replanting Machine Crew Relationship Specialty Start Date End Date Belen Simons MD [facility] [place] [address] PCP - General Internal Medicine 04/06/23 documented as of this encounter Additional Source Comments The information contained in this document represents components of the legal health record. It is not the complete legal health record.[facility]
--- OUTSIDE RECORDS SUMMARY | 2025-05-21 20:55 | XMS_ITS | Clinical Summary ---
Author Organization [facility] Address [address] [place] [address] Phone Care Team Providers Care Leather Stamper Name Role Phone Belen Simons MD Primary Care Provider [phone] Allergies Active Allergy Reactions Criticality Noted Date [...] Care Team Description 05/03/2025 Telephone General Surgery [facility] [address] [place] [address] Dru Childress DO 04/11/2025 10:15 AM EDT Consult General Surgery - [place] [address] [place] [address] Dru Childress, Left lower quadrant abdominal pain (Primary Dx) 03/29/2025 11:31 AM EDT - 03/29/2025 6:10 PM EDT Emergency [facility] Emergency [address] [place] [address] Romeo Kline MD Acute abdominal pain (Primary Dx); Urinary tract infection in female Discharge Disposition: Home or Self Care from Last 3 Months Surgical History Surgery Date Site/Laterality Comments BREAST LUMPECTOMY PROCEDURE: HISTORICAL BREAST LUMPECTOMY; COMMENT: benign OTHER SURGICAL HISTORY 06/13 PROCEDURE: MAMMOGRAM TONSILLECTOMY PROCEDURE: HISTORICAL TONSILLECTOMY APPENDECTOMY PROCEDURE: [place] APPENDECTOMY HYSTERECTOMY PROCEDURE: HISTORICAL HYSTERECTOMY; COMMENT: fibroids COLONOSCOPY 08/20/2008 PROCEDURE: [place] COLONOSCOPY FLX DX W/COLLJ SPEC WHEN PFRMD; [...] Signed Date: 03/29/2025 16:58 ET Workstation ID: [id number] Transcribed By: Self Edit Transcribed Date: 03/29/2025 [...] Signed Date: 03/29/2025 16:58 ET Workstation ID: [id number] Transcribed By: Self Edit Transcribed Date: 03/29/2025 [...] Signed Date: 03/29/2025 14:07 ET Workstation ID: [id number] Transcribed By: Self Edit Transcribed Date: 03/29/2025 [...] Signed Date: 03/29/2025 14:07 ET Workstation ID: [id number] Transcribed By: Self Edit Transcribed Date: 03/29/2025 14:07 ET Romeo Kline MD IMG XR PROCEDURES Final Res ult * 12-Lead ECG (03/29/2025 1:34 PM EDT) Pathologist [facility] Ventricular Rate ECG 63 BPM GEMUSE Atrial Rate 63 BPM GEMUSE P-R Interval 150 ms GEMUSE QRS Duration 84 ms GEMUSE Q-T Interval 430 ms GEMUSE QTc 440 ms GEMUSE P Wave Johnson 51 degrees GEMUSE R Johnson 15 degrees GEMUSE T Johnson 25 degrees GEMUSE ECG Interpretation Normal sinus rhythm with sinus arrhythmia No previous ECGs available Confirmed by MELISSA VALDERRAMA ([id number]) on 03/30/2025 7:23:11 AM GEMUSE 03/29/2025 1:34 PM EDT 03/30/2025 7:23 AM EDT Romeo Kline MD ECG ORDERABLES Final Resul t GEMUSE * (ABNORMAL) Urinalysis with reflex microscopic and culture (03/29/2025 1:25 PM EDT) Pathologist [facility] Specific [place] Urine 1.006 1.003 - 1.030 LAB URINALYSIS - AUTOMATED METHOD 03/29/2025 1:58 PM EDT [facility] pH, Urine 6.5 5.0 - 8.0 pH LAB URINALYSIS - AUTOMATED METHOD 03/29/2025 1:58 PM EDT [facility] Leukocytes, Urine Large(A) Negative LAB URINALYSIS - AUTOMATED METHOD 03/29/2025 1:58 PM [facility] Nitrite, Urine Negative Negative LAB URINALYSIS - AUTOMATED METHOD 03/29/2025 1:58 PM [facility] Protein, Urine Negative <=Trace mg/dL LAB URINALYSIS - AUTOMATED METHOD 03/29/2025 1:58 PM [facility] Glucose, Urine Negative Negative mg/dL LAB URINALYSIS - AUTOMATED METHOD 03/29/2025 1:58 PM [facility] Ketones, Urine Negative Negative mg/dL LAB URINALYSIS - AUTOMATED METHOD 03/29/2025 1:58 PM [facility] Urobilinogen, Urine 0.2 0.2 - 1.0 mg/dL LAB URINALYSIS - AUTOMATED METHOD 03/29/2025 1:58 PM [facility] Bilirubin, Urine Negative Negative LAB URINALYSIS - AUTOMATED METHOD 03/29/2025 1:58 PM [facility] Blood, Urine Trace(A) Negative LAB URINALYSIS - AUTOMATED METHOD 03/29/2025 1:58 PM [facility] RBC, Urine 3.6 0 - 4 /HPF LAB URINALYSIS - AUTOMATED METHOD 03/29/2025 1:58 PM [facility] WBC, Urine 23.1(H) 0 - 4 /HPF LAB URINALYSIS - AUTOMATED METHOD 03/29/2025 1:58 PM [facility] Squamous Epithelial, Urine 61(H) 0 - 60 /LPF LAB URINALYSIS - AUTOMATED METHOD 03/29/2025 1:58 PM [facility] Bacteria, Urine Negative Negative /HPF LAB URINALYSIS - AUTOMATED METHOD 03/29/2025 1:58 PM [facility] Hyaline Casts, Urine 0.8 0 - 3 /LPF LAB URINALYSIS - AUTOMATED METHOD 03/29/2025 1:58 PM EDT [facility] Urine Urine specimen obtained by clean catch procedure / Unknown Non-blood Collection / Unknown 03/29/2025 1:25 PM EDT 03/29/2025 1:50 PM EDT us Romeo lKine MD LAB URINE ORDERABLES Final Result Performing Organization Address [facility]/ZIP Co de Phone Number [facility] [address] [place] [address], [place] [phone] * Mera urine culture tube (03/29/2025 1:25 PM EDT) Extra Tube Hold for add-ons. 03/29/2025 3:02 PM EDT [facility] Comment:Auto resulted. Urine Urine specimen obtained by clean catch procedure / Unknown Non-blood Collection / Unknown 03/29/2025 1:25 PM EDT 03/29/2025 1:51 PM EDT us Romeo Kline MD LAB URINE ORDERABLES Final Result Performing Organization Address [facility] de Phone Number [facility] [address] [place] [address], [place] [phone] * Culture urine (03/29/2025 1:25 PM EDT) Culture, Urine No growth 03/30/2025 7:35 AM EDT [facility] Urine Urine specimen obtained by clean catch procedure / Unknown Non-blood Collection / Unknown 03/29/2025 1:25 PM EDT 03/29/2025 1:58 PM EDT us Romeo Kline MD LAB MICROBIOLOGY - GENERAL ORDERABLES Final Result Performing Organization Address [facility]/ZIP Co de Phone Number [facility] [address] [place] [address], [place] [phone] * Troponin I High Sensitivity (03/29/2025 1:24 PM EDT) [facility] High Sensitivity Troponin I 4 <=54 ng/L [...] ORDERABLES Final Result [facility] [address] [place] [address], * (ABNORMAL) CBC auto differential (03/29/2025 1:24 PM EDT) [facility] WBC 6.4 4.8 - 10.8 K/mcL LAB [...] K/mcL LAB [facility] MPV 10.2 7.0 - 11.0 FL LAB HEMETOLOGY METHOD [facility]2025 [facility] NRBC 0.0 <1.0 % LAB HEMETOLOGY METHOD 03/29/2025 1:45 PM EDT [facility] NRBC Absolute 0.00 <0.10 K/mcL LAB HEMETOLOGY METHOD 03/[facility]2025 [facility] Neutrophils Relative 62.4 % LAB HEMETOLOGY METHOD 03/29/2025 1:45 PM [facility] Lymphocytes Relative 26.6 % LAB HEMETOLOGY METHOD 03/29/2025 1:[facility] Monocytes Relative 7.9 % LAB HEMETOLOGY METHOD 03/29/2025 1:45 PM [facility] Eosinophils Relative 1.7 % LAB HEMETOLOGY METHOD 03/29/2025 1:45 PM EDT [facility] Basophils Relative 0.9 % LAB HEMETOLOGY METHOD 03/29/2025 1:45 PM [facility] Immature Granulocytes Relative 0.5 % LAB HEMETOLOGY METHOD 03/29[facility]2025 [facility] Neutrophils Absolute 4.02 1.50 - 7.00 K/mcL LAB HEMETOLOGY METHOD 03/29/2025 1:45 PM EDT [facility] Lymphocytes Absolute 1.71 1.00 - 5.00 K/mcL LAB HEMETOLOGY METHOD 03/29/2025 1:45 PM EDT [facility] Monocytes Absolute 0.51 0.20 - 1.00 K/[facility] LAB HEMETOLOGY METHOD 03/29/2025 1:45 PM EDT [facility] Eosinophils Absolute 0.11 0.00 - 0.50 K/[facility] LAB HEMETOLOGY METHOD 03/29/2025 1:45 PM EDT [facility] Basophils Absolute 0.06 0.00 - 0.20 K/mcL LAB HEMETOLOGY METHOD 03/29/2025 1:45 PM EDT [facility] Immature Granulocytes Absolute 0.03 0.00 - 0.03 K/[facility] LAB HEMETOLOGY METHOD 03/29/2025 1:45 PM EDT [facility] Blood Venous blood specimen / Unknown Venipuncture / Unknown 03/29/2025 1:24 PM EDT 03/29/2025 1:33 PM EDT Romeo Kline MD LAB BLOOD ORDERABLES Final Result [facility] [address] [place] [address], * APTT (03/29/2025 1:24 PM EDT) aPTT 29.7 24.1 - 39.3 sec LAB COAGULATION METHOD 03/29/2025 1:47 PM EDT [facility] Blood Venous blood specimen / Unknown Venipuncture / Unknown 03/29/2025 1:24 PM EDT 03/29/2025 1:33 PM EDT us Romeo Kline MD LAB BLOOD ORDERABLES Final Result [facility] [address] [place] [address], [place] [phone] * Protime-INR (03/29/2025 1:24 PM EDT) Pathologist [facility] Protime 11.5 10.6 - 13.9 sec LAB COAGULATION METHOD 03/29/2025 1:47 PM EDT [facility] INR 0.9 LAB COAGULATION METHOD 03/29/2025 1:47 PM EDT [facility] Blood Venous blood specimen / Unknown Venipuncture / Unknown 03/29/2025 1:24 PM EDT 03/29/2025 1:33 PM EDT us Romeo Kline MD LAB BLOOD ORDERABLES Final Result Performing Organization Address [facility]/ZIP Co de Phone Number [facility] [address] [place] [address], [place] [phone] * Type and Screen (03/29/2025 1:24 PM EDT) [facility] ABO Group A 03/29/2025 4:11 PM EDT [facility] Rh Type Positive 03/29/2025 4:11 PM EDT [facility] Antibody Screen Negative 03/29/2025 4:11 PM EDT [facility] Blood Venous blood specimen / Unknown Venipuncture / Unknown 03/29/2025 1:24 PM EDT 03/29/2025 1:33 PM EDT us Romeo Kline MD LAB BLOOD BANK TEST ORDERAB LES Final Result Performing Organization Address City/[facility]/ZIP Co de Phone Number [facility] [address] [place] [address], [place] [phone] * Magnesium (03/29/2025 1:24 PM EDT) Magnesium 2.0 1.9 - 2.6 mg/dL LAB CHEMISTRY METHOD 03/29/2025 2:06 PM EDT [facility] Blood Venous blood specimen / Unknown Venipuncture / Unknown 03/29/2025 1:24 PM EDT 03/29/2025 1:33 PM EDT us Romeo Kline MD LAB BLOOD ORDERABLES Final Result [facility] [address] [place] [address], [place] [phone] * Lipase (03/29/2025 1:24 PM EDT) Pathologist [facility] Lipase 20 13 - 75 unit/L LAB CHEMISTRY METHOD 03/29/2025 2:06 PM EDT [facility] Blood Venous blood specimen / Unknown Venipuncture / Unknown 03/29/2025 1:24 PM EDT 03/29/2025 1:33 PM EDT us Romeo Kline MD LAB BLOOD ORDERABLES Final Result [facility] [address] [place] [address], [place] [phone] * Lactate (03/29/2025 1:24 PM EDT) Lactate 0.9 0.4 - 2.0 mmol/L LAB CHEMISTRY METHOD 03/29/2025 2:03 PM EDT [facility] Blood Venous blood specimen / Unknown Venipuncture / Unknown 03/29/2025 1:24 PM EDT 03/29/2025 1:33 PM EDT us Romeo Kline MD LAB BLOOD ORDERABLES Final Result [facility] [address] [place] [address], * (ABNORMAL) Comprehensive Metabolic Panel (CMP) (03/29/2025 1:24 PM EDT) Sodium 138 133 - 145 mmol/L LAB CHEMISTRY METHOD 03/29/2025 2:06 PM [facility] Potassium 3.7 3.5 - 5.5 mmol/L LAB CHEMISTRY METHOD 03/29/2025 2:06 PM [facility] Chloride 108 96 - 110 mmol/L LAB CHEMISTRY METHOD 03/29/2025 2:06 PM [facility] CO2 23 21 - 32 mmol/L LAB CHEMISTRY METHOD 03/29/2025 2:06 PM [facility] Anion Gap 7 3 - 11 LAB CHEMISTRY METHOD 03/29/2025 2:06 PM [facility] Glucose 85 70 - 100 mg/dL LAB CHEMISTRY METHOD 03/29/2025 2:06 PM [facility] BUN 10 5 - 25 mg/dL LAB CHEMISTRY METHOD 03/29/2025 2:06 PM [facility] Creatinine 0.47(L) 0.50 - 1.10 mg/dL LAB CHEMISTRY METHOD 03/29/2025 2:06 PM [facility] eGFR 101 >=60 mL/min/1. 73m2 LAB CHEMISTRY METHOD 03/29/2025 2:06 PM [facility] Comment:Calculation based on the Chronic Kidney Disease Epidemiology Collaboration (CKD-EPI) equation refit without adjustment for race. BUN/Creatinine Ratio 21.3 LAB CHEMISTRY METHOD 03/29/2025 2:06 PM [facility] Calcium 8.9 8.5 - 10.5 [...] ORDERABLES Final Result [facility] [address] [place] [address], from Last 3 Months Insurance MEDICAID - [place] MEDICARE Care Teams Leather Stamper Relationship Specialty Start Date End Date Belen Simons MD [address] [place] [address] PCP - General 10/31/09
--- NOTE | 2025-05-30 12:08 | P.CONAN_ITS ---
Documented by User: Tonia Asher NP 05/30/25 12:09 HPI - Anesthesia Eval Consult details Narrative: 74yo M for Colonoscopy PMF Active Problems Active Problems: All Active Problems Cholelithiasis (Acute) Ventral hernia (Acute) Pre-op examination (Acute) Left lower quadrant abdominal swelling, mass and lump (Acute) Itching (Acute) Hearing impairment (Acute) Status post hemorrhoidectomy (Acute) Thrombosed hemorrhoids (Acute) Gait disorder (Acute) Osteoarthritis of left knee (Acute) Basal cell carcinoma of face (Acute) Osteopenia of multiple sites (Acute) GERD (gastroesophageal reflux disease) (Acute) Bipolar disorder (Acute) Pancreatic insufficiency (Acute) Rectocele (Acute) Chronic idiopathic constipation (Acute) Past Medical History Medical History (Updated 06/01/25 @ 10:32 by Laquita Catalan RN) Vertigo Cholelithiasis Ventral hernia Candidiasis of mouth and esophagus Hearing impairment Basal cell carcinoma of face Mastoiditis Retention cyst of nasal sinus Acquired hammer toe of left foot Neck pain on left side Osteopenia of multiple sites Hiatal hernia with GERD Bipolar disorder Bunion of great toe of left foot Pain around toenail, left foot Cellulitis of toe of right foot Family History Family History Father Emphysema, unspecified CVD (cardiovascular disease) Mother CVD (cardiovascular disease) Brother Lung cancer Bone cancer Brother Cancer of prostate Daughter No problems noted. Brother No problems noted. Brother No problems noted. Brother No problems noted. Surgical History Surgical History History of total knee arthroplasty History of esophagogastroduodenoscopy (EGD) H/O colonoscopy History of bladder surgery Fibroadenoma of right breast History of knee replacement procedure of right knee History of total abdominal hysterectomy and bilateral salpingo-oophorectomy History of appendectomy History of tonsillectomy Social History Social History Household Members: None Housing: Apartment Alcohol intake: current Alcohol intake frequency: does not drink Patient Tobacco Use Status: Never used Tobacco e-Cigarette/Vaping Use: Never Used Use of substances other than those prescribed or required for medical reasons: No Are you DNR?: No Advance Directives: No Advance Directives Information Provided: Yes Advance Directives Date on File: 11/14/22 Patient : No : No Poor oral hygiene: No service: No Current occupational status: retired Cognitive needs: No Hearing needs: No Vision needs: No Meds Allergies Allergy/AdvReac Type Severity Reaction Status Date / Time aged foods Allergy Unknown rash Verified 05/23/25 13:55 bee pollen (Bee Stings) Allergy Unknown SWELLING Verified 05/23/25 13:55 bees Allergy Unknown anaphylaxis Verified 05/23/25 13:55 cephalexin Allergy Unknown Hives Verified 05/23/25 13:55 gabapentin (Neurontin) Allergy Unknown hematurea Verified 05/23/25 13:55 latex (LATEX) Allergy Unknown RASH Verified 05/23/25 13:55 risperidone (From Risperdal) Allergy Unknown LUMPS ON Verified 05/23/25 13:55 ABDOMEN- SUPERFICIAL PHLEBITIS, painful lumps of abdomen white composit dental filling Allergy Unknown hives Verified 05/23/25 13:55 lactose AdvReac Mild Unknown Verified 05/23/25 13:55 tramadol (TRAMADOL) AdvReac Mild nausea/vomi Verified 05/23/25 13:55 ting divalproex sodium (From AdvReac Unknown LOW DOSE Verified 05/23/25 13:55 Depakote) AND SLOW RELEASE CAUSES STELLA Iodinated Contrast Media (IV AdvReac Unknown DEHYDRATED, Verified 05/23/25 13:55 Dye, Iodine Containing) TWITCHING niacin (Niacin) AdvReac Unknown TURNS RED Verified 05/23/25 13:55 olanzapine (From Zyprexa) AdvReac Unknown BLOOD IN Verified 05/23/25 13:55 URINE yeast, dried (yeast) AdvReac Unknown WHITE Verified 05/23/25 13:55 COATING ON TONGUE WHITE BREAD Allergy Mild DIFF Uncoded 05/23/25 13:55 SWALLOWING wheath AdvReac Mild Unknown Uncoded 05/23/25 13:55 Assessment and Plan Assessment Anesthesia Assessment: Chart Reviewed Documented by User: Rosalina Carrero MD 06/01/25 11:06 [facility] Past Medical History Medical History (Updated 06/01/25 @ 10:32 by Laquita Catalan RN) Vertigo Cholelithiasis Ventral hernia Candidiasis of mouth and esophagus Hearing impairment Basal cell carcinoma of face Mastoiditis Retention cyst of nasal sinus Acquired hammer toe of left foot Neck pain on left side Osteopenia of multiple sites Hiatal hernia with GERD Bipolar disorder Bunion of great toe of left foot Pain around toenail, left foot Cellulitis of toe of right foot Family History Family History Father Emphysema, unspecified CVD (cardiovascular disease) Mother CVD (cardiovascular disease) Brother Lung cancer Bone cancer Brother Cancer of prostate Daughter No problems noted. Brother No problems noted. Brother No problems noted. Brother No problems noted. Family history of problems with anesthesia: No Surgical History Surgical History History of total knee arthroplasty History of esophagogastroduodenoscopy (EGD) H/O colonoscopy History of bladder surgery Fibroadenoma of right breast History of knee replacement procedure of right knee History of total abdominal hysterectomy and bilateral salpingo-oophorectomy History of appendectomy History of tonsillectomy History of Problems with Anesthesia: No Social History Social History Household Members: None Housing: Apartment Alcohol intake: current Alcohol intake frequency: does not drink Patient Tobacco Use Status: Never used Tobacco e-Cigarette/Vaping Use: Never Used Use of substances other than those prescribed or required for medical reasons: No Are you DNR?: No Advance Directives: No Advance Directives Information Provided: Yes Advance Directives Date on File: 11/14/22 Patient : No : No Poor oral hygiene: No service: No Current occupational status: retired Cognitive needs: No Hearing needs: No Vision needs: No Meds Allergies Allergy/AdvReac Type Severity Reaction Status Date / Time aged foods Allergy Unknown rash Verified 05/23/25 13:55 bee pollen (Bee Stings) Allergy Unknown SWELLING Verified 05/23/25 13:55 bees Allergy Unknown anaphylaxis Verified 05/23/25 13:55 cephalexin Allergy Unknown Hives Verified 05/23/25 13:55 gabapentin (Neurontin) Allergy Unknown hematurea Verified 05/23/25 13:55 latex (LATEX) Allergy Unknown RASH Verified 05/23/25 13:55 risperidone (From Risperdal) Allergy Unknown LUMPS ON Verified 05/23/25 13:55 ABDOMEN- SUPERFICIAL PHLEBITIS, painful lumps of abdomen white composit dental filling Allergy Unknown hives Verified 05/23/25 13:55 lactose AdvReac Mild Unknown Verified 05/23/25 13:55 tramadol (TRAMADOL) AdvReac Mild nausea/vomi Verified 05/23/25 13:55 ting divalproex sodium (From AdvReac Unknown LOW DOSE Verified 05/23/25 13:55 Depakote) AND SLOW RELEASE CAUSES STELLA Iodinated Contrast Media (IV AdvReac Unknown DEHYDRATED, Verified 05/23/25 13:55 Dye, Iodine Containing) TWITCHING niacin (Niacin) AdvReac Unknown TURNS RED Verified 05/23/25 13:55 olanzapine (From Zyprexa) AdvReac Unknown BLOOD IN Verified 05/23/25 13:55 URINE yeast, dried (yeast) AdvReac Unknown WHITE Verified 05/23/25 13:55 COATING ON TONGUE WHITE BREAD Allergy Mild DIFF Uncoded 05/23/25 13:55 SWALLOWING wheath AdvReac Mild Unknown Uncoded 05/23/25 13:55 Exam Airway Mallampati Class: II TM Dist: >3cm Neck ROM: Full Denture: Upper Heart: rrr Lungs: cta Assessment and Plan Assessment Anesthesia Assessment: Anesthesia Plan Discussed Final Anesthetic Review Family History of Problems with Anesthesia: No History of Problems with Anesthesia: No NPO: Yes ASA Class: II Final Preanesthetic Review: No Changes in Pt Med Stat and Meds/Allgs Chart Reviewed Patient Risk: Low Procedure Risk: Low Anesthetic Plan Anesthetic Plan: MAC: Disposition: Standard PACU
[2025-05-30 13:17] VITALS: BMI 34.9
[2025-06-01 10:23] VITALS: BMI 33.3
[2025-06-01 10:39] VITALS: BP 148/78; PULSE 76; RESP 16; TEMP 36.7; O2SAT 98
[2025-06-01] MEDS: Lactated Ringers 1,000 ML 100 ML IVCONT (10:52)
--- NOTE | 2025-06-01 11:07 | P.HPSUR_ITS ---
Pre-Procedural Eval Section A - 24 Hr Update-Section A only Date of Service: 06/01/25 The patient is an INPATIENT: No The patient has been examined within 24 hours of the surgical procedure. The History & Physical has been completed within 30 days and I have reviewed it.: No Section B - Complete if H&P > 30 days Chief Complaint: Chronic idiopathic constipation Relevant Family History (Specify if Yes): No Relevant Social History: None Present Medications: see Short Stay Collaborative assessment Medical History: Significant History (Candidiasis of mouth and esophagus Hearing impairment Basal cell carcinoma of face Mastoiditis Retention cyst of nasal sinus Acquired hammer toe of left foot Neck pain on left side Osteopenia of multiple sites Hiatal hernia with GERD Bipolar disorder Bunion of great toe of left foot Pain around toen) History of Previous Operations: Relevant previous surgery/procedure and date(s) (History of total knee arthroplasty History of esophagogastroduodenoscopy (EGD) H/O colonoscopy History of bladder surgery Fibroadenoma of right breast History of knee replacement procedure of right knee History of total abdominal hysterectomy and bilateral salpingo-oophorectomy History of appendecto) Allergies: Allergies Allergy/AdvReac Type Severity Reaction Status Date / Time aged foods Allergy Unknown rash Verified 05/23/25 13:55 bee pollen (Bee Stings) Allergy Unknown SWELLING Verified 05/23/25 13:55 bees Allergy Unknown anaphylaxis Verified 05/23/25 13:55 cephalexin Allergy Unknown Hives Verified 05/23/25 13:55 gabapentin (Neurontin) Allergy Unknown hematurea Verified 05/23/25 13:55 latex (LATEX) Allergy Unknown RASH Verified 05/23/25 13:55 risperidone (From Risperdal) Allergy Unknown LUMPS ON Verified 05/23/25 13:55 ABDOMEN- SUPERFICIAL PHLEBITIS, painful lumps of abdomen white composit dental filling Allergy Unknown hives Verified 05/23/25 13:55 lactose AdvReac Mild Unknown Verified 05/23/25 13:55 tramadol (TRAMADOL) AdvReac Mild nausea/vomi Verified 05/23/25 13:55 ting divalproex sodium (From AdvReac Unknown LOW DOSE Verified 05/23/25 13:55 Depakote) AND SLOW RELEASE CAUSES STELLA Iodinated Contrast Media (IV AdvReac Unknown DEHYDRATED, Verified 05/23/25 13:55 Dye, Iodine Containing) TWITCHING niacin (Niacin) AdvReac Unknown TURNS RED Verified 05/23/25 13:55 olanzapine (From Zyprexa) AdvReac Unknown BLOOD IN Verified 05/23/25 13:55 URINE yeast, dried (yeast) AdvReac Unknown WHITE Verified 05/23/25 13:55 COATING ON TONGUE WHITE BREAD Allergy Mild DIFF Uncoded 05/23/25 13:55 SWALLOWING wheath AdvReac Mild Unknown Uncoded 05/23/25 13:55 Review of Systems Sugical H&P ROS: Negative: Constitution, Cardiovascular, Respiratory and Gastro intestinal Exam Surgical H&P Exam: Normal: Heart, Normal: Lungs, Normal: Extremities and Normal: Abdomen Plan Diagnosis/Plan: Unchanged I have reviewed the history and physical and performed a pertinent physical examination on my patient. No changes have occurred unless specified. Time Spent With Patient Time: Total time managing care of this patient today ____ minutes.
[2025-06-01 13:02] VITALS: BP 135/77; PULSE 71; RESP 16; TEMP 36.8; O2SAT 97
--- NOTE | 2025-06-01 13:03 | P.OPN-COLO_ITS ---
Colonoscopy Operative Note Operative Note Date of Service: 06/01/25 Narrative: COLONOSCOPY TILL CECUM WITH SNARE POLYPECTOMY Pre-op diagnosis: Colon cancer screening, chronic constipation. Post-op diagnosis:? Colon polyps, Diverticulosis, hemorrhoids Endoscopist:? Rodger Nolan MD Anesthesia:?MAC Consent: Indications for the procedure and potential complications of bleeding, perforation, reaction to medications and missed diagnosis were discussed with the patient and informed consent was obtained. Instrument: Olympus PCF H 190 L variable stiffness pediatric colonoscope Monitoring: Vital signs and clinical assessment, intermittent blood pressure monitoring, continuous EKG monitoring, Pulse oximetry and Carbon Dioxide monitoring were done throughout the procedure. Please see anesthesia flowsheet. Colon withdrawl time was 15 minutes. Procedure: The patient was placed in the left lateral decubitis position and pre-procedure medications were administered. After a digital rectal examination of the ano-rectum, the video colonoscope was inserted into the rectum and advanced through the colon to the ICV. It was not possible to advanced further due to looping and paradoxical movement of the colonoscope. The colonoscope was slowly withdrawn in a retrograde panoramic fashion and the colon mucosa was carefully examined including a retroflexed view of the rectum. Findings and interventions are described below. Procedure Difficulty: Colon was long, redundant and tortuous and there was some loop formation. Patient was placed in the supine position and LLQ pressure was applied to intubate the cecum Findings: Terminal Ileum: Not evaluated Cecum: Cecum was partially visualized across the ileocecal valve and appeared normal. Ascending Colon: A 7-8 mm sessile polyp - removed with a cold snare Transverse Colon: A 6-7 mm sessile polyp - removed with a cold snare. Descending Colon: Normal Sigmoid Colon: Moderate diverticulosis Rectum: Normal Ano-rectum: Moderate internal hemorrhoids and hypertrophied anal papillae Colon preparation: Good after some irrigation. Dwight Bowel Preparation Scale Right colon; 2 Transverse colon: 2 Left colon; 2 (0 = Unprepared colon segment with mucosa not seen due to solid stool that cannot be cleared. 1 = Portion of mucosa of the colon segment seen, but other areas of the colon segment not well seen due to staining, residual stool and/or opaque liquid. 2 = Minor amount of residual staining, small fragments of stool and/or opaque liquid, but mucosa of colon segment seen well. 3 = Entire mucosa of colon segment seen well with no residual staining, small fragments of stool or opaque liquid) Impression and Post Procedure Diagnosis: Colonoscopy Findings: Two small polyps were removed Moderate diverticulosis seen in the sigmoid colon Moderate hemorrhoids on retroflexed exam. Plan: Pt has a FU appointment on 06/28/25 with Ngoc Ibrahim NP, Repeat Colonoscopy in 5 years if polyps are adenomatous ( adult colonoscope for future colonoscopies) and can discontinue having screening colonoscopies if poly ps are hyperplastic. Above findings were reviewed with the patient and relevant handouts were given and the discharge area.
[2025-06-01 13:17] VITALS: BP 123/88; PULSE 76; RESP 16; O2SAT 97
[2025-06-01 13:32] VITALS: BP 144/80; PULSE 74; RESP 20; TEMP 36.8; O2SAT 99
== END 2025-06-01 13:56 | disposition home or self-care (01) ==
PROVIDERS: PCP Internal Medicine; Visit Provider Internal Medicine Gastroenterology
PROC: 0DJD8ZZ Inspection of Lower Intestinal Tract, Via Natural or Artificial Opening Endoscopic (ICD-10-PCS; CPT 45378; principal; 2025-06-01 12:00)
DX: Z12.11 Encounter for screening for malignant neoplasm of colon (principal); K59.04 Chronic idiopathic constipation; D12.2 Benign neoplasm of ascending colon; D12.3 Benign neoplasm of transverse colon; K57.30 Diverticulosis of large intestine without perforation or abscess without bleeding; K64.8 Other hemorrhoids; K86.89 Other specified diseases of pancreas; K21.9 Gastro-esophageal reflux disease without esophagitis; K44.9 Diaphragmatic hernia without obstruction or gangrene; M85.80 Other specified disorders of bone density and structure, unspecified site; Z85.828 Personal history of other malignant neoplasm of skin; F31.9 Bipolar disorder, unspecified; Z88.1 Allergy status to other antibiotic agents; Z88.8 Allergy status to other drugs, medicaments and biological substances; Z91.040 Latex allergy status; Z88.5 Allergy status to narcotic agent; Z91.041 Radiographic dye allergy status; Z91.018 Allergy to other foods; Z79.899 Other long term (current) drug therapy; Z98.890 Other specified postprocedural states
CPT/HCPCS: 45385; 88305; J2003; J2704

== ENCOUNTER → 2025-06-01 09:41 | Outpatient (BNV) | payer MEDICARE, MEDICAID, SELFPAY | PROVIDERS: PCP Internal Medicine; Visit Provider Internal Medicine Gastroenterology | DX: Z12.11 Encounter for screening for malignant neoplasm of colon (principal); D12.2 Benign neoplasm of ascending colon; D12.3 Benign neoplasm of transverse colon; K57.30 Diverticulosis of large intestine without perforation or abscess without bleeding; K64.8 Other hemorrhoids | CPT/HCPCS: 45385 ==

== ENCOUNTER 2025-07-10 10:58 | Outpatient (AMB) | payer MEDICARE, MEDICAID, SELFPAY ==
[2025-07-10 11:30] VITALS: BP 110/84; PULSE 71; RESP 17; TEMP 36.4; O2SAT 99; BMI 34.9
--- NOTE | 2025-07-10 11:30 | MHC.PC.OV ---
Vital Signs 07/10/25 11:30 Height 5 ft 2 in Weight 191 lb BMI 34.9 BP 110/84 Blood Pressure Location Lt radial Position Sitting Respiration 17 Pulse 71 Pulse Source Pulse Oximeter Temp 97.5 F Temp Source Oral Pulse Oximetry (%) 99 Oxygen Delivery Method Room Air Intake Visit Reasons: recurring uti request referral Landcare Officer Required: No Allergies aged foods Allergy (Unknown, Verified 07/10/25 11:35) rash bee pollen (Bee Stings) Allergy (Unknown, Verified 07/10/25 11:35) SWELLING bees Allergy (Unknown, Verified 07/10/25 11:35) anaphylaxis cephalexin Allergy (Unknown, Verified 07/10/25 11:35) Hives gabapentin (Neurontin) Allergy (Unknown, Verified 07/10/25 11:35) hematurea latex (LATEX) Allergy (Unknown, Verified 07/10/25 11:35) RASH risperidone (From Risperdal) Allergy (Unknown, Verified 07/10/25 11:35) LUMPS ON ABDOMEN- SUPERFICIAL PHLEBITIS, painful lumps of abdomen white composit dental filling Allergy (Unknown, Verified 07/10/25 11:35) hives lactose Adverse Reaction (Mild, Verified 07/10/25 11:35) Unknown tramadol (TRAMADOL) Adverse Reaction (Mild, Verified 07/10/25 11:35) nausea/vomiting divalproex sodium (From Depakote) Adverse Reaction (Unknown, Verified 07/10/25 11:35) LOW DOSE AND SLOW RELEASE CAUSES STELLA Iodinated Contrast Media (IV Dye, Iodine Containing) Adverse Reaction (Unknown, Verified 07/10/25 11:35) DEHYDRATED, TWITCHING niacin (Niacin) Adverse Reaction (Unknown, Verified 07/10/25 11:35) TURNS RED olanzapine (From Zyprexa) Adverse Reaction (Unknown, Verified 07/10/25 11:35) BLOOD IN URINE yeast, dried (yeast) Adverse Reaction (Unknown, Verified 07/10/25 11:35) WHITE COATING ON TONGUE WHITE BREAD Allergy (Mild, Uncoded 07/10/25 11:35) DIFF SWALLOWING wheath Adverse Reaction (Mild, Uncoded 07/10/25 11:35) Unknown Tobacco use date assessed: 05/04/25 Fall risk assessment: No Falls in past year Dental Screening Dental Screen Date: 07/10/25 Did you have a dental visit in the last 12 months?: Yes Did you have a dental problem in the last 6 months where you did not have access to dental care?: No Was dental information given to patient?: Patient has dentist [facility] Medical History (Updated 07/10/25 @ 12:04 by Belen Simons MD) Recurrent UTI Microhematuria Vertigo Cholelithiasis Ventral hernia Candidiasis of mouth and esophagus Hearing impairment Basal cell carcinoma of face Mastoiditis Retention cyst of nasal sinus Acquired hammer toe of left foot Neck pain on left side Osteopenia of multiple sites Hiatal hernia with GERD Bipolar disorder Bunion of great toe of left foot Pain around toenail, left foot Cellulitis of toe of right foot Surgical History History of total knee arthroplasty History of esophagogastroduodenoscopy (EGD) H/O colonoscopy History of bladder surgery Fibroadenoma of right breast History of knee replacement procedure of right knee History of total abdominal hysterectomy and bilateral salpingo-oophorectomy History of appendectomy History of tonsillectomy Family History Father Emphysema, unspecified CVD (cardiovascular disease) Mother CVD (cardiovascular disease) Brother Lung cancer Bone cancer Brother Cancer of prostate Daughter No problems noted. Brother No problems noted. Brother No problems noted. Brother No problems noted. Social History Household Members: None Housing: Apartment Alcohol intake: current Alcohol intake frequency: does not drink Patient Tobacco Use Status: Never used Tobacco e-Cigarette/Vaping Use: Never Used Advance Directives Date on File: 11/14/22 service: No Current occupational status: retired Cognitive needs: No Hearing needs: No Vision needs: No Questionnaire Thrive Questionnaire Date Thrive assessed: 07/03/25 I am a: Patient What is your living situation today?: I have a steady place to live Within the past 12 months, did the food you bought not last and you didn't have the money to get more?: Never true Within the past 12 months, did you worry whether your food would run out before you got money to buy more?: I choose not to answer this question Do you have trouble paying for medicines?: No Do you have trouble getting transportation to medical appointments?: Yes Do you have trouble paying your heating and electricity bill?: No Do you have trouble taking care of your child, family member or friend?: I choose not to answer this question Do you have trouble with day-to-day activities such as bathing, preparing meals, shopping, managing finances, etc.?: No Are you currently unemployed and looking for a job?: No Are you interested in more education?: No Please select the resources that you would like help with: Transportation THRIVE Score: 1 AUDIT C Alcohol Use Questionnaire (AUDIT-C) 1. How often do you have a drink containing alcohol?: Never 3. How often do you have six or more drinks on one occasion?: Never Total Score: 0 QUIANA-7 AMB Questionnaire QUIANA-7 Date QUIANA - 7 assessed: 05/04/25 Feeling nervous, anxious, or on edge: 1 = Several days Not being able to stop or control worryin = Not at all Worrying too much about different things: 1 = Several days Becoming easily annoyed or irritable: 0 = Not at all Feeling afraid as if something awful might happen: 1 = Several days Source: Developed by Drs. Kevin Villarreal, Mery Barnett, Sheng Kulkarni and colleagues, with an educational altagracia from [employer]. Physical exam (Primary Care) Vital Signs: Last Vital Signs Temp 97.5 F 07/10/25 11:30 Pulse 71 07/10/25 11:30 Resp 17 07/10/25 11:30 BP 110/84 07/10/25 11:30 Pulse Ox 99 07/10/25 11:30 Oxygen Delivery Method Room Air 07/10/25 11:30 BMI result Body Mass Index 34.9 Tobacco/Smoking Status: Tobacco use Status Tobacco use date assessed 05/04/25 07/10/25 11:36 Patient Tobacco Use Status Never used Tobacco 07/10/25 11:36 e-Cigarette/Vaping Use Never Used 07/10/25 11:36 Thrive Assessment: Date of Thrive Assessment Date Thrive assessed 07/03/25 07/10/25 11:36 Results AMB Urinalysis, Automated UA Leukoctes 0 Alek/uL Last Edit by Maria Del Rosario Eastman CMA on 07/10/25 12:04 UA Nitrite Negative Last Edit by Maria Del Rosario Eastman CMA on 07/10/25 12:04 UA Urobilinogen 0.2 mg/dL Last Edit by Maria Del Rosario Eastman CMA on 07/10/25 12:04 UA Protein 0 mg/dL Last Edit by Maria Del Rosario Eastman, MAVIS on 07/10/25 12:04 UA pH 6.0 Last Edit by Maria Del Rosario Eastman, MAVIS on 07/10/25 12:04 UA Blood 80 Henry/uL Last Edit by Maria Del Rosario Eastman, MAVIS on 07/10/25 12:04 UA Specific [place] 1.015 Last Edit by Maria Del Rosario Eastman, MAVIS on 07/10/25 12:04 UA Ketone Positive Last Edit by Maria Del Rosario Eastman, MAVIS on 07/10/25 12:04 UA Bilirubin 0 mg/dL Last Edit by Maria Del Rosario Eastman, MAVIS on 07/10/25 12:04 UA Glucose 0 mg/dL Last Edit by Maria Del Rosario Eastman CMA on 07/10/25 12:04 Results Reviewed Results Reviewed: Laboratory Last Values Urine pH (Auto) 6.0 07/10/25 12:02 Specific [place] (Auto) 1.015 07/10/25 12:02 Urine Protein (Auto) 0 mg/dL 07/10/25 12:02 Glucose (UA)(Auto) 0 mg/dL 07/10/25 12:02 Urine Ketones (Auto) Positive 07/10/25 12:02 Urine Blood (Auto) 80 Henry/uL 07/10/25 12:02 Urine Nitrite (Auto) Negative 07/10/25 12:02 Urine Bilirubin (Auto) 0 mg/dL 07/10/25 12:02 Urine Urobilinogen (Auto) 0.2 mg/dL 07/10/25 12:02 Leukocyte Esterase (Auto) 0 Alek/uL 07/10/25 12:02 Coding Level of Care Code Est Pt Level 4 (26967) Diagnoses Left lower quadrant abdominal swelling, mass and lump R19.04 Ventral hernia without obstruction or gangrene K43.9 Obstruction and gangrene presence: without obstruction or gangrene Increased frequency of urination R35.0 Microscopic hematuria R31.29 Recurrent UTI N39.0 Assessment & Plan Assessment & Plan (1) Left lower quadrant abdominal swelling, mass and lump: Code(s): R19.04 - Left lower quadrant abdominal swelling, mass and lump Category: Medical (2) Ventral hernia: Code(s): K43.9 - Ventral hernia without obstruction or gangrene Category: Medical Qualifiers: Obstruction and gangrene presence: without obstruction or gangrene Qualified Code(s): K43.9 - Ventral hernia without obstruction or gangrene (3) Increased frequency of urination: Code(s): R35.0 - Frequency of micturition (4) Microscopic hematuria: Code(s): R31.29 - Other microscopic hematuria Category: Medical (5) Recurrent UTI: Code(s): N39.0 - Urinary tract infection, site not specified Category: Medical Orders: Orders Urine Cytology Today R31.29 - Other microscopic hematuria UA CC w/rflx Micro + Cult Today R35.0 - Frequency of micturition AMB Urinalysis Automated Today Z13.9 - Encounter for screening, unspecified Referrals General Surgery Referral K43.9 - Ventral hernia without obstruction or gangrene, R19.04 - Left lower quadrant abdominal swelling, mass and lump Urology Referral N39.0 - Urinary tract infection, site not specified, R31.29 - Other microscopic hematuria
--- OUTSIDE RECORDS SUMMARY | 2025-07-10 13:24 | XMS_ITS | Clinical Summary ---
Author Organization [facility] Address [address] [place] [address] Phone Care Team Providers Care Slasher Tender Helper Name Role Phone Belen Simons MD [...] file Insurance MEDICARE PART A & B [facility] MEDICARE PART A & B Member Subscriber Plan / Payer (Ef fective 2011-Present) Name:Veronica Hebert Member ID:[id number] Relation to Subscriber:Self Name:Veronica Hebert Subscriber ID:[id number] Payer ID:[id number] Group ID:Not on file Type:Medicare Address: [place] [address] [place] [address] [place], [place] [address]HEALTH MEDICARE PART A & B MEDICARE PART A & B MEDICARE PART A & B MEDICARE PART A & B MEDICARE PART A & B [place] B [facility] Care Teams Slasher Tender Helper Relationship Specialty Start Date End Date Belen Simons MD [facility] [place] [address] PCP - General Internal Medicine 04/06/23 Additional Source Comments The information contained in this document represents components of the legal health record. It is not the complete legal health record.[facility]
--- OUTSIDE RECORDS SUMMARY | 2025-07-10 13:24 | XMS_ITS | Encounter Summary ---
Author Organization [facility] Address [address] [place] [address] Phone Care Team Providers Care Door Repairer Bus Name Role Phone Belen Simons MD Primary Care Provider Encounter Details Date Type Department Care Team (Late st Contact Info) Description 05/07/2023 Procedure Pass OR Admitting Dept - Virtual Department [address] [place] [phone] Social History Tobacco Use Types Packs/Day Years [...] on filedocumented in this encounter Care Teams Door Repairer Bus Relationship Specialty Start Date End Date Belen Simons MD [facility] [place] [address] PCP - General Internal Medicine 04/06/23 documented as of this encounter Additional Source Comments The information contained in this document represents components of the legal health record. It is not the complete legal health record.[facility]
--- OUTSIDE RECORDS SUMMARY | 2025-07-10 13:24 | XMS_ITS | Clinical Summary ---
Author Organization [facility] Address [address] [place] [address] Phone Care Team Providers Care Primer Press Operator Name Role Phone Belen Simons MD Primary Care Provider [phone] Allergies Active Allergy Reactions Criticality Noted Date [...] Care Team Description 05/03/2025 Telephone General Surgery [facility] [address] [place] [address] Dru Childress DO 04/11/2025 10:15 AM EDT Consult General Surgery - [address] [place] [id number] Dru Childress, Left lower quadrant abdominal pain (Primary Dx) from Last 3 Months Surgical History Surgery Date Site/Laterality Comments BREAST LUMPECTOMY PROCEDURE: HISTORICAL BREAST LUMPECTOMY; COMMENT: benign OTHER SURGICAL HISTORY 06/13 PROCEDURE: MAMMOGRAM TONSILLECTOMY PROCEDURE: HISTORICAL TONSILLECTOMY APPENDECTOMY PROCEDURE: [place] APPENDECTOMY HYSTERECTOMY PROCEDURE: HISTORICAL HYSTERECTOMY; COMMENT: fibroids COLONOSCOPY 08/20/2008 PROCEDURE: IL COLONOSCOPY FLX DX W/COLLJ SPEC WHEN PFRMD; [...] Last Done Comments Breast Cancer Screening 1950 Colorectal Cancer Screening: Colonoscopy 1950 Zoster Vaccines (1 of 2) 2002 Depression Screening 09/06/2024 Cholesterol Screening (Lipid Panel) 03/30/2025 Falls Risk Assessment 03/30/2025 Hepatitis C [...] Procedure Name Priority Date/Time Associated Diagnosis Comments COMPREHENSIVE METABOLIC PANEL STAT 03/29/2025 1:24 PM EDT from Last 3 Months or Most Recently Relevant to Health Maintenance Results * (ABNORMAL) Comprehensive Metabolic Panel (CMP) (03/29/2025 1:24 PM EDT) Sodium 138 133 - 145 mmol/L LAB CHEMISTRY METHOD 03/29/2025 2:06 PM [facility] Potassium 3.7 3.5 - 5.5 mmol/L LAB CHEMISTRY METHOD 03/29/2025 2:06 PM [facility] Chloride 108 96 - 110 mmol/L LAB CHEMISTRY METHOD 03/29/2025 2:06 PM [facility] CO2 23 21 - 32 mmol/L LAB CHEMISTRY METHOD 03/29/2025 2:06 PM [facility] Anion Gap 7 3 - 11 LAB CHEMISTRY METHOD 03/29/2025 2:06 PM [facility] Glucose 85 70 - 100 mg/dL LAB CHEMISTRY METHOD 03/29/2025 2:06 PM [facility] BUN 10 5 - 25 mg/dL LAB CHEMISTRY METHOD 03/29/2025 2:06 PM [facility] Creatinine 0.47(L) 0.50 - 1.10 mg/dL LAB CHEMISTRY METHOD 03/29/2025 2:06 PM [facility] eGFR 101 >=60 mL/min/1. 73m2 LAB CHEMISTRY METHOD 03/29/2025 2:06 PM [facility] Comment:Calculation based on the Chronic Kidney Disease Epidemiology Collaboration (CKD-EPI) equation refit without adjustment for race. BUN/Creatinine Ratio 21.3 LAB CHEMISTRY METHOD 03/29/2025 2:06 PM [facility] Calcium 8.9 8.5 - 10.5 mg/dL LAB CHEMISTRY METHOD 03/29/2025 2:06 PM [facility] AST (SGOT) 21 10 - 42 unit/L LAB CHEMISTRY METHOD 03/29/2025 2:06 PM [facility] ALT (SGPT) 24 10 - 60 unit/L LAB CHEMISTRY METHOD 03/29/2025 2:06 PM [facility] Alkaline Phosphatase 65 42 - 121 unit/L LAB CHEMISTRY METHOD 03/29/2025 2:06 PM [facility] Total Protein 6.3 6.0 - 8.0 g/dL LAB CHEMISTRY METHOD 03/29/2025 2:06 PM [facility] Albumin 3.7 3.2 - 5.0 g/dL LAB CHEMISTRY METHOD 03/29/2025 2:06 PM [facility] Total Bilirubin 0.7 0.0 - 1.4 mg/dL LAB CHEMISTRY METHOD 03/29/2025 2:06 PM [facility] Blood Venous blood specimen / Unknown Venipuncture / Unknown 03/29/2025 1:24 PM EDT 03/29/2025 1:33 PM EDT us Romeo Kline MD LAB BLOOD ORDERABLES Final Result [facility] [address] [place] [address], [place] [phone] from Last 3 Months or Most Recently Relevant to Health Maintenance Insurance MEDICAID - [place] MEDICARE Care Teams Primer Press Operator Relationship Specialty Start Date End Date Belen Simons MD [address] [place] [address] PCP - General 10/31/09
--- OUTSIDE RECORDS SUMMARY | 2025-07-10 13:24 | XMS_ITS ---
Author Name [facility] Organization Unknown History of Medication Use Medication Directions Dispensed Refills Start Date End Date Stat us sulfamethoxazole-trimethoprim 06/13/2025 active Pyridium 03/21/2025 active Macrobid 03/21/2025 active divalproex sodium 02/21/2025 act johnny Linzess 12/29/2024 active Allergies Allergen Reaction Severity Comment Documented Date Source Statu s CEPHALEXIN HIVES ([id number]) [facility] Encounters Encounter Type Encounter Reason Primary Diagnosis Location Date Ambulatory TBE Urinary tract infection, site not specified [facility] 06/11/2025 Care Team Organization Name Specialty Phone Email Start Date End Da te [facility] 06/12/2025 [facility] 06/11/2025
== END 2025-07-10 12:21 | disposition home or self-care (01) ==
LOC: HO.HMCC 10:58
PROVIDERS: PCP Internal Medicine; Visit Provider Internal Medicine
DX: Z13.9 Encounter for screening, unspecified (principal)

== ENCOUNTER 2025-07-10 10:58 | Outpatient (REF) | payer MEDICARE, MEDICAID, SELFPAY ==
--- OUTSIDE RECORDS SUMMARY | 2025-07-10 14:44 | XMS_ITS | Patient Health Record ---
Author Organization [facility] Address [address] [place] [address] Care Team Providers Care Card Punching Machine Operator Name Role Phone Gladys RAMIREZ, Kassandra Primary Care Provider Spencer Abebe Unavailable [phone] Allergies Allergen (clinical drug ingredient) Drug/Non Drug [...] Status W/U Status Risk Notes Problem Onychomycosis (116260456) Onychomycosis (110.1) Active confirmed Problem Disorder of joint of ankle and/or foot (283700623) Arthritis - Degenerative (719.97) Active confirmed Problem Hallux valgus (516394911) Hallux Valgus (735.0) Active confirmed Problem Hammer toe (718127569) Hammer toe (735.4) Active confirmed Problem Congenital pes planus (26190232) Flat Foot, Congenital (754.61) Active confirmed Problem Pain in limb (66042868) Pain in Limb (729.5) Active confirmed Plan Of Treatment No Information Insurance Providers Payer Name Payer Address Payer Phone Subscriber Number Group Number Insured Name Patient Relationship to Insured Coverage Start Date Coverage End Date Medicare [employer] [address] [place] [address] [id number] Veronica Hebert Self - patient is the insured Medical (General) History Medical History History ICD Code Anxiety Arthritis Broken bones Psychiatric disorder Measles Joint implants/screws Surgical History Surgery Date(Month/Year) knee surgery
== END 2025-07-10 10:59 | disposition home or self-care (01) ==
LOC: HO.LAB 10:58
PROVIDERS: PCP Internal Medicine; Visit Provider Internal Medicine
DX: R35.0 Frequency of micturition (principal); R39.15 Urgency of urination; K59.09 Other constipation; K80.20 Calculus of gallbladder without cholecystitis without obstruction; R19.04 Left lower quadrant abdominal swelling, mass and lump; K43.9 Ventral hernia without obstruction or gangrene; R31.29 Other microscopic hematuria; Z79.899 Other long term (current) drug therapy
CPT/HCPCS: 81003; 99212

== ENCOUNTER 2025-07-11 13:24 | Outpatient (REF) | payer MEDICARE, MEDICAID, SELFPAY ==
[2025-07-11 13:46] LABS: Appearance Urine Clear; Glucose Urine UA Negative (Negative); PH 5.5 (5.0-9.0); Specific Gravity - Urine 1.020 (1.005-1.025); UMIC TRIGGER UACC YES
[2025-07-11 13:56] LABS: UACC Culture Trigger YES
== END 2025-07-11 13:25 | disposition home or self-care (01) ==
LOC: HO.LNP 13:24
PROVIDERS: Visit Provider Internal Medicine
DX: R35.0 Frequency of micturition (principal)
CPT/HCPCS: 81001; 87086

== ENCOUNTER 2025-07-18 13:57 | Outpatient (AMB) | payer MEDICARE, MEDICAID, SELFPAY ==
--- NOTE | 2025-07-18 14:01 | MHC.OFFVIS ---
Vital Signs 07/18/25 14:27 Height 5 ft 2 in Weight 191 lb BMI 34.9 BP 134/64 Blood Pressure Location Lt radial Position Sitting Pulse 62 Pulse Source Pulse Oximeter Pulse Oximetry (%) 97 Oxygen Delivery Method Room Air Intake Visit Reasons: s/p colonoscopy Intake Note: Est pt for s/p colo FUV. Mgmt of constipation. CC; Pt denies any new GI sx or concerns. Pt states she has been on multiple rounds of abx per frequent UTIs which she has a referral to urology for. Artificial Candy Maker Required: No Accompanied by: Self / Same As Patient Allergies cephalexin Allergy (Severe, Verified 07/18/25 14:37) Swelling aged foods Allergy (Unknown, Verified 07/18/25 14:37) rash bee pollen (Bee Stings) Allergy (Unknown, Verified 07/18/25 14:37) SWELLING bees Allergy (Unknown, Verified 07/18/25 14:37) anaphylaxis gabapentin (Neurontin) Allergy (Unknown, Verified 07/18/25 14:37) hematurea latex (LATEX) Allergy (Unknown, Verified 07/18/25 14:37) RASH risperidone (From Risperdal) Allergy (Unknown, Verified 07/18/25 14:37) LUMPS ON ABDOMEN- SUPERFICIAL PHLEBITIS, painful lumps of abdomen white composit dental filling Allergy (Unknown, Verified 07/18/25 14:37) hives lactose Adverse Reaction (Mild, Verified 07/18/25 14:37) Unknown tramadol (TRAMADOL) Adverse Reaction (Mild, Verified 07/18/25 14:37) nausea/vomiting divalproex sodium (From Depakote) Adverse Reaction (Unknown, Verified 07/18/25 14:37) LOW DOSE AND SLOW RELEASE CAUSES STELLA Iodinated Contrast Media (IV Dye, Iodine Containing) Adverse Reaction (Unknown, Verified 07/18/25 14:37) DEHYDRATED, TWITCHING niacin (Niacin) Adverse Reaction (Unknown, Verified 07/18/25 14:37) TURNS RED olanzapine (From Zyprexa) Adverse Reaction (Unknown, Verified 07/18/25 14:37) BLOOD IN URINE yeast, dried (yeast) Adverse Reaction (Unknown, Verified 07/18/25 14:37) WHITE COATING ON TONGUE WHITE BREAD Allergy (Mild, Uncoded 07/18/25 14:37) DIFF SWALLOWING wheath Adverse Reaction (Mild, Uncoded 07/18/25 14:37) Unknown HPI HPI s/p colonoscopy: Details: Assessment & Plan (1) Chronic idiopathic constipation: Code(s): K59.04 - Chronic idiopathic constipation Category: Medical (2) Pancreatic insufficiency: Code(s): K86.89 - Other specified diseases of pancreas Category: Medical (3) GERD (gastroesophageal reflux disease): Code(s): K21.9 - Gastro-esophageal reflux disease without esophagitis Category: Medical (4) Left lower quadrant abdominal swelling, mass and lump: Code(s): R19.04 - Left lower quadrant abdominal swelling, mass and lump Category: Medical (5) Pre-op examination: Code(s): Z01.818 - Encounter for other preprocedural examination Category: Medical (6) Rectocele: Comment: pt states this was discovererd at [facility] Code(s): N81.6 - Rectocele Category: Medical Plan She noticed a lump that felt like it was filled with fluid in the LLQ. She pushed it back up and shortly after this she passed a very large rock like stool that caused a lot of rectal bleeding. She has pain if she goes over a bump, and she hears a fluid like sound in the area. She presented to the [facility] ER. She is also struggling with UTI's that they can't seem to clear up. She did a home enema and black foul smelling stuff that looks like grit came out of me. She has extensive cramping as well. Even with the Linzess which she says turns the stool into liquid, she has to strain to pass any stool. - using enemas as above. She now is open to having a colonoscopy to further explore this. I think that an US in the standing position to elicit possible hernia would be beneficial. She has been dealing with a LOT - had ticks and had Lyme testing that was negative. She is very emptional about her health in general - is seeing a counselor and has 'crisis #'s in my wallet. She denies any cardiac or respiratory problems. There are no prior problems with anesthesia or sedation NO ID problems NO known FHX crc or polyps. I will see her again after the ultrasound Orders: Orders Colonoscopy - GI Use Only Today Z01.818 - Encounter for other preprocedural examination US abdomen limited Today R19.04 - Left lower quadrant abdominal swelling, mass and lump Medications: New sodium,potassium,mag sulfates 17.5-3.13-1.6 gram (Suprep Bowel Prep Kit) 480 mL orally; FOR COLONOSCOPY PREP 354 mL 0RF COLONOSCOPY 06/01/25 Findings: Terminal Ileum: Not evaluated Cecum: Cecum was partially visualized across the ileocecal valve and appeared normal. Ascending Colon: A 7-8 mm sessile polyp - removed with a cold snare Transverse Colon: A 6-7 mm sessile polyp - removed with a cold snare. Descending Colon: Normal Sigmoid Colon: Moderate diverticulosis Rectum: Normal Ano-rectum: Moderate internal hemorrhoids and hypertrophied anal papillae Impression and Post Procedure Diagnosis: Colonoscopy Findings: Two small polyps were removed Moderate diverticulosis seen in the sigmoid colon Moderate hemorrhoids on retroflexed exam. Plan: Pt has a FU appointment on 06/28/25 with Ngoc Ibrahim NP, Repeat Colonoscopy in 5 years if polyps are adenomatous ( adult colonoscope for future colonoscopies) and can discontinue having screening colonoscopies if polyps are hyperplastic. BIOPSY Received: 06/01/25 Diagnosis A. Colon, transverse, polyp: Tubular adenoma; negative for high-grade dysplasia and carcinoma. B. Colon, ascending, polyp: Tubular adenoma; negative for high-grade dysplasia and carcinoma. TODAYS VISIT [facility] Medical History Recurrent UTI Microhematuria Vertigo Cholelithiasis Ventral hernia Candidiasis of mouth and esophagus Hearing impairment Basal cell carcinoma of face Mastoiditis Retention cyst of nasal sinus Acquired hammer toe of left foot Neck pain on left side Osteopenia of multiple sites Hiatal hernia with GERD Bipolar disorder Bunion of great toe of left foot Pain around toenail, left foot Cellulitis of toe of right foot Surgical History History of total knee arthroplasty History of esophagogastroduodenoscopy (EGD) H/O colonoscopy History of bladder surgery Fibroadenoma of right breast History of knee replacement procedure of right knee History of total abdominal hysterectomy and bilateral salpingo-oophorectomy History of appendectomy History of tonsillectomy Family History Father Emphysema, unspecified CVD (cardiovascular disease) Mother CVD (cardiovascular disease) Brother Lung cancer Bone cancer Brother Cancer of prostate Daughter No problems noted. Brother No problems noted. Brother No problems noted. Brother No problems noted. Social History Household Members: None Housing: Apartment Alcohol intake: current Alcohol intake frequency: does not drink Patient Tobacco Use Status: Never used Tobacco e-Cigarette/Vaping Use: Never Used Advance Directives Date on File: 11/14/22 service: No Current occupational status: retired Cognitive needs: No Hearing needs: No Vision needs: No Review of Systems Const Denies fatigue, Denies fever(s), Denies night sweats, Denies poor appetite and Denies weight loss ENT Denies dental pain, Denies dysphagia, Denies hearing loss, Denies mouth pain, Denies odynophagia, Denies throat swelling, Denies tongue swelling and Reports other (Dentition adequate) Card Reports no additional complaints Resp Reports no additional complaints GI Details: Reports abdominal pain, Denies melena, Denies bloating, Denies hematochezia, Reports constipation, Denies GI cramping, Denies dysphagia, Denies excessive flatus, Denies early satiety, Reports heartburn, Denies diarrhea, Denies nausea, Denies odynophagia, Denies vomiting and Denies hematemesis Skin/Breast Denies pruritus, Denies lesions, Denies rash and Denies jaundice Endo Denies fatigue Aller/Immun Denies throat swelling and Denies tongue swelling Physical Exam Vital Signs: Last Vital Signs Pulse 62 07/18/25 14:27 BP 134/64 11/12/25 14:27 Pulse Ox 97 07/18/25 14:27 Oxygen Delivery Method Room Air 07/18/25 14:27 BMI result Body Mass Index 34.9 Results Reviewed Results Reviewed: COLONOSCOPY 06/01/25 Findings: Terminal Ileum: Not evaluated Cecum: Cecum was partially visualized across the ileocecal valve and appeared normal. Ascending Colon: A 7-8 mm sessile polyp - removed with a cold snare Transverse Colon: A 6-7 mm sessile polyp - removed with a cold snare. Descending Colon: Normal Sigmoid Colon: Moderate diverticulosis Rectum: Normal Ano-rectum: Moderate internal hemorrhoids and hypertrophied anal papillae Impression and Post Procedure Diagnosis: Colonoscopy Findings: Two small polyps were removed Moderate diverticulosis seen in the sigmoid colon Moderate hemorrhoids on retroflexed exam. Plan: Pt has a FU appointment on 06/28/25 with Ngoc Ibrahim NP, Repeat Colonoscopy in 5 years if polyps are adenomatous ( adult colonoscope for future colonoscopies) and can discontinue having screening colonoscopies if polyps are hyperplastic. BIOPSY Received: 06/01/25 Diagnosis A. Colon, transverse, polyp: Tubular adenoma; negative for high-grade dysplasia and carcinoma. B. Colon, ascending, polyp: Tubular adenoma; negative for high-grade dysplasia and carcinoma. Assessment & Plan Assessment & Plan (1) Tubular adenoma of colon: Comment: 2 TA is 2024 repeat 5 years Code(s): D12.6 - Benign neoplasm of colon, unspecified Category: Medical (2) Left lower quadrant abdominal swelling, mass and lump: Code(s): R19.04 - Left lower quadrant abdominal swelling, mass and lump Category: Medical (3) Ventral hernia: Code(s): K43.9 - Ventral hernia without obstruction or gangrene Category: Medical Qualifiers: Obstruction and gangrene presence: without obstruction or gangrene Qualified Code(s): K43.9 - Ventral hernia without obstruction or gangrene (4) Chronic idiopathic constipation: Code(s): K59.04 - Chronic idiopathic constipation Category: Medical (5) Cholelithiasis: Code(s): K80.20 - Calculus of gallbladder without cholecystitis without obstruction Category: Medical Qualifiers: Cholelithiasis location: gallbladder Cholecystitis presence: without cholecystitis Biliary obstruction: without biliary obstruction Qualified Code(s): K80.20 - Calculus of gallbladder without cholecystitis without obstruction (6) Pancreatic insufficiency: Code(s): K86.89 - Other specified diseases of pancreas Category: Medical (7) GERD (gastroesophageal reflux disease): Code(s): K21.9 - Gastro-esophageal reflux disease without esophagitis Category: Medical Plan Her current GI regimen consists of Linzess 145 micro g daily. - The patient is a 75-year-old female presenting her worries about possibly having an abdominal hernia and ?narrowing of the rectum?, with symptoms for several months. - Recurring painful abdominal swelling was initially observed after consuming mushrooms. The CT scan showed no abnormalities, but physical examination suggested a hernia. - Reports of straining and reduced stool diameter, though prior exams did not indicate obstructive causes. - Colonoscopic findings included adenomatous polyps, necessitating regular surveillance. No rectal abnormalities noted. - Urine abnormalities and history of recurrent infections reflect parallel urinary problems alongside gastrointestinal issues. - Experiences pain during activities like quilting, affecting lifestyle. - Documented allergic reaction to Cephalexin. - Historical liver function issues linked to poorly controlled diabetes, improved with better A1c management. The patient's diet consists largely of liquids and soft foods due to discomfort with solid food intake, aiding in minimizing abdominal pain and easing bowel movements. Despite weight reduction from 220 pounds to 189 pounds, she denies any specific food allergies besides an allergy to Cephalexin. - Keep your upcoming appointment with the surgeon on August 14. - Stick to a diet of soft and liquid foods to help with bowel movements. - Drink lots of water to manage urinary symptoms and avoid infections. - Stay away from Cephalexin and tell us about any new allergic reactions. - Plan for your next colonoscopy in five years to check on polyps. - Call us if your symptoms get worse or you notice any new problems. Coding Level of Care Code Est Pt Level 3 (52858) Diagnoses Tubular adenoma of colon D12.6 Left lower quadrant abdominal swelling, mass and lump R19.04 Ventral hernia without obstruction or gangrene K43.9 Obstruction and gangrene presence: without obstruction or gangrene Chronic idiopathic constipation K59.04 Calculus of gallbladder without cholecystitis without obstruction K80.20 Cholelithiasis location: gallbladder Cholecystitis presence: without cholecystitis Biliary obstruction: without biliary obstruction Pancreatic insufficiency K86.89 GERD (gastroesophageal reflux disease) K21.9
[2025-07-18 14:27] VITALS: BP 134/64; PULSE 62; O2SAT 97; BMI 34.9
--- OUTSIDE RECORDS SUMMARY | 2025-07-18 17:09 | XMS_ITS | Clinical Summary ---
Author Organization [facility] Address [address] [place] [address] Phone Care Team Providers Care Foreign Car Mechanic Name Role Phone Belen Simons MD Primary Care Provider [phone] Allergies Active Allergy Reactions Criticality Noted Date [...] Care Team Description 05/03/2025 Telephone General Surgery [facility] [address] [place] [address] Dru Childress, DO from Last 3 Months Surgical History Surgery Date Site/Laterality Comments BREAST LUMPECTOMY PROCEDURE: HISTORICAL BREAST LUMPECTOMY; COMMENT: benign OTHER SURGICAL HISTORY 06/13 PROCEDURE: MAMMOGRAM TONSILLECTOMY PROCEDURE: HISTORICAL TONSILLECTOMY APPENDECTOMY PROCEDURE: [place] APPENDECTOMY HYSTERECTOMY PROCEDURE: HISTORICAL HYSTERECTOMY; COMMENT: fibroids COLONOSCOPY 08/20/2008 PROCEDURE: [place] COLONOSCOPY FLX DX W/COLLJ SPEC WHEN PFRMD; [...] mmol/L LAB CHEMISTRY METHOD 03/29/2025 2:06 PM [facility] Potassium 3.7 3.5 - 5.5 mmol/L LAB CHEMISTRY METHOD 03/29/2025 2:06 PM [facility] Chloride 108 96 - 110 mmol/L LAB CHEMISTRY METHOD 03/29/2025 2:06 PM [facility] CO2 23 21 - 32 mmol/L LAB CHEMISTRY METHOD 03/29/2025 2:06 PM [facility] Anion Gap 7 3 - 11 LAB CHEMISTRY METHOD 03/29/2025 2:06 PM [facility] Glucose 85 70 - 100 mg/dL LAB CHEMISTRY METHOD 03/29/2025 2:06 PM [facility] BUN 10 5 - 25 mg/dL LAB CHEMISTRY METHOD 03/29/2025 2:06 PM [facility] Creatinine 0.47(L) 0.50 - 1.10 mg/dL LAB CHEMISTRY METHOD 03/29/2025 2:06 PM [facility] eGFR 101 >=60 mL/min/1. 73m2 LAB CHEMISTRY METHOD 03/29/2025 2:06 PM [facility] Comment:Calculation based on the Chronic Kidney Disease Epidemiology Collaboration (CKD-EPI) equation refit without adjustment for race. BUN/Creatinine Ratio 21.3 LAB CHEMISTRY METHOD 03/29/2025 2:06 PM [facility] Calcium 8.9 8.5 - 10.5 mg/dL LAB CHEMISTRY METHOD 03/29/2025 2:06 PM [facility] AST (SGOT) 21 10 - 42 unit/L LAB CHEMISTRY METHOD 03/29/2025 2:06 PM [facility] ALT (SGPT) 24 10 - 60 unit/L LAB CHEMISTRY METHOD 03/29/2025 2:06 PM [facility] Alkaline Phosphatase 65 42 - 121 unit/L LAB CHEMISTRY METHOD 03/29/2025 2:06 PM [facility] Total Protein 6.3 6.0 - 8.0 g/dL LAB CHEMISTRY METHOD 03/29/2025 2:06 PM [facility] Albumin 3.7 3.2 - 5.0 g/dL LAB CHEMISTRY METHOD 03/29/2025 2:06 PM [facility] Total Bilirubin 0.7 0.0 - 1.4 mg/dL LAB CHEMISTRY METHOD 03/29/2025 2:06 PM [facility] Blood Venous blood specimen / Unknown Venipuncture / Unknown 03/29/2025 1:24 PM EDT 03/29/2025 1:33 PM EDT us Romeo Kline MD LAB BLOOD ORDERABLES Final Result [facility] [address] [place] [address], from Last 3 Months or Most Recently Relevant to Health Maintenance Insurance MEDICAID - [place] MEDICARE Care Teams Foreign Car Mechanic Relationship Specialty Start Date End Date Belen Simons MD [address] [place] [address] PCP - General 10/31/09
--- OUTSIDE RECORDS SUMMARY | 2025-07-18 17:09 | XMS_ITS | Patient Health Record ---
Author Organization [facility] Address [address] [place] [address] Care Team Providers Care Metal Numerical Control Programmer Name Role Phone Gladys RAMIREZ, Kassandra Primary Care Provider Spencer Abebe Unavailable [phone] Allergies Allergen (clinical drug ingredient) Drug/Non Drug [...] Status W/U Status Risk Notes Problem Onychomycosis (196926732) Onychomycosis (110.1) Active confirmed Problem Disorder of joint of ankle and/or foot (365084785) Arthritis - Degenerative (719.97) Active confirmed Problem Hallux valgus (470536253) Hallux Valgus (735.0) Active confirmed Problem Hammer toe (323156071) Hammer toe (735.4) Active confirmed Problem Congenital pes planus (65361022) Flat Foot, Congenital (754.61) Active confirmed Problem Pain in limb (56174658) Pain in Limb (729.5) Active confirmed Plan Of Treatment No Information Insurance Providers Payer Name Payer Address Payer Phone Subscriber Number Group Number Insured Name Patient Relationship to Insured Coverage Start Date Coverage End Date Medicare National [employer] [address] [place] [address] [id number] Veronica Hebert Self - patient is the insured Medical (General) History Medical History History ICD Code Anxiety Arthritis Broken bones Psychiatric disorder Measles Joint implants/screws Surgical History Surgery Date(Month/Year) knee surgery
--- OUTSIDE RECORDS SUMMARY | 2025-07-18 17:09 | XMS_ITS | Clinical Summary ---
Author Organization [facility] Address [address] [place] [phone] Phone Care Team Providers Care Maintenance Equipment Operator Name Role Phone Belen Simons MD [...] patient's age to complete this topic IPV VACCINES Aged Out No longer eligi ble based on patient's age to complete this topic MENINGOCOCCAL VACCINES (ACWY) Aged Out No longer eligible based on patient's age to complete this topic MENINGOCOCCAL VACCINES (B) Aged Out N o longer eligible based on patient's age to complete this topic Medical Devices Not on file Insurance MEDICARE PART A & B [facility] MEDICARE PART A & B MEDICARE PART A & B MEDICARE PART A & B MEDICARE PART A & B [facility] MEDICARE PART A & B MEDICARE PART A & B [place] MED[place] PART A & B [facility] [id number] [place] [id number] MEDICARE PART A & B [facility] Care Teams Maintenance Equipment Operator Relationship Specialty Start Date End Date Belen Simons MD [address] [facility] [address] [address] [place] [address] PCP - General Internal Medicine 04/06/23 Additional Source Comments The information contained in this document represents components of the legal health record. It is not the complete legal health record.[facility]
--- OUTSIDE RECORDS SUMMARY | 2025-07-18 17:09 | XMS_ITS | Encounter Summary ---
Author Organization [facility] Address [address] [facility] [address] [place] [phone] Phone Care Team Providers Care Road Repairer Name Role Phone Belen Simons MD Primary Care Provider Encounter Details Date Type Department Care Team (Late st Contact Info) Description 05/07/2023 Procedure Pass OR Admitting Dept - Virtual Department [address] [place] [id number] Social History Tobacco Use Types Packs/Day Years [...] on filedocumented in this encounter Care Teams Road Repairer Relationship Specialty Start Date End Date Belen Simons MD [facility] [place] [address] PCP - General Internal Medicine 04/06/23 documented as of this encounter Additional Source Comments The information contained in this document represents components of the legal health record. It is not the complete legal health record.[facility]
== END 2025-07-18 15:07 | disposition home or self-care (01) ==
LOC: HO.HGI 13:58
PROVIDERS: PCP Internal Medicine; Visit Provider Nurse Practitioner
DX: D12.6 Benign neoplasm of colon, unspecified (principal); R19.04 Left lower quadrant abdominal swelling, mass and lump; K43.9 Ventral hernia without obstruction or gangrene; K59.04 Chronic idiopathic constipation; K80.20 Calculus of gallbladder without cholecystitis without obstruction; K86.89 Other specified diseases of pancreas; K21.9 Gastro-esophageal reflux disease without esophagitis
CPT/HCPCS: 99213

== ENCOUNTER → 2025-07-18 13:57 | Outpatient (BNVA) | payer MEDICARE, MEDICAID, SELFPAY | PROVIDERS: PCP Internal Medicine; Visit Provider Nurse Practitioner | DX: Z01.818 Encounter for other preprocedural examination (principal); K59.04 Chronic idiopathic constipation; K21.9 Gastro-esophageal reflux disease without esophagitis; K86.89 Other specified diseases of pancreas; R19.04 Left lower quadrant abdominal swelling, mass and lump; N81.6 Rectocele | CPT/HCPCS: 99212 ==

== ENCOUNTER 2025-08-14 09:25 | Outpatient (AMB) | payer MEDICARE, MEDICAID, SELFPAY ==
--- NOTE | 2025-08-14 09:45 | A.OFFVIS_ITS ---
Vital Signs 3 08/14/25 09:53 Height 5 ft 2 in Weight 187 lb BMI 34.2 BP 157/96 H Blood Pressure Location Lt brachial Position Sitting Pulse 76 Intake Visit Reasons: ventral hernia per PCP Intake Note: Patient is seen for evaluation of a ventral hernia repair. Pt c/o: per pt was seen by Dr Montgomery and was told has no hernia, went back to PCP and was told she does have one and is here for a second opinion, has increase pain, feels a lump big as an orange pain LLQ, admits to nausea, constipation-bm every 3/4 days seen Ulises:05/23/25 CT:05/11/25 Customer Support Manager Required: No Accompanied by: Self / Same As Patient Allergies cephalexin Allergy (Severe, Verified 08/14/25 09:52) Swelling aged foods Allergy (Unknown, Verified 08/14/25 09:52) rash bee pollen (Bee Stings) Allergy (Unknown, Verified 08/14/25 09:52) SWELLING bees Allergy (Unknown, Verified 08/14/25 09:52) anaphylaxis gabapentin (Neurontin) Allergy (Unknown, Verified 08/14/25 09:52) hematurea latex (LATEX) Allergy (Unknown, Verified 08/14/25 09:52) RASH risperidone (From Risperdal) Allergy (Unknown, Verified 08/14/25 09:52) LUMPS ON ABDOMEN- SUPERFICIAL PHLEBITIS, painful lumps of abdomen white composit dental filling Allergy (Unknown, Verified 08/14/25 09:52) hives lactose Adverse Reaction (Mild, Verified 08/14/25 09:52) Unknown tramadol (TRAMADOL) Adverse Reaction (Mild, Verified 08/14/25 09:52) nausea/vomiting divalproex sodium (From Depakote) Adverse Reaction (Unknown, Verified 08/14/25 09:52) LOW DOSE AND SLOW RELEASE CAUSES STELLA Iodinated Contrast Media (IV Dye, Iodine Containing) Adverse Reaction (Unknown, Verified 08/14/25 09:52) DEHYDRATED, TWITCHING niacin (Niacin) Adverse Reaction (Unknown, Verified 08/14/25 09:52) TURNS RED olanzapine (From Zyprexa) Adverse Reaction (Unknown, Verified 08/14/25 09:52) BLOOD IN URINE yeast, dried (yeast) Adverse Reaction (Unknown, Verified 08/14/25 09:52) WHITE COATING ON TONGUE WHITE BREAD Allergy (Mild, Uncoded 08/14/25 09:52) DIFF SWALLOWING wheath Adverse Reaction (Mild, Uncoded 08/14/25 09:52) Unknown HPI Comments Details: The patient is a 75 year old female presenting for evaluation of a hernia. She reports a bulge in her left lower quadrant that appears when she stands up and can be as large as an orange, but it reduces when she lies down. A prior ultrasound performed while standing showed the hernia, but a subsequent consultation concluded there was nothing there because it disappears when supine. Associated symptoms include pain, a sensation of the skin stretching and tearing, and audible squishing noises, particularly after eating fruits or vegetables. She states massaging the lump toward her hip can make it smaller and alleviate the pain. She also experiences nausea, dizziness, feeling hot, and significant postprandial somnolence, where she can sleep for 3-4 hours after eating. Since the onset of the hernia, she has had five urinary tract infections and is currently on antibiotics for one. She describes a sensation of her bladder being pulled when she urinates. She also reports that her Linzess medication has become ineffective, sometimes taking up to three days to produce a bowel movement, which she feels is related to a blockage from the hernia. 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 She has a known allergy to latex and another unspecified medication which caused severe hives, but has no allergy to penicillin or sulfa drugs. She reports having poor balance. [facility] Medical History Recurrent UTI Microhematuria Vertigo Cholelithiasis Ventral hernia Candidiasis of mouth and esophagus Hearing impairment Basal cell carcinoma of face Mastoiditis Retention cyst of nasal sinus Acquired hammer toe of left foot Neck pain on left side Osteopenia of multiple sites Hiatal hernia with GERD Bipolar disorder Bunion of great toe of left foot Pain around toenail, left foot Cellulitis of toe of right foot Surgical History History of total knee arthroplasty History of esophagogastroduodenoscopy (EGD) H/O colonoscopy History of bladder surgery Fibroadenoma of right breast History of knee replacement procedure of right knee History of total abdominal hysterectomy and bilateral salpingo-oophorectomy History of appendectomy History of tonsillectomy Family History Father Emphysema, unspecified CVD (cardiovascular disease) Mother CVD (cardiovascular disease) Brother Lung cancer Bone cancer Brother Cancer of prostate Daughter No problems noted. Brother No problems noted. Brother No problems noted. Brother No problems noted. Social History Household Members: None Housing: Apartment Alcohol intake: current Alcohol intake frequency: does not drink Patient Tobacco Use Status: Never used Tobacco e-Cigarette/Vaping Use: Never Used Advance Directives Date on File: 11/14/22 service: No Current occupational status: retired Cognitive needs: No Hearing needs: No Vision needs: No Review of Systems Narrative - Constitutional: Reports feeling hot sometimes and significant postprandial somnolence. - Gastrointestinal: Reports a reducible left lower quadrant mass that can be as large as an orange. - Reports associated pain, a sensation of skin stretching and tearing, and audible bowel sounds from the mass. - Reports nausea and constipation, with decreased efficacy of Linzess. - Reports symptoms are exacerbated by eating vegetables and fruit. - Genitourinary: Reports five episodes of urinary tract infections since the hernia started, and has a current UTI. - Reports dysuria described as a sensation of the bladder being pulled out. - Neurological: Reports dizziness and poor balance. - Skin: Denies current rash but reports a history of severe hives from a medication. Physical Exam Vital Signs: Last Vital Signs Pulse 76 08/14/25 09:53 BP 157/96 H 08/14/25 09:53 BMI result Body Mass Index 34.2 Const General: cooperative and no acute distress Nutritional Appearance: well nourished Orientation/consciousness: patient oriented x3 Limitations: no limitations and ambulation with walker HEENT Head: Yes normocephalic and Yes atraumatic Ears: hearing grossly normal bilaterally Resp Effort & Inspection: normal respiratory effort, no audible wheezes, no cough and no respiratory distress Cardio Jugular venous distension: no JVD GI Other: Lump in the left groin is felt in the standing position noted to increase in size with Valsalva maneuvers. Lump reduces with light pressure and when in the supine position. There is tenderness to palpation of the left groin. No palpable umbilical hernias noted. Inspection: Yes normal to inspection and Yes Abdominal panniculus present Palpation (GI): Soft to palpation, Tenderness to palpation present (GI) in the LLQ and Hernia present (Left groin adjacent to the Pfannenstiel incision, possible spigelian hernia) Percussion: Yes normal to percussion Auscultation: normal bowel sounds Rectal Exam - Female: deferred Abdomen image: 2 1. Site of palpable lump left groin Skin Other: Warm, dry, no rash Neuro General: patient oriented x3 Extrem General: Yes no clubbing, cyanosis or edema Assessment & Plan Assessment & Plan (1) Spigelian hernia: Code(s): K43.9 - Ventral hernia without obstruction or gangrene Category: Medical Plan 75-year-old female patient with complaints of persistent pain in the left groin with a palpable lump. The lump seems to be increasing in size and causing more discomfort as well as resulting in urinary symptoms as well. There has been difficulty in imaging this lump however on examination she clearly has a palpable lump which increases in size with Valsalva maneuvers but reduces with pressure and while in the supine position. There was also gurgling sounds with palpation suggestive of bowel sounds. Findings are suggestive of a spigelian hernia. I recommended repair of this reducible left spigelian hernia with mesh and after discussion of the procedure, risks, and alternatives, she consents to the surgery. This will be performed as a short-stay admit. Orders: Referrals 2 General Surgery Procedure Notification K43.9 - Ventral hernia without obstruction or gangrene Coding Level of Care Code New Pt Level 4 (30723) Diagnoses Spigelian hernia K43.9
[2025-08-14 09:53] VITALS: BP 157/96; PULSE 76; BMI 34.2
== END 2025-08-14 10:15 | disposition home or self-care (01) ==
LOC: HO.HGS 09:25
PROVIDERS: PCP Internal Medicine; Visit Provider Surgery
DX: K43.9 Ventral hernia without obstruction or gangrene (principal)
CPT/HCPCS: 99204

== ENCOUNTER → 2025-08-14 09:25 | Outpatient (BNVA) | payer MEDICARE, MEDICAID, SELFPAY | PROVIDERS: PCP Internal Medicine; Visit Provider Surgery | DX: K43.9 Ventral hernia without obstruction or gangrene (principal) | CPT/HCPCS: 99202 ==

== ENCOUNTER 2025-08-29 07:31 | Day surgery (SDC) | payer MEDICARE, MEDICAID, SELFPAY ==
--- OUTSIDE RECORDS SUMMARY | 2025-08-17 16:20 | XMS_ITS | Patient Health Record ---
[facility] Organization [facility] Address [address] [place] [address] Care Team Providers Care Bezel Cutter Name Role Phone Gladys RAMIREZ, Kassandra Primary Care Provider Spencer Abebe Unavailable [phone] Allergies Allergen (clinical drug ingredient) Drug/Non Drug [...] Status W/U Status Risk Notes Problem Onychomycosis (667957704) Onychomycosis (110.1) Active confirmed Problem Disorder of joint of ankle and/or foot (296116577) Arthritis - Degenerative (719.97) Active confirmed Problem Hallux valgus (164127113) Hallux Valgus (735.0) Active confirmed Problem Hammer toe (312577142) Hammer toe (735.4) Active confirmed Problem Congenital pes planus (96406655) Flat Foot, Congenital (754.61) Active confirmed Problem Pain in limb (88722387) Pain in Limb (729.5) Active confirmed Plan Of Treatment No Information Insurance Providers Payer Name Payer Address Payer Phone Subscriber Number Group Number Insured Name Patient Relationship to Insured Coverage Start Date Coverage End Date Medicare National [employer] [address] [place] [address] [id number] Veronica Hebert Self - patient is the insured Medical (General) History Medical History History ICD Code Anxiety Arthritis Broken bones Psychiatric disorder Measles Joint implants/screws Surgical History Surgery Date(Month/Year) knee surgery
--- OUTSIDE RECORDS SUMMARY | 2025-08-17 16:20 | XMS_ITS | Clinical Summary ---
Author Organization [facility] Address [address] [place] [address] Phone Care Team Providers Care General Adjuster Name Role Phone Belen Simons MD Primary Care Provider [phone] Allergies Active Allergy Reactions Criticality Noted Date [...] Do not crush, chew, or split. Active Surgical History Surgery Date Site/Laterality Comments BREAST LUMPECTOMY PROCEDURE: HISTORICAL BREAST LUMPECTOMY; COMMENT: benign OTHER SURGICAL HISTORY 06/13 PROCEDURE: MAMMOGRAM TONSILLECTOMY PROCEDURE: HISTORICAL TONSILLECTOMY APPENDECTOMY PROCEDURE: UT APPENDECTOMY HYSTERECTOMY PROCEDURE: HISTORICAL HYSTERECTOMY; COMMENT: fibroids COLONOSCOPY 08/20/2008 PROCEDURE: UT COLONOSCOPY FLX DX W/COLLJ SPEC WHEN PFRMD; [...] mmol/L LAB CHEMISTRY METHOD 03/29/2025 2:06 PM [facility] Potassium 3.7 3.5 - 5.5 mmol/L LAB CHEMISTRY METHOD 03/29/2025 2:06 PM [facility] Chloride 108 96 - 110 mmol/L LAB CHEMISTRY METHOD 03/29/2025 2:06 PM [facility] CO2 23 21 - 32 mmol/L LAB CHEMISTRY METHOD 03/29/2025 2:06 PM [facility] Anion Gap 7 3 - 11 LAB CHEMISTRY METHOD 03/29/2025 2:06 PM [facility] Glucose 85 70 - 100 mg/dL LAB CHEMISTRY METHOD 03/29/2025 2:06 PM [facility] BUN 10 5 - 25 mg/dL LAB CHEMISTRY METHOD 03/29/2025 2:06 PM [facility] Creatinine 0.47(L) 0.50 - 1.10 mg/dL LAB CHEMISTRY METHOD 03/29/2025 2:06 PM [facility] eGFR 101 >=60 mL/min/1. 73m2 LAB CHEMISTRY METHOD 03/29/2025 2:06 PM [facility] Comment:Calculation based on the Chronic Kidney Disease Epidemiology Collaboration (CKD-EPI) equation refit without adjustment for race. BUN/Creatinine Ratio 21.3 LAB CHEMISTRY METHOD 03/29/2025 2:06 PM [facility] Calcium 8.9 8.5 - 10.5 mg/dL LAB CHEMISTRY METHOD 03/29/2025 2:06 PM EDT [facility] AST (SGOT) 21 10 - 42 unit/L LAB CHEMISTRY METHOD 03/29/2025 2:06 PM [facility] ALT (SGPT) 24 10 - 60 unit/L LAB CHEMISTRY METHOD 03/29/2025 2:06 PM EDT [facility] Alkaline Phosphatase 65 42 - 121 unit/L LAB CHEMISTRY METHOD 03/29/2025 2:06 PM EDT [facility] Total Protein 6.3 6.0 - 8.0 g/dL LAB CHEMISTRY METHOD 03/29/2025 2:06 PM EDT [facility] Albumin 3.7 3.2 - 5.0 g/dL LAB CHEMISTRY METHOD 03/29/2025 2:06 PM T [facility] Total Bilirubin 0.7 0.0 - 1.4 mg/dL LAB CHEMISTRY METHOD 03/29/2025 2:06 PM T [facility] Blood Venous blood specimen / Unknown Venipuncture / Unknown 03/29/2025 1:24 PM EDT 03/29/2025 1:33 PM EDT Romeo Kline MD LAB BLOOD ORDERABLES Final Result [facility] [address] [place] [address], from Last 3 Months or Most Recently Relevant to Health Maintenance Insurance MEDICAID - [place] MEDICARE Care Teams General Adjuster Relationship Specialty Start Date End Date Belen Simons MD [address] [place] [address] PCP - General 10/31/09
--- NOTE | 2025-08-24 14:11 | P.CONAN_ITS ---
Documented by User: Tonia Asher NP 08/24/25 14:12 HPI - Anesthesia Eval Consult details Narrative: 75yo F for Repair Spigelian Hernia Reducible with 4 cm mesh s/p colonoscopy 05/2025 with [facility] Active Problems Active Problems: All Active Problems Spigelian hernia (Acute) Tubular adenoma of colon (Acute) Recurrent UTI (Acute) Microhematuria (Acute) Pre-op examination (Acute) Left lower quadrant abdominal swelling, mass and lump (Acute) Itching (Acute) Status post hemorrhoidectomy (Acute) Thrombosed hemorrhoids (Acute) Gait disorder (Acute) Osteoarthritis of left knee (Acute) GERD (gastroesophageal reflux disease) (Acute) Pancreatic insufficiency (Acute) Rectocele (Acute) Chronic idiopathic constipation (Acute) Cholelithiasis (Acute) Ventral hernia (Acute) Hearing impairment (Acute) Basal cell carcinoma of face (Acute) Osteopenia of multiple sites (Acute) Bipolar disorder (Acute) Past Medical History Medical History Recurrent UTI Microhematuria Vertigo Cholelithiasis Ventral hernia Candidiasis of mouth and esophagus Hearing impairment Basal cell carcinoma of face Mastoiditis Retention cyst of nasal sinus Acquired hammer toe of left foot Neck pain on left side Osteopenia of multiple sites Hiatal hernia with GERD Bipolar disorder Bunion of great toe of left foot Pain around toenail, left foot Cellulitis of toe of right foot Family History Family History Father Emphysema, unspecified CVD (cardiovascular disease) Mother CVD (cardiovascular disease) Brother Lung cancer Bone cancer Brother Cancer of prostate Daughter No problems noted. Brother No problems noted. Brother No problems noted. Brother No problems noted. Family history of problems with anesthesia: No Surgical History Surgical History History of total knee arthroplasty History of esophagogastroduodenoscopy (EGD) H/O colonoscopy History of bladder surgery Fibroadenoma of right breast History of knee replacement procedure of right knee History of total abdominal hysterectomy and bilateral salpingo-oophorectomy History of appendectomy History of tonsillectomy History of Problems with Anesthesia: No Social History Social History Household Members: None Housing: Apartment Are you a primary personal care home administrator to a significant other at home: No Do you presently have visiting nurse or other home services: No Alcohol intake: current Alcohol intake frequency: does not drink Patient Tobacco Use Status: Never used Tobacco e-Cigarette/Vaping Use: Never Used Have you been hit, kicked, punched, or otherwise hurt by someone within the past year? If so, by whom?: No Are you DNR?: No Advance Directives: No Advance Directives Information Provided: Yes Advance Directives Date on File: 11/14/22 service: No Current occupational status: retired Cognitive needs: No Hearing needs: No Vision needs: No Meds Allergies Allergy/AdvReac Type Severity Reaction Status Date / Time cephalexin Allergy Severe Swelling Verified 08/29/25 08:04 aged foods Allergy Unknown rash Verified 08/29/25 08:04 bee pollen (Bee Stings) Allergy Unknown SWELLING Verified 08/29/25 08:04 bees Allergy Unknown anaphylaxis Verified 08/29/25 08:04 gabapentin (Neurontin) Allergy Unknown hematurea Verified 08/29/25 08:04 latex (LATEX) Allergy Unknown RASH Verified 08/29/25 08:04 risperidone (From Risperdal) Allergy Unknown LUMPS ON Verified 08/29/25 08:04 ABDOMEN- SUPERFICIAL PHLEBITIS, painful lumps of abdomen white composit dental filling Allergy Unknown hives Verified 08/29/25 08:04 Latex, Natural Rubber Allergy Blister Verified 08/29/25 08:05 lactose AdvReac Mild Unknown Verified 08/29/25 08:04 tramadol (TRAMADOL) AdvReac Mild nausea/vomi Verified 08/29/25 08:04 ting divalproex sodium (From AdvReac Unknown LOW DOSE Verified 08/29/25 08:04 Depakote) AND SLOW RELEASE CAUSES STELLA Iodinated Contrast Media (IV AdvReac Unknown DEHYDRATED, Verified 08/29/25 08:04 Dye, Iodine Containing) TWITCHING niacin (Niacin) AdvReac Unknown TURNS RED Verified 08/29/25 08:04 olanzapine (From Zyprexa) AdvReac Unknown BLOOD IN Verified 08/29/25 08:04 URINE yeast, dried (yeast) AdvReac Unknown WHITE Verified 08/29/25 08:04 COATING ON TONGUE WHITE BREAD Allergy Mild DIFF Uncoded 08/29/25 08:04 SWALLOWING wheath AdvReac Mild Unknown Uncoded 08/29/25 08:04 Exam Narrative Narrative: EKG 07/2024 Vent. Rate : 061 BPM Atrial Rate : 061 BPM P-R Int : 152 ms QRS Dur : 084 ms QT Int : 440 ms P-R-T Axes : 035 007 021 degrees QTc Int : 442 ms Poor data quality, interpretation may be adversely affected Normal sinus rhythm Normal ECG When compared with ECG of 12-NOV-2017 13:43, Vent. rate has decreased BY 31 BPM Criteria for Inferior infarct are no longer Present T wave inversion less evident in Inferior leads Assessment and Plan Assessment Anesthesia Assessment: Chart Reviewed Final Anesthetic Review Family History of Problems with Anesthesia: No History of Problems with Anesthesia: No Documented by User: Sandie Orona MD 08/29/25 08:05 [facility] Past Medical History Medical History Recurrent UTI Microhematuria Vertigo Cholelithiasis Ventral hernia Candidiasis of mouth and esophagus Hearing impairment Basal cell carcinoma of face Mastoiditis Retention cyst of nasal sinus Acquired hammer toe of left foot Neck pain on left side Osteopenia of multiple sites Hiatal hernia with GERD Bipolar disorder Bunion of great toe of left foot Pain around toenail, left foot Cellulitis of toe of right foot Family History Family History Father Emphysema, unspecified CVD (cardiovascular disease) Mother CVD (cardiovascular disease) Brother Lung cancer Bone cancer Brother Cancer of prostate Daughter No problems noted. Brother No problems noted. Brother No problems noted. Brother No problems noted. Surgical History Surgical History History of total knee arthroplasty History of esophagogastroduodenoscopy (EGD) H/O colonoscopy History of bladder surgery Fibroadenoma of right breast History of knee replacement procedure of right knee History of total abdominal hysterectomy and bilateral salpingo-oophorectomy History of appendectomy History of tonsillectomy Social History Social History Household Members: None Housing: Apartment Are you a primary personal care home administrator to a significant other at home: No Do you presently have visiting nurse or other home services: No Alcohol intake: current Alcohol intake frequency: does not drink Patient Tobacco Use Status: Never used Tobacco e-Cigarette/Vaping Use: Never Used Have you been hit, kicked, punched, or otherwise hurt by someone within the past year? If so, by whom?: No Are you DNR?: No Advance Directives: No Advance Directives Information Provided: Yes Advance Directives Date on File: 11/14/22 service: No Current occupational status: retired Cognitive needs: No Hearing needs: No Vision needs: No Meds Allergies Allergy/AdvReac Type Severity Reaction Status Date / Time cephalexin Allergy Severe Swelling Verified 08/29/25 08:04 aged foods Allergy Unknown rash Verified 08/29/25 08:04 bee pollen (Bee Stings) Allergy Unknown SWELLING Verified 08/29/25 08:04 bees Allergy Unknown anaphylaxis Verified 08/29/25 08:04 gabapentin (Neurontin) Allergy Unknown hematurea Verified 08/29/25 08:04 latex (LATEX) Allergy Unknown RASH Verified 08/29/25 08:04 risperidone (From Risperdal) Allergy Unknown LUMPS ON Verified 08/29/25 08:04 ABDOMEN- SUPERFICIAL PHLEBITIS, painful lumps of abdomen white composit dental filling Allergy Unknown hives Verified 08/29/25 08:04 Latex, Natural Rubber Allergy Blister Verified 08/29/25 08:05 lactose AdvReac Mild Unknown Verified 08/29/25 08:04 tramadol (TRAMADOL) AdvReac Mild nausea/vomi Verified 08/29/25 08:04 ting divalproex sodium (From AdvReac Unknown LOW DOSE Verified 08/29/25 08:04 Depakote) AND SLOW RELEASE CAUSES STELLA Iodinated Contrast Media (IV AdvReac Unknown DEHYDRATED, Verified 08/29/25 08:04 Dye, Iodine Containing) TWITCHING niacin (Niacin) AdvReac Unknown TURNS RED Verified 08/29/25 08:04 olanzapine (From Zyprexa) AdvReac Unknown BLOOD IN Verified 08/29/25 08:04 URINE yeast, dried (yeast) AdvReac Unknown WHITE Verified 08/29/25 08:04 COATING ON TONGUE WHITE BREAD Allergy Mild DIFF Uncoded 08/29/25 08:04 SWALLOWING wheath AdvReac Mild Unknown Uncoded 08/29/25 08:04 Exam Airway Mallampati Class: III TM Dist: <=3cm Neck ROM: Limited Heart: rrr Lungs: cta Assessment and Plan Assessment Anesthesia Assessment: Anesthesia Plan Discussed Final Anesthetic Review NPO: Yes ASA Class: III Final Preanesthetic Review: No Changes in Pt Med Stat, Meds/Allgs Chart Reviewed, Consent Obtained/Reviewed and Anes Risks/Benef Reviewed Patient Risk: Intermediate Procedure Risk: Intermediate Anesthetic Plan Anesthetic Plan: GA and Agree w/ Assess. and Plan Disposition: Standard PACU
[2025-08-27 09:16] VITALS: BMI 34.2
[2025-08-29 07:36] VITALS: BMI 34.6
[2025-08-29] MEDS: Lactated Ringers 1,000 ML 100 ML IVCONT (07:54)
[2025-08-29 08:02] VITALS: BP 146/87; PULSE 75; RESP 18; TEMP 36.7; O2SAT 97
--- NOTE | 2025-08-29 08:41 | MHC.SHP ---
Pre-Procedural Eval Section A - 24 Hr Update-Section A only Date of Service: 08/29/25 The patient is an INPATIENT: No Changes since office visit: Yes Patient answered all questions; No Cold of Flu in the past 2 weeks, No New Medical Problems and No Changes in Medication The patient has been examined within 24 hours of the surgical procedure. The History & Physical has been completed within 30 days and I have reviewed it.: Yes Section B - Complete if H&P > 30 days Chief Complaint: Ventral hernia without obstruction or gangrene Allergies: Allergies Allergy/AdvReac Type Severity Reaction Status Date / Time cephalexin Allergy Severe Swelling Verified 08/29/25 08:04 aged foods Allergy Unknown rash Verified 08/29/25 08:04 bee pollen (Bee Stings) Allergy Unknown SWELLING Verified 08/29/25 08:04 bees Allergy Unknown anaphylaxis Verified 08/29/25 08:04 gabapentin (Neurontin) Allergy Unknown hematurea Verified 08/29/25 08:04 latex (LATEX) Allergy Unknown RASH Verified 08/29/25 08:04 risperidone (From Risperdal) Allergy Unknown LUMPS ON Verified 08/29/25 08:04 ABDOMEN- SUPERFICIAL PHLEBITIS, painful lumps of abdomen white composit dental filling Allergy Unknown hives Verified 08/29/25 08:04 Latex, Natural Rubber Allergy Blister Verified 08/29/25 08:05 lactose AdvReac Mild Unknown Verified 08/29/25 08:04 tramadol (TRAMADOL) AdvReac Mild nausea/vomi Verified 08/29/25 08:04 ting divalproex sodium (From AdvReac Unknown LOW DOSE Verified 08/29/25 08:04 Depakote) AND SLOW RELEASE CAUSES STELLA Iodinated Contrast Media (IV AdvReac Unknown DEHYDRATED, Verified 08/29/25 08:04 Dye, Iodine Containing) TWITCHING niacin (Niacin) AdvReac Unknown TURNS RED Verified 08/29/25 08:04 olanzapine (From Zyprexa) AdvReac Unknown BLOOD IN Verified 08/29/25 08:04 URINE yeast, dried (yeast) AdvReac Unknown WHITE Verified 08/29/25 08:04 COATING ON TONGUE WHITE BREAD Allergy Mild DIFF Uncoded 08/29/25 08:04 SWALLOWING wheath AdvReac Mild Unknown Uncoded 08/29/25 08:04 Plan Diagnosis/Plan: Unchanged I have reviewed the history and physical and performed a pertinent physical examination on my patient. No changes have occurred unless specified. Time Spent With Patient Time: Total time managing care of this patient today ____ minutes.
--- NOTE | 2025-08-29 10:01 | PC.NURSE ---
Vancomycin scanned at [address] Phillips arrived at bedside. Decision was made at this time by physician that patient would be going into OR, as scheduled, as the third case not earlier as previously thought. Vancomycin started at 0915, will finish in OR.
--- NOTE | 2025-08-29 10:53 | P.OP_ITS ---
Operative Note Operative Note Date of Service: 08/29/25 Narrative: Preoperative diagnosis: Spigelian hernia left lower quadrant Postoperative diagnosis: Same Procedure: Repair of spigelian hernia left lower quadrant (4 cm) Surgeon: Jonathan Phillips MD Tube Coverer: Lucia Chowdhury PA-C; Anesthesia: General endotracheal Indications for procedure: 75-year-old female patient presenting with a complaint of pain and a palpable lump in the left lower quadrant found on examination to have a reducible lump while in the standing position. CT abdomen and pelvis did not show an area of weakness however on examination there clearly is a palpable lump noted with Valsalva maneuvers. This has suggestive of a spigelian hernia. Operative findings: Area of weakness noted lateral to the rectus muscle with a wide space between the oblique muscle bellies consistent with a spigelian hernia left lower quadrant. Specimen: None Estimated blood loss: 2 mL Complications: None Procedure details: Patient was brought to the OR and placed in a supine position. After administering general anesthesia the patient's abdomen was prepped with ChloraPrep and draped in a sterile fashion. A surgical time-out was called the consent confirmed. Patient received preoperative antibiotics and Venodyne boots were in place. Local anesthesia was then infiltrated over the palpable lump in the left lower quadrant which was previously marked while the patient was in the standing position. An oblique incision was then made with a scalpel and carried out through subcutaneous tissue, past Lorena's fashion up to the external oblique aponeurosis. This was incised and a wide space identified with weakness suggestive of a spigelian hernia. Space was further defined in the internal aponeurosis . The internal aponeurosis was then approximated to the anterior rectus sheath medially using plicating 1 Tycron sutures to close the space. A 6.4 cm Ventralex mesh was then placed over the internal oblique aponeurosis and muscle and secured circumferentially to the external oblique aponeurosis using 1 Tycron sutures. External oblique aponeurosis was then closed using a running 1 Tycron suture. Approximately 6 mL of Zenrelef was then instilled below the aponeurosis and the fascia closed completely. Wounds were then irrigated with saline solution and suctioned dry. Lorena's fascia was reapproximated using interrupted 3-0 Polysorb sutures. Dermis was reapproximated using interrupted 3-0 Polysorb sutures. Skin was then closed using a running subcuticular 4-0 Polysorb suture. Steri-Strips, 4 x 4 gauze and Tegaderm were then applied. The patient tolerated the procedure well. Sponge, instrument, and needle counts reported as correct. The patient was transferred to PACU in stable condition.
[2025-08-29 11:06] VITALS: BP 137/77; PULSE 109; RESP 18; TEMP 36.2; O2SAT 98
[2025-08-29 11:10] VITALS: BP 133/69; PULSE 110; RESP 18; O2SAT 95
[2025-08-29 11:15] VITALS: BP 128/68; PULSE 90; RESP 16; O2SAT 95
[2025-08-29 11:20] VITALS: BP 117/72; PULSE 80; RESP 16; O2SAT 96
[2025-08-29 11:33] VITALS: BP 121/68; PULSE 72; RESP 10; TEMP 36.1; O2SAT 95
== END 2025-08-29 12:18 | disposition home or self-care (01) ==
PROVIDERS: PCP Internal Medicine; Visit Provider Surgery
PROC: (CPT 49593; principal; 2025-08-29 10:30)
DX: K43.9 Ventral hernia without obstruction or gangrene (principal); R10.32 Left lower quadrant pain; K59.00 Constipation, unspecified; K21.9 Gastro-esophageal reflux disease without esophagitis; R11.0 Nausea; N39.0 Urinary tract infection, site not specified; R42 Dizziness and giddiness; Z79.899 Other long term (current) drug therapy; Z88.1 Allergy status to other antibiotic agents; Z88.5 Allergy status to narcotic agent; Z91.030 Bee allergy status; Z91.040 Latex allergy status; Z91.041 Radiographic dye allergy status; Z91.018 Allergy to other foods; Z91.048 Other nonmedicinal substance allergy status; Z90.710 Acquired absence of both cervix and uterus; Z98.890 Other specified postprocedural states
CPT/HCPCS: 49593; C1781; J0668; J1100; J1596; J2003; J2250; J2405; J2704; J3010; J3374

== ENCOUNTER → 2025-08-29 07:31 | Outpatient (BNV) | payer MEDICARE, MEDICAID, SELFPAY | PROVIDERS: PCP Internal Medicine; Visit Provider Surgery | DX: K43.6 Other and unspecified ventral hernia with obstruction, without gangrene (principal) | CPT/HCPCS: 49593 ==